=== PATIENT | male | born 1945 | race Caucasian/White ===

== ENCOUNTER 2020-12-15 16:29 | Inpatient (IN) | payer OTHER, MEDICARE, SELFPAY ==
[2020-12-15] VITALS (31 sets, daily range): BP systolic 84–168; BP diastolic 57–97; PULSE 65–138; RESP 19–26; TEMP 36.7–36.9; O2SAT 81–100; BMI 36.1
--- NOTE | 2020-12-15 17:25 | ECG_ITS ---
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 Measurements Intervals [place] Rate: 129 P: 29 DE: 96 QRS: 62 QRSD: 86 T: 155 QT: 289 QTc: 424 Interpretive Statements SINUS TACHYCARDIA WITH SHORT DE INTERVAL NONSPECIFIC ST & T-WAVE ABNORMALITY Compared to ECG 07/08/2017 00:50:49 T-wave abnormality now present Electronically Signed On 12-16-2020 17:43:21 CDT by Brendan Drake M.D. [email or web address]
--- NOTE | 2020-12-15 17:25 | XRR_ITS ---
PROCEDURE INFORMATION: Exam: XR Chest Exam date and time: 12/15/2020 5:25 PM Age: 75 years old Clinical indication: Cough and shortness of breath; Patient HX: N/v, SOB, cough, loss of appetite x 9days; Additional info: Hypoxia TECHNIQUE: Imaging protocol: XR of the chest. Views: 1 view. COMPARISON: CR Chest 1 [place] [id number] 07/07/2017 5:22 PM FINDINGS: Lungs: Unremarkable. No consolidation. Pleural spaces: Unremarkable. No pleural effusion. No pneumothorax. Heart/Mediastinum: Unremarkable. No cardiomegaly. Bones/joints: Unremarkable. XR/XR chest 1V portable [id number] IMPRESSION: No acute findings.
--- NOTE | 2020-12-15 17:34 | W.ED.GENADLT ---
Documented by User: Benjamin Hernandez DO 12/17/20 07:05 HPI - General Adult General: Chief complaint: General Medical Stated complaint: N/V, loss of appetite. Time Seen by Provider: 12/15/20 17:24 History of Present Illness: HPI narrative: 75-year-old male presents emergency room with complaints of shortness of breath nausea and vomiting and diarrhea. The onset of all this was about 10 to 12 days ago he had severe diarrhea that was persistent to the point where he felt like there really was nothing left to evacuate from his bowels now he began to have increasing weakness and shortness of breath. He has not previously been known to have Covid nor is he had any vaccination he is a regular smoker he has history of hypertension but does not have any history of heart disease.Patient presents severely hypoxic with respiratory rate of 24 O2 sat of 81% on room air. On 4 L/min he improved significantly up in the upper 90s. Onset (ago): day(s) (04-13) Severity: severe Relieving factors: rest Exacerbating factors: eating and movement Associated symptoms: Reports cough, diaphoresis, decreased appetite, dyspnea, fevers/chills, malaise, nausea, palpitations, short of breath and weakness; Deny chest pain, confusion, headache(s), rash, seizures, syncope or vomiting Treatments prior to arrival: none Review of Systems Const: Reports: malaise and diaphoresis ENMT: Denies: throat pain, ear or mastoid pain, nasal discharge or nasal congestion Card: Reports: palpitations; Denies: chest pain or syncope Resp: Reports: dyspnea GI: Reports: nausea; Denies: vomiting : Denies: flank pain, dysuria, urinary frequency or urinary urgency Skin/Breast: Denies: rash Neuro: Denies: headache(s) or confusion PFSH ED PFSH: Medical History (Updated 12/16/20 @ 03:18 by Abraham Mckeon MD) Chronic steroid use COPD (chronic obstructive pulmonary disease) DVT (deep venous thrombosis) Hyperlipidemia Hypertension Rheumatoid aortitis Tobacco abuse Surgical History (Updated 12/16/20 @ 03:18 by Abraham Mckeon MD) No pertinent past surgical history Social History (Updated 12/16/20 @ 03:19 by Abraham Mckeon MD) Smoking and tobacco status: current every day smoker Alcohol intake: never Substance/Drug Use: never Physical Exam Const: COMMON NORMALS: no acute distress GENERAL APPEARANCE: cooperative and comfortable ORIENTATION/CONSCIOUSNESS: Yes awake, Yes oriented to person, Yes oriented to place and Yes oriented to time HENMT: COMMON NORMALS: normocephalic, atraumatic, hearing grossly normal bilaterally and external ears normal HEAD & SCALP: normocephalic and atraumatic EXTERNAL EAR: Yes external ears normal Neck/C-Spine: COMMON NORMALS: no JVD Resp: AUSCULTATION: crackles, wheezes and diminished lung sounds Cardio: COMMON NORMALS: no JVD, regular rate, regular rhythm and No murmurs present (Cardio) RATE: regular rate RHYTHM: regular rhythm GI: COMMON NORMALS: Soft to palpation and No hepatosplenomegaly present AUSCULTATION: Yes normoactive bowel sounds PALPATION: Yes Soft to palpation, No Tenderness to palpation present (GI), No Guarding due to palpation present (GI) and Yes No hepatosplenomegaly present Extremity: COMMON NORMALS: normal to inspection, capillary refill normal, no clubbing, cyanosis or edema, no calf tenderness and no pedal edema Neuro: SENSORIUM/ORIENTATION: Yes oriented to person, Yes oriented to place and Yes oriented to time Skin: COMMON NORMALS: no rashes or lesions noted GENERAL SKIN EXAM: no rashes or lesions noted Course Vital Signs: Vital signs: Vital Signs Temperature 97.8 F 12/17/20 00:00 Pulse Rate 89 12/17/20 06:00 Respiratory Rate 20 H 12/17/20 02:30 Blood Pressure 119/58 12/17/20 04:00 Pulse Oximetry 93 12/17/20 04:00 MDM - General Adult MDM Narrative: Medical decision making narrative: Care initiated by myself none turned over to Dr. Schaefer at change of shift see his notes for final diagnosis and disposition Lab Data: Labs: Lab Results 12/15/20 12/15/20 12/15/20 Range/Units 17:56 18:04 18:04 WBC 10.7 H (4.0-10.0) 10^3/ uL RBC 5.10 (4.1-5.3) 10^6/u L Hgb 14.8 (11.7-16.6) g/dL Hct 46.5 (42.0-52.0) % MCV 91.2 (80-94) fL MCH 29.0 (28.0-34.0) pg MCHC 31.8 (30.0-36.0) g/dL RDW 15.2 H (12.1-15.1) % Plt Count 233 (130-400) 10^3/c mm MPV 9.7 (7.4-10.4) fL Neut % (Auto) 78.1 % Lymph % (Auto) 4.8 % [place] % (Auto) 11.9 % Eos % (Auto) 1.8 % Baso % (Auto) 0.8 % Neut # (Auto) 8.37 H (1.8-7.7) 10^3/u L Lymph # (Auto) 0.5 L (0.8-4.8) 10^3/u L [place] # (Auto) 1.3 H (0.2-0.9) 10^3/u L Eos # (Auto) 0.2 (0.0-0.8) 10^3/u L Baso # (Auto) 0.1 (0.0-0.1) 10^3/u L Nucleated RBC % (a uto) 0 % Nucleated RBCs # 0.0 /100WBC D-Dimer (0-0.59) ug/mIFE U Specimen Type Arterial Sample Site Brachial, right ABG pH 7.29 L (7.35-7.45) ABG pCO2 22.4 L (35-45) mmHg ABG pO2 153.0 H (80.0-100.0) mmH g ABG HCO3 10.8 L (22-26) mmol/L ABG O2 Saturation 99.2 ABG Base Excess -13.6 L (-2.0-2.0) mmol/ L Mendez Test N/a A-a O2 Gradient 16.7 H (5-10) mmHg Hematocrit 44.7 (42-52) % Hgb O2 Saturation 98.0 (95-100) % Carboxyhemoglobin 0.6 (0.4-20.1) %THgb Methemoglobin 0.6 (0.4-1.5) % Total Hemoglobin 14.6 (14-18) g/dL Sodium 128.0 L 128 L (131-143) mmol/L Potassium 4.1 4.3 (3.5-5.0) mmol/L Glucose 290.0 H 276 H (70-115) mg/dL Ionized Calcium 1.2 (1.1-1.4) mmol/L O2 Delivery Device Nc O2 Liters/Min 6.0 % FiO2 44.0 % Production Control Analyst ID Ed Chloride 93 L (98-107) mmol/L Carbon Dioxide 11 L (22-29) mmol/L Anion Gap 28.3 H (5-19) BUN 18 (8-23) mg/dL Creatinine 1.7 H (0.7-1.2) mg/dL GFR Calculation Not Reportable Calculated Osmolal ity 278 L (285-295) mOsm/k g Lactic Acid (0.5-2.2) mmol/L Calcium 8.9 (8.5-10.5) mg/dL Total Bilirubin 0.5 (0.15-1.2) mg/dL AST 26 (0-40) U/L ALT 19 (0-41) U/L Alkaline Phosphata se 70 (40-130) IU/L Troponin T Baselin e (0-15) ng/L NT-Pro-B Natriuret Pep 597 H (0-125) pg/mL Total Protein 6.1 L (6.6-8.7) g/dL Albumin 2.7 L (3.5-5.2) g/dL Globulin 3.4 (1.3-4.6) g/dL Lipase 11 L (13-60) U/L SARS-CoV-2 Ag (Rap id) (Negative) 12/15/20 12/15/20 12/15/20 Range/Units 18:04 18:04 18:07 WBC (4.0-10.0) 10^3/ uL RBC (4.1-5.3) 10^6/u L Hgb (11.7-16.6) g/dL Hct (42.0-52.0) % MCV (80-94) fL MCH (28.0-34.0) pg MCHC (30.0-36.0) g/dL RDW (12.1-15.1) % Plt Count (130-400) 10^3/c mm MPV (7.4-10.4) fL Neut % (Auto) % Lymph % (Auto) % [place] % (Auto) % Eos % (Auto) % Baso % (Auto) % Neut # (Auto) (1.8-7.7) 10^3/u L Lymph # (Auto) (0.8-4.8) 10^3/u L [place] # (Auto) (0.2-0.9) 10^3/u L Eos # (Auto) (0.0-0.8) 10^3/u L Baso # (Auto) (0.0-0.1) 10^3/u L Nucleated RBC % (a uto) % Nucleated RBCs # /100WBC D-Dimer 19.46 H (0-0.59) ug/mIFE U Specimen Type Sample Site ABG pH (7.35-7.45) ABG pCO2 (35-45) mmHg ABG pO2 (80.0-100.0) mmH g ABG HCO3 (22-26) mmol/L ABG O2 Saturation ABG Base Excess (-2.0-2.0) mmol/ L Mendez Test A-a O2 Gradient (5-10) mmHg Hematocrit (42-52) % Hgb O2 Saturation (95-100) % Carboxyhemoglobin (0.4-20.1) %THgb Methemoglobin (0.4-1.5) % Total Hemoglobin (14-18) g/dL Sodium (131-143) mmol/L Potassium (3.5-5.0) mmol/L Glucose (70-115) mg/dL Ionized Calcium (1.1-1.4) mmol/L O2 Delivery Device O2 Liters/Min % FiO2 % Production Control Analyst ID Chloride (98-107) mmol/L Carbon Dioxide (22-29) mmol/L Anion Gap (5-19) BUN (8-23) mg/dL Creatinine (0.7-1.2) mg/dL GFR Calculation Calculated Osmolal ity (285-295) mOsm/k g Lactic Acid 2.7 H (0.5-2.2) mmol/L Calcium (8.5-10.5) mg/dL Total Bilirubin (0.15-1.2) mg/dL AST (0-40) U/L ALT (0-41) U/L Alkaline Phosphata se (40-130) IU/L Troponin T Baselin e 61 H (0-15) ng/L NT-Pro-B Natriuret Pep (0-125) pg/mL Total Protein (6.6-8.7) g/dL Albumin (3.5-5.2) g/dL Globulin (1.3-4.6) g/dL Lipase (13-60) U/L SARS-CoV-2 Ag (Rap id) (Negative) 12/15/20 Range/Units 18:15 WBC (4.0-10.0) 10^3/ uL RBC (4.1-5.3) 10^6/u L Hgb (11.7-16.6) g/dL Hct (42.0-52.0) % MCV (80-94) fL MCH (28.0-34.0) pg MCHC (30.0-36.0) g/dL RDW (12.1-15.1) % Plt Count (130-400) 10^3/c mm MPV (7.4-10.4) fL Neut % (Auto) % Lymph % (Auto) % [place] % (Auto) % Eos % (Auto) % Baso % (Auto) % Neut # (Auto) (1.8-7.7) 10^3/u L Lymph # (Auto) (0.8-4.8) 10^3/u L [place] # (Auto) (0.2-0.9) 10^3/u L Eos # (Auto) (0.0-0.8) 10^3/u L Baso # (Auto) (0.0-0.1) 10^3/u L Nucleated RBC % (a uto) % Nucleated RBCs # /100WBC D-Dimer (0-0.59) ug/mIFE U Specimen Type Sample Site ABG pH (7.35-7.45) ABG pCO2 (35-45) mmHg ABG pO2 (80.0-100.0) mmH g ABG HCO3 (22-26) mmol/L ABG O2 Saturation ABG Base Excess (-2.0-2.0) mmol/ L Mendez Test A-a O2 Gradient (5-10) mmHg Hematocrit (42-52) % Hgb O2 Saturation (95-100) % Carboxyhemoglobin (0.4-20.1) %THgb Methemoglobin (0.4-1.5) % Total Hemoglobin (14-18) g/dL Sodium (131-143) mmol/L Potassium (3.5-5.0) mmol/L Glucose (70-115) mg/dL Ionized Calcium (1.1-1.4) mmol/L O2 Delivery Device O2 Liters/Min % FiO2 % Production Control Analyst ID Chloride (98-107) mmol/L Carbon Dioxide (22-29) mmol/L Anion Gap (5-19) BUN (8-23) mg/dL Creatinine (0.7-1.2) mg/dL GFR Calculation Calculated Osmolal ity (285-295) mOsm/k g Lactic Acid (0.5-2.2) mmol/L Calcium (8.5-10.5) mg/dL Total Bilirubin (0.15-1.2) mg/dL AST (0-40) U/L ALT (0-41) U/L Alkaline Phosphata se (40-130) IU/L Troponin T Baselin e (0-15) ng/L NT-Pro-B Natriuret Pep (0-125) pg/mL Total Protein (6.6-8.7) g/dL Albumin (3.5-5.2) g/dL Globulin (1.3-4.6) g/dL Lipase (13-60) U/L SARS-CoV-2 Ag (Rap id) Positive H (Negative) EKG Data^: EKG 1: Computer generated interpretation: Chest X-Ray 12/15/20 17:25 IMPRESSION: No acute findings. Knee X-Ray 12/15/20 22:38 IMPRESSION: 1. No acute fracture or joint effusion. Abdomen/Pelvis CT 12/16/20 00:07 IMPRESSION: 1. No acute pathology in the abdomen or pelvis. 2. Bilateral renal masses. Further evaluation with contrast enhanced abdomen MRI in a non emergent basis is recommended. COMMENTS: Consistent with the [employer]'s Incidental Findings Committee white paper (J Am Lisa Radiol 2018): Any incidental renal lesion less than 1 cm or classified as too small to characterize, or any incidental cystic renal lesion characterized as simple-appearing, is likely benign. No follow-up imaging is recommended for these lesions per consensus recommendations based on imaging criteria. Radiation Dose CTDIVOL = (mGy): DLP = 1676.5 (mGy-cm) Renal Ultrasound 12/16/20 22:46 IMPRESSION: 1. No hydronephrosis in either kidney. 2. Simple right renal cyst measuring 2.4 x 2.2 x 2.6 CM. 3. Normal bladder. EKG 2: Computer generated interpretation: Chest X-Ray 12/15/20 17:25 IMPRESSION: No acute findings. Knee X-Ray 12/15/20 22:38 IMPRESSION: 1. No acute fracture or joint effusion. Abdomen/Pelvis CT 12/16/20 00:07 IMPRESSION: 1. No acute pathology in the abdomen or pelvis. 2. Bilateral renal masses. Further evaluation with contrast enhanced abdomen MRI in a non emergent basis is recommended. COMMENTS: Consistent with the [employer]'s Incidental Findings Committee white paper (J Am Lisa Radiol 2018): Any incidental renal lesion less than 1 cm or classified as too small to characterize, or any incidental cystic renal lesion characterized as simple-appearing, is likely benign. No follow-up imaging is recommended for these lesions per consensus recommendations based on imaging criteria. Radiation Dose CTDIVOL = (mGy): DLP = 1676.5 (mGy-cm) Renal Ultrasound 12/16/20 22:46 IMPRESSION: 1. No hydronephrosis in either kidney. 2. Simple right renal cyst measuring 2.4 x 2.2 x 2.6 CM. 3. Normal bladder. ABG Data^: ABG Interpretation 1: ABG results: 12/15/20 17:56 ABG pH 7.29 L ABG pCO2 22.4 L ABG pO2 153.0 H ABG HCO3 10.8 L ABG O2 Saturation 99.2 ABG Base Excess -13.6 L Discharge Plan Discharge Patient Disposition: Admitted As Inpatient Admit Provider: Abraham Mckeon Clinical Impression: COVID-19, Nausea vomiting and diarrhea, Acute dyspnea, Elevated lactic acid level Condition: Stable Coding Level of Care Code ED Inbound Customer Service Agent for Chg Fwd Exam Comprehensive Documented by User: Abe Schaefer MD 12/15/20 19:49 HPI - General Adult General: Chief complaint: General Medical Stated complaint: N/V, loss of appetite. Time Seen by Provider: 12/15/20 17:24 [facility] PFSH: Medical History (Updated 12/16/20 @ 03:18 by Abraham Mckeon MD) Chronic steroid use COPD (chronic obstructive pulmonary disease) DVT (deep venous thrombosis) Hyperlipidemia Hypertension Rheumatoid aortitis Tobacco abuse Surgical History (Updated 12/16/20 @ 03:18 by Abraham Mckeon MD) No pertinent past surgical history Social History (Updated 12/16/20 @ 03:19 by Abraham Mckeon MD) Smoking and tobacco status: current every day smoker Alcohol intake: never Substance/Drug Use: never Course Reevaluation(s): Reevaluation #1: Patient's pulse ox 98% patient still some tachycardia given IV fluids. I did discuss at length with the patient about concerns of coronavirus and positive Covid test. Patient states he has had symptoms for 12 days including shortness of breath nausea vomiting diarrhea. Patient be getting Vanco and Flagyl. Patient is allergic to penicillins. Patient also received 10 mg of Decadron. Patient is agreeable for admission to the hospital Time: 19:48 Consultations: Consultation #1: I did discuss at length with hospitalist Dr. Mckeon. He will see patient around additional orders. Patient will be admitted to the ICU. Vital Signs: Vital signs: Vital Signs Temperature 97.8 F 12/17/20 00:00 Pulse Rate 89 12/17/20 06:00 Respiratory Rate 20 H 12/17/20 02:30 Blood Pressure 119/58 12/17/20 04:00 Pulse Oximetry 93 12/17/20 04:00 MDM - General Adult MDM Narrative: Medical decision making narrative: HPI narrative: 75-year-old male presents emergency room with complaints of shortness of breath nausea and vomiting and diarrhea. The onset of all this was about 10 to 12 days ago he had severe diarrhea that was persistent to the point where he felt like there really was nothing left to evacuate from his bowels now he began to have increasing weakness and shortness of breath. He has not previously been known to have Covid nor is he had any vaccination he is a regular smoker he has history of hypertension but does not have any history of heart disease.Patient presents severely hypoxic with respiratory rate of 24 O2 sat of 81% on room air. On 4 L/min he improved significantly up in the upper 90s. Patient's pulse ox 98% patient still some tachycardia given IV fluids. I did discuss at length with the patient about concerns of coronavirus and positive Covid test. Patient states he has had symptoms for 12 days including shortness of breath nausea vomiting diarrhea. Patient be getting Vanco and Flagyl. Patient is allergic to penicillins. Patient also received 10 mg of Decadron. Patient is agreeable for admission to the hospital I did discuss at length with hospitalist Dr. Mckeon. He will see patient around additional orders. Patient will be admitted to the ICU. Lab Data: Labs: Lab Results 12/15/20 12/15/20 12/15/20 Range/Units 17:56 18:04 18:04 WBC 10.7 H (4.0-10.0) 10^3/ uL RBC 5.10 (4.1-5.3) 10^6/u L Hgb 14.8 (11.7-16.6) g/dL Hct 46.5 (42.0-52.0) % MCV 91.2 (80-94) fL MCH 29.0 (28.0-34.0) pg MCHC 31.8 (30.0-36.0) g/dL RDW 15.2 H (12.1-15.1) % Plt Count 233 (130-400) 10^3/c mm MPV 9.7 (7.4-10.4) fL Neut % (Auto) 78.1 % Lymph % (Auto) 4.8 % [place] % (Auto) 11.9 % Eos % (Auto) 1.8 % Baso % (Auto) 0.8 % Neut # (Auto) 8.37 H (1.8-7.7) 10^3/u L Lymph # (Auto) 0.5 L (0.8-4.8) 10^3/u L [place] # (Auto) 1.3 H (0.2-0.9) 10^3/u L Eos # (Auto) 0.2 (0.0-0.8) 10^3/u L Baso # (Auto) 0.1 (0.0-0.1) 10^3/u L Nucleated RBC % (a uto) 0 % Nucleated RBCs # 0.0 /100WBC D-Dimer (0-0.59) ug/mIFE U Specimen Type Arterial Sample Site Brachial, right ABG pH 7.29 L (7.35-7.45) ABG pCO2 22.4 L (35-45) mmHg ABG pO2 153.0 H (80.0-100.0) mmH g ABG HCO3 10.8 L (22-26) mmol/L ABG O2 Saturation 99.2 ABG Base Excess -13.6 L (-2.0-2.0) mmol/ L Mendez Test N/a A-a O2 Gradient 16.7 H (5-10) mmHg Hematocrit 44.7 (42-52) % Hgb O2 Saturation 98.0 (95-100) % Carboxyhemoglobin 0.6 (0.4-20.1) %THgb Methemoglobin 0.6 (0.4-1.5) % Total Hemoglobin 14.6 (14-18) g/dL Sodium 128.0 L 128 L (131-143) mmol/L Potassium 4.1 4.3 (3.5-5.0) mmol/L Glucose 290.0 H 276 H (70-115) mg/dL Ionized Calcium 1.2 (1.1-1.4) mmol/L O2 Delivery Device Nc O2 Liters/Min 6.0 % FiO2 44.0 % Production Control Analyst ID Ed Chloride 93 L (98-107) mmol/L Carbon Dioxide 11 L (22-29) mmol/L Anion Gap 28.3 H (5-19) BUN 18 (8-23) mg/dL Creatinine 1.7 H (0.7-1.2) mg/dL GFR Calculation Not Reportable Calculated Osmolal ity 278 L (285-295) mOsm/k g Lactic Acid (0.5-2.2) mmol/L Calcium 8.9 (8.5-10.5) mg/dL Total Bilirubin 0.5 (0.15-1.2) mg/dL AST 26 (0-40) U/L ALT 19 (0-41) U/L Alkaline Phosphata se 70 (40-130) IU/L Troponin T Baselin e (0-15) ng/L NT-Pro-B Natriuret Pep 597 H (0-125) pg/mL Total Protein 6.1 L (6.6-8.7) g/dL Albumin 2.7 L (3.5-5.2) g/dL Globulin 3.4 (1.3-4.6) g/dL Lipase 11 L (13-60) U/L SARS-CoV-2 Ag (Rap id) (Negative) 12/15/20 12/15/20 12/15/20 Range/Units 18:04 18:04 18:07 WBC (4.0-10.0) 10^3/ uL RBC (4.1-5.3) 10^6/u L Hgb (11.7-16.6) g/dL Hct (42.0-52.0) % MCV (80-94) fL MCH (28.0-34.0) pg MCHC (30.0-36.0) g/dL RDW (12.1-15.1) % Plt Count (130-400) 10^3/c mm MPV (7.4-10.4) fL Neut % (Auto) % Lymph % (Auto) % [place] % (Auto) % Eos % (Auto) % Baso % (Auto) % Neut # (Auto) (1.8-7.7) 10^3/u L Lymph # (Auto) (0.8-4.8) 10^3/u L [place] # (Auto) (0.2-0.9) 10^3/u L Eos # (Auto) (0.0-0.8) 10^3/u L Baso # (Auto) (0.0-0.1) 10^3/u L Nucleated RBC % (a uto) % Nucleated RBCs # /100WBC D-Dimer 19.46 H (0-0.59) ug/mIFE U Specimen Type Sample Site ABG pH (7.35-7.45) ABG pCO2 (35-45) mmHg ABG pO2 (80.0-100.0) mmH g ABG HCO3 (22-26) mmol/L ABG O2 Saturation ABG Base Excess (-2.0-2.0) mmol/ L Mendez Test A-a O2 Gradient (5-10) mmHg Hematocrit (42-52) % Hgb O2 Saturation (95-100) % Carboxyhemoglobin (0.4-20.1) %THgb Methemoglobin (0.4-1.5) % Total Hemoglobin (14-18) g/dL Sodium (131-143) mmol/L Potassium (3.5-5.0) mmol/L Glucose (70-115) mg/dL Ionized Calcium (1.1-1.4) mmol/L O2 Delivery Device O2 Liters/Min % FiO2 % Production Control Analyst ID Chloride (98-107) mmol/L Carbon Dioxide (22-29) mmol/L Anion Gap (5-19) BUN (8-23) mg/dL Creatinine (0.7-1.2) mg/dL GFR Calculation Calculated Osmolal ity (285-295) mOsm/k g Lactic Acid 2.7 H (0.5-2.2) mmol/L Calcium (8.5-10.5) mg/dL Total Bilirubin (0.15-1.2) mg/dL AST (0-40) U/L ALT (0-41) U/L Alkaline Phosphata se (40-130) IU/L Troponin T Baselin e 61 H (0-15) ng/L NT-Pro-B Natriuret Pep (0-125) pg/mL Total Protein (6.6-8.7) g/dL Albumin (3.5-5.2) g/dL Globulin (1.3-4.6) g/dL Lipase (13-60) U/L SARS-CoV-2 Ag (Rap id) (Negative) 12/15/20 Range/Units 18:15 WBC (4.0-10.0) 10^3/ uL RBC (4.1-5.3) 10^6/u L Hgb (11.7-16.6) g/dL Hct (42.0-52.0) % MCV (80-94) fL MCH (28.0-34.0) pg MCHC (30.0-36.0) g/dL RDW (12.1-15.1) % Plt Count (130-400) 10^3/c mm MPV (7.4-10.4) fL Neut % (Auto) % Lymph % (Auto) % [place] % (Auto) % Eos % (Auto) % Baso % (Auto) % Neut # (Auto) (1.8-7.7) 10^3/u L Lymph # (Auto) (0.8-4.8) 10^3/u L [place] # (Auto) (0.2-0.9) 10^3/u L Eos # (Auto) (0.0-0.8) 10^3/u L Baso # (Auto) (0.0-0.1) 10^3/u L Nucleated RBC % (a uto) % Nucleated RBCs # /100WBC D-Dimer (0-0.59) ug/mIFE U Specimen Type Sample Site ABG pH (7.35-7.45) ABG pCO2 (35-45) mmHg ABG pO2 (80.0-100.0) mmH g ABG HCO3 (22-26) mmol/L ABG O2 Saturation ABG Base Excess (-2.0-2.0) mmol/ L Mendez Test A-a O2 Gradient (5-10) mmHg Hematocrit (42-52) % Hgb O2 Saturation (95-100) % Carboxyhemoglobin (0.4-20.1) %THgb Methemoglobin (0.4-1.5) % Total Hemoglobin (14-18) g/dL Sodium (131-143) mmol/L Potassium (3.5-5.0) mmol/L Glucose (70-115) mg/dL Ionized Calcium (1.1-1.4) mmol/L O2 Delivery Device O2 Liters/Min % FiO2 % Production Control Analyst ID Chloride (98-107) mmol/L Carbon Dioxide (22-29) mmol/L Anion Gap (5-19) BUN (8-23) mg/dL Creatinine (0.7-1.2) mg/dL GFR Calculation Calculated Osmolal ity (285-295) mOsm/k g Lactic Acid (0.5-2.2) mmol/L Calcium (8.5-10.5) mg/dL Total Bilirubin (0.15-1.2) mg/dL AST (0-40) U/L ALT (0-41) U/L Alkaline Phosphata se (40-130) IU/L Troponin T Baselin e (0-15) ng/L NT-Pro-B Natriuret Pep (0-125) pg/mL Total Protein (6.6-8.7) g/dL Albumin (3.5-5.2) g/dL Globulin (1.3-4.6) g/dL Lipase (13-60) U/L SARS-CoV-2 Ag (Rap id) Positive H (Negative) Imaging Data^: CXR: Attestation: I personally reviewed and interpreted this imaging study as follows: Radiologist's impression: IMPRESSION: No acute findings. EKG Data^: EKG 1: Attestation: I personally reviewed and interpreted this EKG as follows: EKG interpretation date: 12/15/20 EKG interpretation time: 17:29 Prior EKG tracings: not available for review Interpretation: Sinus tachycardia with a short GA interval nonspecific ST changes heart rate 29 Computer generated interpretation: Chest X-Ray 12/15/20 17:25 IMPRESSION: No acute findings. Knee X-Ray 12/15/20 22:38 IMPRESSION: 1. No acute fracture or joint effusion. Abdomen/Pelvis CT 12/16/20 00:07 IMPRESSION: 1. No acute pathology in the abdomen or pelvis. 2. Bilateral renal masses. Further evaluation with contrast enhanced abdomen MRI in a non emergent basis is recommended. COMMENTS: Consistent with the [employer]'s Incidental Findings Committee white paper (J Am Lisa Radiol 2018): Any incidental renal lesion less than 1 cm or classified as too small to characterize, or any incidental cystic renal lesion characterized as simple-appearing, is likely benign. No follow-up imaging is recommended for these lesions per consensus recommendations based on imaging criteria. Radiation Dose CTDIVOL = (mGy): DLP = 1676.5 (mGy-cm) Renal Ultrasound 12/16/20 22:46 IMPRESSION: 1. No hydronephrosis in either kidney. 2. Simple right renal cyst measuring 2.4 x 2.2 x 2.6 CM. 3. Normal bladder. EKG 2: Attestation: I personally reviewed and interpreted this EKG as follows: EKG interpretation date: 12/15/20 EKG interpretation time: 19:14 Prior EKG tracings: available for review Computer generated interpretation: Chest X-Ray 12/15/20 17:25 IMPRESSION: No acute findings. Knee X-Ray 12/15/20 22:38 IMPRESSION: 1. No acute fracture or joint effusion. Abdomen/Pelvis CT 12/16/20 00:07 IMPRESSION: 1. No acute pathology in the abdomen or pelvis. 2. Bilateral renal masses. Further evaluation with contrast enhanced abdomen MRI in a non emergent basis is recommended. COMMENTS: Consistent with the [employer]'s Incidental Findings Committee white paper (J Am Lisa Radiol 2018): Any incidental renal lesion less than 1 cm or classified as too small to characterize, or any incidental cystic renal lesion characterized as simple-appearing, is likely benign. No follow-up imaging is recommended for these lesions per consensus recommendations based on imaging criteria. Radiation Dose CTDIVOL = (mGy): DLP = 1676.5 (mGy-cm) Renal Ultrasound 12/16/20 22:46 IMPRESSION: 1. No hydronephrosis in either kidney. 2. Simple right renal cyst measuring 2.4 x 2.2 x 2.6 CM. 3. Normal bladder. Sinus tachycardia with occasional is PVC. Heart rate [address] changes. ABG Data^: ABG Interpretation 1: ABG results: 12/15/20 17:56 ABG pH 7.29 L ABG pCO2 22.4 L ABG pO2 153.0 H ABG HCO3 10.8 L ABG O2 Saturation 99.2 ABG Base Excess -13.6 L pH 7.29 PCO2 22.4 PO2 153 Attestation: I personally reviewed and interpreted this ABG as follows: Critical Care Time Critical Care Time: Critical Care Time: Yes Total Critical Care Time: 120 Attestation: Critical care ED Discharge Plan Discharge Patient Disposition: Admitted As Inpatient Admit Provider: Abraham Mckeon Clinical Impression: COVID-19, Nausea vomiting and diarrhea, Acute dyspnea, Elevated lactic acid level Condition: Stable Coding Level of Care Code ED Inbound Customer Service Agent for Chg Fwd Exam Comprehensive
[2020-12-15 18:05] LABS: ABG PCO2 22.4 mmHg (35-45); ABG PH Result 7.29 (7.35-7.45); Arterial Blood Gas Hematocrit 44.7 % (42-52); Base Excess ABG -13.6 mmol/L (-2.0-2.0); Blood Gas Sample Type Arterial; Carboxyhemoglobin 0.6 %THgb (0.4-20.1); HCO3 ABG 10.8 mmol/L (22-26); Ionized Calcium Level - ABG 1.2 mmol/L (1.1-1.4); Methemoglobin 0.6 % (0.4-1.5); Oxygen Saturation ABG 99.2; Potassium Level - ABG 4.1 mmol/L (3.5-5.0); Total Hemoglobin 14.6 g/dL (14-18)
[2020-12-15 18:06] LABS: Alveolar-Arterial Oxygen Gradi 16.7 mmHg (5-10); Blood Gas Operator Identificat ED; Blood Gas Sample Site Brachial, right; Oxygen Device NC
[2020-12-15 18:26] LABS: Basophils # 0.1 10^3/uL (0.0-0.1); Basophils % 0.8 %; Eosinophils # 0.2 10^3/uL (0.0-0.8); Eosinophils % 1.8 %; Hematocrit 46.5 % (42.0-52.0); Hemoglobin 14.8 g/dL (11.7-16.6); Lymphocytes # 0.5 10^3/uL (0.8-4.8); Lymphocytes % 4.8 %; Mean Corpuscular HGB Conc 31.8 g/dL (30.0-36.0); Mean Corpuscular Volume 91.2 fL (80-94); Mean Platelet Volume 9.7 fL (7.4-10.4); Monocytes # 1.3 10^3/uL (0.2-0.9); Monocytes % 11.9 %; Neutrophils # 8.37 10^3/uL (1.8-7.7); Neutrophils % 78.1 %; Nucleated Red Blood Cells % 0 %; Platelet Count 233 10^3/cmm (130-400); Red Cell Distribution Width 15.2 % (12.1-15.1); White Blood Count 10.7 10^3/uL (4.0-10.0)
[2020-12-15 18:58] LABS: Lactic Sepsis W/Reflex 2.7 mmol/L (0.5-2.2)
[2020-12-15 19:01] LABS: Troponin(5th) Baseline 61 ng/L (0-15)
[2020-12-15] MEDS: sodium chloride 0.9% 1,000 ML 999 ML IV (19:02)
[2020-12-15 19:10] LABS: Alanine Aminotransferase 19 U/L (0-41); Albumin Level 2.7 g/dL (3.5-5.2); Alkaline Phosphatase 70 IU/L (40-130); Anion Gap 28.3 (5-19); Aspartate Amino Transferase 26 U/L (0-40); Blood Urea Nitrogen 18 mg/dL (8-23); Calcium 8.9 mg/dL (8.5-10.5); Carbon Dioxide 11 mmol/L (22-29); Chloride 93 mmol/L (98-107); Globulin 3.4 g/dL (1.3-4.6); Glucose 276 mg/dL (65-115); Lipase 11 U/L (13-60); NT Pro B Type Natriuretic Pept 597 pg/mL (0-125); Osmolality Calculated 278 mOsm/kg (285-295); Potassium 4.3 mmol/L (3.5-5.1); Sodium 128 mmol/L (136-145); Total Bilirubin 0.5 mg/dL (0.15-1.2); Total Protein 6.1 g/dL (6.6-8.7)
[2020-12-15 19:20] LABS: SARS Covid-2 Antigen Positive (Negative)
--- NOTE | 2020-12-15 19:25 | ECG_ITS ---
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 Measurements Intervals Golden Rate: 132 P: 69 NC: 137 QRS: 50 QRSD: 82 T: 156 QT: 271 QTc: 402 Interpretive Statements SINUS TACHYCARDIA WITH OCCASIONAL SUPRAVENTRICULAR PREMATURE COMPLEXES ST DEVIATION AND MODERATE T-WAVE ABNORMALITY, CONSIDER LATERAL ISCHEMIA [-0.1+ mV T WAVE IN I/aVL/V5/V6] Compared to ECG 12/15/2020 17:29:55 Possible ischemia now present Short NC interval no longer present T-wave abnormality still present Electronically Signed On 12-16-2020 17:48:13 CDT by Brendan Drake M.D. [id number]
[2020-12-15 19:36] LABS: D Dimer 19.46 ug/mIFEU (0-0.59)
[2020-12-15] MEDS: dexamethasone 10 mg/mL INJ IVP (19:50)
[2020-12-15] MEDS: metroNIDAZOLE IV 500 MG/100 ML PREMIX 100 MG IV (19:53)
[2020-12-15 20:09] LABS: Reflex Lactate Order REFLEX LACTIC ORDERD
[2020-12-15 20:36] LABS: Troponin 5 2HR 55.39 ng/L (0-15)
[2020-12-15 20:37] LABS: Troponin 5 2HR Delta -5.61 ABS# (0-10)
[2020-12-15] MEDS: vancomycin 1,000 MG in sodium chloride 0.9% 250 ML 250 MG IV (20:57)
[2020-12-15] MEDS: sodium chloride 0.9% 500 ML IV (21:39)
--- NOTE | 2020-12-15 22:21 | P.HP_ITS ---
Providers/Chief Complaint Admitting Physician: Abraham Mckeon Primary Care Provider: Marshal Downs Chief Complaint: N/V, loss of appetite. History of Present Illness 75-year-old male with a past medical history significant for rheumatoid arthritis on chronic steroids, diabetes mellitus, hypertension, hyperlipidemia, DVT on Pradaxa, tobacco abuse, and chronic obstructive pulmonary disease who presented to hospital with difficulty breathing in addition to multiple complaints. He has also been complaining of abdominal pain, nausea, vomiting x 1 earlier today and persistent non-bloody diarrhea. Noted poor appetite or ability to tolerate any oral intake other than clear liquids. Has not been able to take any of his medications for > 9 days. Patient was noted to have a diffuse rash which he states has been going on for a over a year. Has never been biopsied, non-pruritic, states it improves when he takes a shower. Shortly after arrival he has also started to complain of joint pain particularly in right knee. No fever or chills. Denied pleuritic chest pain. Upon arrival to ER he was also noted to be hypoxic with oxygen saturation in low 80s. He was placed on 4L of o2 via NC. Laboratory workup on arrival showed a WBC of 10.7, hemoglobin of 14.8, hematocrit of 46.5 and platelet count of 233. Sodium 128, potassium 4.3, chloride 93, bicarb 11, BUN 18 over creatinine of 1.7. Prior creatinine of 0.9 in 2018. AST of 26, ALT of 19, ALP of 70. Lactic acid of 4.0 with a repeat of 2.7. Delta troponin T - neg 5.61, ProBNP of 597, lipase of 17. COVID-19 ag positive. ABG showed a PH of 7.29, pCO2 fo 22.4, p02 of 153.0 and HCO3 of 10.8. INR of 1.16. Pro-calcitonin of 0.30. UA ordered however pending. Imaging studies did not show any evidence of acute cardiopulmonary abnormality. In ER patient was given vancomycin 1g IV x 1, Flagyl 500 mg IV x 1, 1.5l bolus of NS and Decadron 10 mg IV x 1. Review of Systems General: Reports: 10 or more systems reviewed and unremarkable except in HPI and below Medications/Allergies Home Medications Medication Instructions Recorded Confirmed Last Taken Type alendronate 35 mg PO Q7D 12/15/20 12/15/20 Unknown History ascorbic acid (vitamin C) 250 mg PO DAILY 12/15/20 12/15/20 Unknown History atenolol 100 mg PO DAILY 12/15/20 12/15/20 Unknown History calcium carbonate [Calcium 500] 500 mg PO BID 12/15/20 12/15/20 Unknown History cholecalciferol (vitamin D3) 50 mcg PO DAILY 12/15/20 12/15/20 Unknown History cyanocobalamin (vitamin B-12) 1,000 mcg PO DAILY 12/15/20 12/15/20 Unknown History dabigatran etexilate 150 mg PO BID 12/15/20 12/15/20 Unknown History fluticasone propionate 1 spray INTRANASAL DAILY 12/15/20 12/15/20 Unknown History folic acid 2 mg PO DAILY 12/15/20 12/15/20 Unknown History insulin glargine 80 unit SUBCUT DAILY 12/15/20 12/15/20 Unknown History lisinopril-hydrochlorothiazide 1 tab PO DAILY 12/15/20 12/15/20 Unknown History pravastatin 40 mg PO DAILY 12/15/20 12/15/20 Unknown History prednisone 5 mg PO BID 12/15/20 12/15/20 Unknown History terbinafine HCl 1 applic TOPICAL BID 12/15/20 12/15/20 Unknown History Allergies Allergy/AdvReac Type Severity Reaction Status Date / Time codeine Allergy ALGY-Anaphy Verified 12/15/20 17:09 laxis Penicillins Allergy ALGY-Anaphy Verified 12/15/20 17:09 laxis PFSH Acute PFSH: Medical History (Updated 12/16/20 @ 03:18 by Abraham Mckeon MD) Chronic steroid use COPD (chronic obstructive pulmonary disease) DVT (deep venous thrombosis) Hyperlipidemia Hypertension Rheumatoid aortitis Tobacco abuse Surgical History (Updated 12/16/20 @ 03:18 by Abraham Mckeon MD) No pertinent past surgical history Social History (Updated 12/16/20 @ 03:19 by Abraham Mckeon MD) Smoking and tobacco status: current every day smoker Alcohol intake: never Substance/Drug Use: never Vitals/I&O/Wt Last Vital Signs Temp 98.6 F 12/16/20 00:15 Pulse 118 H 12/16/20 01:19 Resp 24 H 12/15/20 20:55 BP 160/89 12/16/20 00:25 Pulse Ox 95 12/16/20 01:21 12/15/20 12/15/20 12/16/20 14:59 22:59 06:59 Intake Total 350 / 350 Balance 350 / 350 Weight last 48 hrs Weight 83.915 kg Physical Exam Narrative: EXAM NARRATIVE: General : Alert - awake - oriented, Mild distress due to knee pain HEENT; Grossly unremarkable CVS: Tachycardia Chest CTABL ABD; Diffuse tenderness to palpation Ext : Edema Skin: diffuse non-specific rash Data : 12/15/20 18:04 12/15/20 18:04 Micro: Microbiology 12/15/20 18:50 Blood Culture - Preliminary Blood SPECIMEN COLLECTED 12/15/20 18:07 Blood Culture - Preliminary Blood SPECIMEN COLLECTED A&P Assessment and plan (1) Nausea vomiting and diarrhea: Status: Acute (2) Acute dyspnea: Status: Acute (3) Elevated lactic acid level: Status: Acute (4) COVID-19: Status: Acute Acute respiratory failure with hypoxia / COPD Exacerbation / possible PE Oxygen saturation 81 % on arrival Stated on Supplemental oxygen - on 2L via NC ABG after o2 stated - Ph of 7.29 Pco2 of 22.4, Po2 of 153, HCo3 of 10.8 D-dimer 19.46 Chest x-ray - No acute cardiopulmonary abnormality Unable to perform CTA due to renal failure Duoneb q6hr scheduled Solu-medrol 40 mg iV q8hr Abdominal pain, Nausea, Vomiting Possible viral gastroenteritis given COVID-[address] abd/pelvis w/o contrast ordered - pending If diarrhea recurs - consider stool studies NS at 75 cc/hr Zofran PRN for nauea Pro-mani -negative Acute Renal Failure / Anion Gap Metabolic Acidosis / Hyponatremia Possibly on chronic - no recent labs Normal Cr in 2018 Increased to 1.7 , NA 128 , CK 53 Dickerson insertion Hold home ian-inhibitor Urine NA/Cr/Cl/Uria/Osm Repeat BMP in am, monitor Consider nephrology consult Hx of DVT / Elevated D-dimer / Possible Pulmonary embolism Has not had Pradaxa for > 9 days - Held due to renal failure Started on Heparin gtt per weight based protocol Monitor PT/PTT Negative orly sign Consider transition to Eliquis at discharge Once renal fuction improves obtain CTA Chest PE protocol vs VQ scan Lactic Acidosis 4.0 -> 2.7 Repeat in AM On IVF COVID-19 Infection Chest x-ray - no acute abnormality Ferritin 322, CRP 224.1 S/p Decadron in ER Respiratory symptoms less likely due to COVID-19 On Solu-medrol No indication for Remdesivir Droplet precautions. Troponin Elevation Likely due to ADELAIDA No chest pain Delta T neg 5.61 Pro-BNP 597 Will obtain ECHO Rheumatoid Arthritis Flare / Rt. Knee pain Likely due to being off prednisone Started on Solu-medrol 40 mg IV q8hr Will likely need to transition to prednisone On 10 mg PO BID at home Obtain Rt. Knee x-ray PT/OT consult Non-specific diffuse non-pleuritic rash Etiology unclear Noted this to be chronic Monitor for allergic reaction May need Biopsy Hypertension Atenolol 100 mg PO daily Holding Ian-Inhibitor / HCTZ Diabetes Mellitus Sliding scale insulin QACHS checks A1c in AM Diabetic Diet Hyperlipidemia Pravastatin 40 mg Po daily GI ppx Protonix 40 mg PO daily DVT ppx SCD Heparin gtt Attestations Medical Necessity Statement*: Will require > 2 midnight stay in the hospital for management of multiple medical problems. Time Spent in Patient Care: Greater than 35 minutes (>than 50% of time spent in counselling and/or direct pt care on unit) . 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
--- NOTE | 2020-12-15 22:38 | XR_ITS ---
WS: [id number] Exam: XR knee RT 3V* [id number] Date/Time of Exam: 12/15/2020 10:43 PM Reason For Exam: knee pain No acute fracture or dislocation. The joint compartments are well maintained. No joint effusion. Ther e is widening of the intercondylar notch of the femur. Etiology is unclear. Vascular calcifications i n the adjacent soft tissues. XR/XR knee RT 3V* [id number] IMPRESSION: 1. No acute fracture or joint effusion.
[2020-12-15 23:15] LABS: INR 1.16 (0.8-1.2)
[2020-12-15] MEDS: sodium chloride 0.9% 1,000 ML 75 ML IV (23:19)
[2020-12-15] MEDS: cyclobenzaprine 10 mg Tablet PO (23:19)
[2020-12-15] MEDS: acetaminophen 325 mg Tablet 650 MG PO (23:19)
[2020-12-15 23:59] LABS: Glucose Point of Care 284 mg/dL (70-110)
[2020-12-16] VITALS (75 sets, daily range): BP systolic 81–174; BP diastolic 53–116; PULSE 72–128; RESP 20; TEMP 36.6–37; O2SAT 91–100
[2020-12-16 00:02] LABS: C Reactive Protein 224.1 mg/L (0.0-4.9); Creatine Phosphokinase 53 U/L (39-308)
--- NOTE | 2020-12-16 00:07 | CTR_ITS ---
PROCEDURE INFORMATION: Exam: CT Abdomen And Pelvis Without Contrast Exam date and time: 12/16/2020 12:07 AM Age: 75 years old Clinical indication: Other: Full body rash; Prior surgery; Surgery type: Hip; Patient HX: Rash all over body. History of ra. ; Additional info: New fouind rash TECHNIQUE: Imaging protocol: Computed tomography of the abdomen and pelvis without contrast. Radiation optimization: All CT scans at this facility use at least one of these dose optimization techniques: automated exposure control; mA and/or kV adjustment per patient size (includes targeted exams where dose is matched to clinical indication); or iterative reconstruction. COMPARISON: No relevant prior studies available. RADIATION DOSE METRICS: Total DLP (mGy-cm): 1676.5 FINDINGS: Heart: Normal heart size. Coronary atherosclerotic calcifications seen. No pericardial effusion. Liver: The liver is diffusely decreased in density, compatible with hepatic steatosis. No discrete mass lesion seen. Gallbladder and bile ducts: The gallbladder has been surgically removed. No intra or extrahepatic biliary ductal dilatation seen. Pancreas: Normal. No ductal dilation. Spleen: Normal. No splenomegaly. Adrenal glands: Normal. No mass. Kidneys and ureters: The right kidney demonstrates area of cortical thinning, which may represent chronic scarring or postsurgical changes. There is a 2.5 cm mass in the right lower kidney. There is a 2.0 cm mass in the posterior left lower kidney. Small bilateral renal cysts noted. No hydronephrosis or nephrolithiasis. Stomach and bowel: Unremarkable. No obstruction. No mucosal thickening. Appendix: No evidence of appendicitis. Intraperitoneal space: Unremarkable. No free air. No significant fluid collection. Vasculature: Mild diffuse atherosclerotic disease is present. Lymph nodes: Unremarkable. No enlarged lymph nodes. Urinary bladder: The urinary bladder is distended. Reproductive: Unremarkable as visualized. Bones/joints: Right hip ORIF hardware noted. Degenerative changes of the spine with grade 1 anterolisthesis of L4 noted. Soft tissues: Unremarkable. CT/CT abdomen pelvis wo con [id number] IMPRESSION: 1. No acute pathology in the abdomen or pelvis. 2. Bilateral renal masses. Further evaluation with contrast enhanced abdomen MRI in a non emergent basis is recommended. COMMENTS: Consistent with the [place] [employer]'s Incidental Findings Committee white paper (J Am Lisa Radiol 2018): Any incidental renal lesion less than 1 cm or classified as too small to characterize, or any incidental cystic renal lesion characterized as simple-appearing, is likely benign. No follow-up imaging is recommended for these lesions per consensus recommendations based on imaging criteria. Radiation Dose CTDIVOL = (mGy): DLP = 1676.5 (mGy-cm)
[2020-12-16 00:08] LABS: Ferritin 332 ng/mL (30-400)
[2020-12-16] MEDS: heparin 5,000 unit/mL INJ 1 mL IV ×2 (02:11→23:07)
[2020-12-16] MEDS: heparin drip 25,000 UNIT/500 ML PREMIX 23.5 UNIT IV (02:12)
--- NOTE | 2020-12-16 03:19 | USCV_ITS ---
Mendez Voss Age: 75 Gender: M : 1945 Exam Date: 12/16/2020 06:48 Ordering Phys: Abraham Mckeon MD Technologist: Exam Location: [facility] – [place], [place] Indication: ELEVATED TROP BP: 134 / 73 HR: 118 Rhythm: Sinus Technical Quality: Technically difficult study MEASUREMENTS (Male / Female) Normal Values 2D ECHO LV Diastolic Diameter PLAX 5.0 cm 4.2 - 5.9 / 3.9 - 5.3 cm LV Systolic Diameter PLAX 3.0 cm IVS Diastolic Thickness 1.3 cm 0.6 - 1.0 / 0.6 - 0.9 cm IVS Systolic Thickness 1.2 cm LVPW Diastolic Thickness 1.3 cm 0.6 - 1.0 / 0.6 - 0.9 cm LVPW Systolic Thickness 1.5 cm LVOT Diameter 2.1 cm LV Ejection Fraction 2D Teich 68.9 % LV Ejection Fraction MOD 2C 43.1 % LV Ejection Fraction 2C AL 42.8 % LA Diameter 3.6 cm LA Width 4.5 cm LA Height 5.5 cm RA Width 3.7 cm RA Height 5.0 cm DOPPLER AV Peak Velocity 113.7 cm/s LVOT Peak Velocity 77.0 cm/s AV Area Cont Eq vti 2.1 cm squared AV Area Cont Eq pk 2.3 cm squared MV Area PHT 5.0 cm squared Mitral E to A Ratio 2.1 MV E' Velocity 56.0 cm/s Mitral E to MV E' Ratio 15.6 Mitral E to LV E' Lateral Ratio 24.5 Mitral E to LV E' Septal Ratio 11.6 TR Peak Velocity 125.3 cm/s TR Peak Gradient 6.3 mmHg TV Peak E Velocity 119.0 cm/s Right Atrial Pressure 3.0 mmHg Pulmonary Artery Systolic Pressu 9.3 mmHg FINDINGS Left Ventricle Very limited quality echocardiogram because of poor ultrasonic windows. Can not assess LV systolic function Right Ventricle RV is normal in size and function Right Atrium Not well visualized Left Atrium Not well visualized Mitral Valve Not well visualized Aortic Valve Not well visualized Tricuspid Valve Not well visualized Pulmonic Valve Not well visualized Pericardium Not well visualized Aorta Not well visualized CONCLUSIONS Technically very limited quality echocardiogram LV systolic function can not be assessed because of poor ultrasonic windows RV is normal in size and function For assessment of LV function, please order echo with contrast Jason Vela MD (Electronically Signed) Final Date: 16 December 2020 21:51 S
[2020-12-16 05:02] LABS: Add Urine Culture? Yes; Add Urine Microscopic? YES; Amorphous Sediment Urine 2+ /hpf; Bacteria Urine 2+ /hpf; Bilirubin Urine 1+ (Negative); Blood Urine Neg (Negative); Glucose Urine UA 4+ (Normal); Ketones Urine 3+ (Negative); Leukocyte Esterase Urine 2+ (Negative); Nitrate Urine Negative (Negative); Protein Urine 1+ (Negative); RBC Urine 0-4 /hpf (0-2); Specific Gravity, Urine 1.015 (1.005-1.030); Squamous Epithelial Cell Urine 0-4 /hpf (0-5); Urine Appearance Cloudy (CLEAR); Urine Color Yellow (Yellow); Urobilinogen Urine 1 mg/dL (Negative); WBC Urine >100 /hpf (0-5); pH Urine 5 (5-7)
[2020-12-16 05:08] LABS: Urine Creatinine 86 mg/dL (39-259); Urine Random Chloride 37 mmol/L; Urine Random Sodium 70 mmol/L
[2020-12-16 05:39] LABS: Basophils % 0.3 %; Hematocrit 41.8 % (42.0-52.0); Hemoglobin 13.5 g/dL (11.7-16.6); Lymphocytes # 0.2 10^3/uL (0.8-4.8); Lymphocytes % 1.7 %; Mean Corpuscular HGB Conc 32.3 g/dL (30.0-36.0); Mean Corpuscular Hemoglobin 29.2 pg (28.0-34.0); Mean Corpuscular Volume 90.3 fL (80-94); Mean Platelet Volume 9.4 fL (7.4-10.4); Monocytes # 0.4 10^3/uL (0.2-0.9); Monocytes % 4.2 %; Neutrophils # 9.08 10^3/uL (1.8-7.7); Neutrophils % 92.2 %; Nucleated Red Blood Cells % 0 %; Platelet Count 211 10^3/cmm (130-400); Red Blood Count 4.63 10^6/uL (4.1-5.3); Red Cell Distribution Width 15.4 % (12.1-15.1); White Blood Count 9.9 10^3/uL (4.0-10.0)
[2020-12-16 05:50] LABS: Lactic Sepsis W/Reflex 1.1 mmol/L (0.5-2.2)
[2020-12-16 05:51] LABS: Alanine Aminotransferase 18 U/L (0-41); Albumin Level 2.4 g/dL (3.5-5.2); Alkaline Phosphatase 63 IU/L (40-130); Anion Gap 23.9 (5-19); Aspartate Amino Transferase 20 U/L (0-40); Blood Urea Nitrogen 17 mg/dL (8-23); Calcium 7.9 mg/dL (8.5-10.5); Carbon Dioxide 11 mmol/L (22-29); Chloride 99 mmol/L (98-107); Globulin 2.9 g/dL (1.3-4.6); Glucose 377 mg/dL (65-115); Osmolality Calculated 285 mOsm/kg (285-295); Potassium 4.9 mmol/L (3.5-5.1); Sodium 129 mmol/L (136-145); Total Bilirubin 0.3 mg/dL (0.15-1.2); Total Protein 5.3 g/dL (6.6-8.7)
[2020-12-16 05:57] LABS: Procalcitonin 0.33 ng/mL (0-0.5)
[2020-12-16 06:09] LABS: Urea Nitrogen,Urine Random 276 mg/dL
--- NOTE | 2020-12-16 07:29 | PC.NURSE ---
ICU Arrival; Patient arrived to ICU via gurney from ED accompanied by nursing staff X1. Patient transferred to ICU bed with assistance of SUPERCHARGER MECHANICworkforce staffing advisor x3. On 2L NC with Spo2 @94% on arrival and portable O2 tank. Patient now on RM air and sating 97%. Kelley placed. Instant relief reported by patient after kelley placed. Urine changed from clear dark moni to milky white/louise with sediment on immediate return of patient u/o. Right knee pain is reportedly to be new in findings. MD education adviser overnight ordered a x-ray of the right knee. No report has been received on findings. Patient transported down to CT for imaging of abdomen and pelvis. No reportable events to note during transfer. Heparin gtt initated per MD orders. Report given to oncoming dayshift RN. No needs at this time.
[2020-12-16] MEDS: folic acid 1 mg Tablet 2 MG PO (08:20)
[2020-12-16] MEDS: atenolol 50 mg Tablet 100 MG PO (08:20)
[2020-12-16] MEDS: pantoprazole DR 40 mg Tablet PO (08:21)
[2020-12-16] MEDS: atorvastatin 40 mg Tablet 20 MG PO (08:21)
[2020-12-16 08:47] LABS: Partial Thromboplastin Time 82.7 SECONDS (23.9-36.7)
--- NOTE | 2020-12-16 10:07 | PC.CHAP ---
Pastoral Care Encounter/Spiritual Assessment Type of Contact [] Declined mine analyst visit [] Patient/Family/Request visit [] Outpatient visit [] Follow-up visit [] Physician referral [] Code/Alert [x] Routine visit [] Staff referral [] Actively dying [x] Patient sleeping [] Family support [] [] Out of room [] Palliative care [] [] Receiving care in room [] Pre-surgical visit [] Trauma [] Long length of stay [x] ICU visit [] Other: Relational/Emotional Strength [] Patient feels connected with others/family/visitors/staff [] Distress [] Loneliness/isolation [] Abandonment Spirituality of Patient [] Person of Katlyn [] Attends Synagogue of their Katlyn [] Believes in Prayer [] Reads Bible or Islam materials [] There are Spiritual issues to be addressed Biodiesel Processing Technician Interventions [x] Prayer [] Active listening [] Non-anxious presence [] Spiritual/emotional support [] Crisis/trauma care [] Spiritual counseling [] Bereavement support [] Provided bereavement packet [] Provided Bible/devotional materials [] Provided toy/stuffed animal, coloring book to patient or family member [] Provided Communion [] Anointing/[place] [] Salvation [x] Completed spiritual assessment [] Other: Impact on Illness or Injury [] Angry [] Fearful [] Anxious [] Often cries [] Exhaustion [] Unable to work [] Unable to attend anabaptism [] Unable to walk/stand [] Unable to read [] Unable to drive [] Unable to eat/drink [] Unable to sleep [] Unable to be with family [] Patient intubated [] Other: Summary Time spent with patient
[2020-12-16] MEDS: sodium chloride 0.9% 1,000 ML 75 ML IV (11:08)
[2020-12-16 11:56] LABS: Glucose Point of Care 343 mg/dL (70-110)
--- NOTE | 2020-12-16 13:47 | PC.NURSE ---
Pt lying in bed resting and talking to staff. PT A&Ox4 Pt resp even and non-labored no distress noted. Pt sats 96% on RA. Pt had no c/o pain or discomfort at the present time. Call light in reach. Will cont to monitor.
[2020-12-16 14:47] LABS: Partial Thromboplastin Time 108.6 SECONDS (23.9-36.7)
[2020-12-16] MEDS: remdesivir 200 MG in sodium chloride 0.9% (100 ml) 100 ML 100 MG IV (15:41)
[2020-12-16 16:53] LABS: Glucose Point of Care 332 mg/dL (70-110)
--- NOTE | 2020-12-16 17:46 | P.PN_ITS ---
Subjective Subjective: Interval history: Patient is difficult to understand and slow to respond. He states the diarrhea resolved prior to admission he says he does not know if his nausea is better but I noted that he ate probably three quarters of his lunch. Vitals/I&O/Wt Last Vital Signs Temp 97.9 F 12/16/20 04:05 Pulse 94 12/16/20 16:00 Resp 20 H 12/16/20 14:51 BP 133/72 12/16/20 16:00 Pulse Ox 94 12/16/20 16:00 12/16/20 12/16/20 12/16/20 06:59 14:59 22:59 Intake Total 1000 / 1350 1051.925 / 1051.925 141.75 / 1193.675 Output Total 450 / 450 Balance 550 / 900 1051.925 / 1051.925 141.75 / 1193.675 Weight last 48 hrs Weight 83.915 kg Physical Exam Narrative: EXAM NARRATIVE: General: Patient appears his stated age of 75. He has abdominal obesity. He is soft-spoken and difficult to understand. Heart regular rate and rhythm normal S1-S2 without murmurs clicks gallops or rubs Lungs: Clear to auscultation no wheezes rales or rhonchi somewhat diminished throughout. Abdomen obese questionable distention. Unable to palpate liver and spleen. Normal active bowel sounds nontender. Extremities no clubbing cyanosis or edema Urinary Catheter Management^: Dickerson: Cath Placed During This Visit: yes Reason for Continuing Indwelling Catheter: Accurate Measurement of Urinary Output in Critically Ill Patients Urinary Catheter Date of Insertion: 12/16/20 Urinary Catheter Time of Insertion: 04:43 Data : 12/16/20 05:21 12/16/20 05:21 Micro: Microbiology 12/15/20 18:50 Blood Culture - Preliminary Blood SPECIMEN COLLECTED 12/15/20 18:07 Blood Culture - Preliminary Blood SPECIMEN COLLECTED A&P Assessment and plan (1) COVID-19: Patient is started on remdesivir and Decadron for COVID-19. Status: Acute (2) Nausea vomiting and diarrhea: This is resolved but as needed medications available. Status: Acute (3) Acute dyspnea: She denies any shortness of breath at this time. chest x-ray is clear. Status: Acute (4) Elevated lactic acid level: Improving. Status: Acute Attestations Medical Necessity Statement*: Patient with acute COVID-19 infection. Being medication treatment protocol. Anticipate another midnight or 2. 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
[2020-12-16] MEDS: dexamethasone 4 mg/mL INJ 6 MG IVP (18:37)
[2020-12-16 20:41] LABS: Glucose Point of Care 418 mg/dL (70-110)
[2020-12-16] MEDS: acetaminophen 325 mg Tablet 650 MG PO (20:44)
[2020-12-16 22:36] LABS: Partial Thromboplastin Time 47.1 SECONDS (23.9-36.7)
--- NOTE | 2020-12-16 22:46 | US_ITS ---
WS: [id number] ULTRASOUND RENAL TECHNIQUE: Ultrasound examination of both kidneys. CLINICAL INFORMATION: baltazar COMPARISON: CT December 16, 2020 FINDINGS: RIGHT:Simple right renal cyst measuring 2.4 x 2.2 x 2.6 CM. Right renal cortical atrophy. Echogenicity: Normal. Hydronephrosis: None. Perinephric fluid: None. Right kidney measures: 10.6,10.0 cm x 5.2 cm x 5.1 cm. LEFT: Small lesion lesions seen on CT not well visualized on today's ultrasound. Left kidney is normal in size and appearance. Echogenicity: Normal. Cortical thickness: 2.1 cm; Normal. Hydronephrosis: None. Perinephric fluid: None. Left kidney measures: 12.6 cm x 6.6 cm x 6.6 cm. Normal visualized aorta. US/US renal BI* [id number] IMPRESSION: 1. No hydronephrosis in either kidney. 2. Simple right renal cyst measuring 2.4 x 2.2 x 2.6 CM. 3. Normal bladder.
[2020-12-17] VITALS (25 sets, daily range): BP systolic 104–168; BP diastolic 50–114; PULSE 75–96; RESP 17–26; TEMP 36.1–36.6; O2SAT 84–97
[2020-12-17] MEDS: sodium chloride 0.9% 1,000 ML 75 ML IV ×2 (01:32→15:52)
[2020-12-17] MEDS: heparin drip 25,000 UNIT/500 ML PREMIX 18 UNIT IV (03:12)
[2020-12-17 05:20] LABS: Platelet Count 256 10^3/cmm (130-400)
[2020-12-17 05:34] LABS: Partial Thromboplastin Time 57.7 SECONDS (23.9-36.7)
--- NOTE | 2020-12-17 07:35 | PC.NURSE ---
Pt out of bed by himself hanging onto bed rails to chair at bedside.
--- NOTE | 2020-12-17 08:38 | PC.CHAP ---
Pastoral Care Encounter/Spiritual Assessment Type of Contact [] Declined syrup mixer helper visit [] Patient/Family/Request visit [] Outpatient visit [] Follow-up visit [] Physician referral [] Code/Alert [x] Routine visit [] Staff referral [] Actively dying [] Patient sleeping [] Family support [] [] Out of room [] Palliative care [] [x] Receiving care in room [] Pre-surgical visit [] Trauma [] Long length of stay [x] ICU visit [x] Other: quarantined Relational/Emotional Strength [] Patient feels connected with others/family/visitors/staff [] Distress [] Loneliness/isolation [] Abandonment Spirituality of Patient [] Person of Katlyn [] Attends Religion of their Katlyn [] Believes in Prayer [] Reads Bible or Muslim materials [] There are Spiritual issues to be addressed Business Technology Architect Interventions [x] Prayer [] Active listening [] Non-anxious presence [] Spiritual/emotional support [] Crisis/trauma care [] Spiritual counseling [] Bereavement support [] Provided bereavement packet [] Provided Bible/devotional materials [] Provided toy/stuffed animal, coloring book to patient or family member [] Provided Communion [] Anointing/Moody [] Salvation [x] Completed spiritual assessment [] Other: Impact on Illness or Injury [] Angry [] Fearful [] Anxious [] Often cries [] Exhaustion [] Unable to work [] Unable to attend sabianist [] Unable to walk/stand [] Unable to read [] Unable to drive [] Unable to eat/drink [] Unable to sleep [] Unable to be with family [] Patient intubated [] Other: Summary Time spent with patient
[2020-12-17] MEDS: atorvastatin 40 mg Tablet 20 MG PO (08:58)
[2020-12-17] MEDS: folic acid 1 mg Tablet 2 MG PO (08:58)
[2020-12-17] MEDS: atenolol 50 mg Tablet 100 MG PO (08:58)
[2020-12-17] MEDS: pantoprazole DR 40 mg Tablet PO (08:58)
--- NOTE | 2020-12-17 09:15 | PC.NURSE ---
Pt assisted to rest room. Pt unsteady, he tries to hang onto wall as well as the nurse assisting him. He nearly stubbles. Medium Bm noted. Pt assisted back to bed. Pt instructed to use call light if he wants out of bed, discussed his unsteady gait and risk for falling. Pt verbalized understanding. Walker brought into room for pt's use.
[2020-12-17 09:45] LABS: Glucose Point of Care 464 mg/dL (70-110)
[2020-12-17 09:45] LABS: Glucose Point of Care 391 mg/dL (70-110)
[2020-12-17] MEDS: acetaminophen 325 mg Tablet 650 MG PO (09:59)
[2020-12-17 11:34] LABS: Partial Thromboplastin Time 35.7 SECONDS (23.9-36.7)
[2020-12-17 12:09] LABS: Glucose Point of Care 436 mg/dL (70-110)
[2020-12-17] MEDS: heparin 5,000 unit/mL INJ 1 mL IV (12:19)
--- NOTE | 2020-12-17 13:15 | PC.NURSE ---
Pt seen putting himself back to bed from chair. He was gripping bed rails entire time. This nurse entered room and assisted him with the monitoring cords and IV lines. Pt encouraged to use call light for assistance again.
[2020-12-17 16:23] LABS: Osmolality Urine 422 mOsm/kg (50-1200)
--- NOTE | 2020-12-17 16:55 | P.PN_ITS ---
Subjective Subjective: Interval history: Patient seen today through clear door due to COVID-19 status and preservation of PPE and limiting spread. Vitals/I&O/Wt Last Vital Signs Temp 97.8 F 12/17/20 13:00 Pulse 91 12/17/20 14:28 Resp 20 H 12/17/20 14:20 BP 164/114 12/17/20 14:00 Pulse Ox 96 12/17/20 14:20 12/17/20 12/17/20 12/17/20 06:59 14:59 22:59 Intake Total 1437.333 / 3031.008 1664.1 / 1664.1 Output Total 950 / 1950 Balance 487.333 / 6695.340 5734.1 / 1664.1 Weight last 48 hrs Weight 83.915 kg Physical Exam Narrative: EXAM NARRATIVE: General: Patient appears similar to yesterday. No distress noted. RN report is that patient can ambulate to bedside commode. He is not having any diarrhea. He is eating well. But sugars are noted to be 300s and 400s. Urinary Catheter Management^: Dickerson: Cath Placed During This Visit: yes Reason for Continuing Indwelling Catheter: Accurate Measurement of Urinary Output in Critically Ill Patients Urinary Catheter Date of Insertion: 12/16/20 Urinary Catheter Time of Insertion: 04:43 Data : 12/17/20 04:50 12/16/20 05:21 Micro: Microbiology 12/16/20 04:25 Urine Culture - Preliminary Urine,Clean Catch 12/15/20 18:50 Blood Culture - Preliminary Blood NEGATIVE TO DATE 12/15/20 18:07 Blood Culture - Preliminary Blood NEGATIVE TO DATE A&P Assessment and plan (1) COVID-19: Patient is on second day of remdesivir and Decadron. He has hx of COPD and not requiring oxygen. His lungs are clear and so is CXR. His symptoms appear to have been more GI. Pt is stable to move to floor. Transfer orders written. Discussion with RN and CM about family/caregiver. At this time the numbers we have are not working. I do not feel pt can care for himself at this point. would like cognitive eval and assistance from CM to find caregiver given COVID 19 Status: Acute (2) Nausea vomiting and diarrhea: Resolved. Status: Acute (3) Acute dyspnea: Resolved. Status: Acute (4) Elevated lactic acid level: Improved. Status: Acute (5) Diabetes mellitus: He was not placed on his usual home dose of lantus 80mg. I started 40 units bid today and increased SSI to high dose. Status: Acute Attestations Medical Necessity Statement*: Pt home situation is not know and cognitive status questionable. Requires treatment for COVID 19. Requires more than 2 MN stay Coding Level of Care Code Acute Care Team Coordinator Scheduler for [facility] Diagnoses COVID-19 U07.1 Nausea vomiting and diarrhea R11.2; R19.7 Acute dyspnea R06.00 Elevated lactic acid level R79.89 Diabetes mellitus E11.9
--- NOTE | 2020-12-17 17:20 | PC.NURSE ---
Report faxed to [facility].
[2020-12-17 17:24] LABS: Glucose Point of Care 424 mg/dL (70-110)
[2020-12-17] MEDS: insulin glargine 100 units/1 mL 40 UNIT SUBCUT (18:04)
[2020-12-17] MEDS: dexamethasone 4 mg/mL INJ 6 MG IVP (18:04)
[2020-12-17] MEDS: remdesivir 100 MG in sodium chloride 0.9% (100 ml) 100 ML IV (18:04)
--- NOTE | 2020-12-17 18:15 | PC.NURSE ---
Report given to ALBA Grove, [facility].
--- NOTE | 2020-12-17 19:15 | PC.NURSE ---
Pt transferred to [facility] via W/C. Personal belongings with pt.
--- NOTE | 2020-12-17 19:20 | PC.NURSE ---
Shift summary: Pt is a pleasant man who likes to reminisce. Pt has been on room air throughout the day, O2 sats have been greater than 92%. Pt has been out of bed to chair for each meal. He does put himself back to bed. He has been slightly unsteady on his feet, it improved with use of walker. Pt has ate most of his meals. His blood sugars have been greater than 332mg/dl this hospitalization. Sliding scale increased to aggressive and Lantus started today. He was on a heparin gtt , whcih was stopped an hour after Pradaxa was administered. He shaved today. He has had adequate urine output this shift: 750ml. He has been to the bathroom twice for BMs, both small. He had IV fluids and Remdesivir infusing at his transfer to [facility]. This nurse was unable to reach his brother via telephone today. It went to a voice mail for a completely different person. Pt gave correct number, admissions called to update chart.
[2020-12-17 20:59] LABS: Glucose Point of Care 496 mg/dL (70-110)
[2020-12-18] VITALS (13 sets, daily range): BP systolic 119–167; BP diastolic 64–87; PULSE 66–97; RESP 15–19; TEMP 36.3–36.9; O2SAT 94–97
--- NOTE | 2020-12-18 05:48 | P.PN_ITS ---
Subjective Subjective: Interval history: 75-year-old male with a past medical history significant for rheumatoid arthritis on chronic steroids, diabetes mellitus, hypertension, hyperlipidemia, DVT on Pradaxa, tobacco abuse, and chronic obstructive pulmonary disease who presented to hospital with difficulty breathing in addition to multiple complaints. He has also been complaining of abdominal pain, nausea, vomiting x 1 earlier today and persistent non-bloody diarrhea. Noted poor appetite or ability to tolerate any oral intake other than clear liquids. Has not been able to take any of his medications for > 9 days. Patient was noted to have a diffuse rash which he states has been going on for a over a year. Has never been biopsied, non-pruritic, states it improves when he takes a shower. Shortly after arrival he has also started to complain of joint pain particularly in right knee. No fever or chills. Denied pleuritic chest pain. Upon arrival to ER he was also noted to be hypoxic with oxygen saturation in low 80s. He was placed on 4L of o2 via NC. Laboratory workup on arrival showed a WBC of 10.7, hemoglobin of 14.8, hematocrit of 46.5 and platelet count of 233. Sodium 128, potassium 4.3, chloride 93, bicarb 11, BUN 18 over creatinine of 1.7. Prior creatinine of 0.9 in 2018. AST of 26, ALT of 19, ALP of 70. Lactic acid of 4.0 with a repeat of 2.7. Delta troponin T - neg 5.61, ProBNP of 597, lipase of 17. COVID-19 ag positive. ABG showed a PH of 7.29, pCO2 fo 22.4, p02 of 153.0 and HCO3 of 10.8. INR of 1.16. Pro-calcitonin of 0.30. UA ordered however pending. Imaging studies did not show any evidence of acute cardiopulmonary abnormality. In ER patient was given vancomycin 1g IV x 1, Flagyl 500 mg IV x 1, 1.5l bolus of NS and Decadron 10 mg IV x 1. 12/18 No new clinical events overnight Medications: Reviewed: Yes Vitals/I&O/Wt Last Vital Signs Temp 97.7 F 12/18/20 03:55 Pulse 81 12/18/20 03:55 Resp 19 H 12/18/20 03:55 BP 150/75 12/18/20 03:55 Pulse Ox 97 12/18/20 03:55 12/17/20 12/17/20 12/18/20 14:59 22:59 06:59 Intake Total 1664.1 / 1664.1 629.85 / 2293.95 Output Total 750 / 750 1000 / 1750 Balance 1664.1 / 1664.1 -120.15 / 1543.95 -1000 / 543.95 Physical Exam Narrative: EXAM NARRATIVE: General :Awake, alert and oriented x3 HEENT: Grossly unremarkable CVS: RRR Chest: CTABL Abd: Soft, NT, ND Ext : No edema , FROM x 4. Urinary Catheter Management^: Dickerson: Cath Placed During This Visit: yes Reason for Continuing Indwelling Catheter: Accurate Measurement of Urinary Output in Critically Ill Patients Urinary Catheter Date of Insertion: 12/16/20 Urinary Catheter Time of Insertion: 04:43 Data : 12/18/20 05:55 12/18/20 05:55 Micro: Microbiology 12/16/20 04:25 Urine Culture - Preliminary Urine,Clean Catch A&P Assessment and plan (1) COVID-19: Status: Acute (2) Diabetes mellitus: Status: Acute (3) Hypertension: Status: Acute (4) COPD (chronic obstructive pulmonary disease): Status: Acute (5) Chronic steroid use: Status: Acute (6) DVT (deep venous thrombosis): Status: Acute (7) Nausea vomiting and diarrhea: Status: Acute (8) Acute dyspnea: Status: Acute (9) Elevated lactic acid level: Status: Acute Acute respiratory failure with hypoxia / COPD Exacerbation / possible PE Oxygen saturation 81 % on arrival Stated on Supplemental oxygen - on 2L via NC ABG after o2 stated - Ph of 7.29 Pco2 of 22.4, Po2 of 153, HCo3 of 10. Chest x-ray - No acute cardiopulmonary abnormality Duoneb q6hr scheduled Solu-medrol 40 mg iV q8hr - changed to Decadron 6 mg IV daily Abdominal pain, Nausea, Vomiting Possible viral gastroenteritis given COVID-[address] abd/pelvis w/o contrast - no acute abnormality Zofran PRN for nauea Pro-mani -negative Acute Renal Failure on suspected CKD / Hyponatremia Possibly on chronic - no recent labs Normal Cr in 2018 Increased to 1.7-> 1.5, NA 128->129 , CK 53 Hold home ian-inhibitor Urine NA 70, Osm 422, urea 276, cr 86 Repeat BMP in am, monitor Renal US - No hydro, 2.4x2.2x2.6 right renal cyst Consider nephrology consult Repeat BMP today Urinary tract infection ruled out UA >100 wbc, 2+ leuk, 2+ lavell Culture prelim -negative Monitor off abx Hx of DVT / Elevated D-dimer / Possible Pulmonary embolism Has not had Pradaxa for > 9 days -Change to Eliquis 5 mg PO BID ( due to renal failure ) Monitor PT/PTT Once renal function improves obtain CTA Chest PE protocol vs VQ scan Lactic Acidosis Resolved. D/C IVF COVID-19 Infection Chest x-ray - no acute abnormality Ferritin 322, CRP 224.1 S/p Decadron in ER - continued on admission Respiratory symptoms less likely due to COVID-19 Remdesivir was started - End date 12/20 Droplet precautions. Troponin Elevation Likely due to ADELAIDA No chest pain Delta T neg 5.61 Pro-BNP 597 ECHO obtained - Poor study, unable to determine wall motion abnormality Stress test outpatient Rheumatoid Arthritis Flare / Rt. Knee pain Likely due to being off prednisone Currently on decadron 6 mg IV daily Will likely need to transition to prednisone On 10 mg PO BID at home Rt. Knee x-ray - no fx PT/OT consult Non-specific diffuse non-pleuritic rash Etiology unclear Noted this to be chronic Monitor for allergic reaction May need Biopsy Hypertension Atenolol 100 mg PO daily Holding Ian-Inhibitor / HCTZ Diabetes Mellitus Sliding scale insulin QACHS checks A1c in AM Diabetic Diet Lantus 40 units SQ BID Continue to adjust for goal BS< 200 Hyperlipidemia Pravastatin 40 mg Po daily GI ppx Protonix 40 mg PO daily DVT ppx SCD Eliquis 5 mg PO BID Attestations Medical Necessity Statement*: Require further hospitalization for management of respiratory failure, COVID-19, acute renal failure and possible placement Coding Level of Care Code 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
[2020-12-18] MEDS: pantoprazole DR 40 mg Tablet PO (05:56)
[2020-12-18 06:13] LABS: Basophils # 0.1 10^3/uL (0.0-0.1); Basophils % 0.4 %; Hematocrit 40.4 % (42.0-52.0); Hemoglobin 13.2 g/dL (11.7-16.6); Lymphocytes # 0.4 10^3/uL (0.8-4.8); Mean Corpuscular HGB Conc 32.7 g/dL (30.0-36.0); Mean Corpuscular Hemoglobin 29.5 pg (28.0-34.0); Mean Corpuscular Volume 90.4 fL (80-94); Monocytes # 1.3 10^3/uL (0.2-0.9); Neutrophils # 12.66 10^3/uL (1.8-7.7); Nucleated Red Blood Cells % 0.1 %; Platelet Count 303 10^3/cmm (130-400); Red Blood Count 4.47 10^6/uL (4.1-5.3); Red Cell Distribution Width 16.7 % (12.1-15.1); White Blood Count 14.7 10^3/uL (4.0-10.0)
[2020-12-18 06:33] LABS: Blood Urea Nitrogen 26 mg/dL (8-23); Calcium 8.2 mg/dL (8.5-10.5); Carbon Dioxide 16 mmol/L (22-29); Chloride 108 mmol/L (98-107); Glucose 456 mg/dL (65-115); Osmolality Calculated 303 mOsm/kg (285-295); Sodium 134 mmol/L (136-145)
[2020-12-18 06:35] LABS: Anion Gap 14.3 (5-19); Potassium 4.3 mmol/L (3.5-5.1)
[2020-12-18 07:03] LABS: Glucose Point of Care 439 mg/dL (70-110)
[2020-12-18] MEDS: folic acid 1 mg Tablet 2 MG PO (08:06)
[2020-12-18] MEDS: atorvastatin 40 mg Tablet 20 MG PO (08:06)
[2020-12-18] MEDS: atenolol 50 mg Tablet 100 MG PO (08:07)
[2020-12-18] MEDS: apixaban 5 mg Tablet PO ×2 (08:07→21:49)
--- NOTE | 2020-12-18 09:05 | PC.SOCIAL ---
*IMM UPDATE* Gave patient IMM update. Provided him copy of page 2. Verbalized understanding. Initialed, dated, timed and placed in chart.
[2020-12-18] MEDS: insulin glargine 100 units/1 mL 40 UNIT SUBCUT ×2 (09:18→17:16)
[2020-12-18 11:06] LABS: Glucose Point of Care 412 mg/dL (70-110)
--- NOTE | 2020-12-18 11:35 | PC.NURSE ---
Patient's brother Ankit brought patient's dentures to him at time.
[2020-12-18 16:32] LABS: Glucose Point of Care 232 mg/dL (70-110)
[2020-12-18] MEDS: remdesivir 100 MG in sodium chloride 0.9% (100 ml) 100 ML IV (17:16)
[2020-12-18] MEDS: dexamethasone 4 mg/mL INJ 6 MG IVP (17:17)
--- NOTE | 2020-12-18 20:25 | PC.RESP ---
Smoking Cessation and Pulmonary Rehab information sent to patient.
[2020-12-18 20:47] LABS: Glucose Point of Care 323 mg/dL (70-110)
[2020-12-19] VITALS (11 sets, daily range): BP systolic 102–156; BP diastolic 54–80; PULSE 64–75; RESP 16–18; TEMP 36.4–36.9; O2SAT 95–97; BMI 36.1
[2020-12-19] MEDS: pantoprazole DR 40 mg Tablet PO (06:13)
[2020-12-19 06:27] LABS: Glucose Point of Care 215 mg/dL (70-110)
[2020-12-19] MEDS: insulin glargine 100 units/1 mL 40 UNIT SUBCUT ×2 (09:04→17:11)
[2020-12-19] MEDS: atorvastatin 40 mg Tablet 20 MG PO (09:05)
[2020-12-19] MEDS: apixaban 5 mg Tablet PO ×2 (09:05→20:15)
[2020-12-19] MEDS: folic acid 1 mg Tablet 2 MG PO (09:05)
[2020-12-19] MEDS: atenolol 50 mg Tablet 100 MG PO (09:05)
[2020-12-19 11:02] LABS: Glucose Point of Care 304 mg/dL (70-110)
--- NOTE | 2020-12-19 16:10 | PM.PN ---
Subjective Subjective: Interval history: 75-year-old male with a past medical history significant for rheumatoid arthritis on chronic steroids, diabetes mellitus, hypertension, hyperlipidemia, DVT on Pradaxa, tobacco abuse, and chronic obstructive pulmonary disease who presented to hospital with difficulty breathing in addition to multiple complaints. He has also been complaining of abdominal pain, nausea, vomiting x 1 earlier today and persistent non-bloody diarrhea. Noted poor appetite or ability to tolerate any oral intake other than clear liquids. Has not been able to take any of his medications for > 9 days. Patient was noted to have a diffuse rash which he states has been going on for a over a year. Has never been biopsied, non-pruritic, states it improves when he takes a shower. Shortly after arrival he has also started to complain of joint pain particularly in right knee. No fever or chills. Denied pleuritic chest pain. Upon arrival to ER he was also noted to be hypoxic with oxygen saturation in low 80s. He was placed on 4L of o2 via NC. Laboratory workup on arrival showed a WBC of 10.7, hemoglobin of 14.8, hematocrit of 46.5 and platelet count of 233. Sodium 128, potassium 4.3, chloride 93, bicarb 11, BUN 18 over creatinine of 1.7. Prior creatinine of 0.9 in 2018. AST of 26, ALT of 19, ALP of 70. Lactic acid of 4.0 with a repeat of 2.7. Delta troponin T - neg 5.61, ProBNP of 597, lipase of 17. COVID-19 ag positive. ABG showed a PH of 7.29, pCO2 fo 22.4, p02 of 153.0 and HCO3 of 10.8. INR of 1.16. Pro-calcitonin of 0.30. UA ordered however pending. Imaging studies did not show any evidence of acute cardiopulmonary abnormality. In ER patient was given vancomycin 1g IV x 1, Flagyl 500 mg IV x 1, 1.5l bolus of NS and Decadron 10 mg IV x 1. 12/18 No new clinical events overnight 12/19 No new clinical event. Medications: Reviewed: Yes Vitals/I&O/Wt Last Vital Signs Temp 97.5 F L 12/19/20 20:00 Pulse 68 12/19/20 20:00 Resp 18 12/19/20 20:00 BP 122/75 12/19/20 20:00 Pulse Ox 97 12/19/20 20:00 12/19/20 12/19/20 12/20/20 14:59 22:59 06:59 Intake Total 720 / 720 580 / 1300 Output Total 0 / 0 Balance 720 / 720 580 / 1300 Weight last 48 hrs Weight 83.915 kg Physical Exam Narrative: EXAM NARRATIVE: General :Awake, alert and oriented x3 HEENT: Grossly unremarkable CVS: RRR Chest: CTABL Abd: Soft, NT, ND Ext : No edema , FROM x 4. Urinary Catheter Management^: Dickerson: Cath Placed During This Visit: yes, but has since been removed by the nurse Reason for Continuing Indwelling Catheter: Decision to DC Catheter Urinary Catheter Date of Insertion: 12/16/20 Urinary Catheter Time of Insertion: 04:43 Date Urinary Catheter Removed: 12/18/20 Time Urinary Catheter Discontinued: 10:30 Data : 12/18/20 05:55 12/18/20 05:55 Micro: Microbiology 12/16/20 04:25 Urine Culture - Preliminary Urine,Clean Catch Strep species, alpha hemolytic A&P Assessment and plan (1) COVID-19: Status: Acute (2) Diabetes mellitus: Status: Acute (3) Hypertension: Status: Acute (4) COPD (chronic obstructive pulmonary disease): Status: Acute (5) Chronic steroid use: Status: Acute (6) DVT (deep venous thrombosis): Status: Acute (7) Nausea vomiting and diarrhea: Status: Acute (8) Acute dyspnea: Status: Acute (9) Elevated lactic acid level: Status: Acute Acute respiratory failure with hypoxia / COPD Exacerbation / possible PE Oxygen saturation 81 % on arrival Stated on Supplemental oxygen - on 2L via NC ABG after o2 stated - Ph of 7.29 Pco2 of 22.4, Po2 of 153, HCo3 of 10. Chest x-ray - No acute cardiopulmonary abnormality Duoneb q6hr scheduled Solu-medrol 40 mg iV q8hr - changed to Decadron 6 mg IV daily Abdominal pain, Nausea, Vomiting Possible viral gastroenteritis given COVID-[address] abd/pelvis w/o contrast - no acute abnormality Zofran PRN for nauea Pro-mani -negative Acute Renal Failure on suspected CKD / Hyponatremia Possibly on chronic - no recent labs Normal Cr in 2018 Increased to 1.7-> 1.5, NA 128->129 , CK 53 Hold home ian-inhibitor Urine NA 70, Osm 422, urea 276, cr 86 Repeat BMP in am, monitor Renal US - No hydro, 2.4x2.2x2.6 right renal cyst Consider nephrology consult Repeat BMP today Urinary tract infection ruled out UA >100 wbc, 2+ leuk, 2+ lavell Culture prelim -negative Monitor off abx Hx of DVT / Elevated D-dimer / Possible Pulmonary embolism Has not had Pradaxa for > 9 days -Change to Eliquis 5 mg PO BID ( due to renal failure ) Monitor PT/PTT Once renal function improves obtain CTA Chest PE protocol vs VQ scan continue eliquis for now Lactic Acidosis Resolved. D/C IVF COVID-19 Infection Chest x-ray - no acute abnormality Ferritin 322, CRP 224.1 S/p Decadron in ER - continued on admission Respiratory symptoms less likely due to COVID-19 Remdesivir was started - End date 12/20 Droplet precautions. Troponin Elevation Likely due to ADELAIDA No chest pain Delta T neg 5.61 Pro-BNP 597 ECHO obtained - Poor study, unable to determine wall motion abnormality Stress test outpatient Rheumatoid Arthritis Flare / Rt. Knee pain Likely due to being off prednisone Currently on decadron 6 mg IV daily Will likely need to transition to prednisone On 10 mg PO BID at home Rt. Knee x-ray - no fx PT/OT consult Non-specific diffuse non-pleuritic rash Etiology unclear Noted this to be chronic Monitor for allergic reaction May need Biopsy Hypertension Atenolol 100 mg PO daily Holding Ian-Inhibitor / HCTZ Diabetes Mellitus Sliding scale insulin QACHS checks A1c in AM Diabetic Diet Lantus 40 units SQ BID Continue to adjust for goal BS< 200 Hyperlipidemia Pravastatin 40 mg Po daily GI ppx Protonix 40 mg PO daily DVT ppx SCD Eliquis 5 mg PO BID Attestations Medical Necessity Statement*: continue hospitalization for completion of remdesivir Time Spent in Patient Care: Greater than 35 minutes (>than 50% of time spent in counselling and/or direct pt care on unit). 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
[2020-12-19 16:56] LABS: Glucose Point of Care 341 mg/dL (70-110)
[2020-12-19] MEDS: dexamethasone 4 mg/mL INJ 6 MG IVP (17:11)
[2020-12-19] MEDS: remdesivir 100 MG in sodium chloride 0.9% (100 ml) 100 ML IV (17:11)
[2020-12-19 20:58] LABS: Glucose Point of Care 285 mg/dL (70-110)
[2020-12-20] VITALS (11 sets, daily range): BP systolic 117–136; BP diastolic 62–72; PULSE 63–74; RESP 16–18; TEMP 36.3–36.7; O2SAT 95–98
[2020-12-20] MEDS: pantoprazole DR 40 mg Tablet PO (05:09)
[2020-12-20 09:33] LABS: Glucose Point of Care 274 mg/dL (70-110)
[2020-12-20] MEDS: atenolol 50 mg Tablet 100 MG PO (10:06)
[2020-12-20] MEDS: insulin glargine 100 units/1 mL 40 UNIT SUBCUT ×2 (10:06→17:51)
[2020-12-20] MEDS: atorvastatin 40 mg Tablet 20 MG PO (10:07)
[2020-12-20] MEDS: apixaban 5 mg Tablet PO ×2 (10:07→21:02)
[2020-12-20] MEDS: folic acid 1 mg Tablet 2 MG PO (10:07)
[2020-12-20 11:31] LABS: Glucose Point of Care 291 mg/dL (70-110)
--- NOTE | 2020-12-20 13:23 | PC.SOCIAL ---
*IMM UPDATE* Gave patient verbal IMM update. He verbalized understanding. 12/20/20 @1054 Initialed, dated, timed and placed in chart.
--- NOTE | 2020-12-20 16:53 | PM.PN ---
Subjective Subjective: Interval history: 75-year-old male with a past medical history significant for rheumatoid arthritis on chronic steroids, diabetes mellitus, hypertension, hyperlipidemia, DVT on Pradaxa, tobacco abuse, and chronic obstructive pulmonary disease who presented to hospital with difficulty breathing in addition to multiple complaints. He has also been complaining of abdominal pain, nausea, vomiting x 1 earlier today and persistent non-bloody diarrhea. Noted poor appetite or ability to tolerate any oral intake other than clear liquids. Has not been able to take any of his medications for > 9 days. Patient was noted to have a diffuse rash which he states has been going on for a over a year. Has never been biopsied, non-pruritic, states it improves when he takes a shower. Shortly after arrival he has also started to complain of joint pain particularly in right knee. No fever or chills. Denied pleuritic chest pain. Upon arrival to ER he was also noted to be hypoxic with oxygen saturation in low 80s. He was placed on 4L of o2 via NC. Laboratory workup on arrival showed a WBC of 10.7, hemoglobin of 14.8, hematocrit of 46.5 and platelet count of 233. Sodium 128, potassium 4.3, chloride 93, bicarb 11, BUN 18 over creatinine of 1.7. Prior creatinine of 0.9 in 2018. AST of 26, ALT of 19, ALP of 70. Lactic acid of 4.0 with a repeat of 2.7. Delta troponin T - neg 5.61, ProBNP of 597, lipase of 17. COVID-19 ag positive. ABG showed a PH of 7.29, pCO2 fo 22.4, p02 of 153.0 and HCO3 of 10.8. INR of 1.16. Pro-calcitonin of 0.30. UA ordered however pending. Imaging studies did not show any evidence of acute cardiopulmonary abnormality. In ER patient was given vancomycin 1g IV x 1, Flagyl 500 mg IV x 1, 1.5l bolus of NS and Decadron 10 mg IV x 1. 12/18 No new clinical events overnight 12/19 No new clinical event. 12/20 No new clinical events overnight Completing last dose of remdesivir today Medications: Reviewed: Yes Vitals/I&O/Wt Last Vital Signs Temp 97.4 F L 12/20/20 15:49 Pulse 67 12/20/20 15:49 Resp 16 12/20/20 15:49 BP 124/68 12/20/20 15:49 Pulse Ox 95 12/20/20 15:49 12/20/20 12/20/20 12/20/20 06:59 14:59 22:59 Intake Total 240 / 240 Balance 240 / 240 Weight last 48 hrs Weight 83.915 kg Physical Exam Narrative: EXAM NARRATIVE: General :Awake, alert and oriented x3 HEENT: Grossly unremarkable CVS: RRR Chest: CTABL Abd: Soft, NT, ND Ext : No edema , FROM x 4. Urinary Catheter Management^: Dickerson: Cath Placed During This Visit: yes, but has since been removed by the nurse Reason for Continuing Indwelling Catheter: Decision to DC Catheter Urinary Catheter Date of Insertion: 12/16/20 Urinary Catheter Time of Insertion: 04:43 Date Urinary Catheter Removed: 12/18/20 Time Urinary Catheter Discontinued: 10:30 Data : 12/18/20 05:55 12/18/20 05:55 Micro: Microbiology 12/16/20 04:25 Urine Culture - Final Urine,Clean Catch Streptococcus viridans A&P Assessment and plan (1) COVID-19: Status: Acute (2) Diabetes mellitus: Status: Acute (3) Hypertension: Status: Acute (4) COPD (chronic obstructive pulmonary disease): Status: Acute (5) Chronic steroid use: Status: Acute (6) DVT (deep venous thrombosis): Status: Acute (7) Nausea vomiting and diarrhea: Status: Acute (8) Acute dyspnea: Status: Acute (9) Elevated lactic acid level: Status: Acute Acute respiratory failure with hypoxia / COPD Exacerbation / possible PE Oxygen saturation 81 % on arrival Currently on RA Duoneb inh prn Home o2 eval prior to discharge. Abdominal pain, Nausea, Vomiting - Resolved Possible viral gastroenteritis given COVID-[address] abd/pelvis w/o contrast - no acute abnormality Zofran PRN for nauea Pro-mani -negative Acute Renal Failure on suspected CKD / Hyponatremia - Resolved Possibly on chronic - no recent labs Normal Cr in 2018 Increased to 1.7-> 1.5 ->1.0 NA 128->129 - 134 , CK 53 Hold home ian-inhibitor Urine NA 70, Osm 422, urea 276, cr 86 Repeat BMP in am, monitor Renal US - No hydro, 2.4x2.2x2.6 right renal cyst Repeat BMP in AM Urinary tract infection ruled out UA >100 wbc, 2+ leuk, 2+ lavell Culture prelim -negative Monitor off abx Hx of DVT / Elevated D-dimer / Possible Pulmonary embolism Has not had Pradaxa for > 9 days -Change to Eliquis 5 mg PO BID ( due to renal failure ) Monitor PT/PTT Continue eliquis for now Lactic Acidosis Resolved. D/C IVF COVID-19 Infection Chest x-ray - no acute abnormality Ferritin 322, CRP 224.1 S/p Decadron in ER - D/c decadron due to hyperglycemia Respiratory symptoms less likely due to COVID-19 Remdesivir was started - End date 12/20 at 7pm Droplet precautions. Troponin Elevation Likely due to ADELAIDA No chest pain Delta T neg 5.61 Pro-BNP 597 ECHO obtained - Poor study, unable to determine wall motion abnormality Stress test outpatient Rheumatoid Arthritis Flare / Rt. Knee pain Likely due to being off prednisone Currently on decadron 6 mg IV daily Will likely need to transition to prednisone On 10 mg PO BID at home Rt. Knee x-ray - no fx PT/OT consult Non-specific diffuse non-pleuritic rash Etiology unclear Noted this to be chronic Monitor for allergic reaction May need Biopsy Hypertension Atenolol 100 mg PO daily Holding Ian-Inhibitor / HCTZ Diabetes Mellitus Sliding scale insulin QACHS checks A1c in AM Diabetic Diet Lantus 40 units SQ BID Continue to adjust for goal BS< 200 Hyperlipidemia Pravastatin 40 mg Po daily GI ppx Protonix 40 mg PO daily DVT ppx SCD Eliquis 5 mg PO BID Attestations Medical Necessity Statement*: Will require further hospitalization for remdesivir and disharge planning. 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
[2020-12-20 17:20] LABS: Glucose Point of Care 300 mg/dL (70-110)
[2020-12-20] MEDS: remdesivir 100 MG in sodium chloride 0.9% (100 ml) 100 ML IV (17:50)
[2020-12-20 20:58] LABS: Glucose Point of Care 233 mg/dL (70-110)
[2020-12-21] VITALS (10 sets, daily range): BP systolic 101–144; BP diastolic 64–80; PULSE 65–85; RESP 16–18; TEMP 36.4–36.6; O2SAT 94–97
[2020-12-21] MEDS: pantoprazole DR 40 mg Tablet PO (05:07)
[2020-12-21 06:12] LABS: Basophils % 0.2 %; Eosinophils # 0.2 10^3/uL (0.0-0.8); Eosinophils % 2.1 %; Hematocrit 41.9 % (42.0-52.0); Hemoglobin 13.8 g/dL (11.7-16.6); Lymphocytes # 1.4 10^3/uL (0.8-4.8); Mean Corpuscular HGB Conc 32.9 g/dL (30.0-36.0); Mean Corpuscular Hemoglobin 29.1 pg (28.0-34.0); Mean Corpuscular Volume 88.2 fL (80-94); Mean Platelet Volume 10.4 fL (7.4-10.4); Monocytes # 0.9 10^3/uL (0.2-0.9); Monocytes % 8.8 %; Neutrophils # 6.98 10^3/uL (1.8-7.7); Neutrophils % 66.9 %; Nucleated Red Blood Cells # 0.3 /100WBC; Nucleated Red Blood Cells % 2.7 %; Platelet Count 385 10^3/cmm (130-400); Red Blood Count 4.75 10^6/uL (4.1-5.3); Red Cell Distribution Width 17.5 % (12.1-15.1); White Blood Count 10.4 10^3/uL (4.0-10.0)
[2020-12-21 06:39] LABS: Alanine Aminotransferase 17 U/L (0-41); Albumin Level 2.3 g/dL (3.5-5.2); Alkaline Phosphatase 66 IU/L (40-130); Anion Gap 11.9 (5-19); Aspartate Amino Transferase 17 U/L (0-40); Blood Urea Nitrogen 25 mg/dL (8-23); Calcium 8.1 mg/dL (8.5-10.5); Carbon Dioxide 25 mmol/L (22-29); Chloride 108 mmol/L (98-107); Globulin 2.5 g/dL (1.3-4.6); Glucose 147 mg/dL (65-115); Osmolality Calculated 299 mOsm/kg (285-295); Potassium 3.9 mmol/L (3.5-5.1); Sodium 141 mmol/L (136-145); Total Bilirubin 0.2 mg/dL (0.15-1.2); Total Protein 4.8 g/dL (6.6-8.7)
[2020-12-21 06:41] LABS: Slide Review Slide Review Perform
[2020-12-21 06:45] LABS: Glucose Point of Care 122 mg/dL (70-110)
[2020-12-21] MEDS: atorvastatin 40 mg Tablet 20 MG PO (10:34)
[2020-12-21] MEDS: insulin glargine 100 units/1 mL 40 UNIT SUBCUT (10:34)
[2020-12-21] MEDS: atenolol 50 mg Tablet 100 MG PO (10:35)
[2020-12-21] MEDS: folic acid 1 mg Tablet 2 MG PO (10:36)
[2020-12-21] MEDS: apixaban 5 mg Tablet PO (10:36)
[2020-12-21 10:42] LABS: Glucose Point of Care 170 mg/dL (70-110)
--- NOTE | 2020-12-21 12:47 | P.DS_ITS ---
Discharge Providers Date of Admission: 12/15/20 19:49 Date of Discharge: December 21, 2020 Attending Provider at Admission: Abraham Mckeon Attending Provider at Discharge: Abraham Mckeon Primary Care Provider: Marshal Downs Diagnoses at Discharge Discharge Diagnosis (1) COVID-19: Status: Acute (2) Diabetes mellitus: Status: Acute (3) Hypertension: Status: Acute (4) COPD (chronic obstructive pulmonary disease): Status: Acute (5) Chronic steroid use: Status: Acute (6) DVT (deep venous thrombosis): Status: Acute (7) Nausea vomiting and diarrhea: Status: Acute (8) Acute dyspnea: Status: Acute (9) Elevated lactic acid level: Status: Acute Reason for Visit Reason for Visit: N/V, loss of appetite. Hospital Course Hospital Course 75-year-old male with a past medical history significant for rheumatoid arthritis on chronic steroids, diabetes mellitus, hypertension, hyperlipidemia, DVT on Pradaxa, tobacco abuse, and chronic obstructive pulmonary disease who presented to hospital with difficulty breathing in addition to multiple complaints. He has also been complaining of abdominal pain, nausea, vomiting x 1 earlier today and persistent non-bloody diarrhea. Noted poor appetite or ability to tolerate any oral intake other than clear liquids. Has not been able to take any of his medications for > 9 days. Patient was noted to have a diffuse rash which he states has been going on for a over a year. Has never been biopsied, non-pruritic, states it improves when he takes a shower. Shortly after arrival he has also started to complain of joint pain particularly in right knee. No fever or chills. Denied pleuritic chest pain. Upon arrival to ER he was also noted to be hypoxic with oxygen saturation in low 80s. He was placed on 4L of o2 via NC. Laboratory workup on arrival showed a WBC of 10.7, hemoglobin of 14.8, hematocrit of 46.5 and platelet count of 233. Sodium 128, potassium 4.3, chloride 93, bicarb 11, BUN 18 over creatinine of 1.7. Prior creatinine of 0.9 in 2018. AST of 26, ALT of 19, ALP of 70. Lactic acid of 4.0 with a repeat of 2.7. Delta troponin T - neg 5.61, ProBNP of 597, lipase of 17. COVID-19 ag positive. ABG showed a PH of 7.29, pCO2 fo 22.4, p02 of 153.0 and HCO3 of 10.8. INR of 1.16. Pro-calcitonin of 0.30. Imaging studies did not show any evidence of acute cardiopulmonary abnormality. In ER patient was given vancomycin 1g IV x 1, Flagyl 500 mg IV x 1, 1.5l bolus of NS and Decadron 10 mg IV x 1.Upon admission to the hospital patient was started decadron 6 mg daily which was transitioned to home prednisone 5 mg PO daily at the time of discharge. In addition he was treated with a 5 day course of Remdesivir. Home o2 eval was obtained prior to discharge. Leukocytosis had significantly improved. Blood culture did not show any growth. Ucx showed streptococcus veridans however patient denied dyuria, frequency or urgency. No further abx were prescribed at discharge. Renal function had returned to normal. Renal US was obtained which did not show any evidence of hydronephrosis. Imaging studies included a CT abdomen pelvis which showed no acute pathology however was noted to have bilateral renal masses. For this patient was advised to follow-up with Urology on outpatient basis. Physical Exam Narrative: EXAM NARRATIVE: General :Awake, alert and oriented x3 HEENT: Grossly unremarkable CVS: RRR Chest: CTABL Abd: Soft, NT, ND Ext : No edema , FROM x 4. Urinary Catheter Management^: Dick[place]: Cath Placed During This Visit: yes, but has since been removed by the nurse Reason for Continuing Indwelling Catheter: Decision to DC Catheter Urinary Catheter Date of Insertion: 12/16/20 Urinary Catheter Time of Insertion: 04:43 Date Urinary Catheter Removed: 12/18/20 Time Urinary Catheter Discontinued: 10:30 Discharge Data Data Completed and Pending: Completed Studies During Hospitalization Category Date Time Status CT abdomen pelvis wo con [id number] Rout ine Cat Scan 12/16/20 00:07 Completed XR chest 1V layla ble [id number] Stat Exams 12/15/20 17:25 Completed XR knee RT 3V* [id number] Stat Exams 12/15/20 22:38 Completed CV echo complete* [id number] Routine Ultrasound 12/16/20 03:19 Completed US renal BI* [id number] Routine Ultrasound 12/16/20 22:46 Completed Labs from last 24 hours 12/21/20 12/21/20 12/21/20 10:38 06:30 05:24 WBC RBC Hgb Hct MCV MCH MCHC RDW Plt Count MPV Neut % (Auto) Lymph % (Auto) [place] % (Auto) Eos % (Auto) Baso % (Auto) Neut # (Auto) Lymph # (Auto) [place] # (Auto) Eos # (Auto) Baso # (Auto) Nucleated RBC % (a uto) Nucleated RBCs # Sodium 141 Potassium 3.9 Chloride 108 H Carbon Dioxide 25 Anion Gap 11.9 BUN 25 H Creatinine 0.9 GFR Calculation Not Reportable Glucose 147 H POC Glucose 170 H 122 H Calculated Osmolal ity 299 H Calcium 8.1 L Total Bilirubin 0.2 AST 17 ALT 17 Alkaline Phosphata se 66 Total Protein 4.8 L Albumin 2.3 L Globulin 2.5 12/21/20 12/20/20 12/20/20 05:24 20:16 17:15 WBC 10.4 H RBC 4.75 Hgb 13.8 Hct 41.9 L MCV 88.2 MCH 29.1 MCHC 32.9 RDW 17.5 H Plt Count 385 MPV 10.4 Neut % (Auto) 66.9 Lymph % (Auto) 13.0 [place] % (Auto) 8.8 Eos % (Auto) 2.1 Baso % (Auto) 0.2 Neut # (Auto) 6.98 Lymph # (Auto) 1.4 [place] # (Auto) 0.9 Eos # (Auto) 0.2 Baso # (Auto) 0.0 Nucleated RBC % (a uto) 2.7 Nucleated RBCs # 0.3 Sodium Potassium Chloride Carbon Dioxide Anion Gap BUN Creatinine GFR Calculation Glucose POC Glucose 233 H 300 H Calculated Osmolal ity Calcium Total Bilirubin AST ALT Alkaline Phosphata se Total Protein Albumin Globulin Vitals: Last Vital Signs Temp 97.6 F 12/21/20 11:30 Pulse 80 12/21/20 11:30 Resp 17 12/21/20 11:30 BP 117/80 12/21/20 11:30 Pulse Ox 96 12/21/20 11:30 Discharge Plan Discharge Patient Disposition: Home Condition: Stable Prescriptions: Continued terbinafine HCl 1 % Cream 1 applic TOPICAL BID RF: 0 pravastatin 40 mg Tablet 40 mg PO DAILY RF: 0 atenolol 100 mg Tablet 100 mg PO DAILY RF: 0 prednisone 5 mg Tablet 5 mg PO BID RF: 0 cyanocobalamin (vitamin B-12) 1,000 mcg Tablet 1,000 mcg PO DAILY RF: 0 alendronate 35 mg Tablet 35 mg PO Q7D RF: 0 Calcium 500 500 mg calcium (1,250 mg) Tablet 500 mg PO BID RF: 0 ascorbic acid (vitamin C) 250 mg Tablet 250 mg PO DAILY RF: 0 folic acid 1 mg Tablet 2 mg PO DAILY RF: 0 cholecalciferol (vitamin D3) 50 mcg (2,000 unit) Tablet 50 mcg PO DAILY RF: 0 dabigatran etexilate 150 mg Capsule 150 mg PO BID RF: 0 fluticasone propionate 50 mcg/actuation [place],Suspension 1 spray INTRANASAL DAILY RF: 0 Changed insulin glargine 100 unit/mL Solution 40 unit SUBCUT DAILY Qty: 0 RF: 0 Discontinued lisinopril-hydrochlorothiazide 1 tab PO DAILY RF: 0 Discharge Orders: Discharge Order (Routine); Ordered 12/21/20 Ordered By: Abraham Mckeon Referrals: Marshal Downs [Primary Care Provider] - 01/05/21 1:00 pm Aj Salazar MD [Physician] - (eval of bilateral renal mass DR SALAZAR OFFICE [facility] CALL [facility] THEN WILL CALL WITH [facility]POINT[facility]) Discharge Diet: Cardiac and Diabetic Discharge Activity: Increase activity as tolerated Patient Instructions: COPD, COPD Stoplight, Opioid Safety, Pneumonia Stoplight, Pneumonia - Viral Discharge Attestations Time Spent in Discharge Care*: greater than 30 min Specific Discharge Activities: educating patient, educating and/or supporting family/caregiver, discussing with pcp/other providers, discussing with showcase trimmer/social workers/dc planners, documenting/other paperwork and evaluating patient/reviewing data Status at Discharge: Cognitive status at discharge: cognitively intact , Behavioral status at discharge: cooperative , Functional status at discharge: other assisted ambulation Overall status at discharge: patient is back to baseline Quality Metrics Clinical Quality Measures During this hospital stay, did patient experience: None Coding Level of Care Code Acute g FW DC note Diagnoses COVID-19 U07.1 Diabetes mellitus E11.9 Hypertension I10 COPD (chronic obstructive pulmonary disease) J44.9 Chronic steroid use DVT (deep venous thrombosis) I82.409 Nausea vomiting and diarrhea R11.2; R19.7 Acute dyspnea R06.00 Elevated lactic acid level R79.89
== END 2020-12-21 12:50 | disposition home or self-care (01) | DRG 177 ==
LOC: ER 20:15 → ICU 20:21 → MEDSURG 12-17 18:54
PROVIDERS: Family Medicine; Internal Medicine; Physician Assistant; Admitting Provider Hospitalist; Emergency Provider Emergency Medicine; PCP Internal Medicine; Visit Provider Hospitalist
DX: U07.1 COVID-19 (principal); J96.01 Acute respiratory failure with hypoxia; I26.99 Other pulmonary embolism without acute cor pulmonale; J44.1 Chronic obstructive pulmonary disease with (acute) exacerbation; N17.9 Acute kidney failure, unspecified; E87.2 Acidosis; E87.1 Hypo-osmolality and hyponatremia; M06.9 Rheumatoid arthritis, unspecified; Z79.52 Long term (current) use of systemic steroids; E11.22 Type 2 diabetes mellitus with diabetic chronic kidney disease; I12.9 Hypertensive chronic kidney disease with stage 1 through stage 4 chronic kidney disease, or unspecified chronic kidney disease; N18.9 Chronic kidney disease, unspecified; E78.5 Hyperlipidemia, unspecified; Z86.718 Personal history of other venous thrombosis and embolism; Z79.01 Long term (current) use of anticoagulants; F17.210 Nicotine dependence, cigarettes, uncomplicated; R21 Rash and other nonspecific skin eruption; A08.4 Viral intestinal infection, unspecified; N28.89 Other specified disorders of kidney and ureter
CPT/HCPCS: 36415; 36416; 36600; 51702; 71045; 73562; 74176; 76770; 80048; 80051; 80053; 81001; 82330; 82436; 82550; 82570; 82728; 82805; 82962; 83605; 83690; 83880; 83935; 84145; 84300; 84484; 84540; 85025; 85049; 85378; 85610; 85730; 86140; 87040; 87077; 87086; 87186; 87426; 92523; 93005; 93306; 94640; 94664; 94760; 96365; 96367; 96372; 96375; 97110; 97116; 97161; 97530; 99291; J1100; J1644; J1815 ×2; J2920; J3370; J3535; J7030; J7040; J7050; S0030

== ENCOUNTER 2020-12-31 11:14 | Inpatient (IN) | payer OTHER, MEDICARE, SELFPAY ==
[2020-12-31] VITALS (19 sets, daily range): BP systolic 76–153; BP diastolic 41–81; PULSE 97–126; RESP 13–26; TEMP 36.4; O2SAT 95–98; BMI 36.1; BMI 34.1
--- NOTE | 2020-12-31 13:01 | ECG_ITS ---
[facility] Test Date: 2020-12-31 Pat Name: Mendez Voss Department: Room: Gender: Male Agency Development Manager: : 1945 Requested By: Kevin Rutherford Order Number: [id number] Mulugeta MD: Jason Vela M.D. Measurements Intervals [place] Rate: 117 P: 58 TN: 139 QRS: 36 QRSD: 93 T: 155 QT: 308 QTc: 431 Interpretive Statements SINUS TACHYCARDIA ST DEVIATION AND MODERATE T-WAVE ABNORMALITY, CONSIDER LATERAL ISCHEMIA [-0.1+ mV T WAVE IN I/aVL/V5/V6] Compared to ECG 12/15/2020 19:14:12 No significant changes Electronically Signed On 12-31-2020 20:28:55 CDT by Jason Vela M.D. [id number]
--- NOTE | 2020-12-31 13:02 | XR_ITS ---
WS: [id number] Portable AP semiupright chest, 12/31/2020 Clinical Data: fatigue Comparison: Chest, 12/15/2020. Findings: No nodules, masses or effusions are seen. The heart is normal. The pulmonary vascularity is not increased. No pneumonia or pneumothorax is seen. The diaphragms are flattened. Monitor leads are on the chest wall. XR/XR chest 1V portable [id number] Impression: Hyperinflation.
--- NOTE | 2020-12-31 13:05 | ED_ITS ---
HPI - Nausea/Vomiting/Diarrhea General: Chief complaint: Nausea/Vomiting/Diarrhea Stated complaint: n/d weakness Time Seen by Provider: 12/31/20 11:33 Source: patient Mode of arrival: other (see nursing assessment.) Limitations: no limitations History of Present Illness: HPI Narrative: Patient with nausea vomiting diarrhea over the past week. Patient states he was just released from the hospital last week after being admitted for Covid for approximately for 5 days. He was first diagnosed with Covid 12 days ago. Denies any fever. He states he has had poor appetite and poor fluid intake over the past few days. States he is on some been diabetic and has rheumatoid arthritis and hypertension normally. Blood pressure presently is 80/51 with a heart rate of 130. Denies any blood in the stool. MD elicited complaint: nausea, vomiting, diarrhea and abdominal pain Pertinent past history: anorexia Onset (ago): week(s) (1) Description of vomiting: watery Description of diarrhea: watery Associated nausea: Yes Associated abdominal pain: Yes Location of pain: LUQ and LLQ Pain consistency: constant Severity: moderate Quality: sharp Exacerbating factors: none Relieving factors: none Context: other (Recent Covid infection) Associated symtoms: Reports dizziness, fatigue, malaise and nausea; Denies anxiety, change in vision, chest pain, headache(s) or palpitations Review of Systems Const: Reports: fatigue and malaise Eyes: Denies: change in vision ENMT: Denies: throat pain Card: Denies: chest pain or palpitations Resp: Denies: dyspnea or wheezing GI: Reports: nausea, vomiting and diarrhea; Denies: constipation : Denies: flank pain Musc: Denies: neck pain or back pain Skin/Breast: Denies: rash or pruritus Neuro: Reports: dizziness; Denies: headache(s) Psych: Denies: anxiety Endo: Reports: polydipsia Peter/Lymph: Denies: enlarged lymph nodes PFSH ED PFSH: Medical History Chronic steroid use COPD (chronic obstructive pulmonary disease) DVT (deep venous thrombosis) Hyperlipidemia Hypertension Rheumatoid aortitis Tobacco abuse Surgical History No pertinent past surgical history Social History Smoking and tobacco status: current every day smoker Alcohol intake: never Physical Exam Const: COMMON NORMALS: no acute distress, patient oriented x3, no limitations, alert (Acetone on his breath.) and well nourished GENERAL APPEARANCE: cooperative HENMT: COMMON NORMALS: normocephalic and atraumatic HEAD & SCALP: normocephalic and atraumatic FACE & SINUS: normal facial exam Eye: COMMON NORMALS: EOMs intact bilaterally Neck/C-Spine: COMMON NORMALS: full ROM, no lymphadenopathy, supple and no meningeal signs GENERAL: Yes normal visual inspection Lymph: LYMPHATIC: no lymphadenopathy noted Chest: COMMONS NORMALS: normal inspection of the chest and normal palpation of entire chest wall CHEST: No Ecchymosis present and No rash Resp: COMMON NORMALS: normal respiratory effort, No retractions and clear to auscultation bilaterally EFFORT & INSPECTION: No respiratory distress AUSCULTATION: clear to auscultation bilaterally Cardio: COMMON NORMALS: regular rate, regular rhythm and Peripheral pulses 2+ throughout JUGULAR VENOUS DISTENTION: no JVD RATE: regular rate RHYTHM: regular rhythm PERIPHERAL PULSES: Peripheral pulses 2+ throughout GI: COMMON NORMALS: Normal to inspection, nondistended, normoactive bowel sounds present and No hepatosplenomegaly present PALPATION: Yes Tenderness to palpation present (GI) (Moderate discomfort) Details: LLQ and LUQ and Yes No hepatosplenomegaly present PERCUSSION: normal to percussion : COMMON NORMALS: Yes no CVA tenderness BLADDER/KIDNEY EXAM: Yes no CVA tenderness Back/Pelvis: COMMON NORMALS: no CVA tenderness Extremity: COMMON NORMALS: normal to inspection, full ROM and capillary refill normal Neuro: COMMON NORMALS: patient oriented x3, CN's II-XII intact bilaterally, no focal motor deficits and no sensory deficits noted SENSORIUM/ORIENTATION: Yes alert (Acetone on his breath.) MENINGEAL SIGNS: Yes no meningeal signs Psych: COMMON NORMALS: mental status grossly normal and Normal thought process present THOUGHT PROCESS: Normal thought process present Skin: COMMON NORMALS: no rashes or lesions noted and no wounds GENERAL SKIN EXAM: no rashes or lesions noted Course Vital Signs: Vital signs: Vital Signs Temperature 97.5 F L 12/31/20 11:23 Pulse Rate 121 H 12/31/20 14:00 Respiratory Rate 22 H 12/31/20 14:00 Blood Pressure 93/66 12/31/20 14:00 Pulse Oximetry 98 12/31/20 14:00 MDM - Nausea/Vomiting/Diarrhea 2 MDM Narrative: Medical decision making narrative: Patient appears to have moderate dehydration. His symptoms may be due to his Covid infection recently 1430: bp 83/60; hr 126. o2 sat 97% room air 1552: Heart rate has improved to the sinus tachycardia of 110. Blood pressure has improved to 86/67. Patient states he feels better. 1559: d/w dr. nettles. will admit to icu Lab Data: Attestation: I reviewed the patient's lab results. Labs: Lab Results 12/31/20 12/31/20 12/31/20 Range/Units 12:35 12:35 13:12 WBC 10.1 H (4.0-10.0) 10^3/ uL RBC 4.76 (4.1-5.3) 10^6/u L Hgb 13.8 (11.7-16.6) g/dL Hct 42.7 (42.0-52.0) % MCV 89.7 (80-94) fL MCH 29.0 (28.0-34.0) pg MCHC 32.3 (30.0-36.0) g/dL RDW 17.0 H (12.1-15.1) % Plt Count 295 (130-400) 10^3/c mm MPV 9.8 (7.4-10.4) fL Neut % (Auto) 63.9 % Lymph % (Auto) 12.7 % [place] % (Auto) 15.2 % Eos % (Auto) 4.8 % Baso % (Auto) 1.4 % Neut # (Auto) 6.44 (1.8-7.7) 10^3/u L Lymph # (Auto) 1.3 (0.8-4.8) 10^3/u L [place] # (Auto) 1.5 H (0.2-0.9) 10^3/u L Eos # (Auto) 0.5 (0.0-0.8) 10^3/u L Baso # (Auto) 0.1 (0.0-0.1) 10^3/u L Nucleated RBC % (a uto) 0 % Nucleated RBCs # 0.0 /100WBC APTT (23.9-36.7) SECO NDS Specimen Type Arterial Sample Site Radial, right ABG pH 7.31 L (7.35-7.45) ABG pCO2 26.6 L (35-45) mmHg ABG pO2 72.4 L (80.0-100.0) mmH g ABG HCO3 13.3 L (22-26) mmol/L ABG O2 Saturation 94.2 ABG Base Excess -11.3 L (-2.0-2.0) mmol/ L Mendez Test Pos A-a O2 Gradient 5.6 (5-10) mmHg Hematocrit 42.1 (42-52) % Hgb O2 Saturation 92.6 L (95-100) % Carboxyhemoglobin 0.7 (0.4-20.1) %THgb Methemoglobin 1.0 (0.4-1.5) % Total Hemoglobin 13.7 L (14-18) g/dL Ionized Calcium 1.2 (1.1-1.4) mmol/L O2 Delivery Device Room air FiO2 21.0 % Senior It Business Analyst ID Amh Sodium 134 L 132.0 (136-145) mmol/L Potassium 3.4 L 3.1 L (3.5-5.1) mmol/L Chloride 98 (98-107) mmol/L Carbon Dioxide 15 L (22-29) mmol/L Anion Gap 24.4 H (5-19) BUN 3 L (8-23) mg/dL Creatinine 1.2 (0.7-1.2) mg/dL GFR Calculation Not Reportable Glucose 128 H 117.0 H (65-115) mg/dL Calculated Osmolal ity 276 L (285-295) mOsm/k g Calcium 8.2 L (8.5-10.5) mg/dL Total Bilirubin 0.8 (0.15-1.2) mg/dL AST 20 (0-40) U/L ALT 10 (0-41) U/L Alkaline Phosphata se 78 (40-130) IU/L Total Protein 5.3 L (6.6-8.7) g/dL Albumin 2.1 L (3.5-5.2) g/dL Globulin 3.2 (1.3-4.6) g/dL Lipase 12 L (13-60) U/L 12/31/20 Range/Units 13:28 WBC (4.0-10.0) 10^3/ uL RBC (4.1-5.3) 10^6/u L Hgb (11.7-16.6) g/dL Hct (42.0-52.0) % MCV (80-94) fL MCH (28.0-34.0) pg MCHC (30.0-36.0) g/dL RDW (12.1-15.1) % Plt Count (130-400) 10^3/c mm MPV (7.4-10.4) fL Neut % (Auto) % Lymph % (Auto) % [place] % (Auto) % Eos % (Auto) % Baso % (Auto) % Neut # (Auto) (1.8-7.7) 10^3/u L Lymph # (Auto) (0.8-4.8) 10^3/u L [place] # (Auto) (0.2-0.9) 10^3/u L Eos # (Auto) (0.0-0.8) 10^3/u L Baso # (Auto) (0.0-0.1) 10^3/u L Nucleated RBC % (a uto) % Nucleated RBCs # /100WBC APTT 37.4 H (23.9-36.7) SECO NDS Specimen Type Sample Site ABG pH (7.35-7.45) ABG pCO2 (35-45) mmHg ABG pO2 (80.0-100.0) mmH g ABG HCO3 (22-26) mmol/L ABG O2 Saturation ABG Base Excess (-2.0-2.0) mmol/ L Mendez Test A-a O2 Gradient (5-10) mmHg Hematocrit (42-52) % Hgb O2 Saturation (95-100) % Carboxyhemoglobin (0.4-20.1) %THgb Methemoglobin (0.4-1.5) % Total Hemoglobin (14-18) g/dL Ionized Calcium (1.1-1.4) mmol/L O2 Delivery Device FiO2 % Senior It Business Analyst ID Sodium (136-145) mmol/L Potassium (3.5-5.1) mmol/L Chloride (98-107) mmol/L Carbon Dioxide (22-29) mmol/L Anion Gap (5-19) BUN (8-23) mg/dL Creatinine (0.7-1.2) mg/dL GFR Calculation Glucose (65-115) mg/dL Calculated Osmolal ity (285-295) mOsm/k g Calcium (8.5-10.5) mg/dL Total Bilirubin (0.15-1.2) mg/dL AST (0-40) U/L ALT (0-41) U/L Alkaline Phosphata se (40-130) IU/L Total Protein (6.6-8.7) g/dL Albumin (3.5-5.2) g/dL Globulin (1.3-4.6) g/dL Lipase (13-60) U/L Imaging Data^: CXR: Radiologist's impression: [address] [id number] ReportSigned Patient: BipinMendez Cassandra #: [id number]: 1945cct#:[id number]/Sex: 75 / MADM Date: 12/31/20Loc: ERRoom/Bed:Attending Dr: Ordering Provider/Ordering MD: Kevin Almaraz MD Date of Service: 12/31/20 Procedure(s): XR chest 1V portable [id number] Accession Number(s): [id number] Report Number: [id number] WS: [id number] Portable AP semiupright chest, 12/31/2020 Clinical Data: fatigue Comparison: Chest, 12/15/2020. Findings: No nodules, masses or effusions are seen. The heart is normal. The pulmonary vascularity is not increased. No pneumonia or pneumothorax is seen. The diaphragms are flattened. Monitor leads are on the chest wall. XR/XR chest 1V portable [id number] Impression: Hyperinflation. Dictated By:Tarah Lewis MDSigned By:Tarah Lewis MDSigned Date/Time:12/31/[address] Abd/Pel: Radiologist's impression: Mendez Voss 75 M [address], [place] [address]AX Scan ReportSigned Patient: Mendez Voss #: [id number]: 1945cct#:[id number]/Sex: 75 / MADM Date: 12/31/20Loc: ERRoom/Bed:Attending Dr: Ordering Provider/Ordering MD: Kevin Almaraz MD Date of Service: 12/31/20 Procedure(s): CT abdomen pelvis w con* [id number] Accession Number(s): [id number] Report Number: [id number] PROCEDURE INFORMATION: Exam: CT Abdomen And Pelvis With Contrast Exam date and time: 12/31/2020 2:33 PM Age: 75 years old Clinical indication: Abdominal pain; Localized; Left; Patient HX: C/O L sided abd pain w n/v/d x 1 week; Additional info: Pain luq and llq TECHNIQUE: Imaging protocol: Computed tomography of the abdomen and pelvis with contrast. Radiation optimization: All CT scans at this facility use at least one of these dose optimization techniques: automated exposure control; mA and/or kV adjustment per patient size (includes targeted exams where dose is matched to clinical indication); or iterative reconstruction. Contrast material: VINCE 320; Contrast volume: 95 ml; Contrast route: INTRAVENOUS (IV); COMPARISON: CT abdomen pelvis wo con [id number] 12/16/2020 3:09 AM RADIATION DOSE METRICS: Total DLP (mGy-cm): 1646.93 FINDINGS: Liver: Moderate diffuse hypoattenuation of the liver is present consistent with hepatic steatosis. No mass. Gallbladder and bile ducts: The gallbladder is surgically absent, with metallic clips in the gallbladder fossa. Pancreas: Normal. No ductal dilation. Spleen: Multifocal splenic recent infarctions redemonstrated, similar size/morphology. Adrenal glands: Normal. No mass. Kidneys and ureters: Anterior right mid renal lesion measuring 2.7 cm (52 Hounsfield units). This was previously 46 Hounsfield units and comparable size, likely representing a stable hemorrhagic cyst (Bosniak 2). Less than 7 mm anterior left renal lower pole probable additional hemorrhagic cyst is relatively inconspicuous on this examination due to use of Yoselin noted contrast. Bilateral renal probable benign cysts, largest on the left measuring 1.9 cm. Stomach and bowel: Unremarkable. No obstruction. No mucosal thickening. Appendix: The vermiform appendix is not identified on this examination. There is, however, no pericecal abnormality to suggest appendicitis. Intraperitoneal space: Unremarkable. No free air. No significant fluid collection. Vasculature: Marked aortic atherosclerotic calcification without aneurysm. The iliac arteries show marked bilateral atherosclerotic calcifications without evidence of aneurysm. Lymph nodes: No enlarged lymph nodes. Urinary bladder: Unremarkable as visualized. Reproductive: The prostate gland demonstrates nonspecific parenchymal calcifications. Bones/joints: Grade 1 L4-5 degenerative type anterolisthesis. Right sliding screw hip prosthesis with partially imaged interlocking intramedullary asa. Diffuse osteopenia. Bilateral mild lower lumbar facet primary osteoarthritis. Soft tissues: Unremarkable. CT/CT abdomen pelvis w con* [id number] IMPRESSION: 1. Multifocal splenic recent infarctions. 2. Right renal stable probable benign hemorrhagic cyst (Bosniak 2). 3. Bilateral renal probable benign cysts. No follow-up imaging is recommended. 4. Fatty infiltration of the liver. 5. Prior cholecystectomy. 6. Chronic calcific prostatitis. COMMENTS: Consistent with the [employer]'s Incidental Findings Committee white paper (J Am Lisa Radiol 2018): Any incidental renal lesion less than 1 cm or classified as too small to characterize, or any incidental cystic renal lesion characterized as simple-appearing, is likely benign. No follow-up imaging is recommended for these lesions per consensus recommendations based on imaging criteria. Radiation Dose CTDIVOL = (mGy): DLP = 1646.93 (mGy-cm) Dictated By:Jono Auguste MDSigned By:Jono Auguste MDSigned Date/Time:12/31/20 1542 EKG Data^: EKG 1: Attestation: I personally reviewed and interpreted this EKG as follows: EKG interpretation date: 12/31/20 EKG interpretation time: 13:55 Prior EKG tracings: not available for review Interpretation: EKG shows sinus tachycardia with a heart rate of 117. Nonspecific ST-T changes. Normal P waves, normal T waves. Normal AL interval. Normal QT interval. Normal QRS. Impression sinus tachycardia with nonspecific ST-T changes. Critical Care Time Critical Care Time: Critical Care Time: Yes Total Critical Care Time: 85 Attestation: see orders. IV fluids, moderate dehydration, mild DKA, nausea vomiting diarrhea due to COVID-19 Discharge Plan Discharge Patient Disposition: Admitted As Inpatient Clinical Impression: Dehydration, moderate, Gastroenteritis, Diarrhea due to COVID-19, Hypotension due to hypovolemia, Splenic infarction Diabetic ketoacidosis Qualifiers: Diabetes mellitus type: type 1 Diabetes mellitus complication detail: without coma Qualified Code(s): E10.10 - Type 1 diabetes mellitus with ketoacidosis without coma Vomiting Qualifiers: Vomiting type: unspecified Vomiting Intractability: non-intractable Nausea presence: with nausea Qualified Code(s): R11.2 - Nausea with vomiting, unspecified Condition: Stable Coding Level of Care Code ED Trim Crew Supervisor for Chg Fwd Exam Comprehensive
[2020-12-31] MEDS: ondansetron 2 mg/ML SDV 2 mL 4 MG IVP (13:11)
[2020-12-31] MEDS: sodium chloride 0.9% 1,000 ML 999 ML IV ×3 (13:11→14:52)
[2020-12-31 13:21] LABS: Basophils # 0.1 10^3/uL (0.0-0.1); Basophils % 1.4 %; Eosinophils # 0.5 10^3/uL (0.0-0.8); Eosinophils % 4.8 %; Hematocrit 42.7 % (42.0-52.0); Hemoglobin 13.8 g/dL (11.7-16.6); Lymphocytes # 1.3 10^3/uL (0.8-4.8); Lymphocytes % 12.7 %; Mean Corpuscular HGB Conc 32.3 g/dL (30.0-36.0); Mean Corpuscular Volume 89.7 fL (80-94); Mean Platelet Volume 9.8 fL (7.4-10.4); Monocytes # 1.5 10^3/uL (0.2-0.9); Monocytes % 15.2 %; Neutrophils # 6.44 10^3/uL (1.8-7.7); Neutrophils % 63.9 %; Nucleated Red Blood Cells % 0 %; Platelet Count 295 10^3/cmm (130-400); Red Blood Count 4.76 10^6/uL (4.1-5.3); White Blood Count 10.1 10^3/uL (4.0-10.0)
[2020-12-31 13:23] LABS: ABG PCO2 26.6 mmHg (35-45); ABG PH Result 7.31 (7.35-7.45); Alveolar-Arterial Oxygen Gradi 5.6 mmHg (5-10); Arterial Blood Gas Hematocrit 42.1 % (42-52); Base Excess ABG -11.3 mmol/L (-2.0-2.0); Blood Gas Allen Test Pos; Blood Gas Operator Identificat AMH; Blood Gas Sample Site Radial, right; Blood Gas Sample Type Arterial; Carboxyhemoglobin 0.7 %THgb (0.4-20.1); HCO3 ABG 13.3 mmol/L (22-26); HGB O2 Sat 92.6 % (95-100); Ionized Calcium Level - ABG 1.2 mmol/L (1.1-1.4); Oxygen Saturation ABG 94.2; PO2 ABG 72.4 mmHg (80.0-100.0); Potassium Level - ABG 3.1 mmol/L (3.5-5.0); Total Hemoglobin 13.7 g/dL (14-18)
[2020-12-31 13:24] LABS: Oxygen Device ROOM AIR
[2020-12-31 13:32] LABS: Alanine Aminotransferase 10 U/L (0-41); Albumin Level 2.1 g/dL (3.5-5.2); Alkaline Phosphatase 78 IU/L (40-130); Anion Gap 24.4 (5-19); Aspartate Amino Transferase 20 U/L (0-40); Blood Urea Nitrogen 3 mg/dL (8-23); Calcium 8.2 mg/dL (8.5-10.5); Carbon Dioxide 15 mmol/L (22-29); Chloride 98 mmol/L (98-107); Globulin 3.2 g/dL (1.3-4.6); Glucose 128 mg/dL (65-115); Lipase 12 U/L (13-60); Osmolality Calculated 276 mOsm/kg (285-295); Potassium 3.4 mmol/L (3.5-5.1); Sodium 134 mmol/L (136-145); Total Bilirubin 0.8 mg/dL (0.15-1.2); Total Protein 5.3 g/dL (6.6-8.7)
[2020-12-31 14:23] LABS: Partial Thromboplastin Time 37.4 SECONDS (23.9-36.7)
--- NOTE | 2020-12-31 14:33 | CTR_ITS ---
PROCEDURE INFORMATION: Exam: CT Abdomen And Pelvis With Contrast Exam date and time: 12/31/2020 2:33 PM Age: 75 years old Clinical indication: Abdominal pain; Localized; Left; Patient HX: C/O L sided abd pain w n/v/d x 1 week; Additional info: Pain luq and llq TECHNIQUE: Imaging protocol: Computed tomography of the abdomen and pelvis with contrast. Radiation optimization: All CT scans at this facility use at least one of these dose optimization techniques: automated exposure control; mA and/or kV adjustment per patient size (includes targeted exams where dose is matched to clinical indication); or iterative reconstruction. Contrast material: VINCE 320; Contrast volume: 95 ml; Contrast route: INTRAVENOUS (IV); COMPARISON: CT abdomen pelvis wo con [id number] 12/16/2020 3:09 AM RADIATION DOSE METRICS: Total DLP (mGy-cm): 1646.93 FINDINGS: Liver: Moderate diffuse hypoattenuation of the liver is present consistent with hepatic steatosis. No mass. Gallbladder and bile ducts: The gallbladder is surgically absent, with metallic clips in the gallbladder fossa. Pancreas: Normal. No ductal dilation. Spleen: Multifocal splenic recent infarctions redemonstrated, similar size/morphology. Adrenal glands: Normal. No mass. Kidneys and ureters: Anterior right mid renal lesion measuring 2.7 cm (52 Hounsfield units). This was previously 46 Hounsfield units and comparable size, likely representing a stable hemorrhagic cyst (Bosniak 2). Less than 7 mm anterior left renal lower pole probable additional hemorrhagic cyst is relatively inconspicuous on this examination due to use of Yoselin noted contrast. Bilateral renal probable benign cysts, largest on the left measuring 1.9 cm. Stomach and bowel: Unremarkable. No obstruction. No mucosal thickening. Appendix: The vermiform appendix is not identified on this examination. There is, however, no pericecal abnormality to suggest appendicitis. Intraperitoneal space: Unremarkable. No free air. No significant fluid collection. Vasculature: Marked aortic atherosclerotic calcification without aneurysm. The iliac arteries show marked bilateral atherosclerotic calcifications without evidence of aneurysm. Lymph nodes: No enlarged lymph nodes. Urinary bladder: Unremarkable as visualized. Reproductive: The prostate gland demonstrates nonspecific parenchymal calcifications. Bones/joints: Grade 1 L4-5 degenerative type anterolisthesis. Right sliding screw hip prosthesis with partially imaged interlocking intramedullary asa. Diffuse osteopenia. Bilateral mild lower lumbar facet primary osteoarthritis. Soft tissues: Unremarkable. CT/CT abdomen pelvis w con* [id number] IMPRESSION: 1. Multifocal splenic recent infarctions. 2. Right renal stable probable benign hemorrhagic cyst (Bosniak 2). 3. Bilateral renal probable benign cysts. No follow-up imaging is recommended. 4. Fatty infiltration of the liver. 5. Prior cholecystectomy. 6. Chronic calcific prostatitis. COMMENTS: Consistent with the [employer]'s Incidental Findings Committee white paper (J Am Lisa Radiol 2018): Any incidental renal lesion less than 1 cm or classified as too small to characterize, or any incidental cystic renal lesion characterized as simple-appearing, is likely benign. No follow-up imaging is recommended for these lesions per consensus recommendations based on imaging criteria. Radiation Dose CTDIVOL = (mGy): DLP = 1646.93 (mGy-cm)
[2020-12-31] MEDS: iodixanol 320 mg/mL 100mL Btl IV (15:03)
--- NOTE | 2020-12-31 16:23 | ECG_ITS ---
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 Measurements Intervals [place] Rate: 110 P: 44 MS: 112 QRS: 48 QRSD: 92 T: 146 QT: 338 QTc: 458 Interpretive Statements SINUS TACHYCARDIA WITH SHORT MS INTERVAL NONSPECIFIC ST & T-WAVE ABNORMALITY Compared to ECG 12/31/2020 13:50:47 Short MS interval now present Possible ischemia no longer present T-wave abnormality still present Electronically Signed On 12-31-2020 20:27:27 CDT by Jason Vela M.D. [id number]
[2020-12-31] MEDS: cefTRIAXone 2,000 MG in sodium chloride 0.9% (plus) 50 ML 100 MG IV (16:57)
--- NOTE | 2020-12-31 17:21 | PM.HP ---
Providers/Chief Complaint Primary Care Provider: Marshal Downs Chief Complaint: n/d weakness History of Present Illness Mendez Voss is a 75 year old male with a past medical history rheumatoid arthritis on chronic steroids, insulin-dependent type 2 diabetes mellitus, hypertension, hyperlipidemia, DVT on Pradaxa, tobacco abuse, COPD, tested positive for Covid on 12/15/2020, recent hospitalization for diarrhea/ADELAIDA/acute respiratory failure secondary to COVID-19 infection, who presents to [facility] due to recurrent diarrhea, fatigue, malaise. 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 He answers most questions appropriate, but does become confused. He tells me that he is here in the hospital because he has been having diarrhea since he got to the hospital, he tells me that when he was in the hospital they thought that his diarrhea was secondary to COVID-19, but as soon as he left the hospital he continued to have diarrhea, multiple bowel movements a day, denies any bloody or black stools, no fevers, no chills, no chest pain, no shortness of breath. He does complain of a diffuse rash, on his face, on his eyes, on his lower extremities, on his abdomen, he tells me that he has had this for some time but it has worsened. Denies any headache, no blurry vision, no nausea, no vomiting. No new exposure to COVID-19, he has not received vaccinations. vitals in the emergency room, blood pressure 98/54, pulse 122, respiratory 26, saturating 97.5 on room air, white blood cell count 10.1 pH 7.31, bicarb 13.3, potassium 3.4, creatinine 1.2, anion gap 24.4, blood sugar 128, lipase 12, EKG shows sinus tachycardia with T wave inversions in the lateral leads, CT scan of the abdomen pelvis shows multifocal splenic infarcts redemonstrated, similar size morphology, patient has received Rocephin, fluid bolus, hospitalist team was called for admission for diabetic ketoacidosis. On presentation patient appears septic, will obtain serum ketones, lactic acid, troponin, BNP, DIC panel, CT of the head given acute encephalopathy, CT of the facial bones preseptal cellulitis, Review of Systems Const: Reports: body aches, fatigue and malaise; Denies: fever(s) or chills Card: Denies: chest pain or palpitations Resp: Denies: dyspnea GI: Reports: abdominal pain, nausea, vomiting and diarrhea; Denies: constipation Medications/Allergies Home Medications Medication Instructions Recorded Confirmed Last Taken Type alendronate 35 mg PO Q7D 12/15/20 12/31/20 12/27/20 History ascorbic acid (vitamin C) 250 mg PO DAILY 12/15/20 12/31/20 Unknown History atenolol 100 mg PO DAILY 12/15/20 12/31/20 Unknown History calcium carbonate [Calcium 500] 500 mg PO BID 12/15/20 12/31/20 Unknown History cholecalciferol (vitamin D3) 50 mcg PO DAILY 12/15/20 12/31/20 Unknown History cyanocobalamin (vitamin B-12) 1,000 mcg PO DAILY 12/15/20 12/31/20 Unknown History dabigatran etexilate 150 mg PO BID 12/15/20 12/31/20 Unknown History fluticasone propionate 1 spray INTRANASAL DAILY 12/15/20 12/31/20 Unknown History folic acid 2 mg PO DAILY 12/15/20 12/31/20 Unknown History pravastatin 40 mg PO DAILY 12/15/20 12/31/20 Unknown History prednisone 5 mg PO BID 12/15/20 12/31/20 Unknown History terbinafine HCl 1 applic TOPICAL BID 12/15/20 12/31/20 Unknown History insulin glargine 40 unit SUBCUT DAILY #0 ml 12/21/20 12/31/20 Unknown Rx Allergies Allergy/AdvReac Type Severity Reaction Status Date / Time codeine Allergy ALGY-Anaphy Verified 12/31/20 11:31 laxis Penicillins Allergy ALGY-Anaphy Verified 12/31/20 11:31 laxis PFSH Acute PFSH: Medical History Chronic steroid use COPD (chronic obstructive pulmonary disease) DVT (deep venous thrombosis) Hyperlipidemia Hypertension Rheumatoid aortitis Tobacco abuse Surgical History No pertinent past surgical history Social History Smoking and tobacco status: current every day smoker Alcohol intake: never Vitals/I&O/Wt Last Vital Signs Temp 97.5 F L 12/31/20 11:23 Pulse 122 H 12/31/20 17:00 Resp 26 H 12/31/20 17:00 BP 98/54 12/31/20 17:00 Pulse Ox 96 12/31/20 17:00 12/31/20 12/31/20 12/31/20 06:59 14:59 22:59 Intake Total 1999 Balance 1999 Weight last 48 hrs Weight 83.915 kg Physical Exam Const: COMMON NORMALS: no acute distress and patient oriented x3 HENMT: COMMON NORMALS: normocephalic HEAD & SCALP: normocephalic Eye: COMMON NORMALS: Equal, round and reactive pupils present and EOMs intact bilaterally GENERAL EYE: appearance normal, both eyes and all related structures PUPIL: Yes Equal, round and reactive pupils present OTHER: macular/red/desquamating rash around bilateral eyes, cheeks, bilaterallu macular/red rash on bilateral shins macular/red rash on left groin Neck/C-Spine: COMMON NORMALS: full ROM and no lymphadenopathy Lymph: LYMPHATIC: no lymphadenopathy noted Resp: COMMON NORMALS: normal respiratory effort, No retractions, No use of accessory muscles and clear to auscultation bilaterally AUSCULTATION: clear to auscultation bilaterally Cardio: COMMON NORMALS: regular rhythm, S1 normal heart sound present and S2 normal heart sound present RATE: regular rate and tachycardic RHYTHM: regular rhythm HEART SOUNDS: S1 normal heart sound present and S2 normal heart sound present GI: COMMON NORMALS: Normal to inspection, nondistended, normoactive bowel sounds present, Soft to palpation and No hepatosplenomegaly present INSPECTION: Yes abdominal distension PALPATION: Yes Soft to palpation and Yes Tenderness to palpation present (GI) (Generalized tenderness) Neuro: COMMON NORMALS: patient oriented x3 and CN's II-XII intact bilaterally Sepsis: Is patient septic: Yes Focused sepsis exam performed: Yes Date exam was performed: 12/31/20 Time exam was performed: 17:00 Data : 12/31/20 12:35 12/31/20 12:35 Micro: Microbiology 12/31/20 13:24 Blood Culture - Preliminary Blood SPECIMEN COLLECTED 12/31/20 13:28 Blood Culture - Preliminary Blood SPECIMEN COLLECTED A&P Assessment and plan (1) Sepsis: -Sepsis criteria met blood pressure 98/54, pulse 122, respiratory rate 26, temperature 97.5, white blood cell count 10.1, bicarb 13.3 -UA pending -Chest x-ray no focal pneumonia -CT scan of the abdomen pelvis no intra-abdominal source, but does have splenic infarcts, will do ultrasound of the abdomen to evaluate for possible splenic abscess -Has a diffuse macular erythematous, desquamating rash, possible cellulitis -Has a history of MRSA skin infection in the past -Around orbit, concerning for possible preseptal cellulitis -With acute encephalopathy, multifactorial related to dehydration, sepsis -There was concerns for DKA in the emergency room, blood sugar 128, anion gap 24.4, potassium 3.4, sodium 134, chloride 98, pH 7.31, ketones pending -Immunocompromised with rheumatoid arthritis, on chronic steroids Plan: -Admit to ICU -Given history of COVID-19 infection, continue COVID-19 isolation -Hold off on insulin drip until serum ketones are obtained, if positive will start DKA protocol. If not start insulin sliding scale keep patient n.p.o. due to encephalopathy -For acute encephalopathy, seizure precautions, neurochecks, aspiration precautions, CT of the head -CRP, CMP, D-dimer, DIC, EBV, ESR, ferritin, fibrinogen, A1c, BMP pending -For evidence of sepsis, lactic acid has been ordered, has received fluid bolus -Metabolic acidosis, diabetic versus sepsis, lactic acid, ketones pending, fluid boluses as needed, Levophed, recheck labs in 9 PM -Fluid bolus 500 cc for MAP less than 65, Levophed to maintain MAP greater than 65 -CT scan of facial bones for to eval for preseptal cellulitis -Wound cultures, MRSA nares, blood cultures, urine cultures, sputum cultures -Broad-spectrum antibiotic therapy vancomycin, Primaxin -For diarrhea, stool studie -Monitor cognition, monitor vitals -Given splenic infarcts, etiology unclear, possibly related to COVID-19 or sepsis, continue heparin drip -History of DVT, 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, hold dabigatran, switch to heparin drip -Check A1c, insulin drip versus sliding scale as above, -Protonix for GI prophylaxis -Lovenox for DVT prophylaxis -Full code Status: Acute (2) Dehydration, moderate: Status: Acute (3) Gastroenteritis: Status: Acute (4) COVID-19: Status: Acute (5) Splenic infarction: Status: Acute (6) Diabetes mellitus: Status: Acute (7) Hypertension: Status: Acute (8) Chronic steroid use: Status: Acute (9) DVT (deep venous thrombosis): Status: Acute (10) Acute encephalopathy: Status: Acute (11) Metabolic acidosis: Status: Acute Additional A&P Information skin rash inguinal folds: nystatin Diffuse skin rash, around orbits, face, chest, evaluate for staphylococcal scalded skin syndrome versus MRSA skin infection versus preseptal cellulitis Attestations Medical Necessity Statement*: Patient requires hospitalization, ICU, for sepsis, cellulitis, possible preseptal cellulitis, acute encephalopathy, possible DKA, dehydration, diarrhea Coding Level of Care Code Acute Dynamics Ax Technical Architect for g Fwd Diagnoses Sepsis A41.9 Dehydration, moderate E86.0 Gastroenteritis K52.9 COVID-19 U07.1 Splenic infarction D73.5 Diabetes mellitus E11.9 Hypertension I10 Chronic steroid use DVT (deep venous thrombosis) I82.409 Acute encephalopathy G93.40 Metabolic acidosis E87.2 Sepsis Event Note Evaluation Current stage of sepsis: sepsis Initial hypotension due to sepsis/infection: MAP < 65 mmHg Possible source: genitourinary and skin/soft tissue Focused Exam Vital Signs Temp Pulse Pulse Resp BP BP Pulse Ox 12/31/20 17:00 122 H 26 H 98/54 96 12/31/20 14:00 121 H 22 H 93/66 98 12/31/20 12:45 121 H 23 H 80/51 96 12/31/20 11:23 97.5 F L 126 H 20 H 93/56 95 Cardiovascular exam: Present tachycardia Capillary refill: < 3 Seconds Peripheral pulse strength: 2+ Slightly Diminished Peripheral pulse location: Pedal Skin exam: flushed Date exam was performed: 12/31/20 Time exam was performed: 17:50 Problem List (1) Sepsis: Status: Acute (2) Dehydration, moderate: Status: Acute (3) Gastroenteritis: Status: Acute (4) COVID-19: Status: Acute (5) Splenic infarction: Status: Acute (6) Diabetes mellitus: Status: Acute (7) Hypertension: Status: Acute (8) Chronic steroid use: Status: Acute (9) DVT (deep venous thrombosis): Status: Acute (10) Acute encephalopathy: Status: Acute (11) Metabolic acidosis: Status: Acute
--- NOTE | 2020-12-31 18:24 | CTR_ITS ---
PROCEDURE INFORMATION: Exam: CT Maxillofacial Without Contrast Exam date and time: 12/31/2020 6:24 PM Age: 75 years old Clinical indication: Mass, lump, or swelling; Location not specified; Additional info: Evaluate for preseptal cellultis TECHNIQUE: Imaging protocol: Computed tomography images of the face without contrast. Radiation optimization: All CT scans at this facility use at least one of these dose optimization techniques: automated exposure control; mA and/or kV adjustment per patient size (includes targeted exams where dose is matched to clinical indication); or iterative reconstruction. COMPARISON: CT head wo con* [id number] 12/31/2020 6:38 PM RADIATION DOSE METRICS: Total DLP (mGy-cm): 896 FINDINGS: Orbital cavity: Orbits are normal. Globes are unremarkable. Bones/joints: No acute fracture. Paranasal sinuses: Normal. No air-fluid levels. Soft tissues: Right periorbital subcutaneous edema and minimal nonlocalized fluid largely along the lateral aspect of the orbit without intraorbital extension, likely reflecting a cellulitis. Minimal left periorbital subcutaneous edema largely along the lateral aspect of the orbit without intraorbital extension may also reflect a cellulitis. CT/CT facial bones wo con* [id number] IMPRESSION: 1. Right periorbital subcutaneous edema and minimal nonlocalized fluid largely along the lateral aspect of the orbit without intraorbital extension, likely reflecting a cellulitis. 2. Minimal left periorbital subcutaneous edema largely along the lateral aspect of the orbit without intraorbital extension may also reflect a cellulitis. Radiation Dose CTDIVOL = (mGy): DLP = 896 (mGy-cm)
--- NOTE | 2020-12-31 18:24 | CTR_ITS ---
PROCEDURE INFORMATION: Exam: CT Head Without Contrast Exam date and time: 12/31/2020 6:24 PM Age: 75 years old Clinical indication: Altered mental status/memory loss; Additional info: AMS TECHNIQUE: Imaging protocol: Computed tomography of the head without contrast. Radiation optimization: All CT scans at this facility use at least one of these dose optimization techniques: automated exposure control; mA and/or kV adjustment per patient size (includes targeted exams where dose is matched to clinical indication); or iterative reconstruction. COMPARISON: No relevant prior studies available. RADIATION DOSE METRICS: Total DLP (mGy-cm): 1601.11 FINDINGS: Brain: Normal. No hemorrhage. Unremarkable white matter. No mass effect. Cerebral ventricles: No ventriculomegaly. Paranasal sinuses: Paranasal sinus opacifications. Mastoid air cells: Visualized mastoid air cells are well aerated. Bones/joints: Unremarkable. No acute fracture. Soft tissues: Unremarkable. CT/CT head wo con* [id number] IMPRESSION: Negative for intracranial hemorrhage or mass effect Radiation Dose CTDIVOL = (mGy): DLP = 1601.11 (mGy-cm)
--- NOTE | 2020-12-31 19:01 | PC.NURSE ---
Report from ALBA Stark
[2020-12-31 19:02] LABS: Ketone (Acetest) Serum Negative (Negative)
[2020-12-31 19:16] LABS: Lactate (Lactic Acid level) 1.2 mmol/L (0.5-2.2)
[2020-12-31 19:18] LABS: Troponin(5th) Baseline 49 ng/L (0-15)
[2020-12-31 19:27] LABS: NT Pro B Type Natriuretic Pept 623 pg/mL (0-125); Procalcitonin 0.13 ng/mL (0-0.5)
[2020-12-31 19:28] LABS: Anion Gap 19.8 (5-19); Blood Urea Nitrogen 3 mg/dL (8-23); Calcium 7.4 mg/dL (8.5-10.5); Carbon Dioxide 16 mmol/L (22-29); Chloride 104 mmol/L (98-107); Glucose 66 mg/dL (65-115); Magnesium 1.1 mg/dL (1.7-2.3); Osmolality Calculated 277 mOsm/kg (285-295); Potassium 3.8 mmol/L (3.5-5.1); Sodium 136 mmol/L (136-145)
[2020-12-31 19:39] LABS: C Reactive Protein 121.6 mg/L (0.0-4.9); Ferritin 265 ng/mL (30-400); Lactate Dehydrogenase 216 U/L (135-225); Magnesium 1.2 mg/dL (1.7-2.3); Triglycerides 154 mg/dL (0-150)
[2020-12-31 19:47] LABS: Erythrocyte Sedimentation Rate 54 mm/hr (0-10)
[2020-12-31] MEDS: erythromycin Op Oint 1 gm 1 APPLIC EYE-BOTH (20:03)
[2020-12-31 20:05] LABS: INR 1.23 (0.8-1.2); Partial Thromboplastin Time 34.6 SECONDS (23.9-36.7)
[2020-12-31 20:06] LABS: Fibrinogen 483 mg/dL (174-498)
[2020-12-31] MEDS: sodium chlor 0.9% + KCl 20 mEq 20 MEQ/1,000 ML BAG 100 MEQ IV (20:21)
[2020-12-31 20:22] LABS: Estmated Average Glucose 226; Hemoglobin A1C 9.5 % (4.0-6.0)
[2020-12-31 20:34] LABS: D Dimer > 20.00 ug/mIFEU (0-0.59)
[2020-12-31 20:37] LABS: HIV 1 & 2 Antibody Non-Reactive (Non-Reactiv); HIV 1 & 2 Antigen Non-Reactive (Non-Reactiv)
[2020-12-31 20:41] LABS: Hepatitis A Antibody IgM Non-Reactive (Nonreactive); Hepatitis B Core IgM Reactive (Nonreactive); Hepatitis B Surface Antigen Non-Reactive (Nonreactive); Hepatitis C Virus Antibody Non-Reactive (Nonreactive)
--- NOTE | 2020-12-31 22:23 | ECG_ITS ---
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 Measurements Intervals [place] Rate: 107 P: 64 [place]: 137 QRS: 36 QRSD: 90 T: 124 QT: 327 QTc: 436 Interpretive Statements SINUS TACHYCARDIA WITH OCCASIONAL VENTRICULAR PREMATURE COMPLEXES NONSPECIFIC ST & T-WAVE ABNORMALITY Compared to ECG 12/31/2020 17:57:12 Ventricular premature complex(es) now present Short [place] interval no longer present T-wave abnormality still present Electronically Signed On 01-01-2021 21:39:14 CDT by Jason Vela M.D. [id number]
[2020-12-31] MEDS: nystatin powder 15 gm Btl 1 APPLIC TOPICAL (23:00)
[2020-12-31] MEDS: pantoprazole 40 mg SDV IVP (23:07)
[2020-12-31] MEDS: vancomycin 1,000 MG in sodium chloride 0.9% 250 ML 250 MG IV (23:08)
[2021-01-01] VITALS (97 sets, daily range): BP systolic 69–202; BP diastolic 39–148; PULSE 97–143; RESP 18–41; TEMP 36.7–37.2; O2SAT 77–99
[2021-01-01 00:07] LABS: Bacteria Urine 1+ /hpf; Bilirubin Urine 1+ (Negative); Blood Urine Neg (Negative); Glucose Urine UA Norm (Normal); Ketones Urine 3+ (Negative); Leukocyte Esterase Urine Negative (Negative); Mucus Urine 2+ /hpf; Nitrate Urine Negative (Negative); Protein Urine 1+ (Negative); RBC Urine 0-4 /hpf (0-2); Specific Gravity, Urine 1.015 (1.005-1.030); Squamous Epithelial Cell Urine 0-4 /hpf (0-5); Urine Appearance Clear (CLEAR); Urine Color Yellow (Yellow); Urobilinogen Urine 1 mg/dL (Negative); pH Urine 5 (5-7)
[2021-01-01] MEDS: heparin drip 25,000 UNIT/500 ML PREMIX 26.04 UNIT IV (00:22)
[2021-01-01] MEDS: heparin 5,000 unit/mL INJ 1 mL IV (00:22)
[2021-01-01 01:24] LABS: Troponin 5 6HR 39.08 ng/L (0-15)
[2021-01-01] MEDS: sodium chlor 0.9% + KCl 20 mEq 20 MEQ/1,000 ML BAG 100 MEQ IV (03:43)
[2021-01-01] MEDS: ondansetron 2 mg/ML SDV 2 mL 4 MG IVP ×2 (03:53→21:30)
--- NOTE | 2021-01-01 05:00 | USCV_ITS ---
Mendez Voss Age: 75 Gender: M : 1945 Exam Date: 01/01/2021 06:20 Ordering Phys: Adam Perez MD Technologist: Pernell Lazaro [place] [facility] [place]: [place]B BP: 129 / 75 HR: 103 Rhythm: Sinus Technical Quality: Technically difficult study MEASUREMENTS (Male / Female) Normal Values 2D ECHO LV Diastolic Diameter PLAX 3.8 cm 4.2 - 5.9 / 3.9 - 5.3 cm LV Systolic Diameter PLAX 2.3 cm IVS Diastolic Thickness 1.1 cm 0.6 - 1.0 / 0.6 - 0.9 cm IVS Systolic Thickness 1.2 cm LVPW Diastolic Thickness 1.1 cm 0.6 - 1.0 / 0.6 - 0.9 cm LVPW Systolic Thickness 0.9 cm LVOT Diameter 2.0 cm LV Ejection Fraction 2D Teich 69.5 % LV Ejection Fraction MOD 2C 49.8 % LV Ejection Fraction 2C AL 50.2 % LA Diameter 3.7 cm LA Width 4.1 cm LA Height 5.2 cm RA Width 3.8 cm RA Height 5.1 cm DOPPLER AV Peak Velocity 141.0 cm/s LVOT Peak Velocity 89.0 cm/s AV Area Cont Eq vti 2.0 cm squared AV Area Cont Eq pk 2.0 cm squared MV Area PHT 3.6 cm squared Mitral E to A Ratio 0.8 MV E' Velocity 36.0 cm/s Mitral E to MV E' Ratio 7.3 Mitral E to LV E' Lateral Ratio 8.9 Mitral E to LV E' Septal Ratio 6.1 TR Peak Velocity 152.5 cm/s TR Peak Gradient 9.3 mmHg TV Peak E Velocity 98.0 cm/s Right Atrial Pressure 3.0 mmHg Pulmonary Artery Systolic Pressu 12.3 mmHg FINDINGS Left Ventricle Normal left ventricular cavity size. Normal left ventricular systolic function. No regional wall motion abnormalities. Left ventricular ejection fraction is estimated at 60 %. Grade I/IV diastolic dysfunction (abnormal relaxation filling pattern), normal to mildly elevated filling pressures. Right Ventricle The right ventricle is normal in size and function. Right Atrium The right atrium is normal in size. Left Atrium The left atrium is normal in size. Mitral Valve Severely thickened mitral valve. Severe mitral annular calcification. No mitral valve stenosis. Trace mitral valve regurgitation. Aortic Valve Moderate aortic valve calcification. No aortic valve stenosis. No aortic valve regurgitation. Tricuspid Valve Structurally normal tricuspid valve without significant stenosis or regurgitation. Pulmonary artery systolic pressure is normal. Pulmonic Valve Structurally normal pulmonic valve without significant stenosis. There is no pulmonic regurgitation. Pericardium Normal pericardium without effusion. Aorta Normal ascending aorta dimension. CONCLUSIONS 1-Normal left ventricular cavity size. Normal left ventricular systolic function. No regional wall motion abnormalities. Left ventricular ejection fraction is estimated at 60 %. Grade I/IV diastolic dysfunction (abnormal relaxation filling pattern), normal to mildly elevated filling pressures. 2-Severely thickened mitral valve. Severe mitral annular calcification. No mitral valve stenosis. Trace mitral valve regurgitation. 3-Moderate aortic valve calcification. No aortic valve stenosis. No aortic valve regurgitation. 4-There is no pericardial effusion. 5-Pulmonary artery systolic pressure is within normal limits. 6-Right atrial pressure is around 5 mm of mercury. 7-Due to suboptimal images in the prior exam dated December 16, 2020 the study cannot be compared Aurelio Branch MD (Electronically Signed) Final Date: 01 January 2021 15:10 S
--- NOTE | 2021-01-01 05:00 | US_ITS ---
WS: [id number] Limited abdomen ultrasound, evaluate spleen. HISTORY: Evaluate spleen for possible infarct or abscess. COMPARISON: CT 12/31/2020. Spleen is normal length at 10 cm. Normal appearance of the spleen. Abnormality seen on the prior rece nt CT is not evident by ultrasound. Limited evaluation of the LEFT kidney. Kidney measures 12.6 cm in length. No hydronephrosis. No cystic or solid mass is identified by ultrasound. US/US abdomen limited [id number] IMPRESSION: Normal size spleen. The abnormality seen on recent CT are not identified by ult rasound.
--- NOTE | 2021-01-01 05:00 | USCV_ITS ---
Mendez Voss Age: 75 Gender: M : 1945 Exam Date: 01/01/2021 06:41 Ordering Phys: Adam Perez MD Technologist: Pernell Lazaro Exam Location: [facility] – [place] Indication: SOB DVT HISTORY: Lower extremity pain. PROCEDURES: The venous duplex Doppler examination of both lower extremities was performed in the standard fashion. The following venous structures were evaluated: common femoral vein, profunda vein, proximal portion of the greater saphenous vein, superficial femoral vein, and the popliteal vein. Bilaterally, the common femoral, superficial femoral, profunda femoral, popliteal, posterior tibial, greater saphenous veins, and the peroneal trunk were identified and interrogated in the standard fashion. These veins were found to be easily compressible with spontaneous blood flow. No evidence of insufficiency or thrombus noted. FINDINGS: Evidence of acute occlusive deep vein thrombosis in the left common and superficial femoral veins with abnormal flow dynamics. Evidence of acute partial deep vein thrombosis in the left popliteal and peroneal vein with abnormal flow dynamics. The veins of the right lower extremity are readily compressible with normal venous flow dynamics including spontaneous flow, respiratory phasic variation and augmentation. CONCLUSIONS There is evidence of acute left lower extremity deep venous thrombosis, cfv through peroneal trunk. No DVT right lower extremity. Dr. Bonnie Jarquin DO (Electronically Signed) Final Date: 01 January 2021 09:13 S
[2021-01-01] MEDS: magnesium sulfate premix 2 GM/50 ML PIGGYBACK IV (05:09)
[2021-01-01 06:35] LABS: Basophils # 0.1 10^3/uL (0.0-0.1); Basophils % 1.3 %; Eosinophils # 0.9 10^3/uL (0.0-0.8); Eosinophils % 9.5 %; Hematocrit 37.8 % (42.0-52.0); Hemoglobin 12.1 g/dL (11.7-16.6); Lymphocytes # 1.5 10^3/uL (0.8-4.8); Lymphocytes % 15.8 %; Mean Corpuscular Hemoglobin 28.9 pg (28.0-34.0); Mean Corpuscular Volume 90.4 fL (80-94); Mean Platelet Volume 9.2 fL (7.4-10.4); Monocytes # 1.6 10^3/uL (0.2-0.9); Monocytes % 17.1 %; Neutrophils # 5.19 10^3/uL (1.8-7.7); Neutrophils % 54.9 %; Nucleated Red Blood Cells % 0 %; Platelet Count 279 10^3/cmm (130-400); Red Blood Count 4.18 10^6/uL (4.1-5.3); Red Cell Distribution Width 17.3 % (12.1-15.1); White Blood Count 9.5 10^3/uL (4.0-10.0)
[2021-01-01 06:46] LABS: Alanine Aminotransferase 10 U/L (0-41); Alkaline Phosphatase 68 IU/L (40-130); Anion Gap 21.2 (5-19); Aspartate Amino Transferase 17 U/L (0-40); Blood Urea Nitrogen 2 mg/dL (8-23); C Reactive Protein 135.6 mg/L (0.0-4.9); Calcium 7.7 mg/dL (8.5-10.5); Carbon Dioxide 10 mmol/L (22-29); Chloride 104 mmol/L (98-107); Globulin 2.6 g/dL (1.3-4.6); Glucose 120 mg/dL (65-115); INR 1.29 (0.8-1.2); Magnesium 1.6 mg/dL (1.7-2.3); Osmolality Calculated 271 mOsm/kg (285-295); Potassium 3.2 mmol/L (3.5-5.1); Sodium 132 mmol/L (136-145); Total Bilirubin 0.5 mg/dL (0.15-1.2); Total Protein 4.6 g/dL (6.6-8.7)
[2021-01-01 06:56] LABS: NT Pro B Type Natriuretic Pept 1421 pg/mL (0-125); Procalcitonin 0.15 ng/mL (0-0.5)
[2021-01-01 07:04] LABS: Partial Thromboplastin Time 197.2 SECONDS (23.9-36.7)
[2021-01-01 07:07] LABS: Creatine Phosphokinase 32 U/L (39-308)
--- NOTE | 2021-01-01 08:09 | US_ITS ---
WS: [id number] RENAL ULTRASOUND HISTORY: possible pyelonephritis COMPARISON: 12/16/2020 TECHNIQUE: 2-D and color Doppler imaging of the kidney submitted. Right kidney: 10.9 cm x 5.0 cm x 5.3 cm. Normal echogenicity with no hydronephrosis or mass. Left kidney: 13.3 cm x 7.1 cm x 6.7 cm. Normal echogenicity with no hydronephrosis or mass. Aorta: Normal. Urinary Bladder: Normal distention. US/US renal BI* [id number] IMPRESSION: 1. Technically limited evaluation of the kidneys due to body habitus. 2. No hydronephrosis or abscess identified.
[2021-01-01] MEDS: sodium bicarbonate 8.4% 1 mEq/mL 50mL Syr 50 MEQ IVP ×2 (08:58→18:26)
[2021-01-01] MEDS: fluticasone nasal spray 16gm Btl 1 SPRAY INTRANASAL (08:58)
[2021-01-01] MEDS: erythromycin Op Oint 3.5 gm Tube 1 APPLIC EYE-BOTH ×4 (08:58→21:11)
[2021-01-01] MEDS: nystatin powder 15 gm Btl 1 APPLIC TOPICAL ×2 (08:58→18:30)
[2021-01-01] MEDS: lidocaine 1% 5 ML in potassium chloride premix 100 ML 50 ML IV (09:06)
[2021-01-01] MEDS: lidocaine 1% 5 ML in potassium chloride premix 100 ML 25 ML IV ×2 (09:06→18:26)
[2021-01-01] MEDS: acyclovir 800 MG in sodium chloride 0.9% (100 ml) 100 ML 116 MG IV (09:41)
--- NOTE | 2021-01-01 10:11 | XR_ITS ---
WS: [id number] Portable AP semiupright chest, 01/01/2021 Clinical Data: picc Comparison: Portable chest, 12/31/2020 Findings: A right PICC line has been inserted and it ends in the superior vena cava. No nodules, mass es or effusions are seen. The heart is normal. The pulmonary vascularity is not increased. No pneumon ia or pneumothorax is seen. There are monitor leads on the chest wall. XR/XR chest 1V portable [id number] Impression: Insertion of right PICC line.
--- NOTE | 2021-01-01 10:55 | PC.NURSE ---
PICC RIGHT arm ready for use. Primary nurse notified.
[2021-01-01 11:44] LABS: SARS Covid-2 Antigen Positive (Negative)
[2021-01-01 11:54] LABS: Partial Thromboplastin Time 40.8 SECONDS (23.9-36.7)
[2021-01-01 12:02] LABS: Anion Gap 21.6 (5-19); Blood Urea Nitrogen 2 mg/dL (8-23); Calcium 7.4 mg/dL (8.5-10.5); Carbon Dioxide 14 mmol/L (22-29); Chloride 105 mmol/L (98-107); Glucose 100 mg/dL (65-115); Osmolality Calculated 280 mOsm/kg (285-295); Potassium 3.6 mmol/L (3.5-5.1); Sodium 137 mmol/L (136-145)
--- NOTE | 2021-01-01 16:42 | P.PN_ITS ---
Subjective Subjective: Interval history: Patient was seen this morning, he is alert to person, to place, not to time, but drowsy, does follow commands, but does have episodes of confusion, denies any shortness of breath, no chest pain, he tells me that he has a diffuse rash, but it particularly bothers him on his chest and his arms, he has had this rash for some time, no complaints of dysuria, no back pain, no flank pain, denies a history of shingles, Vitals/I&O/Wt Last Vital Signs Temp 98.1 F 01/01/21 16:00 Pulse 110 H 01/01/21 16:00 Resp 28 H 01/01/21 16:00 BP 94/72 01/01/21 16:00 Pulse Ox 96 01/01/21 16:00 01/01/21 01/01/21 01/01/21 06:59 14:59 22:59 Intake Total 2324.030 / 4490.667 1705.249 / 1705.249 Output Total 300 / 300 600 / 600 Balance 2024.030 / 4190.667 1105.249 / 1105.249 Weight last 48 hrs Weight 92.986 kg Weight 83.915 kg Physical Exam Const: COMMON NORMALS: no acute distress and patient oriented x3 GENERAL APPEARANCE: cooperative ORIENTATION/CONSCIOUSNESS: Yes awake, Yes oriented to person, Yes oriented to place and Yes confused; not oriented to time HENMT: COMMON NORMALS: normocephalic HEAD & SCALP: normocephalic Eye: COMMON NORMALS: Equal, round and reactive pupils present PUPIL: Yes Equal, round and reactive pupils present OTHER: macular/red/desquamating rash around bilateral eyes, cheeks, bilaterally Bilaterally macular/red rash on bilateral shins Macular rash on bilateral arms Mid chest, sternal location, near left breast, papular rash macular/red rash on left groin bilateral conjunctivital injection, no scleral abnormality Lymph: LYMPHATIC: no lymphadenopathy noted Resp: COMMON NORMALS: normal respiratory effort, No retractions, No use of accessory muscles and clear to auscultation bilaterally AUSCULTATION: clear to auscultation bilaterally Cardio: COMMON NORMALS: regular rhythm, S1 normal heart sound present and S2 normal heart sound present RATE: tachycardic RHYTHM: regular rhythm HEART SOUNDS: S1 normal heart sound present and S2 normal heart sound present GI: COMMON NORMALS: Normal to inspection, nondistended, normoactive bowel sounds present, Soft to palpation and No hepatosplenomegaly present INSPECTION: Yes abdominal distension PALPATION: Yes Soft to palpation and Yes No hepatosplenomegaly present Neuro: COMMON NORMALS: patient oriented x3 SENSORIUM/ORIENTATION: Yes oriented to person, Yes oriented to place and No oriented to time Data : 01/01/21 06:15 01/01/21 11:34 Micro: Microbiology 12/31/20 13:24 Blood Culture - Preliminary Blood NEGATIVE TO DATE 12/31/20 13:28 Blood Culture - Preliminary Blood NEGATIVE TO DATE 12/31/20 23:40 MRSA Culture - Final Nose A&P Assessment and plan (1) Sepsis: -Sepsis criteria met blood pressure 98/54, pulse 122, respiratory rate 26, temperature 97.5, white blood cell count 10.1, bicarb 13.3 -UA negative for nitrites, negative for leukocyte esterase, 5-10 WBCs, -Chest x-ray no focal pneumonia -CT scan of the abdomen pelvis no intra-abdominal source, but does have splenic infarcts, will do ultrasound of the abdomen to evaluate for possible splenic abscess -Has a diffuse macular erythematous, desquamating rash, likely cellulitis, concern for MRSA skin infection -Has a history of MRSA skin infection in the past -Around orbit, concerning for cellulitis, no significant orbital cellulitis seen on CT -CT of the head no acute findings -With acute encephalopathy, multifactorial related to dehydration, sepsis -Other possibilities include Morales-Quang syndrome, staphylococcal scalded skin syndrome -Does have a rash on the chest that pustular, possible herpes zoster, and given rash around the eyes could be herpes zoster ophthalmicus -Possible rash associated which COVID-19 -Immunocompromised with rheumatoid arthritis, on chronic steroids NSTEMI, likely's -NSTEMI, 6-hour troponin 39, unremarkable delta, -CRP 135, ESR 55, pro-Anders 0.15 -TSH within normal limits -Lactic acid 1 -Left DVT positive, D-dimer positive, INR 1.29 -Anion gap metabolic acidosis multifactorial sepsis, dehydration -A1c 9.5 Plan: -Admit to ICU -Given history of COVID-19 infection, rapid Covid negative, continue COVID-19 isolation, hold off on Decadron given sepsis, hold off on remdesivir as no respiratory complaints -For acute encephalopathy, seizure precautions, neurochecks, aspiration precautions -For evidence of sepsis, currently on Levophed drip, PICC line in place -Metabolic acidosis, anion gap, will give bicarb, potassium recheck BMP at 9 PM, will decide to start on bicarb drip -Fluid bolus 500 cc for MAP less than 65, Levophed to maintain MAP greater than 65 -Wound cultures, MRSA nares, blood cultures, urine cultures, sputum cultures -Broad-spectrum antibiotic therapy vancomycin, Primaxin -Started on acyclovir for possible herpes zoster ophthalmicus, shingles -Possible [place] spotted fever, start doxycycline -Left lower extremity ultrasound shows acute left lower extremity DVT -Cardiac echo pending -For diarrhea, stool studies -Monitor cognition, monitor vitals -Given splenic infarcts, etiology unclear, possibly related to COVID-19 or sepsis, continue heparin drip -History of DVT, 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, hold dabigatran, switch to heparin drip -Blood sugars reasonable, continue subcu insulin -Protonix for GI prophylaxis -Lovenox for DVT prophylaxis -Full code Status: Acute (2) Dehydration, moderate: Status: Acute (3) Gastroenteritis: Status: Acute (4) COVID-19: Status: Acute (5) Splenic infarction: Status: Acute (6) Diabetes mellitus: Status: Acute (7) Hypertension: Status: Acute (8) Chronic steroid use: Status: Acute (9) DVT (deep venous thrombosis): Status: Acute (10) Acute encephalopathy: Status: Acute (11) Metabolic acidosis: Status: Acute (12) Left leg DVT: Status: Acute Additional A&P Information skin rash inguinal folds: nystatin Diffuse skin rash, around orbits, face, chest, evaluate for staphylococcal scalded skin syndrome versus MRSA skin infection versus preseptal cellulitis Attestations Medical Necessity Statement*: Patient requires hospitalization for sepsis, secondary to IV cellulitis, metabolic acidosis, Coding Level of Care Code Acute 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
--- NOTE | 2021-01-01 17:02 | CTR_ITS ---
PROCEDURE INFORMATION: Exam: CTA Chest With Contrast Exam date and time: 01/01/2021 5:02 PM Age: 75 years old Clinical indication: Shortness of breath; Patient HX: +dvt +covid hypotensive and tachy; Additional info: Lle dvt, covid +ve, hypotensive, evaluate for pe TECHNIQUE: Imaging protocol: Computed tomographic angiography of the chest with contrast. 3D rendering (Not supervised by radiologist): MIP and/or 3D reconstructed images were created by the technologist. Radiation optimization: All CT scans at this facility use at least one of these dose optimization techniques: automated exposure control; mA and/or kV adjustment per patient size (includes targeted exams where dose is matched to clinical indication); or iterative reconstruction. Contrast material: OMNI 350; Contrast volume: 95 ml; Contrast route: INTRAVENOUS (IV); COMPARISON: CR XR chest 1V portable [id number] 01/01/2021 10:22 AM RADIATION DOSE METRICS: Total DLP (mGy-cm): 537.25 FINDINGS: Pulmonary arteries: Right-sided pulmonary embolus extending from the distal portion of the right main pulmonary artery largely in the lower lobe segmental branches, negative for findings of right heart strain. Aorta: Unremarkable. No aortic aneurysm. No aortic dissection. Lungs: Emphysematous changes. Left upper lobe 2.2 cm and left lower lobe superior segment 2 cm pulmonary nodules. Pleural spaces: Small bilateral pleural effusions. Heart: Coronary artery atherosclerotic calcifications. Lymph nodes: Scattered subcentimeter nonspecific mediastinal lymph nodes. Liver: Hepatic steatosis. Gallbladder and bile ducts: Cholecystectomy. Bones/joints: Unremarkable. No acute fracture. Soft tissues: Unremarkable. CT/CT angio chest PE protcl [id number] IMPRESSION: 1. Right-sided pulmonary embolus extending from the distal portion of the right main pulmonary artery largely in the lower lobe segmental branches, negative for findings of right heart strain. 2. Coronary artery atherosclerotic calcifications. 3. Emphysematous changes. 4. Cholecystectomy. 5. Hepatic steatosis. 6. Scattered subcentimeter nonspecific mediastinal lymph nodes. 7. Small bilateral pleural effusions. 8. Left upper lobe 2.2 cm and left lower lobe superior segment 2 cm pulmonary nodules. Highly suspicious nodule(s). Consider non-emergent PET/CT, or tissue sampling.(Reference: Shay) REFERENCES: Shay Khanna et al. Guidelines for Management of Incidental Pulmonary Nodules Detected on CT Images: From the Fleischner Society 2017. Radiology. 2017;284(1):228-243. Radiation Dose CTDIVOL = (mGy): DLP = 537.25 (mGy-cm)
[2021-01-01] MEDS: iohexol 350 mg/mL 100 mL Btl IV (18:02)
[2021-01-01] MEDS: doxycycline 100 MG in sodium chloride 0.9% (plus) 100 ML IV (18:27)
[2021-01-01] MEDS: acyclovir 800 MG in sodium chloride 0.9% (100 ml) 100 ML 100 MG IV (18:29)
[2021-01-01 20:47] LABS: Partial Thromboplastin Time 78.5 SECONDS (23.9-36.7)
[2021-01-01] MEDS: vancomycin 1,000 MG in sodium chloride 0.9% 250 ML 250 MG IV (21:03)
[2021-01-01] MEDS: pantoprazole 40 mg SDV IVP (21:05)
[2021-01-01 23:36] LABS: Glucose Point of Care 118 mg/dL (70-110)
[2021-01-02] VITALS (98 sets, daily range): BP systolic 66–161; BP diastolic 43–94; PULSE 60–147; RESP 14–61; TEMP 36.6–37.2; O2SAT 87–99
[2021-01-02] MEDS: acyclovir 800 MG in sodium chloride 0.9% (100 ml) 100 ML 100 MG IV ×3 (01:17→17:24)
[2021-01-02] MEDS: heparin drip 25,000 UNIT/500 ML PREMIX 18.13 UNIT IV (02:31)
[2021-01-02 04:58] LABS: Basophils # 0.1 10^3/uL (0.0-0.1); Basophils % 1.3 %; Eosinophils # 0.9 10^3/uL (0.0-0.8); Eosinophils % 8.4 %; Hematocrit 38.3 % (42.0-52.0); Hemoglobin 12.3 g/dL (11.7-16.6); Lymphocytes # 1.2 10^3/uL (0.8-4.8); Lymphocytes % 12.3 %; Mean Corpuscular HGB Conc 32.1 g/dL (30.0-36.0); Mean Corpuscular Hemoglobin 29.6 pg (28.0-34.0); Mean Corpuscular Volume 92.1 fL (80-94); Mean Platelet Volume 10.1 fL (7.4-10.4); Monocytes # 1.6 10^3/uL (0.2-0.9); Monocytes % 15.5 %; Neutrophils # 6.21 10^3/uL (1.8-7.7); Neutrophils % 61.7 %; Nucleated Red Blood Cells % 0 %; Platelet Count 276 10^3/cmm (130-400); Red Blood Count 4.16 10^6/uL (4.1-5.3); Red Cell Distribution Width 17.9 % (12.1-15.1); White Blood Count 10.1 10^3/uL (4.0-10.0)
[2021-01-02] MEDS: doxycycline 100 MG in sodium chloride 0.9% (plus) 100 ML IV ×2 (05:19→17:25)
[2021-01-02 05:29] LABS: Lactate (Lactic Acid level) 1.1 mmol/L (0.5-2.2)
[2021-01-02 05:32] LABS: NT Pro B Type Natriuretic Pept 2115 pg/mL (0-125); Procalcitonin 0.17 ng/mL (0-0.5)
[2021-01-02 05:36] LABS: INR 1.33 (0.8-1.2); Partial Thromboplastin Time 38.7 SECONDS (23.9-36.7)
[2021-01-02 05:43] LABS: Alanine Aminotransferase 12 U/L (0-41); Albumin Level 1.9 g/dL (3.5-5.2); Alkaline Phosphatase 77 IU/L (40-130); Aspartate Amino Transferase 24 U/L (0-40); C Reactive Protein 145.2 mg/L (0.0-4.9); Calcium 7.9 mg/dL (8.5-10.5); Carbon Dioxide 10 mmol/L (22-29); Chloride 108 mmol/L (98-107); Creatine Phosphokinase 80 U/L (39-308); Glucose 149 mg/dL (65-115); Magnesium 1.6 mg/dL (1.7-2.3); Phosphorus 1.6 mg/dL (2.5-4.5); Sodium 138 mmol/L (136-145); Total Bilirubin 0.5 mg/dL (0.15-1.2); Total Protein 4.9 g/dL (6.6-8.7)
[2021-01-02 05:45] LABS: Blood Urea Nitrogen 1 mg/dL (8-23); Osmolality Calculated 285 mOsm/kg (285-295)
[2021-01-02 05:46] LABS: Anion Gap 23.9 (5-19); Potassium 3.9 mmol/L (3.5-5.1)
[2021-01-02] MEDS: heparin 5,000 unit/mL INJ 1 mL IV ×2 (05:59→21:03)
[2021-01-02] MEDS: ketorolac 30 mg/mL INJ 15 MG IVP (07:22)
--- NOTE | 2021-01-02 08:40 | PC.NURSE ---
very restless and agitated and pulling off lines ect.. frequently director rehabilitation program light and yelling. frquently scratching and noted red rash benadryl given and ativan
[2021-01-02] MEDS: magnesium sulfate premix 2 GM/50 ML PIGGYBACK IV (08:45)
[2021-01-02] MEDS: pantoprazole 40 mg SDV IVP ×2 (08:45→21:03)
[2021-01-02] MEDS: diphenhydrAMINE 50 mg/mL SDV 1mL 25 MG IVP (08:46)
[2021-01-02] MEDS: folic acid 1 mg Tablet 2 MG PO (08:47)
[2021-01-02] MEDS: fluticasone nasal spray 16gm Btl 1 SPRAY INTRANASAL (08:47)
[2021-01-02] MEDS: atorvastatin 40 mg Tablet 20 MG PO (08:47)
[2021-01-02] MEDS: cyanocobalamin 1,000 mcg Tablet 1000 MCG PO (08:47)
[2021-01-02] MEDS: aspirin 81 mg EC Tablet PO (08:47)
[2021-01-02 08:52] LABS: ABG PH Result 7.28 (7.35-7.45); Arterial Blood Gas Hematocrit 37.6 % (42-52); Base Excess ABG -13.4 mmol/L (-2.0-2.0); Blood Gas Allen Test Pos; Blood Gas Operator Identificat MONRO; Blood Gas Sample Site Radial, right; Blood Gas Sample Type Arterial; HCO3 ABG 11.7 mmol/L (22-26); Oxygen Device ROOM AIR; PO2 ABG 80.5 mmHg (80.0-100.0)
[2021-01-02] MEDS: sodium bicarbonate 50 MEQ in sodium chloride 0.45% 1,000 ML 100 MEQ IV ×2 (08:54→21:52)
[2021-01-02] MEDS: nystatin powder 15 gm Btl 1 APPLIC TOPICAL ×2 (09:29→17:25)
[2021-01-02] MEDS: erythromycin Op Oint 3.5 gm Tube 1 APPLIC EYE-BOTH ×4 (09:29→21:06)
--- NOTE | 2021-01-02 09:30 | PC.NURSE ---
remains restless and agitated continues to pull off monitor leads and and all clothes remains on room air oriented but does not want to be here
[2021-01-02] MEDS: LORazepam 2 mg/mL INJ 1 mL 1 MG IVP (09:51)
[2021-01-02 10:06] LABS: Cortisol Random 8.74 ug/dL (2.47-19.5)
[2021-01-02] MEDS: hydrocortisone 100 mg/2 mL SDV IVP (10:22)
--- NOTE | 2021-01-02 10:41 | ECG_ITS ---
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1945 Requested By: Adam Perez Order Number: [id number] Reading MD: JULIANNE BRAXTON Measurements Intervals [place] Rate: 138 P: [place]: QRS: 39 QRSD: 105 T: 149 QT: 287 QTc: 436 Interpretive Statements ATRIAL FLUTTER/TACHYCARDIA WITH RAPID VENTRICULAR RESPONSE NONSPECIFIC ST & T-WAVE ABNORMALITY Compared to ECG 12/31/2020 23:52:46 Sinus tachycardia no longer present Ventricular premature complex(es) no longer present T-wave abnormality still present Electronically Signed On 01-02-2021 17:04:47 CDT by JULIANNE BRAXTON [id number]
[2021-01-02] MEDS: dexmedetomidine 400 MCG in sodium chloride 0.9% (100 ml) 100 ML IV (10:58)
--- NOTE | 2021-01-02 11:00 | PC.NURSE ---
precedex gtt started for sedation and asist pt to calm down titrating up at this time
--- NOTE | 2021-01-02 11:13 | P.PN_ITS ---
Subjective Subjective: Interval history: This morning patient was examined, he is alert oriented x3, follows all commands, but is fairly restless overnight, he is itching everywhere, he tells me that he has chronic pruritus, typically not bilateral shins, he tells me that taking cold showers typically helps, he tells me he is always been like this, denies any tick bites, does have an allergy to penicillins, he has remained hypotensive overnight, requiring Levophed, blood pressures have been erratic, denies any history of adrenal insufficiency, but is on chronic steroids for rheumatoid arthritis, Vitals/I&O/Wt Last Vital Signs Temp 99.0 F 01/02/21 04:00 Pulse 147 H 01/02/21 10:45 Resp 61 H 01/02/21 10:45 BP 92/62 01/02/21 10:45 Pulse Ox 97 01/02/21 10:45 01/01/21 01/02/21 01/02/21 22:59 06:59 14:59 Intake Total 907.960 / 2613.209 978.874 / 3592.083 522.68 / 522.68 Output Total 625 / 1225 275 / 1500 Balance 282.960 / 1388.209 703.874 / 2092.083 522.68 / 522.68 Weight last 48 hrs Weight 93.758 kg Weight 92.986 kg Weight 83.915 kg Physical Exam Const: COMMON NORMALS: no acute distress and patient oriented x3 Eye: OTHER: macular/red/desquamating rash around bilateral eyes, cheeks, bilaterally Bilaterally macular/red rash on bilateral shins Macular rash on bilateral arms Mid chest, sternal location, near left breast, papular rash macular/red rash on left groin bilateral conjunctivital injection, no scleral abnormality Right picc line in place Resp: COMMON NORMALS: normal respiratory effort, No retractions, No use of accessory muscles and clear to auscultation bilaterally AUSCULTATION: clear to auscultation bilaterally Cardio: COMMON NORMALS: regular rate, regular rhythm, S1 normal heart sound present and S2 normal heart sound present RATE: regular rate RHYTHM: regular rhythm HEART SOUNDS: S1 normal heart sound present and S2 normal heart sound present GI: COMMON NORMALS: Normal to inspection, nondistended, normoactive bowel sounds present, Soft to palpation, non-tender, No hepatosplenomegaly present, no masses and no bruits INSPECTION: Yes abdominal distension PALPATION: Yes Soft to palpation and Yes No hepatosplenomegaly present Extremity: COMMON NORMALS: no pedal edema Neuro: COMMON NORMALS: patient oriented x3 Psych: COMMON NORMALS: mental status grossly normal Data : 01/02/21 04:01 01/02/21 04:01 Micro: Microbiology 01/01/21 13:25 Gram Stain - Final Groin Wound Culture - Preliminary Gram Negative Rods 12/31/20 23:40 Urine Culture - Preliminary Urine,Voided 12/31/20 13:24 Blood Culture - Preliminary Blood NEGATIVE TO DATE 12/31/20 13:28 Blood Culture - Preliminary Blood NEGATIVE TO DATE 12/31/20 23:40 MRSA Culture - Final Nose A&P Assessment and plan (1) Sepsis: -Sepsis criteria met blood pressure 98/54, pulse 122, respiratory rate 26, temperature 97.5, white blood cell count 10.1, bicarb 13.3 on admission -UA negative for nitrites, negative for leukocyte esterase, 5-10 WBCs, -Chest x-ray no focal pneumonia -CT scan of the abdomen pelvis no intra-abdominal source, but does have splenic infarcts, will do ultrasound of the abdomen to evaluate for possible splenic abscess -Has a diffuse macular erythematous, desquamating rash, likely cellulitis, concern for MRSA skin infection -Has a history of MRSA skin infection in the past -Around orbit, concerning for cellulitis, no significant orbital cellulitis seen on CT -CT of the head no acute findings -With acute encephalopathy, multifactorial related to dehydration, sepsis, resolved -Other possibilities include Morales-Quang syndrome, staphylococcal scalded skin syndrome -Does have a rash on the chest that pustular, possible herpes zoster, and given rash around the eyes could be herpes zoster ophthalmicus -Possible rash associated which COVID-19 -Immunocompromised with rheumatoid arthritis, on chronic steroids NSTEMI, likely's -NSTEMI, 6-hour troponin 39, unremarkable delta -CRP 145, ESR 55, pro-Anders 0.17 -TSH within normal limits -Lactic acid 1.1 -Left DVT positive, D-dimer positive -Right-sided pulmonary embolus extending from the distal portion of the right main pulmonary artery largely in the lower lobe segmental branches, negative for findings of right heart strain. -Anion gap metabolic acidosis -A1c 9.5 Plan: -Admit to ICU -Given history of COVID-19 infection, rapid Covid negative, continue COVID-19 isolation, hold off on Decadron given sepsis, hold off on remdesivir as no respiratory complaints -For acute encephalopathy resolved, seizure precautions, neurochecks, aspiration precautions -For evidence of sepsis, currently on Levophed drip, PICC line in place -Given history of chronic steroid use, and erratic blood pressure during his hospitalization, will start on stress dose steroids hydrocortisone, for possible adrenal crisis -Metabolic acidosis, anion gap, lactic acid 1.1, repeat ketones, obtain salicylates, acetaminophen level, ethylene, methanol level, I suspect that is likely related to sepsis, will start on a bicarb drip we keep BMP every 4 hours -Fluid bolus 500 cc for MAP less than 65, Levophed to maintain MAP greater than 65 -Wound cultures, MRSA nares, blood cultures, urine cultures, sputum cultures -Broad-spectrum antibiotic therapy vancomycin, Primaxin -Started on acyclovir for possible herpes zoster ophthalmicus, shingles -Possible [place] spotted fever, start doxycycline -Left lower extremity ultrasound shows acute left lower extremity DVT, right sided pulmonary emboli, on heparin drip -Cardiac echo shows an EF of 60%, grade 1 out of 4 diastolic dysfunction, -For diarrhea, stool studies -Monitor cognition, monitor vitals -Given splenic infarcts, etiology unclear, possibly related to COVID-19 or sepsis, continue heparin drip -History of DVT, 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, hold dabigatran, s witch to heparin drip -Blood sugars reasonable, continue subcu insulin -Protonix for GI prophylaxis -Lovenox for DVT prophylaxis -Full code Status: Acute (2) Dehydration, moderate: Status: Acute (3) Gastroenteritis: Status: Acute (4) COVID-19: Status: Acute (5) Splenic infarction: Status: Acute (6) Diabetes mellitus: Status: Acute (7) Hypertension: Status: Acute (8) Chronic steroid use: Status: Acute (9) DVT (deep venous thrombosis): Status: Acute (10) Acute encephalopathy: Status: Acute (11) Metabolic acidosis: Status: Acute (12) Left leg DVT: Status: Acute (13) Pulmonary embolism: Status: Acute Additional A&P Information skin rash inguinal folds: nystatin Diffuse skin rash, around orbits, face, chest, evaluate for staphylococcal scalded skin syndrome versus MRSA skin infection versus preseptal cellulitis Attestations Medical Necessity Statement*: Patient requires hospitalization, inpatient, greater than 2 midnights, for sepsis, secondary cellulitis, increased anion gap metabolic acidosis, hypotension, adrenal crisis, Covid positive, critical care time spent over 55 minutes Coding Level of Care Code Acute 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
--- NOTE | 2021-01-02 11:30 | PC.NURSE ---
pt confused and restless up in room pulled clothes off and pulled all iv and picc line out .Dr called with haldol given im
[2021-01-02] MEDS: lactated ringers 500 ML 999 ML IV (11:31)
[2021-01-02 11:42] LABS: Anion Gap 18.4 (5-19); Calcium 7.3 mg/dL (8.5-10.5); Carbon Dioxide 13 mmol/L (22-29); Chloride 104 mmol/L (98-107); Glucose 136 mg/dL (65-115); Potassium 3.4 mmol/L (3.5-5.1); Sodium 132 mmol/L (136-145)
[2021-01-02 11:43] LABS: Troponin(5th) Baseline 40 ng/L (0-15)
[2021-01-02 11:47] LABS: Blood Urea Nitrogen 1 mg/dL (8-23); Osmolality Calculated 272 mOsm/kg (285-295)
[2021-01-02 12:06] LABS: Acetaminophen < 5.0 ug/mL (10-30); Alcohol Level < 10 mg/dL (0-10); Salicylate < 0.3 mg/dL (3-10)
[2021-01-02 12:15] LABS: Partial Thromboplastin Time 174.7 SECONDS (23.9-36.7)
[2021-01-02] MEDS: haloperidol inj 5 mg/mL INJ 1 mL 2 MG IM (12:28)
--- NOTE | 2021-01-02 12:36 | PC.NURSE ---
Patient pulled out all IV lines and PICC line. Nurse started 20g IV to the left forearm via ultrasound. Levophed restarted. Physician alerted and we are now waiting on a central line placement.
--- NOTE | 2021-01-02 12:41 | ECG_ITS ---
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
--- NOTE | 2021-01-02 13:24 | ANES.PROC ---
Anesthesia Procedures Procedure/Date: 01/02/21 Central Venous Insert: Central Venous Line: 7fr. 3-lumen CVL RIJ Time Out Performed: Yes Consent: requested by attending/covering physician and other (medical necessity) Central Line: New Anesthesia monitors: pulse oximetry, EKG, BP cuff and oxygen (RA) Vein cannulated: right internal jugular Post procedure: Obtain Chest X-Ray Additional Comments: Seldinger technique with seeker needle, sterile prep/drape/gown/glove, sutured in place. CXR pending.
--- NOTE | 2021-01-02 13:26 | XRR_ITS ---
PROCEDURE INFORMATION: Exam: XR Chest Exam date and time: 01/02/2021 1:26 PM Age: 75 years old Clinical indication: Central line placement TECHNIQUE: Imaging protocol: XR of the chest. Views: 1 view. COMPARISON: CR XR chest 1V portable [id number] 01/01/2021 10:22 AM FINDINGS: Tubes, catheters and devices: Right internal jugular central venous access device with tip in the SVC. Lungs: No pulmonary consolidation. Masses in the left chest identified on CT are not well visualized by plain radiograph. Pleural spaces: No pleural effusion.; No pneumothorax. Heart/Mediastinum: No gross evidence of pneumomediastinum. Bones/joints: No gross fracture. XR/XR chest 1V portable [id number] IMPRESSION: 1. Right internal jugular central venous access device with tip in the SVC. 2. Masses in the left chest identified on CT are not well visualized by plain radiograph.
--- NOTE | 2021-01-02 13:30 | PC.NURSE ---
Dr downing here and central live started as emergency basis in right neck area to restart levophed on emergent basis ...
[2021-01-02 13:53] LABS: Ketone (Acetest) Serum Negative (Negative)
[2021-01-02 13:59] LABS: Troponin 5 2HR 35.11 ng/L (0-15)
--- NOTE | 2021-01-02 14:00 | PC.NURSE ---
weaning levophed gtt slowly at this time remains sedated on precedex
[2021-01-02] MEDS: hydrocortisone 100 mg/2 mL SDV 50 MG IVP ×2 (15:11→19:22)
[2021-01-02 15:13] LABS: Amphetamines Screen Urine Negative (Negative); Barbiturates Screen Urine Negative (Negative); Benzodiazepines Screen Urine Negative (Negative); Cocaine Screen Urine Negative (Negative); Opiate Screen Urine Negative (Negative); PCP Screen Urine Negative (Negative); THC Screen Urine Negative (Negative)
[2021-01-02 15:38] LABS: Ethanol Urine < 10 mg/dL (0-10)
--- NOTE | 2021-01-02 16:41 | ECG_ITS ---
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
[2021-01-02] MEDS: eucerin cream 113 gm Jar 1 APPLIC TOPICAL (17:25)
[2021-01-02 17:40] LABS: Glucose Point of Care 172 mg/dL (70-110)
[2021-01-02 17:41] LABS: Glucose Point of Care 138 mg/dL (70-110)
[2021-01-02 17:41] LABS: Glucose Point of Care 162 mg/dL (70-110)
[2021-01-02 20:19] LABS: Blood Urea Nitrogen 2 mg/dL (8-23); Carbon Dioxide 13 mmol/L (22-29); Chloride 106 mmol/L (98-107); Glucose 174 mg/dL (65-115); Osmolality Calculated 278 mOsm/kg (285-295); Sodium 134 mmol/L (136-145); Vancomycin Trough 7.3 ug/mL (10-15)
[2021-01-02 20:20] LABS: Anion Gap 19.5 (5-19); Potassium 4.5 mmol/L (3.5-5.1)
[2021-01-02 20:38] LABS: Troponin 5 6HR 20.43 ng/L (0-15)
[2021-01-02] MEDS: vancomycin 1,250 MG/250 ML PIGGYBACK 250 MG IV (21:03)
[2021-01-02] MEDS: dexmedetomidine 400 MCG in sodium chloride 0.9% (100 ml) 100 ML 9.75 MCG IV (21:52)
[2021-01-03] VITALS (59 sets, daily range): BP systolic 89–155; BP diastolic 41–88; PULSE 59–132; RESP 13–51; TEMP 35.4–37; O2SAT 91–99
[2021-01-03] MEDS: hydrocortisone 100 mg/2 mL SDV 50 MG IVP ×2 (01:45→08:14)
[2021-01-03] MEDS: acyclovir 800 MG in sodium chloride 0.9% (100 ml) 100 ML 116 MG IV ×3 (01:45→17:26)
[2021-01-03 03:35] LABS: Basophils % 0.3 %; Eosinophils % 0.1 %; Hematocrit 35.1 % (42.0-52.0); Hemoglobin 11.3 g/dL (11.7-16.6); Lymphocytes # 0.5 10^3/uL (0.8-4.8); Lymphocytes % 7.7 %; Mean Corpuscular HGB Conc 32.2 g/dL (30.0-36.0); Mean Corpuscular Hemoglobin 29.3 pg (28.0-34.0); Mean Corpuscular Volume 90.9 fL (80-94); Mean Platelet Volume 9.5 fL (7.4-10.4); Monocytes # 0.5 10^3/uL (0.2-0.9); Monocytes % 6.5 %; Neutrophils # 5.85 10^3/uL (1.8-7.7); Neutrophils % 84.5 %; Nucleated Red Blood Cells % 0 %; Platelet Count 233 10^3/cmm (130-400); Red Blood Count 3.86 10^6/uL (4.1-5.3); Red Cell Distribution Width 18.4 % (12.1-15.1); White Blood Count 6.9 10^3/uL (4.0-10.0)
[2021-01-03 03:48] LABS: INR 1.47 (0.8-1.2)
[2021-01-03 03:54] LABS: Lactate (Lactic Acid level) 0.8 mmol/L (0.5-2.2)
[2021-01-03 04:04] LABS: NT Pro B Type Natriuretic Pept 1838 pg/mL (0-125); Procalcitonin 0.12 ng/mL (0-0.5)
[2021-01-03 04:15] LABS: Alanine Aminotransferase 12 U/L (0-41); Albumin Level 1.8 g/dL (3.5-5.2); Alkaline Phosphatase 64 IU/L (40-130); Blood Urea Nitrogen 3 mg/dL (8-23); C Reactive Protein 138.5 mg/L (0.0-4.9); Calcium 7.3 mg/dL (8.5-10.5); Carbon Dioxide 11 mmol/L (22-29); Chloride 109 mmol/L (98-107); Creatine Phosphokinase 40 U/L (39-308); Globulin 2.5 g/dL (1.3-4.6); Glucose 233 mg/dL (65-115); Magnesium 1.7 mg/dL (1.7-2.3); Osmolality Calculated 286 mOsm/kg (285-295); Phosphorus 2.6 mg/dL (2.5-4.5); Sodium 136 mmol/L (136-145); Total Bilirubin 0.4 mg/dL (0.15-1.2); Total Protein 4.3 g/dL (6.6-8.7)
[2021-01-03 04:18] LABS: Anion Gap 19.9 (5-19); Aspartate Amino Transferase 25 U/L (0-40); Potassium 3.9 mmol/L (3.5-5.1)
[2021-01-03] MEDS: heparin drip 25,000 UNIT/500 ML PREMIX 20 UNIT IV (05:27)
[2021-01-03] MEDS: doxycycline 100 MG in sodium chloride 0.9% (plus) 100 ML IV ×2 (05:28→17:26)
[2021-01-03 07:55] LABS: Glucose Point of Care 230 mg/dL (70-110)
[2021-01-03] MEDS: folic acid 1 mg Tablet 2 MG PO (08:13)
[2021-01-03] MEDS: aspirin 81 mg EC Tablet PO (08:14)
[2021-01-03] MEDS: cyanocobalamin 1,000 mcg Tablet 1000 MCG PO (08:14)
[2021-01-03] MEDS: atorvastatin 40 mg Tablet 20 MG PO (08:14)
[2021-01-03] MEDS: fluticasone nasal spray 16gm Btl 1 SPRAY INTRANASAL (08:19)
[2021-01-03] MEDS: nystatin powder 15 gm Btl 1 APPLIC TOPICAL ×2 (08:19→17:55)
[2021-01-03] MEDS: erythromycin Op Oint 3.5 gm Tube 1 APPLIC EYE-BOTH ×4 (08:19→20:23)
[2021-01-03] MEDS: sodium bicarbonate 8.4% 1 mEq/mL 50mL Syr 100 MEQ IVP (09:42)
[2021-01-03] MEDS: lidocaine 1% 5 ML in potassium chloride premix 100 ML 25 ML IV (09:42)
[2021-01-03] MEDS: enoxaparin 100 mg/mL Syringe SUBCUT ×2 (09:43→20:22)
[2021-01-03] MEDS: FUROsemide 10 mg/mL SDV 4mL 40 MG IVP ×2 (09:44→20:22)
[2021-01-03] MEDS: pantoprazole 40 mg SDV IVP ×2 (09:45→20:22)
[2021-01-03 11:09] LABS: Anion Gap 22.4 (5-19); Blood Urea Nitrogen 4 mg/dL (8-23); Calcium 6.8 mg/dL (8.5-10.5); Carbon Dioxide 11 mmol/L (22-29); Chloride 110 mmol/L (98-107); Glucose 260 mg/dL (65-115); Osmolality Calculated 296 mOsm/kg (285-295); Potassium 3.4 mmol/L (3.5-5.1); Sodium 140 mmol/L (136-145)
--- NOTE | 2021-01-03 11:18 | P.PN_ITS ---
Subjective Subjective: Interval history: This morning patient was examined, he is a bit drowsy, he is on Precedex, but does follow commands, tells me that he had a difficult night, denies any shortness of breath, his itching is improving, his rash is improving Vitals/I&O/Wt Last Vital Signs Temp 95.8 F L 01/03/21 07:30 Pulse 67 01/03/21 10:30 Resp 23 H 01/03/21 10:30 BP 106/65 01/03/21 10:30 Pulse Ox 96 01/03/21 10:30 01/02/21 01/03/21 01/03/21 22:59 06:59 14:59 Intake Total 1727.465 / 3334.0269 627.934 / 3961.9609 1510 / 1510 Output Total 1475 / 1475 375 / 1850 Balance 252.465 / 1859.0269 252.934 / 2111.9609 1510 / 1510 Weight last 48 hrs Weight 95.481 kg Weight 93.758 kg Physical Exam Const: COMMON NORMALS: no acute distress GENERAL APPEARANCE: cooperative ORIENTATION/CONSCIOUSNESS: Yes awake and Yes oriented to person OTHER: A bit drowsy this morning, on Precedex Eye: COMMON NORMALS: Equal, round and reactive pupils present GENERAL EYE: appearance normal, both eyes and all related structures PUPIL: Yes Equal, round and reactive pupils present OTHER: macular/red/desquamating rash around bilateral eyes, cheeks, bilaterally improving Bilaterally macular/red rash on bilateral shins improving Macular rash on bilateral arms improving Mid chest, sternal location, near left breast, papular rash improving macular/red rash on left groin improving bilateral conjunctivital injection, no scleral abnormality Right IJ in place Lymph: LYMPHATIC: no lymphadenopathy noted Resp: COMMON NORMALS: normal respiratory effort, No retractions, No use of accessory muscles and clear to auscultation bilaterally AUSCULTATION: clear to auscultation bilaterally Cardio: COMMON NORMALS: regular rate, regular rhythm, S1 normal heart sound present and S2 normal heart sound present RATE: regular rate RHYTHM: regular rhythm HEART SOUNDS: S1 normal heart sound present and S2 normal heart sound present GI: COMMON NORMALS: Normal to inspection, nondistended, normoactive bowel s ounds present, Soft to palpation and non-tender INSPECTION: Yes abdominal distension PALPATION: Yes Soft to palpation Extremity: COMMON NORMALS: no pedal edema Neuro: SENSORIUM/ORIENTATION: Yes oriented to person Urinary Catheter Management^: Dickerson: Cath Placed During This Visit: yes Reason for Continuing Indwelling Catheter: Accurate Measurement of Urinary Output in Critically Ill Patients Urinary Catheter Date of Insertion: 01/02/21 Urinary Catheter Time of Insertion: 15:00 Data : 01/03/21 03:15 01/03/21 10:12 Micro: Microbiology 01/01/21 13:25 Gram Stain - Final Groin Wound Culture - Preliminary Proteus mirabilis esbl 12/31/20 23:40 Urine Culture - Final Urine,Voided A&P Assessment and plan (1) Sepsis: -Sepsis criteria met on admission blood pressure 98/54, pulse 122, respiratory rate 26, temperature 97.5, white blood cell count 10.1, bicarb 13.3 on admission -UA negative for nitrites, negative for leukocyte esterase, 5-10 WBCs, -Chest x-ray no focal pneumonia -CT scan of the abdomen pelvis no intra-abdominal source, but does have splenic infarcts, will do ultrasound of the abdomen to evaluate for possible splenic abscess -Has a diffuse macular erythematous, desquamating rash, likely cellulitis, concern for MRSA skin infection -Has a history of MRSA skin infection in the past -Around orbit, concerning for cellulitis, no significant orbital cellulitis seen on CT -CT of the head no acute findings -With acute encephalopathy, multifactorial related to dehydration, sepsis, resolved -Other possibilities include Morales-Quang syndrome, staphylococcal scalded skin syndrome -Does have a rash on the chest that pustular, possible herpes zoster, and given rash around the eyes could be herpes zoster ophthalmicus -Possible rash associated which COVID-19 -Immunocompromised with rheumatoid arthritis, on chronic steroids NSTEMI, likely's -NSTEMI, 6-hour troponin 39, unremarkable delta -CRP 145, ESR 55, pro-Anders 0.17 -TSH within normal limits -Lactic acid 1.1 -Left DVT positive, D-dimer positive -Right-sided pulmonary embolus extending from the distal portion of the right main pulmonary artery largely in the lower lobe segmental branches, negative for findings of right heart strain. -Anion gap metabolic acidosis -A1c 9.5 Plan: -Admit to ICU -Given history of COVID-19 infection, status post treatment including remdesivir, rapid Covid positive, could be continued shedding of the virus versus new variant, continue COVID-19 isolation, hold off on Decadron , hold off on remdesivir as no respiratory complaints -+9 L, will diurese with Lasix -For acute encephalopathy resolved, seizure precautions, neurochecks, aspiration precautions -For evidence of sepsis, currently off Levophed drip, right IJ in place -Possible adrenal crisis, given history of chronic steroid use, and erratic blood pressure during his hospitalization, has received stress dose steroids with hydrocortisone, continue hydrocortisone 50 mg every 24 hours -Metabolic acidosis, anion gap, lactic acid 1.1, repeat ketone negative , obtain salicylates negative, acetaminophen level negative I suspect that is likely related to sepsis, was on a bicarb drip for 24 hours, developing fluid overload which has been stopped, bicarb pushes as needed -Fluid bolus 500 cc for MAP less than 65, Levophed to maintain MAP greater than 65 -Wound cultures, MRSA nares, blood cultures, urine cultures, sputum cultures, wound culture Gram negative rods -Broad-spectrum antibiotic therapy vancomycin, Primaxin -Started on acyclovir for possible herpes zoster ophthalmicus, shingles -Possible [place] spotted fever, start doxycycline -Left lower extremity ultrasound shows acute left lower extremity DVT, right sided pulmonary emboli, on heparin drip -Cardiac echo shows an EF of 60%, grade 1 out of 4 diastolic dysfunction, -For diarrhea, stool studies -Monitor cognition, monitor vitals -Given splenic infarcts, etiology unclear, possibly related to COVID-19 or sepsis, therapeutic Lovenox -History of DVT, 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, hold dabigatran, Lovenox -Blood sugars reasonable, continue subcu insulin, Levemir -Protonix for GI prophylaxis -Lovenox for DVT prophylaxis -Full code Plan today switch to therapeutic Lovenox, bicarb push, stop heparin drip, stop bicarb drip, Levophed weaned off, PT OT, continue antibiotics Status: Acute (2) Dehydration, moderate: Status: Acute (3) Gastroenteritis: Status: Acute (4) COVID-19: Status: Acute (5) Splenic infarction: Status: Acute (6) Diabetes mellitus: Status: Acute (7) Hypertension: Status: Acute (8) Chronic steroid use: Status: Acute (9) DVT (deep venous thrombosis): Status: Acute (10) Acute encephalopathy: Status: Acute (11) Metabolic acidosis: Status: Acute (12) Left leg DVT: Status: Acute (13) Pulmonary embolism: Status: Acute Additional A&P Information skin rash inguinal folds: nystatin Conjunctivitis, erythromycin Diffuse skin rash, around orbits, face, chest, evaluate for staphylococcal scalded skin syndrome versus MRSA skin infection versus preseptal cellulitis Attestations Medical Necessity Statement*: Patient requires hospitalization for sepsis, cellulitis, DVT, pulmonary emboli, Now with fluid overload Coding Level of Care Code Acute [employer] for [facility] Fwd Diagnoses Sepsis A41.9 Dehydration, moderate E86.0 Gastroenteritis K52.9 COVID-19 U07.1 Splenic infarction D73.5 Diabetes mellitus E11.9 Hypertension I10 Chronic steroid use DVT (deep venous thrombosis) I82.409 Acute encephalopathy G93.40 Metabolic acidosis E87.2 Left leg DVT I82.402 Pulmonary embolism I26.99
--- NOTE | 2021-01-03 12:43 | PC.SOCIAL ---
Pg 2 IMM Pt is on Isolation for Covid. Provided IMM to pt care nurse, Meghan to give to pt. She said she will explain IMM to pt. Unable to get ahold of pt or family via phone. Did leave a message on family's voicemail to return SS call if they have any questions. Signed, dated, & timed a copy & placed in chart.
[2021-01-03 12:52] LABS: Glucose Point of Care 225 mg/dL (70-110)
[2021-01-03] MEDS: sodium bicarbonate 50 MEQ in sodium chloride 0.45% 1,000 ML IV (12:58)
[2021-01-03] MEDS: dexmedetomidine 400 MCG in sodium chloride 0.9% (100 ml) 100 ML IV (13:42)
--- NOTE | 2021-01-03 15:00 | PC.NURSE ---
Patient was sedated this am and precedex was turned down to 0.2. Axillary temp was 95.8. Dr. Perez was aware and janneth hugger was applied. Later in shift patient was alert and oriented to self and place. Patient was seen waving arms and calling for nurse. Call light in reach.
[2021-01-03] MEDS: vancomycin 1,250 MG/250 ML PIGGYBACK 250 MG IV (15:45)
[2021-01-03 17:45] LABS: Glucose Point of Care 177 mg/dL (70-110)
--- NOTE | 2021-01-03 18:20 | ECG_ITS ---
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
--- NOTE | 2021-01-03 19:04 | PC.NURSE ---
Heart rate became elevated in 120's. Dr. nettles aware and gave order to do EKG. Sinus tachycardia was noted.
--- NOTE | 2021-01-03 19:31 | PC.NURSE ---
Report received. Assessment completed. Pt AAOx2, disoriented to place and situation, reoriented PRN. Assisted pt with movement in bed. VSS. On RA. Reminded to leave tele leads on. Dickerson cath draining clear moni urine to BSD. Denies any pain or SOB. Lung sounds CTA. Will monitor.
[2021-01-03 20:39] LABS: Glucose Point of Care 236 mg/dL (70-110)
[2021-01-03] MEDS: acetaminophen 325 mg Tablet 650 MG PO (21:27)
[2021-01-03] MEDS: LORazepam 2 mg/mL INJ 1 mL 1 MG IVP (21:27)
--- NOTE | 2021-01-03 21:40 | PC.NURSE ---
Pt using profanity towards staff and removing monitoring leads. Pulling at IV's. Ativan 1mg given d/t increased s/s of agitation and anxiety. Will monitor.
[2021-01-04] VITALS (30 sets, daily range): BP systolic 110–151; BP diastolic 57–108; PULSE 90–135; RESP 11–27; TEMP 36.4–36.8; O2SAT 88–100
--- NOTE | 2021-01-04 00:55 | PC.NURSE ---
Pt pulled central line dressing off. Line secure. Dressing changed using sterile technique. Repositioned. Will monitor.
[2021-01-04] MEDS: acyclovir 800 MG in sodium chloride 0.9% (100 ml) 100 ML 116 MG IV (01:28)
[2021-01-04 05:22] LABS: Basophils % 0.3 %; Eosinophils % 0.3 %; Hematocrit 31.7 % (42.0-52.0); Hemoglobin 10.8 g/dL (11.7-16.6); Lymphocytes # 0.9 10^3/uL (0.8-4.8); Lymphocytes % 9.3 %; Mean Corpuscular HGB Conc 34.1 g/dL (30.0-36.0); Mean Corpuscular Hemoglobin 29.1 pg (28.0-34.0); Mean Corpuscular Volume 85.4 fL (80-94); Mean Platelet Volume 9.3 fL (7.4-10.4); Monocytes % 10.3 %; Neutrophils # 7.28 10^3/uL (1.8-7.7); Neutrophils % 79.4 %; Nucleated Red Blood Cells % 0 %; Platelet Count 262 10^3/cmm (130-400); Red Blood Count 3.71 10^6/uL (4.1-5.3); Red Cell Distribution Width 17.9 % (12.1-15.1); White Blood Count 9.2 10^3/uL (4.0-10.0)
[2021-01-04] MEDS: doxycycline 100 MG in sodium chloride 0.9% (plus) 100 ML IV (05:26)
[2021-01-04] MEDS: lidocaine 2% viscous 15 ML, aluminum-mag hydrox-simethicon 30 ML, sucralfate oral liq 1 GM PO (05:28)
[2021-01-04 05:34] LABS: INR 1.36 (0.8-1.2)
[2021-01-04 05:35] LABS: Partial Thromboplastin Time 44.4 SECONDS (23.9-36.7)
[2021-01-04 05:39] LABS: Ammonia 14 umol/L (16-60)
[2021-01-04 05:41] LABS: Fibrinogen 384 mg/dL (174-498)
[2021-01-04 05:52] LABS: NT Pro B Type Natriuretic Pept 2138 pg/mL (0-125); Procalcitonin 0.09 ng/mL (0-0.5)
[2021-01-04 05:53] LABS: D Dimer >= 20.00 ug/mIFEU (0-0.59)
[2021-01-04 06:07] LABS: Alanine Aminotransferase 8 U/L (0-41); Albumin Level 1.8 g/dL (3.5-5.2); Alkaline Phosphatase 62 IU/L (40-130); Anion Gap 15.4 (5-19); Aspartate Amino Transferase 17 U/L (0-40); Blood Urea Nitrogen 6 mg/dL (8-23); Calcium 6.5 mg/dL (8.5-10.5); Carbon Dioxide 21 mmol/L (22-29); Chloride 103 mmol/L (98-107); Creatine Phosphokinase 23 U/L (39-308); Globulin 2.3 g/dL (1.3-4.6); Glucose 190 mg/dL (65-115); Magnesium 1.3 mg/dL (1.7-2.3); Osmolality Calculated 287 mOsm/kg (285-295); Sodium 137 mmol/L (136-145); Total Bilirubin 0.4 mg/dL (0.15-1.2); Total Protein 4.1 g/dL (6.6-8.7)
[2021-01-04 06:12] LABS: Potassium 2.4 mmol/L (3.5-5.1)
--- NOTE | 2021-01-04 06:34 | PC.NURSE ---
notified of potassium 2.4 at 0614. No new orders at this time. PT repositioned. Confused at times but able to follow all commands and give appropriate answers. Dickerson cath draining freely.
[2021-01-04] MEDS: hydrocortisone 100 mg/2 mL SDV 50 MG IVP (07:37)
[2021-01-04] MEDS: dexmedetomidine 400 MCG in sodium chloride 0.9% (100 ml) 100 ML IV (07:38)
[2021-01-04 08:05] LABS: Glucose Point of Care 194 mg/dL (70-110)
[2021-01-04 09:17] LABS: Vancomycin Trough 16.6 ug/mL (10-15)
[2021-01-04] MEDS: pantoprazole 40 mg SDV IVP ×2 (10:02→20:04)
[2021-01-04] MEDS: vancomycin 1,250 MG/250 ML PIGGYBACK 250 MG IV (10:06)
[2021-01-04] MEDS: magnesium sulfate premix 4 GM/100 ML PREMIX IV (10:07)
[2021-01-04] MEDS: cyanocobalamin 1,000 mcg Tablet 1000 MCG PO (10:08)
[2021-01-04] MEDS: apixaban 5 mg Tablet 10 MG PO ×2 (10:08→20:04)
[2021-01-04] MEDS: folic acid 1 mg Tablet 2 MG PO (10:08)
[2021-01-04] MEDS: aspirin 81 mg EC Tablet PO (10:08)
[2021-01-04] MEDS: acyclovir 800 mg Tablet PO ×3 (10:09→20:04)
[2021-01-04] MEDS: phosphorus 250 mg Tablet PO ×2 (10:09→17:28)
[2021-01-04] MEDS: atorvastatin 40 mg Tablet 20 MG PO (10:09)
[2021-01-04] MEDS: nystatin powder 15 gm Btl 1 APPLIC TOPICAL ×2 (10:10→18:17)
[2021-01-04] MEDS: fluticasone nasal spray 16gm Btl 1 SPRAY INTRANASAL (10:13)
[2021-01-04] MEDS: erythromycin Op Oint 3.5 gm Tube 1 APPLIC EYE-BOTH ×4 (10:16→20:35)
--- NOTE | 2021-01-04 12:43 | P.PN_ITS ---
Subjective Subjective: Interval history: This morning patient was examined, he is sitting up in bed, normotensive, off pressors, saturating in the high 90s on room air, no episodes of atrial fibrillation overnight, he is alert oriented to person, to place, to the year, to the president, he follows commands, his only complaint is slight abdominal pain, no nausea, no vomiting, no fevers, has not had a bowel movement Vitals/I&O/Wt Last Vital Signs Temp 97.5 F L 01/04/21 04:00 Pulse 96 01/04/21 06:00 Resp 19 H 01/04/21 04:00 BP 133/75 01/04/21 04:00 Pulse Ox 98 01/04/21 04:00 01/03/21 01/04/21 01/04/21 22:59 06:59 14:59 Intake Total 1611 / 3121 1276 / 4397 1099.532 / 1099.532 Output Total 1750 / 3350 Balance 1611 / 1521 -474 / 1047 1099.532 / 1099.532 Weight last 48 hrs Weight 94.376 kg Weight 95.481 kg Physical Exam Const: COMMON NORMALS: no acute distress and patient oriented x3 GENERAL APPEARANCE: cooperative ORIENTATION/CONSCIOUSNESS: Yes awake and Yes oriented to person HENMT: COMMON NORMALS: normocephalic HEAD & SCALP: normocephalic Eye: COMMON NORMALS: Equal, round and reactive pupils present and EOMs intact bilaterally GENERAL EYE: appearance normal, both eyes and all related structures PUPIL: Yes Equal, round and reactive pupils present OTHER: macular/red/desquamating rash around bilateral eyes, cheeks, bilaterally improving Bilaterally macular/red rash on bilateral shins improving Macular rash on bilateral arms improving Mid chest, sternal location, near left breast, papular rash improving macular/red rash on left groin improving bilateral conjunctivital injection, no scleral abnormality Right IJ in place Neck/C-Spine: COMMON NORMALS: full ROM and no lymphadenopathy Lymph: LYMPHATIC: no lymphadenopathy noted Resp: COMMON NORMALS: normal respiratory effort, No retractions, No use of accessory muscles and clear to auscultation bilaterally AUSCULTATION: clear to auscultation bilaterally Cardio: COMMON NORMALS: regular rate, regular rhythm, S1 normal heart sound present and S2 normal heart sound present RATE: regular rate RHYTHM: regular rhythm HEART SOUNDS: S1 normal heart sound present and S2 normal heart sound present GI: COMMON NORMALS: Normal to inspection, nondistended, normoactive bowel sounds present, Soft to palpation and non-tender INSPECTION: Yes abdominal distension PALPATION: Yes Soft to palpation Extremity: COMMON NORMALS: no pedal edema NARRATIVE EXTREMITY EXAM: Minimal bilateral hand edema, some abdominal edema, no pitting edema bilateral lower extremities Neuro: COMMON NORMALS: patient oriented x3 SENSORIUM/ORIENTATION: Yes oriented to person Psych: COMMON NORMALS: mental status grossly normal Urinary Catheter Management^: Dickerson: Cath Placed During This Visit: yes Reason for Continuing Indwelling Catheter: Accurate Measurement of Urinary Output in Critically Ill Patients Urinary Catheter Date of Insertion: 01/02/21 Urinary Catheter Time of Insertion: 15:00 Data : 01/04/21 04:55 01/04/21 04:55 Micro: Microbiology 01/01/21 13:25 Gram Stain - Final Groin Wound Culture - Preliminary Proteus mirabilis esbl Enterococcus species 12/31/20 23:40 Urine Culture - Final Urine,Voided A&P Assessment and plan (1) Sepsis: -Sepsis criteria met on admission blood pressure 98/54, pulse 122, respiratory rate 26, temperature 97.5, white blood cell count 10.1, bicarb 13.3 on admission -UA negative for nitrites, negative for leukocyte esterase, 5-10 WBCs, -Chest x-ray no focal pneumonia -CT scan of the abdomen pelvis no intra-abdominal source, but does have splenic infarcts, will do ultrasound of the abdomen to evaluate for possible splenic abscess -Has a diffuse macular erythematous, desquamating rash, likely cellulitis, concern for MRSA skin infection -Has a history of MRSA skin infection in the past -Around orbit, concerning for cellulitis, no significant orbital cellulitis seen on CT -CT of the head no acute findings -With acute encephalopathy, multifactorial related to dehydration, sepsis, resolved -Other possibilities include Morales-Quang syndrome, staphylococcal scalded skin syndrome -Does have a rash on the chest that pustular, possible herpes zoster, and given rash around the eyes could be herpes zoster ophthalmicus -Possible rash associated which COVID-19 -Immunocompromised with rheumatoid arthritis, on chronic steroids NSTEMI, likely's -NSTEMI, 6-hour troponin 39, unremarkable delta -CRP 145, ESR 55, pro-Anders 0.17 -TSH within normal limits -Lactic acid within normal limits -Left DVT positive, D-dimer positive -Right-sided pulmonary embolus extending from the distal portion of the right main pulmonary artery largely in the lower lobe segmental branches, negative for findings of right heart strain. -Anion gap metabolic acidosis, resolved -A1c 9.5 Plan: -We will de-escalate out of ICU this afternoon -Replace electrolytes potassium, magnesium, phosphorus, stop bicarb drip -Given history of COVID-19 infection, status post treatment including remdesivir, rapid Covid positive, could be continued shedding of the virus versus new variant, continue COVID-19 isolation, hold off on Decadron , hold off on remdesivir as no respiratory complaints -+10 L, but does not look fluid overloaded, is not requiring oxygen -For acute encephalopathy resolved, seizure precautions, neurochecks, aspiration precautions -For evidence of sepsis, resolved, currently off Levophed drip, right IJ in place -Possible adrenal crisis, given history of chronic steroid use, and erratic blood pressure during his hospitalization, has received stress dose steroids with hydrocortisone, blood pressure significantly improved, no erratic blood pressures, transition to prednisone 20 twice daily -Metabolic acidosis, anion gap resolved, stop bicarb drip, lactic acid 1.1, repeat ketone negative , obtain salicylates negative, acetaminophen level negative I suspect that is likely related to sepsis -Off Levophed -Wound cultures, MRSA nares, blood cultures, urine cultures, sputum cultures, wound culture Proteus ESBL species, Enterococcus -Broad-spectrum antibiotic therapy vancomycin, Primaxin -Switch to p.o. acyclovir for possible herpes zoster ophthalmicus, shingles -Possible [place] spotted fever, switch to p.o. doxycycline -Left lower extremity ultrasound shows acute left lower extremity DVT, right sided pulmonary emboli, switch to Eliquis -Cardiac echo shows an EF of 60%, grade 1 out of 4 diastolic dysfunction, -For diarrhea, stool studies -Monitor cognition, monitor vitals -Given splenic infarcts, etiology unclear, possibly related to COVID-19 or sepsis, switch to Eliquis -History of DVT, 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, hold dabigatran, switch to Eliquis -Blood sugars reasonable, continue subcu insulin, Levemir -Protonix for GI prophylaxis -Lovenox for DVT prophylaxis -Full code Plan today switch to Eliquis, stop Precedex, stop bicarb, PT OT, speech therapy eval, continue neurochecks, transition to the general medical floors, replace electrolytes Status: Acute (2) Dehydration, moderate: Status: Acute (3) Gastroenteritis: Status: Acute (4) COVID-19: Status: Acute (5) Splenic infarction: Status: Acute (6) Diabetes mellitus: Status: Acute (7) Hypertension: Status: Acute (8) Chronic steroid use: Status: Acute (9) DVT (deep venous thrombosis): Status: Acute (10) Acute encephalopathy: Status: Acute (11) Metabolic acidosis: Status: Acute (12) Left leg DVT: Status: Acute (13) Pulmonary embolism: Status: Acute Additional A&P Information skin rash inguinal folds: nystatin Conjunctivitis, erythromycin Diffuse skin rash, around orbits, face, chest, evaluate for staphylococcal scalded skin syndrome versus MRSA skin infection versus preseptal cellulitis Attestations Medical Necessity Statement*: Patient requires hospitalization for sepsis secondary to cellulitis, with shingles, with acidosis, Coding Level of Care Code Acute Sharepoint Analyst for [facility] Fwd Diagnoses Sepsis A41.9 Dehydration, moderate E86.0 Gastroenteritis K52.9 COVID-19 U07.1 Splenic infarction D73.5 Diabetes mellitus E11.9 Hypertension I10 Chronic steroid use DVT (deep venous thrombosis) I82.409 Acute encephalopathy G93.40 Metabolic acidosis E87.2 Left leg DVT I82.402 Pulmonary embolism I26.99
[2021-01-04 12:53] LABS: Glucose Point of Care 258 mg/dL (70-110)
[2021-01-04 14:00] LABS: Anion Gap 14.7 (5-19); Blood Urea Nitrogen 6 mg/dL (8-23); Calcium 6.6 mg/dL (8.5-10.5); Carbon Dioxide 20 mmol/L (22-29); Chloride 101 mmol/L (98-107); Glucose 244 mg/dL (65-115); Magnesium 2.4 mg/dL (1.7-2.3); Osmolality Calculated 282 mOsm/kg (285-295); Sodium 133 mmol/L (136-145)
[2021-01-04 14:10] LABS: Phosphorus 0.9 mg/dL (2.5-4.5); Potassium 2.7 mmol/L (3.5-5.1)
[2021-01-04] MEDS: docusate sodium 100 mg Capsule PO ×2 (15:16→17:28)
[2021-01-04] MEDS: polyethylene glycol 3350 Pkt 17 gm PO ×2 (15:17→17:30)
--- NOTE | 2021-01-04 16:13 | PC.NUTR ---
Nutrition reassessment: Noted pt has consumed only 1 meal X 4 days (50% of a clear liquid tray) per chart review, indicating very little kcal intake X 4 days. Has improved today per nurse, as she states he consumed a portion of breakfast and lunch which has not been added to EMR yet. Recommend Glucerna with meals to provide additional kcal/protein intake given pt with little to no nutritional intake since admission per chart. See RD assessments for further details.
[2021-01-04] MEDS: metoprolol tartrate 25 mg Tablet PO (17:28)
[2021-01-04] MEDS: acetaminophen 325 mg Tablet 650 MG PO (17:28)
[2021-01-04 18:07] LABS: Glucose Point of Care 273 mg/dL (70-110)
[2021-01-04 19:31] LABS: Blood Urea Nitrogen 6 mg/dL (8-23); Calcium 6.2 mg/dL (8.5-10.5); Carbon Dioxide 23 mmol/L (22-29); Chloride 101 mmol/L (98-107); Glucose 266 mg/dL (65-115); Osmolality Calculated 285 mOsm/kg (285-295); Phosphorus 1.7 mg/dL (2.5-4.5); Sodium 134 mmol/L (136-145)
[2021-01-04] MEDS: LORazepam 2 mg/mL INJ 1 mL 1 MG IVP (20:04)
[2021-01-04 20:43] LABS: Glucose Point of Care 258 mg/dL (70-110)
--- NOTE | 2021-01-04 21:39 | PC.NURSE ---
Patient alert and oriented, complaining of some pain in his left lower quad abdomen, gave Tylenol, didn't seem to help to much gave him some ativan to make him more comfortable and that helped, patient has good bowel sounds in all 4 quadrants and belly is round but not distended. Patient is appropriate and cooperative, transferred to [facility] at 2100
[2021-01-05] VITALS (12 sets, daily range): BP systolic 98–136; BP diastolic 64–79; PULSE 101–111; RESP 16–24; TEMP 36.6–37.2; O2SAT 90–95
[2021-01-05] MEDS: vancomycin 1,250 MG/250 ML PIGGYBACK 250 MG IV ×2 (03:49→21:04)
--- NOTE | 2021-01-05 04:12 | PC.NURSE ---
When entering the room patient was sitting in the floor. There was bowel in the floor and smeared down the side of the bed and bed rail. When asked the patient what happened he stated his knee buckled and he fell on his bottom. He denied hitting his head or any pain. When asked again if he fell hard or slid down the bed he stated he slid down the bed and did not land hard. He stated he was not hurt just needed to use the bathroom. Patients vitals were within normal range and there was no indication of injury to the patient.
[2021-01-05] MEDS: metoprolol tartrate 25 mg Tablet PO ×2 (05:36→18:22)
[2021-01-05 06:30] LABS: Basophils # 0.1 10^3/uL (0.0-0.1); Basophils % 0.5 %; Eosinophils # 0.4 10^3/uL (0.0-0.8); Eosinophils % 3.5 %; Hematocrit 32.9 % (42.0-52.0); Hemoglobin 11.4 g/dL (11.7-16.6); Lymphocytes # 0.9 10^3/uL (0.8-4.8); Lymphocytes % 7.5 %; Mean Corpuscular HGB Conc 34.7 g/dL (30.0-36.0); Mean Corpuscular Hemoglobin 29.3 pg (28.0-34.0); Mean Corpuscular Volume 84.6 fL (80-94); Mean Platelet Volume 9.5 fL (7.4-10.4); Neutrophils # 9.01 10^3/uL (1.8-7.7); Neutrophils % 78.8 %; Nucleated Red Blood Cells % 0 %; Platelet Count 280 10^3/cmm (130-400); Red Blood Count 3.89 10^6/uL (4.1-5.3); Red Cell Distribution Width 17.8 % (12.1-15.1); White Blood Count 11.4 10^3/uL (4.0-10.0)
[2021-01-05 06:44] LABS: INR 1.85 (0.8-1.2)
[2021-01-05 06:46] LABS: Partial Thromboplastin Time 37.9 SECONDS (23.9-36.7)
[2021-01-05 06:50] LABS: Ammonia 19 umol/L (16-60); Lactate (Lactic Acid level) 1.3 mmol/L (0.5-2.2)
[2021-01-05 06:52] LABS: Alanine Aminotransferase 8 U/L (0-41); Albumin Level 1.9 g/dL (3.5-5.2); Alkaline Phosphatase 66 IU/L (40-130); Anion Gap 10.6 (5-19); Aspartate Amino Transferase 16 U/L (0-40); Blood Urea Nitrogen 6 mg/dL (8-23); C Reactive Protein 61.8 mg/L (0.0-4.9); Calcium 6.2 mg/dL (8.5-10.5); Carbon Dioxide 26 mmol/L (22-29); Chloride 105 mmol/L (98-107); Globulin 2.3 g/dL (1.3-4.6); Glucose 134 mg/dL (65-115); Magnesium 1.8 mg/dL (1.7-2.3); Osmolality Calculated 288 mOsm/kg (285-295); Sodium 139 mmol/L (136-145); Total Bilirubin 0.4 mg/dL (0.15-1.2); Total Protein 4.2 g/dL (6.6-8.7)
[2021-01-05 07:02] LABS: D Dimer >= 20.00 ug/mIFEU (0-0.59)
[2021-01-05 07:32] LABS: NT Pro B Type Natriuretic Pept 3545 pg/mL (0-125); Procalcitonin 0.11 ng/mL (0-0.5)
[2021-01-05 07:35] LABS: Potassium 2.6 mmol/L (3.5-5.1)
[2021-01-05 07:42] LABS: Fibrinogen 423 mg/dL (174-498)
[2021-01-05 07:43] LABS: Creatine Phosphokinase 30 U/L (39-308)
[2021-01-05 09:13] LABS: Glucose Point of Care 154 mg/dL (70-110)
[2021-01-05] MEDS: aspirin 81 mg EC Tablet PO (11:07)
[2021-01-05] MEDS: atorvastatin 40 mg Tablet 20 MG PO (11:07)
[2021-01-05] MEDS: docusate sodium 100 mg Capsule PO (11:07)
[2021-01-05] MEDS: apixaban 5 mg Tablet 10 MG PO ×2 (11:07→21:04)
[2021-01-05] MEDS: cyanocobalamin 1,000 mcg Tablet 1000 MCG PO (11:07)
[2021-01-05] MEDS: folic acid 1 mg Tablet 2 MG PO (11:07)
[2021-01-05] MEDS: acyclovir 800 mg Tablet PO ×4 (11:08→21:04)
[2021-01-05] MEDS: predniSONE 20 mg Tablet PO ×2 (11:08→18:22)
[2021-01-05] MEDS: polyethylene glycol 3350 Pkt 17 gm PO (11:08)
[2021-01-05] MEDS: phosphorus 250 mg Tablet PO ×2 (11:08→18:22)
[2021-01-05] MEDS: pantoprazole 40 mg SDV IVP ×2 (11:08→22:45)
[2021-01-05] MEDS: fluticasone nasal spray 16gm Btl 1 SPRAY INTRANASAL (11:25)
[2021-01-05] MEDS: erythromycin Op Oint 3.5 gm Tube 1 APPLIC EYE-BOTH ×4 (11:25→21:05)
[2021-01-05] MEDS: nystatin powder 15 gm Btl 1 APPLIC TOPICAL ×2 (11:25→18:23)
[2021-01-05 12:23] LABS: Glucose Point of Care 186 mg/dL (70-110)
--- NOTE | 2021-01-05 14:27 | PM.PN ---
Subjective Subjective: Interval history: This morning patient was examined, he continues to be profoundly weak, he is alert and oriented x4, follows all commands, I discussed with him his profound weakness, he tells me that he lives by himself, he does have a brother close by, he will speak to his brother, but I feel that he does not have enough help at home, he now has a pulmonary emboli, left lower extremity DVT, and has diffuse cellulitis and sepsis which he is improving from, but he does require extensive physical therapy, he voices understanding, tells me that his no talk to his brother, overall he tells me he is feeling better, but he has not had a bowel movement in some time Vitals/I&O/Wt Last Vital Signs Temp 97.9 F 01/05/21 11:52 Pulse 101 H 01/05/21 11:52 Resp 16 01/05/21 11:52 BP 117/67 01/05/21 11:52 Pulse Ox 93 01/05/21 11:39 01/04/21 01/05/21 01/05/21 22:59 06:59 14:59 Intake Total 540 / 2469.682 239.3529 / 679.0909 Output Total 650 / 650 300 / 950 Balance -110 / 1819.532 -300 / 1519.444 074.4128 / 679.0909 Weight last 48 hrs Weight 97.159 kg Weight 94.376 kg Physical Exam Const: COMMON NORMALS: no acute distress, patient oriented x3 and alert ORIENTATION/CONSCIOUSNESS: Yes oriented to person, Yes oriented to place and Yes oriented to time Eye: OTHER: macular/red/desquamating rash around bilateral eyes, cheeks, bilaterally improving Bilaterally macular/red rash on bilateral shins improving Macular rash on bilateral arms improving Mid chest, sternal location, near left breast, papular rash improving macular/red rash on left groin improving bilateral conjunctivital injection, no scleral abnormality Right IJ in place Resp: COMMON NORMALS: normal respiratory effort, No retractions, No use of accessory muscles and clear to auscultation bilaterally AUSCULTATION: clear to auscultation bilaterally Cardio: COMMON NORMALS: regular rate, regular rhythm, S1 normal heart sound present and S2 normal heart sound present RATE: regular rate RHYTHM: regular rhythm HEART SOUNDS: S1 normal heart sound present and S2 normal heart sound present GI: COMMON NORMALS: Normal to inspection, nondistended, normoactive bowel sounds present, Soft to palpation, non-tender and No hepatosplenomegaly present PALPATION: Yes Soft to palpation and Yes No hepatosplenomegaly present Extremity: COMMON NORMALS: no pedal edema NARRATIVE EXTREMITY EXAM: Minimal bilateral hand edema, some abdominal edema, no pitting edema bilateral lower extremities Neuro: COMMON NORMALS: patient oriented x3, CN's II-XII intact bilaterally, moves all extremities and no focal motor deficits SENSORIUM/ORIENTATION: Yes alert, Yes oriented to person, Yes oriented to place and Yes oriented to time Psych: COMMON NORMALS: mental status grossly normal Urinary Catheter Management^: Dickerson: Cath Placed During This Visit: yes Reason for Continuing Indwelling Catheter: Accurate Measurement of Urinary Output in Critically Ill Patients Urinary Catheter Date of Insertion: 01/02/21 Urinary Catheter Time of Insertion: 15:00 Data : 01/05/21 06:19 01/05/21 06:19 Micro: Microbiology 12/31/20 13:24 Blood Culture - Final Blood NO GROWTH AFTER 5 DAYS 12/31/20 13:28 Blood Culture - Final Blood NO GROWTH AFTER 5 DAYS 01/01/21 13:25 Gram Stain - Final Groin Wound Culture - Final Proteus mirabilis esbl Enterococcus faecalis A&P Assessment and plan (1) Sepsis: -Secondary to diffuse cellulitis, immunocompromise state, treated for possible shingles, possible Parshall spotted fever in addition -Sepsis criteria met on admission blood pressure 98/54, pulse 122, respiratory rate 26, temperature 97.5, white blood cell count 10.1, bicarb 13.3 on admission -Sepsis now has resolved -UA negative for nitrites, negative for leukocyte esterase, 5-10 WBCs, cultures remain unremarkable -Chest x-ray no focal pneumonia -CT scan of the abdomen pelvis no intra-abdominal source, but does have splenic infarcts, splenic ultrasound negative for underlying abscess -Had a diffuse macular erythematous, desquamating rash, likely cellulitis, concern for MRSA skin infection -Has a history of MRSA skin infection in the past -Around orbit, concerning for cellulitis, no significant orbital cellulitis seen on CT -Rash has significantly improved, nearly resolved -CT of the head no acute findings -With acute encephalopathy, multifactorial related to dehydration, sepsis, resolved -Other possibilities include Morales-Quang syndrome, staphylococcal scalded skin syndrome -Did have a rash on the chest that pustular, possible herpes zoster, and given rash around the eyes could be herpes zoster ophthalmicus, managed with acyclovir, clinically improved, now minimal -Possible rash associated which COVID-19 -Immunocompromised with rheumatoid arthritis, on chronic steroids NSTEMI, likely's -NSTEMI, 6-hour troponin 39, unremarkable delta -CRP 145, ESR 55, pro-Anders 0.17 -TSH within normal limits -Lactic acid within normal limits -Left DVT positive, D-dimer positive -Right-sided pulmonary embolus extending from the distal portion of the right main pulmonary artery largely in the lower lobe segmental branches, negative for findings of right heart strain. -Anion gap metabolic acidosis, resolved -A1c 9.5 Plan: -Doing well on current medical floors -Afebrile overnight, alert oriented x4 -Does have generalized deconditioning, weakness, recommend snf placement -Replace electrolytes potassium, magnesium, phosphorus -Acidosis, has resolved -Given history of COVID-19 infection, status post treatment including remdesivir, rapid Covid positive, could be continued shedding of the virus versus new variant, continue COVID-19 isolation, hold off on Decadron , hold off on remdesivir as no respiratory complaints -+10 L, but does not look fluid overloaded, is not requiring oxygen, hold off on further diuresis -For acute encephalopathy, resolved, seizure precautions, neurochecks, aspiration precautions -For evidence of sepsis, resolved, currently off Levophed drip, right IJ in place - adrenal crisis, given history of chronic steroid use, and erratic blood pressure during his hospitalization, has received stress dose steroids with hydrocortisone, blood pressure significantly improved, no erratic blood pressures, transition to prednisone 20 twice daily, slowly taper steroids -Metabolic acidosis, anion gap resolved, off bicarb drip, lactic acid 1.1, repeat ketone negative, salicylates negative, acetaminophen level negative I suspect that is likely related to sepsis which has resolved -Off Levophed -Wound cultures, MRSA nares, blood cultures, urine cultures, sputum cultures, wound culture Proteus ESBL species, Enterococcus -Broad-spectrum antibiotic therapy vancomycin, Primaxin continue for now de-escalate in the next 24 hours -Switch to p.o. acyclovir for possible herpes zoster ophthalmicus, shingles -Possible Parshall spotted fever, switch to p.o. doxycycline -Left lower extremity ultrasound shows acute left lower extremity DVT, right sided pulmonary emboli, switch to Eliquis -Cardiac echo shows an EF of 60%, grade 1 out of 4 diastolic dysfunction, -For diarrhea, stool studies pending -Monitor cognition, monitor vitals -Given splenic infarcts, etiology unclear, possibly related to COVID-19 or sepsis, switch to Eliquis -History of DVT, 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, hold dabigatran, switch to Eliquis -Right-sided pulmonary emboli, developed on dabigatran, failed anticoagulation, switch to Eliquis. I do not feel the patient would be a good candidate for Coumadin, as he is noncompliant -Atrial flutter, currently sinus tachycardia, continue metoprolol, Eliquis -Blood sugars reasonable, continue subcu insulin, Levemir -Protonix for GI prophylaxis -Lovenox for DVT prophylaxis -Full code Plan today PT OT, monitor mentation, speech therapy eval, continue broad-spectrum antibiotic therapy, work on placement to SNF Status: Acute (2) Dehydration, moderate: Status: Acute (3) Gastroenteritis: Status: Acute (4) COVID-19: Status: Acute (5) Splenic infarction: Status: Acute (6) Diabetes mellitus: Status: Acute (7) Hypertension: Status: Acute (8) Chronic steroid use: Status: Acute (9) DVT (deep venous thrombosis): Status: Acute (10) Acute encephalopathy: Status: Acute (11) Metabolic acidosis: Status: Acute (12) Left leg DVT: Status: Acute (13) Pulmonary embolism: Status: Acute (14) Adrenal crisis: Status: Acute (15) Atrial flutter: Status: Acute (16) Cellulitis: Status: Acute (17) Physical deconditioning: Status: Acute (18) Shingles: Status: Acute Additional A&P Information skin rash inguinal folds: nystatin Conjunctivitis, erythromycin Diffuse skin rash, around orbits, face, chest, evaluate for staphylococcal scalded skin syndrome versus MRSA skin infection versus preseptal cellulitis, resolving Attestations Medical Necessity Statement*: Patient requires hospitalization for sepsis secondary to diffuse cellulitis, immunocompromise state, shingles, adrenal crisis, atrial flutter, Coding Level of Care 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
--- NOTE | 2021-01-05 15:30 | PC.SOCIAL ---
IMM IMM updated via telephone with patient. Verbalized understanding. Initialled, dated, timed and placed in chart.
[2021-01-05 17:00] LABS: Glucose Point of Care 284 mg/dL (70-110)
[2021-01-05 17:30] LABS: Blood Urea Nitrogen 6 mg/dL (8-23); Calcium 6.3 mg/dL (8.5-10.5); Carbon Dioxide 22 mmol/L (22-29); Chloride 101 mmol/L (98-107); Glucose 262 mg/dL (65-115); Osmolality Calculated 285 mOsm/kg (285-295); Sodium 134 mmol/L (136-145)
[2021-01-05 17:34] LABS: Anion Gap 14.2 (5-19); Potassium 3.2 mmol/L (3.5-5.1)
[2021-01-05 21:34] LABS: Glucose Point of Care 261 mg/dL (70-110)
[2021-01-06] VITALS (12 sets, daily range): BP systolic 98–144; BP diastolic 55–81; PULSE 85–110; RESP 18–23; TEMP 36.4–37.2; O2SAT 94–97; BMI 35.6
[2021-01-06] MEDS: acyclovir 800 mg Tablet PO ×5 (05:24→21:27)
[2021-01-06] MEDS: metoprolol tartrate 25 mg Tablet PO ×2 (05:24→17:30)
[2021-01-06 06:41] LABS: Basophils % 0.2 %; Hematocrit 31.7 % (42.0-52.0); Hemoglobin 10.9 g/dL (11.7-16.6); Lymphocytes # 0.5 10^3/uL (0.8-4.8); Lymphocytes % 4.2 %; Mean Corpuscular HGB Conc 34.4 g/dL (30.0-36.0); Mean Corpuscular Hemoglobin 29.5 pg (28.0-34.0); Mean Corpuscular Volume 85.7 fL (80-94); Mean Platelet Volume 9.7 fL (7.4-10.4); Monocytes # 1.2 10^3/uL (0.2-0.9); Monocytes % 9.1 %; Neutrophils # 10.88 10^3/uL (1.8-7.7); Neutrophils % 85.3 %; Nucleated Red Blood Cells # 0.1 /100WBC; Nucleated Red Blood Cells % 0.5 %; Platelet Count 292 10^3/cmm (130-400); Red Cell Distribution Width 17.8 % (12.1-15.1); White Blood Count 12.8 10^3/uL (4.0-10.0)
[2021-01-06 06:48] LABS: Glucose Point of Care 241 mg/dL (70-110)
[2021-01-06 07:15] LABS: Ammonia 17 umol/L (16-60); Lactate (Lactic Acid level) 1.5 mmol/L (0.5-2.2)
[2021-01-06 07:25] LABS: Procalcitonin 0.19 ng/mL (0-0.5)
[2021-01-06 07:36] LABS: Alanine Aminotransferase 6 U/L (0-41); Albumin Level 1.8 g/dL (3.5-5.2); Alkaline Phosphatase 62 IU/L (40-130); Anion Gap 12.2 (5-19); Aspartate Amino Transferase 11 U/L (0-40); Blood Urea Nitrogen 6 mg/dL (8-23); Calcium 6.6 mg/dL (8.5-10.5); Carbon Dioxide 25 mmol/L (22-29); Chloride 102 mmol/L (98-107); Creatine Phosphokinase 17 U/L (39-308); Globulin 2.4 g/dL (1.3-4.6); Glucose 263 mg/dL (65-115); Magnesium 1.6 mg/dL (1.7-2.3); Osmolality Calculated 289 mOsm/kg (285-295); Phosphorus 1.8 mg/dL (2.5-4.5); Potassium 3.2 mmol/L (3.5-5.1); Sodium 136 mmol/L (136-145); Total Bilirubin 0.4 mg/dL (0.15-1.2); Total Protein 4.2 g/dL (6.6-8.7)
[2021-01-06 07:38] LABS: INR 1.78 (0.8-1.2)
[2021-01-06 07:39] LABS: Fibrinogen 452 mg/dL (174-498); Partial Thromboplastin Time 38.7 SECONDS (23.9-36.7)
[2021-01-06 07:55] LABS: D Dimer >= 20.00 ug/mIFEU (0-0.59)
[2021-01-06 08:12] LABS: NT Pro B Type Natriuretic Pept 4228 pg/mL (0-125)
[2021-01-06] MEDS: folic acid 1 mg Tablet 2 MG PO (10:04)
[2021-01-06] MEDS: aspirin 81 mg EC Tablet PO (10:04)
[2021-01-06] MEDS: cyanocobalamin 1,000 mcg Tablet 1000 MCG PO (10:04)
[2021-01-06] MEDS: predniSONE 20 mg Tablet PO ×2 (10:04→17:30)
[2021-01-06] MEDS: phosphorus 250 mg Tablet PO ×2 (10:04→17:31)
[2021-01-06] MEDS: apixaban 5 mg Tablet 10 MG PO ×2 (10:04→21:27)
[2021-01-06] MEDS: atorvastatin 40 mg Tablet 20 MG PO (10:05)
[2021-01-06] MEDS: fluticasone nasal spray 16gm Btl 1 SPRAY INTRANASAL (10:06)
[2021-01-06] MEDS: nystatin powder 15 gm Btl 1 APPLIC TOPICAL ×2 (10:07→17:31)
[2021-01-06] MEDS: erythromycin Op Oint 3.5 gm Tube 1 APPLIC EYE-BOTH ×4 (10:07→21:44)
[2021-01-06] MEDS: acetaminophen 325 mg Tablet 650 MG PO (10:09)
[2021-01-06 11:02] LABS: Glucose Point of Care 262 mg/dL (70-110)
[2021-01-06] MEDS: pantoprazole DR 40 mg Tablet PO ×2 (12:54→21:27)
--- NOTE | 2021-01-06 13:22 | PM.PN ---
Subjective Subjective: Interval history: Patient continues to feel weak and short of breath. No fever, chills, nausea or vomiting. Medications: Reviewed: Yes Vitals/I&O/Wt Last Vital Signs Temp 98.8 F 01/06/21 18:00 Pulse 105 H 01/06/21 18:00 Resp 18 01/06/21 18:00 BP 129/78 01/06/21 18:00 Pulse Ox 97 01/06/21 16:00 01/06/21 01/06/21 01/06/21 06:59 14:59 22:59 Intake Total 400 / 2007.2727 580 / 580 590 / 1170 Output Total 825 / 2100 Balance -425 / -92.7273 580 / 580 590 / 1170 Weight last 48 hrs Weight 97.159 kg Weight 97.159 kg Physical Exam Const: COMMON NORMALS: no acute distress, patient oriented x3 and alert GENERAL APPEARANCE: cooperative ORIENTATION/CONSCIOUSNESS: Yes awake, Yes oriented to person, Yes oriented to place, Yes oriented to time and Yes confused OTHER: A bit drowsy this morning, on Precedex HENMT: COMMON NORMALS: normocephalic HEAD & SCALP: normocephalic Eye: COMMON NORMALS: Equal, round and reactive pupils present and EOMs intact bilaterally GENERAL EYE: appearance normal, both eyes and all related structures PUPIL: Yes Equal, round and reactive pupils present OTHER: macular/red/desquamating rash around bilateral eyes, cheeks, bilaterally improving Bilaterally macular/red rash on bilateral shins improving Macular rash on bilateral arms improving Mid chest, sternal location, near left breast, papular rash improving macular/red rash on left groin improving bilateral conjunctivital injection, no scleral abnormality Right IJ in place Neck/C-Spine: COMMON NORMALS: full ROM and no lymphadenopathy Lymph: LYMPHATIC: no lymphadenopathy noted Resp: COMMON NORMALS: normal respiratory effort, No retractions, No use of accessory muscles and clear to auscultation bilaterally AUSCULTATION: clear to auscultation bilaterally Cardio: COMMON NORMALS: regular rate, regular rhythm, S1 normal heart sound present and S2 normal heart sound present RATE: regular rate and tachycardic RHYTHM: regular rhythm HEART SOUNDS: S1 normal heart sound present and S2 normal heart sound present GI: COMMON NORMALS: Normal to inspection, nondistended, normoactive bowel sounds present, Soft to palpation, non-tender, No hepatosplenomegaly present, no masses and no bruits INSPECTION: Yes abdominal distension PALPATION: Yes Soft to palpation, Yes Tenderness to palpation present (GI) (Generalized tenderness) and Yes No hepatosplenomegaly present Extremity: COMMON NORMALS: no pedal edema NARRATIVE EXTREMITY EXAM: Minimal bilateral hand edema, some abdominal edema, no pitting edema bilateral lower extremities Neuro: COMMON NORMALS: patient oriented x3, CN's II-XII intact bilaterally, moves all extremities and no focal motor deficits SENSORIUM/ORIENTATION: Yes alert, Yes oriented to person, Yes oriented to place and Yes oriented to time Psych: COMMON NORMALS: mental status grossly normal Urinary Catheter Management^: Dickerson: Cath Placed During This Visit: yes Reason for Continuing Indwelling Catheter: Other Urinary Catheter Date of Insertion: 01/02/21 Urinary Catheter Time of Insertion: 15:00 Data : 01/06/21 06:29 01/06/21 06:29 A&P Assessment and plan (1) Sepsis: -Sepsis criteria met on admission blood pressure 98/54, pulse 122, respiratory rate 26, temperature 97.5, white blood cell count 10.1, bicarb 13.3 on admission -Sepsis now has resolved -UA negative for nitrites, negative for leukocyte esterase, 5-10 WBCs, cultures remain unremarkable -Chest x-ray no focal pneumonia -CT scan of the abdomen pelvis no intra-abdominal source, but does have splenic infarcts, splenic ultrasound negative for underlying abscess -CT of the head no acute findings -Possible herpes zoster ophthalmicus, managed with acyclovir, clinically improved, now minimal -Possible rash associated which COVID-19 -Immunocompromised with rheumatoid arthritis, on chronic steroids NSTEMI, likely's -NSTEMI, 6-hour troponin 39, unremarkable delta -CRP 145, ESR 55, pro-Anders 0.17 -TSH within normal limits -Lactic acid within normal limits -Left DVT positive, D-dimer positive -Right-sided pulmonary embolus extending from the distal portion of the right main pulmonary artery largely in the lower lobe segmental branches, negative for findings of right heart strain. -Anion gap metabolic acidosis, resolved -A1c 9.5 Plan: - De-escalate abx - Culture negative - Lab in am - MRSA culture ordered - PRimixin / vancomycin - Anticoagulation. -Protonix for GI prophylaxis -Lovenox for DVT prophylaxis -Full code Disposition: Agreeable to HHC Refusing SNF Will d/w family Status: Acute (2) Dehydration, moderate: Status: Acute (3) Gastroenteritis: Status: Acute (4) COVID-19: Status: Acute (5) Splenic infarction: Status: Acute (6) Diabetes mellitus: Status: Acute (7) Hypertension: Status: Acute (8) Chronic steroid use: Status: Acute (9) DVT (deep venous thrombosis): Status: Acute (10) Acute encephalopathy: Status: Acute (11) Metabolic acidosis: Status: Acute (12) Left leg DVT: Status: Acute (13) Pulmonary embolism: Status: Acute (14) Adrenal crisis: Status: Acute (15) Atrial flutter: Status: Acute (16) Cellulitis: Status: Acute (17) Physical deconditioning: Status: Acute (18) Shingles: Status: Acute Additional A&P Information skin rash inguinal folds: nystatin Conjunctivitis, erythromycin Diffuse skin rash, around orbits, face, chest, evaluate for staphylococcal scalded skin syndrome versus MRSA skin infection versus preseptal cellulitis, resolving Attestations Medical Necessity Statement*: Will continue hospitalization for management of PE, infectious process. Time Spent in Patient Care: Greater than 35 minutes (>than 50% of time spent in counselling and/or direct pt care on unit). 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
[2021-01-06 14:57] LABS: Vancomycin Trough 16.5 ug/mL (10-15)
[2021-01-06] MEDS: vancomycin 1,250 MG/250 ML PIGGYBACK 250 MG IV (16:16)
[2021-01-06 17:18] LABS: Glucose Point of Care 206 mg/dL (70-110)
[2021-01-06 21:45] LABS: Glucose Point of Care 240 mg/dL (70-110)
[2021-01-07] VITALS (8 sets, daily range): BP systolic 124–174; BP diastolic 80–96; PULSE 84–110; RESP 17–18; TEMP 36.7–37.1; O2SAT 94–97
[2021-01-07 06:39] LABS: Glucose Point of Care 242 mg/dL (70-110)
[2021-01-07] MEDS: acyclovir 800 mg Tablet PO ×5 (06:50→23:16)
[2021-01-07] MEDS: metoprolol tartrate 25 mg Tablet PO ×2 (06:50→17:26)
[2021-01-07 06:56] LABS: Basophils % 0.2 %; Eosinophils % 0.1 %; Hematocrit 34.6 % (42.0-52.0); Hemoglobin 11.4 g/dL (11.7-16.6); Lymphocytes % 7.7 %; Mean Corpuscular HGB Conc 32.9 g/dL (30.0-36.0); Mean Corpuscular Hemoglobin 28.9 pg (28.0-34.0); Mean Corpuscular Volume 87.6 fL (80-94); Monocytes # 1.3 10^3/uL (0.2-0.9); Monocytes % 9.8 %; Neutrophils # 10.77 10^3/uL (1.8-7.7); Neutrophils % 81.1 %; Nucleated Red Blood Cells # 0.2 /100WBC; Nucleated Red Blood Cells % 1.3 %; Platelet Count 382 10^3/cmm (130-400); Red Blood Count 3.95 10^6/uL (4.1-5.3); Red Cell Distribution Width 18.6 % (12.1-15.1); White Blood Count 13.3 10^3/uL (4.0-10.0)
[2021-01-07 07:15] LABS: Alanine Aminotransferase < 5 U/L (0-41); Albumin Level 1.9 g/dL (3.5-5.2); Alkaline Phosphatase 78 IU/L (40-130); Anion Gap 10.8 (5-19); Aspartate Amino Transferase 15 U/L (0-40); Blood Urea Nitrogen 9 mg/dL (8-23); Calcium 7.9 mg/dL (8.5-10.5); Carbon Dioxide 27 mmol/L (22-29); Chloride 103 mmol/L (98-107); Globulin 2.8 g/dL (1.3-4.6); Glucose 255 mg/dL (65-115); Magnesium 1.7 mg/dL (1.7-2.3); Osmolality Calculated 291 mOsm/kg (285-295); Potassium 3.8 mmol/L (3.5-5.1); Sodium 137 mmol/L (136-145); Total Bilirubin 0.4 mg/dL (0.15-1.2); Total Protein 4.7 g/dL (6.6-8.7)
[2021-01-07 07:17] LABS: Lactate (Lactic Acid level) 1.4 mmol/L (0.5-2.2)
[2021-01-07 07:24] LABS: Procalcitonin 11.14 ng/mL (0-0.5)
[2021-01-07 09:21] LABS: Cytomegalovirus Antibody (IGG) <0.60 U/mL; Cytomegalovirus Antibody (IGM) <30.00 AU/mL; EBV IGG TEST >750.00 U/mL; EBV IGM TEST <36.00 U/mL; EBV Nuclear AG <18.00 U/mL; EBV Viral Capsid AB IGM <36.00 U/mL
[2021-01-07 09:21] LABS: Lyme AB Screen <0.90 index
[2021-01-07 09:22] LABS: E. Chaffeensis AB IGG <1:64; E. Chaffeensis AB IGM <1:20; RMSF IGG NOT DETECTED; RMSF IGM NOT DETECTED
[2021-01-07 09:22] LABS: Alcohol, Methyl None Detected; Rocky Mountain IgG NOT DETECTED; Rocky Mountain IgM NOT DETECTED; Volatile Analysis Performed On Whole Blood
[2021-01-07] MEDS: apixaban 5 mg Tablet 10 MG PO ×2 (09:50→23:16)
[2021-01-07] MEDS: aspirin 81 mg EC Tablet PO (09:51)
[2021-01-07] MEDS: atorvastatin 40 mg Tablet 20 MG PO (09:51)
[2021-01-07] MEDS: erythromycin Op Oint 3.5 gm Tube 1 APPLIC EYE-BOTH ×4 (09:51→23:17)
[2021-01-07] MEDS: docusate sodium 100 mg Capsule PO ×2 (09:51→17:26)
[2021-01-07] MEDS: folic acid 1 mg Tablet 2 MG PO (09:51)
[2021-01-07] MEDS: cyanocobalamin 1,000 mcg Tablet 1000 MCG PO (09:51)
[2021-01-07] MEDS: predniSONE 20 mg Tablet PO ×2 (09:52→17:26)
[2021-01-07] MEDS: nystatin powder 15 gm Btl 1 APPLIC TOPICAL ×2 (09:52→17:27)
[2021-01-07] MEDS: phosphorus 250 mg Tablet PO ×2 (09:52→17:26)
[2021-01-07] MEDS: polyethylene glycol 3350 Pkt 17 gm PO ×2 (09:52→17:26)
[2021-01-07] MEDS: pantoprazole DR 40 mg Tablet PO ×2 (09:52→23:16)
[2021-01-07] MEDS: vancomycin 1,250 MG/250 ML PIGGYBACK 250 MG IV (09:52)
[2021-01-07 11:18] LABS: Glucose Point of Care 256 mg/dL (70-110)
--- NOTE | 2021-01-07 12:15 | PM.PN ---
Subjective Subjective: Interval history: 75-year-old male with a past medical history significant for rheumatoid arthritis on chronic steroids, diabetes mellitus, hypertension, hyperlipidemia, DVT on Pradaxa, tobacco abuse, and chronic obstructive pulmonary disease, recent hospitalization COVID-19 pneumonia from 12/15 to 12/21 tx with remdesivir and steroids who presented to hospital with generalized weakness. This was associated with recurrent non-bloody diarrhea. At admission he had also noted a facial rash. Laboratory workup on arrival is shown a WBC of 10.1, hemoglobin of 13.8, hematocrit of 42.7 and a platelet count 295. ESR 54. INR 1.23. D-dimer was over 20. Arterial blood gases showed a pH of 7.31, pCO2 26.6, PO2 of 72.4 and a bicarb of 13.3. Sodium 136, potassium 3.8, chloride 104, bicarb 16, BUN 3 and creatinine of 1. Anion gap of 19.8. Magnesium of 1.1 CRP of 121.6, prbnp of 623 and a procalcitonin of 0.13. LFT WNL. Hepatitis B core IgM was reactice, negative. COVID-19 ag positive, vZV IgG/IGM abs positive.Rickettsia negative. Multiple imaging studies were performed including chest x-ray which did not show any evidence of acute process.CT abdomen pelvis was performed which showed multifocal splenic infarctions, right renal stable probable benign hemorrhagic cyst, bilateral renal probable benign cyst, fatty infiltration of the liver. Facial CT showed right periorbital subcutaneous edema and minimal non localized fluid largely along the lateral aspect of the orbit without intraorbital extension suspicious for cellulitis. Similar findings were noted around left.Head CT did not show any evidence of acute intracranial abnormality. Abdominal ultrasound showed normal appearance of spleen in contrast to CT abdomen pelvis which showed possible splenic infarcts. Lower extremity venous Doppler showed evidence of acute left lower extremity DVT.Renal ultrasound showed no obvious hydronephrosis or abscess.CTA chest PE protocol showed right-sided pulmonary embolism extending from the distal portion of the right main pulmonary artery largely in the lower lobe segmental branches and large upper lobe 2.2 cm plus left lower lobe superior segment 2 cm pulmonary nodule. In ER patient was given ceftriaxone 2g IV x 1. Upon admission patient was started on Primaxin 500 mg IV q6hr, vancomycin 1g IV q24hr. Also started on heparin drip. On 01/01 he was suspected to have herpes zoster Ophthalmicus and started on acyclovir and prednisone 20 mg Po BID however not noted to have actually any ocular involvement. He was noted to be hypotensive briefly requiring IV vasopressors. Blood pressure improved and this was stopped. At the time I assumed care of patient he appeared to be at baseline. Thought out hospitalization no documented fevers. 12/31 blood and urine cultures were negative. Urine culture negative, MRSA culture screen negative. Culture of LE wound from 01/01/21 showed growth of proteus Mirabilis and Enteroccucus faecalis. 01/07 No new clinical event, patient was weak however able to ambulate with a walker. Has been afebrile, no nausea, vomiting, diarrhea. Denied chest pain. No facial erythema or evidence of shingles. Medications: Reviewed: Yes Vitals/I&O/Wt Last Vital Signs Temp 98.0 F 01/08/21 09:59 Pulse 93 01/08/21 09:59 Resp 16 01/08/21 09:59 BP 131/79 01/08/21 09:59 Pulse Ox 95 01/08/21 08:00 01/07/21 01/08/21 01/08/21 22:59 06:59 14:59 Intake Total 320 / 1145 450 / 1595 700 / 700 Output Total 1200 / 1200 750 / 1950 Balance -880 / -55 -300 / -355 700 / 700 Weight last 48 hrs Weight 95.51 kg Weight 98.515 kg Physical Exam Const: COMMON NORMALS: no acute distress, patient oriented x3 and alert GENERAL APPEARANCE: cooperative ORIENTATION/CONSCIOUSNESS: Yes awake, Yes oriented to person, Yes oriented to place, Yes oriented to time and Yes confused HENMT: COMMON NORMALS: normocephalic HEAD & SCALP: normocephalic Eye: COMMON NORMALS: Equal, round and reactive pupils present and EOMs intact bilaterally GENERAL EYE: appearance normal, both eyes and all related structures PUPIL: Yes Equal, round and reactive pupils present OTHER: No obvious facial rash EOMI, , no scleral abnormality Right IJ in place Neck/C-Spine: COMMON NORMALS: full ROM and no lymphadenopathy Lymph: LYMPHATIC: no lymphadenopathy noted Resp: COMMON NORMALS: normal respiratory effort, No retractions, No use of accessory muscles and clear to auscultation bilaterally AUSCULTATION: clear to auscultation bilaterally Cardio: COMMON NORMALS: regular rate, regular rhythm, S1 normal heart sound present and S2 normal heart sound present RATE: regular rate and tachycardic RHYTHM: regular rhythm HEART SOUNDS: S1 normal heart sound present and S2 normal heart sound present GI: COMMON NORMALS: Normal to inspection, nondistended, normoactive bowel sounds present, Soft to palpation, non-tender, no masses and no bruits INSPECTION: Yes abdominal distension PALPATION: Yes Soft to palpation and Yes Tenderness to palpation present (GI) (Generalized tenderness) Extremity: COMMON NORMALS: no pedal edema NARRATIVE EXTREMITY EXAM: Min anasarca Neuro: COMMON NORMALS: patient oriented x3, CN's II-XII intact bilaterally, moves all extremities and no focal motor deficits SENSORIUM/ORIENTATION: Yes alert, Yes oriented to person, Yes oriented to place and Yes oriented to time Psych: COMMON NORMALS: mental status grossly normal Urinary Catheter Management^: Dickerson: Cath Placed During This Visit: yes, but has since been removed by the nurse Reason for Continuing Indwelling Catheter: Other Urinary Catheter Date of Insertion: 01/02/21 Urinary Catheter Time of Insertion: 15:00 Date Urinary Catheter Removed: 01/08/21 Time Urinary Catheter Discontinued: 05:29 Data : 01/07/21 06:40 01/07/21 06:40 A&P Assessment and plan (1) Sepsis: Resolved Increase in pro-mani however Afebrile Increasing WBC count however this could be related to steroids Currenlty on [facility] pharmacy to dose Imipenum 500 mg IV q6hr Blood culture x2 negative Urine culture neg Wound culture proteus / enterococcus No evidence of facial cellulitis Status: Acute (2) Gastroenteritis: Resolved Diarrhea improved. Status: Acute (3) Splenic infarction: This was noted on CT abdomen pelvis however not evident on abdominal ultrasound. Will further discuss with Radiology. Status: Acute (4) Pulmonary embolism: Eliquis 10 mg p.o. b.i.d. x7 days then decrease to 5 mg oral b.i.d. Status: Acute (5) DVT (deep venous thrombosis): management as noted above Status: Acute (6) COVID-19: Recently treated Status: Acute (7) Diabetes mellitus: Sliding scale insulin Lantus as ordered Continue to titrate Status: Acute (8) Hypertension: Status: Acute (9) Chronic steroid use: Status: Acute (10) Acute encephalopathy: Status: Acute (11) Metabolic acidosis: Status: Acute (12) Atrial flutter: Status: Acute (13) Shingles: Suspected however no obvious ocular involvement CT head also negative. Status: Acute (14) Physical deconditioning: PT/OT on board Status: Acute (15) Hepatitis B core antibody positive: Repeat comprehensive panel LFTs of unstable Status: Acute Additional A&P Information due to increasing procalcitonin will monitor for additional 1 to 2 days. If he remains afebrile Attestations Medical Necessity Statement*: Continue hospitalization for management ofIncreasing WBC, procalcitonin on IV antibiotics and antiviral Time Spent in Patient Care: Greater than 35 minutes (>than 50% of time spent in counselling and/or direct pt care on unit). 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
--- NOTE | 2021-01-07 13:44 | PC.SOCIAL ---
IMM UPDATE Gave patient's brother and sister in law verbal IMM update. 01/07/21 @ 0936 Initialed, dated, timed and placed in chart.
--- NOTE | 2021-01-07 15:21 | PC.NUTR ---
Nutrition follow up: PO intakes have improved since last review, averaging 47% of recent meals. Recommend clarify current weight to confirm 12 lb weight gain indicated in chart (32 lb gain if including admission wt, however it appears to be in error). Recommend continue to encourage po intakes of meals/fluids at this time and provide preferences as appropriate within confines of diet order. See RD assessments for further details.
[2021-01-07 16:46] LABS: Glucose Point of Care 263 mg/dL (70-110)
[2021-01-07 21:03] LABS: Glucose Point of Care 282 mg/dL (70-110)
[2021-01-08] VITALS (13 sets, daily range): BP systolic 130–177; BP diastolic 70–84; PULSE 85–110; RESP 16–18; TEMP 36.5–37.1; O2SAT 93–96
[2021-01-08] MEDS: vancomycin 1,250 MG/250 ML PIGGYBACK 250 MG IV ×2 (04:55→21:01)
[2021-01-08] MEDS: metoprolol tartrate 25 mg Tablet PO ×2 (06:58→17:44)
[2021-01-08] MEDS: acyclovir 800 mg Tablet PO ×3 (06:58→12:45)
[2021-01-08 07:02] LABS: Glucose Point of Care 298 mg/dL (70-110)
[2021-01-08] MEDS: aspirin 81 mg EC Tablet PO (09:40)
[2021-01-08] MEDS: cyanocobalamin 1,000 mcg Tablet 1000 MCG PO (09:40)
[2021-01-08] MEDS: apixaban 5 mg Tablet 10 MG PO ×2 (09:40→21:00)
[2021-01-08] MEDS: atorvastatin 40 mg Tablet 20 MG PO (09:40)
[2021-01-08] MEDS: pantoprazole DR 40 mg Tablet PO ×2 (09:41→21:00)
[2021-01-08] MEDS: predniSONE 20 mg Tablet PO (09:41)
[2021-01-08] MEDS: folic acid 1 mg Tablet 2 MG PO (09:41)
[2021-01-08] MEDS: phosphorus 250 mg Tablet PO (09:41)
[2021-01-08] MEDS: eucerin cream 113 gm Jar 1 APPLIC TOPICAL (09:42)
[2021-01-08 10:44] LABS: Glucose Point of Care 244 mg/dL (70-110)
[2021-01-08 13:23] LABS: Basophils # 0.1 10^3/uL (0.0-0.1); Basophils % 0.4 %; Eosinophils # 0.1 10^3/uL (0.0-0.8); Eosinophils % 0.6 %; Hematocrit 36.5 % (42.0-52.0); Hemoglobin 11.9 g/dL (11.7-16.6); Lymphocytes # 0.7 10^3/uL (0.8-4.8); Lymphocytes % 5.2 %; Mean Corpuscular HGB Conc 32.6 g/dL (30.0-36.0); Mean Corpuscular Volume 88.8 fL (80-94); Mean Platelet Volume 9.9 fL (7.4-10.4); Monocytes # 1.7 10^3/uL (0.2-0.9); Monocytes % 12.4 %; Neutrophils # 10.76 10^3/uL (1.8-7.7); Neutrophils % 78.1 %; Nucleated Red Blood Cells # 0.1 /100WBC; Nucleated Red Blood Cells % 0.7 %; Platelet Count 451 10^3/cmm (130-400); Red Blood Count 4.11 10^6/uL (4.1-5.3); Red Cell Distribution Width 18.5 % (12.1-15.1); White Blood Count 13.8 10^3/uL (4.0-10.0)
[2021-01-08 13:54] LABS: Alanine Aminotransferase 8 U/L (0-41); Albumin Level 2.1 g/dL (3.5-5.2); Alkaline Phosphatase 98 IU/L (40-130); Aspartate Amino Transferase 20 U/L (0-40); Blood Urea Nitrogen 11 mg/dL (8-23); Calcium 8.4 mg/dL (8.5-10.5); Carbon Dioxide 26 mmol/L (22-29); Chloride 100 mmol/L (98-107); Globulin 2.7 g/dL (1.3-4.6); Glucose 206 mg/dL (65-115); Osmolality Calculated 285 mOsm/kg (285-295); Sodium 135 mmol/L (136-145); Total Bilirubin 0.3 mg/dL (0.15-1.2); Total Protein 4.8 g/dL (6.6-8.7)
[2021-01-08 14:01] LABS: Procalcitonin 5.92 ng/mL (0-0.5)
[2021-01-08 14:03] LABS: Anion Gap 12.3 (5-19); Potassium 3.3 mmol/L (3.5-5.1)
[2021-01-08 14:14] LABS: Hepatitis A Antibody IgM Non-Reactive (Nonreactive); Hepatitis B Core AB, Total Non-Reactive (Nonreactive); Hepatitis B Surface AB 3.5 (11.5-1000); Hepatitis B Surface Antigen Non-Reactive (Nonreactive); Hepatitis C Virus Antibody Non-Reactive (Nonreactive)
--- NOTE | 2021-01-08 15:05 | P.PN_ITS ---
Subjective Subjective: Interval history: 75-year-old male with a past medical history significant for rheumatoid arthritis on chronic steroids, diabetes mellitus, hypertension, hyperlipidemia, DVT on Pradaxa, tobacco abuse, and chronic obstructive pulmonary disease, recent hospitalization COVID-19 pneumonia from 12/15 to 12/21 tx with remdesivir and steroids who presented to hospital with generalized weakness. This was associated with recurrent non-bloody diarrhea. At admission he had also noted a facial rash. Laboratory workup on arrival is shown a WBC of 10.1, hemoglobin of 13.8, hematoc rit of 42.7 and a platelet count 295. ESR 54. INR 1.23. D-dimer was over 20. Arterial blood gases showed a pH of 7.31, pCO2 26.6, PO2 of 72.4 and a bicarb of 13.3. Sodium 136, potassium 3.8, chloride 104, bicarb 16, BUN 3 and creatinine of 1. Anion gap of 19.8. Magnesium of 1.1 CRP of 121.6, prbnp of 623 and a procalcitonin of 0.13. LFT WNL. Hepatitis B core IgM was reactice, negative. COVID-19 ag positive, vZV IgG/IGM abs positive.Rickettsia negative. Multiple imaging studies were performed including chest x-ray which did not show any evidence of acute process.CT abdomen pelvis was performed which showed multifocal splenic infarctions, right renal stable probable benign hemorrhagic cyst, bilateral renal probable benign cyst, fatty infiltration of the liver. Facial CT showed right periorbital subcutaneous edema and minimal non localized fluid largely along the lateral aspect of the orbit without intraorbital extension suspicious for cellulitis. Similar findings were noted around left.Head CT did not show any evidence of acute intracranial abnormality. Abdominal ultrasound showed normal appearance of spleen in contrast to CT abdomen pelvis which showed possible splenic infarcts. Lower extremity venous Doppler showed evidence of acute left lower extremity DVT.Renal ultrasound showed no obvious hydronephrosis or abscess.CTA chest PE protocol showed right- sided pulmonary embolism extending from the distal portion of the right main pulmonary artery largely in the lower lobe segmental branches and large upper lobe 2.2 cm plus left lower lobe superior segment 2 cm pulmonary nodule. In ER patient was given ceftriaxone 2g IV x 1. Upon admission patient was started on Primaxin 500 mg IV q6hr, vancomycin 1g IV q24hr. Also started on heparin drip. On 01/01 he was suspected to have herpes zoster Ophthalmicus and started on acyclovir and prednisone 20 mg Po BID however not noted to have actually any ocular involvement. He was noted to be hypotensive briefly requiring IV vasopressors. Blood pressure improved and this was stopped. At the time I assumed care of patient he appeared to be at baseline. Thought out hospitalization no documented fevers. 12/31 blood and urine cultures were negative. Urine culture negative, MRSA culture screen negative. Culture of LE wo und from 01/01/21 showed growth of proteus Mirabilis and Enteroccucus faecalis. 01/07 No new clinical event, patient was weak however able to ambulate with a walker. Has been afebrile, no nausea, vomiting, diarrhea. Denied chest pain. No facial erythema or evidence of shingles. 01/08 Patient was ambulating around the room at the time of my evaluation. Was not in any respiratory distress. No fevers overnight. No nausea vomiting. Stools were more formed. Medications: Reviewed: Yes Vitals/I&O/Wt Last Vital Signs Temp 98.0 F 01/08/21 13:04 Pulse 93 01/08/21 13:04 Resp 16 01/08/21 13:04 BP 130/80 01/08/21 13:04 Pulse Ox 95 01/08/21 12:00 01/08/21 01/08/21 01/08/21 06:59 14:59 22:59 Intake Total 450 / 1595 1060 / 1060 Output Total 750 / 1950 Balance -300 / -355 1060 / 1060 Weight last 48 hrs Weight 95.51 kg Weight 98.515 kg Physical Exam Const: COMMON NORMALS: no acute distress, patient oriented x3 and alert GENERAL APPEARANCE: cooperative ORIENTATION/CONSCIOUSNESS: Yes awake, Yes oriented to person, Yes oriented to place, Yes oriented to time and Yes confused OTHER: A bit drowsy this morning, on Precedex HENMT: COMMON NORMALS: normocephalic HEAD & SCALP: normocephalic Eye: COMMON NORMALS: Equal, round and reactive pupils present and EOMs intact bilaterally GENERAL EYE: appearance normal, both eyes and all related structures PUPIL: Yes Equal, round and reactive pupils present OTHER: No obvious facial rash EOMI, , no scleral abnormality Right IJ in place Neck/C-Spine: COMMON NORMALS: full ROM and no lymphadenopathy Lymph: LYMPHATIC: no lymphadenopathy noted Resp: COMMON NORMALS: normal respiratory effort, No retractions, No use of accessory muscles and clear to auscultation bilaterally AUSCULTATION: clear to auscultation bilaterally Cardio: COMMON NORMALS: regular rate, regular rhythm, S1 normal heart sound present and S2 normal heart sound present RATE: regular rate and tachycardic RHYTHM: regular rhythm HEART SOUNDS: S1 normal heart sound present and S2 normal heart sound present GI: COMMON NORMALS: Normal to inspection, nondistended, normoactive bowel sounds present, Soft to palpation, non-tender, no masses and no bruits INSPECTION: Yes abdominal distension PALPATION: Yes Soft to palpation and Yes Tenderness to palpation present (GI) (Generalized tenderness) Extremity: COMMON NORMALS: no pedal edema NARRATIVE EXTREMITY EXAM: Min anasarca Neuro: COMMON NORMALS: patient oriented x3, CN's II-XII intact bilaterally, moves all extremities and no focal motor deficits SENSORIUM/ORIENTATION: Yes alert, Yes oriented to person, Yes oriented to place and Yes oriented to time Psych: COMMON NORMALS: mental status grossly normal Skin: NARRATIVE SKIN EXAM: Image of groin area. Urinary Catheter Management^: Dickerson: Cath Placed During This Visit: yes, but has since been removed by the nurse Reason for Continuing Indwelling Catheter: Other Urinary Catheter Date of Insertion: 01/02/21 Urinary Catheter Time of Insertion: 15:00 Date Urinary Catheter Removed: 01/08/21 Time Urinary Catheter Discontinued: 05:29 Data : 01/08/21 13:10 01/08/21 13:10 A&P Assessment and plan (1) Sepsis: Resolved Increase in pro-mani however Afebrile Increasing WBC count however this could be related to steroids Currently on [facility] pharmacy to dose Imipenum 500 mg IV q6hr Blood culture x2 negative Urine culture neg Wound culture proteus / enterococcus -image of wound above No evidence of facial cellulites Will consider deescalating antibiotics Status: Acute (2) Gastroenteritis: Resolved Diarrhea improved. Status: Acute (3) Splenic infarction: This was noted on CT abdomen pelvis however not evident on abdominal ultrasound. Will further discuss with Radiology. Status: Acute (4) Pulmonary embolism: Eliquis 10 mg p.o. b.i.d. x7 days then decrease to 5 mg oral b.i.d. Status: Acute (5) DVT (deep venous thrombosis): management as noted above Status: Acute (6) COVID-19: Recently treated Status: Acute (7) Diabetes mellitus: Sliding scale insulin Lantus as ordered Continue to titrate Status: Acute (8) Hypertension: Status: Acute (9) Chronic steroid use: Resume prednisone at home dose Status: Acute (10) Acute encephalopathy: Status: Acute (11) Metabolic acidosis: Status: Acute (12) Atrial flutter: Status: Acute (13) Shingles: Suspected however no obvious ocular involvement CT head also negative. Status: Acute (14) Physical deconditioning: PT/OT on board Status: Acute (15) Hepatitis B core antibody positive: Repeat comprehensive panel LFTs of unstable Pending Status: Acute Additional A&P Information Due to increasing procalcitonin will monitor for additional 1 to 2 days. If he remains afebrile. Disposition to home with home care at the time of discharge Attestations Medical Necessity Statement*: require further hospitalization for management of infectious process requiring IV antibiotics Time Spent in Patient Care: Greater than 35 minutes (>than 50% of time spent in counselling and/or direct pt care on unit) . Coding Level of Care Code Acute Net Lead Architect for g Fwd Diagnoses Sepsis A41.9 Gastroenteritis K52.9 Splenic infarction D73.5 Pulmonary embolism I26.99 DVT (deep venous thrombosis) I82.409 COVID-19 U07.1 Diabetes mellitus E11.9 Hypertension I10 Chronic steroid use Acute encephalopathy G93.40 Metabolic acidosis E87.2 Atrial flutter I48.92 Shingles B02.9 Physical deconditioning R53.81 Hepatitis B core antibody positive R76.8
[2021-01-08 17:00] LABS: Glucose Point of Care 220 mg/dL (70-110)
[2021-01-08] MEDS: nystatin powder 15 gm Btl 1 APPLIC TOPICAL (17:44)
[2021-01-08] MEDS: erythromycin Op Oint 3.5 gm Tube 1 APPLIC EYE-BOTH (21:02)
[2021-01-08 21:07] LABS: Glucose Point of Care 279 mg/dL (70-110)
[2021-01-09 03:32] VITALS: BP 170/82; PULSE 92; RESP 16; TEMP 37.2; O2SAT 96
[2021-01-09 06:00] VITALS: PULSE 95
[2021-01-09] MEDS: metoprolol tartrate 25 mg Tablet PO (06:05)
[2021-01-09 06:31] LABS: Glucose Point of Care 243 mg/dL (70-110)
[2021-01-09 08:00] VITALS: BP 160/85; PULSE 92; RESP 16; TEMP 37.2; O2SAT 96
[2021-01-09] MEDS: folic acid 1 mg Tablet 2 MG PO (09:56)
[2021-01-09] MEDS: apixaban 5 mg Tablet 10 MG PO (09:56)
[2021-01-09] MEDS: aspirin 81 mg EC Tablet PO (09:56)
[2021-01-09] MEDS: pantoprazole DR 40 mg Tablet PO (09:57)
[2021-01-09] MEDS: cyanocobalamin 1,000 mcg Tablet 1000 MCG PO (09:57)
[2021-01-09] MEDS: atorvastatin 40 mg Tablet 20 MG PO (09:57)
[2021-01-09] MEDS: predniSONE 10 mg Tablet PO (09:57)
[2021-01-09 10:00] VITALS: BP 160/85; PULSE 92; RESP 16; TEMP 37.2
--- NOTE | 2021-01-09 11:17 | PC.SOCIAL ---
IMM Update Attempted to update IMM over the phone with patient, unable to reach. Provided IMM to Lois, patient care nurse who will provide to patient. Provided CM phone number if he has any questions.
--- NOTE | 2021-01-09 11:18 | PC.OT ---
Patient reports they are performing at baseline. Declined participating in occupational therapy today. Agreeable to discharging from occupational therapy.
[2021-01-09 11:53] LABS: Glucose Point of Care 258 mg/dL (70-110)
[2021-01-09 12:00] VITALS: BP 154/83; BP 160/85; PULSE 109; PULSE 92; RESP 16; TEMP 36.6; TEMP 37.2; O2SAT 93
--- NOTE | 2021-01-09 14:38 | P.DS_ITS ---
Discharge Providers Date of Admission: 12/31/20 16:01 Date of Discharge: January 09, 2021 Attending Provider at Admission: Adam Perez MD Attending Provider at Discharge: Abraham Mckeon Primary Care Provider: Marshal Downs Diagnoses at Discharge Discharge Diagnosis (1) Sepsis: Status: Acute (2) Gastroenteritis: Status: Acute (3) Splenic infarction: Status: Acute (4) Pulmonary embolism: Status: Acute (5) DVT (deep venous thrombosis): Status: Acute (6) COVID-19: Status: Acute (7) Diabetes mellitus: Status: Acute (8) Hypertension: Status: Acute (9) Chronic steroid use: Status: Acute (10) Acute encephalopathy: Status: Acute (11) Metabolic acidosis: Status: Acute (12) Atrial flutter: Status: Acute (13) Shingles: Status: Acute (14) Physical deconditioning: Status: Acute (15) Hepatitis B core antibody positive: Status: Acute Reason for Visit Reason for Visit: n/d weakness Hospital Course Hospital Course 75-year-old male with a past medical history significant for rheumatoid arthritis on chronic steroids, diabetes mellitus, hypertension, hyperlipidemia, DVT on Pradaxa, tobacco abuse, and chronic obstructive pulmonary disease, recent hospitalization COVID-19 pneumonia from 12/15 to 12/21 tx with remdesivir and steroids who presented to hospital with generalized weakness. This was associated with recurrent non-bloody diarrhea. At admission he had also noted a facial rash. Laboratory workup on arrival is shown a WBC of 10.1, hemoglobin of 13.8, hemato crit of 42.7 and a platelet count 295. ESR 54. INR 1.23. D-dimer was over 20. Arterial blood gases showed a pH of 7.31, pCO2 26.6, PO2 of 72.4 and a bicarb of 13.3. Sodium 136, potassium 3.8, chloride 104, bicarb 16, BUN 3 and creatinine of 1. Anion gap of 19.8. Magnesium of 1.1 CRP of 121.6, prbnp of 623 and a procalcitonin of 0.13. LFT WNL. Hepatitis B core IgM was reactive, negative. COVID-19 ag positive, vZV IgG/IGM abs positive. Rickettsia negative. Multiple imaging studies were performed including chest x-ray which did not show any evidence of acute process.CT abdomen pelvis was performed which showed multifocal splenic infarctions, right renal stable probable benign hemorrhagic cyst, bilateral renal probable benign cyst, fatty infiltration of the liver. Facial CT showed right periorbital subcutaneous edema and minimal non localized fluid largely along the lateral aspect of the orbit without intraorbital extension suspicious for cellulitis. Similar findings were noted around left.Head CT did not show any evidence of acute intracranial abnormality. Abdominal ultrasound showed normal appearance of spleen in contrast to CT abdomen pelvis which showed possible splenic infarcts. Lower extremity venous Doppler showed evidence of acute left lower extremity DVT.Renal ultrasound showed no obvious hydronephrosis or abscess. CTA chest PE protocol showed right- sided pulmonary embolism extending from the distal portion of the right main pulmonary artery largely in the lower lobe segmental branches and large upper lobe 2.2 cm plus left lower lobe superior segment 2 cm pulmonary nodule. In ER patient was given ceftriaxone 2g IV x 1. Upon admission patient was started on Primaxin 500 mg IV q6hr, vancomycin 1g IV q24hr. Also started on heparin drip. On 01/01 he was suspected to have herpes zoster Ophthalmicus and started on acyclovir and prednisone 20 mg Po BID however not noted to have actually any ocular involvement. He was noted to be hypotensive briefly requirin g IV vasopressors. Blood pressure improved and this was stopped. He was restarted on metoprolol. Likely to have been hypotensive due to infectious versus secondary to pulmonary embolism. Of note patient stated that he had been noncompliant with this Pradaxa. At the time I assumed care of patient he appeared to be at baseline. Thought out hospitalization no documented fevers. 12/31 blood and urine cultures were negative. Urine culture negative, MRSA culture screen negative. Culture of LE wound from 01/01/21 showed growth of proteus Mirabilis and Enteroccucus faecalis. patient was continued on IV antibiotics including vancomycin and Primaxin. Patient did not have any fever throughout hospitalization. Noted to have mild leukocytosis however this was suspected to be due to prednisone. Did not appear to have any evidence of facial rash. 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 Did not appear to have any rash consistent with shingles. Acyclovir was discontinued. Patient overall clinical status had improved. He was ambulating with a walker. Discussed multiple times that he would benefit from long-term facility however adamantly refused. Home care was also offered however again patient refused. Was discharged with close outpatient follow-up. advised to return to hospital if any evidence of bleeding, increasing abdominal pain, fever or recurrence of diarrheal episodes. Physical Exam Const: COMMON NORMALS: no acute distress, patient oriented x3 and alert GENERAL APPEARANCE: cooperative ORIENTATION/CONSCIOUSNESS: Yes awake, Yes oriented to person, Yes oriented to place, Yes oriented to time and Yes confused HENMT: COMMON NORMALS: normocephalic HEAD & SCALP: normocephalic Eye: COMMON NORMALS: Equal, round and reactive pupils present and EOMs intact bilaterally GENERAL EYE: appearance normal, both eyes and all related structures PUPIL: Yes Equal, round and reactive pupils present OTHER: No obvious facial rash EOMI, , no scleral abnormality Right IJ in place Neck/C-Spine: COMMON NORMALS: full ROM and no lymphadenopathy Lymph: LYMPHATIC: no lymphadenopathy noted Resp: COMMON NORMALS: normal respiratory effort, No retractions, No use of accessory muscles and clear to auscultation bilaterally AUSCULTATION: clear to auscultation bilaterally Cardio: COMMON NORMALS: regular rate, regular rhythm, S1 normal heart sound present and S2 normal heart sound present RATE: regular rate and tachycardic RHYTHM: regular rhythm HEART SOUNDS: S1 normal heart sound present and S2 normal heart sound present GI: COMMON NORMALS: Normal to inspection, nondistended, normoactive bowel bautista nds present, Soft to palpation, non-tender, no masses and no bruits INSPECTION: Yes abdominal distension PALPATION: Yes Soft to palpation and Yes Tenderness to palpation present (GI) (Generalized tenderness) Extremity: COMMON NORMALS: no pedal edema NARRATIVE EXTREMITY EXAM: Min a nasarca Neuro: COMMON NORMALS: patient oriented x3, CN's II-XII intact bilaterally, moves all extremities and no focal motor deficits SENSORIUM/ORIENTATION: Yes alert, Yes oriented to person, Yes oriented to place and Yes oriented to time Psych: COMMON NORMALS: mental status grossly normal Skin: NARRATIVE SKIN EXAM: Image of groin area. Urinary Catheter Management^: Dickerson: Cath Placed During This Visit: yes, but has since been removed by the nurse Reason for Continuing Indwelling Catheter: Other Urinary Catheter Date of Insertion: 01/02/21 Urinary Catheter Time of Insertion: 15:00 Date Urinary Catheter Removed: 01/08/21 Time Urinary Catheter Discontinued: 05:29 Discharge Data Data Completed and Pending: Completed Studies During Hospitalization Category Date Time Status CT abdomen pelvis w con* [id number] Urge nt Cat Scan 12/31/20 14:[address] angio chest PE protcl [id number] Stat Cat Scan 01/01/21 17:[address] facial bones w o con* [id number] Urgen t Cat Scan 12/31/20 18:[address] head wo con* 7 0450 Urgent Cat Scan 12/31/20 18:24 Completed CXRP [XR chest 1V portable [id number]] S tat Exams 01/01/21 10:11 Completed XR chest 1V layla ble [id number] Routine Exams 01/02/21 13:26 Completed XR chest 1V layla ble [id number] Urgent Exams 12/31/20 13:02 [place] [id number] Urgent Ultrasound 01/01/21 05:00 Completed CV. echo complete * [id number] Urgent Ultrasound 01/01/21 05:00 Completed US abdomen limite d 43684 Urgent Ultrasound 01/01/21 05:00 Completed US renal BI* [id number] Routine Ultrasound 01/01/21 08:09 Completed Pending at discharge Category Date Time Status Clostridioides Di fficile PCR Routin e Lab 12/31/20 16:25 Ordered Enteric Bacterial Panel by PCR Rout ine Lab 12/31/20 16:25 Ordered Enteric Parasite Panel by PCR Heleni ne Lab 12/31/20 16:25 Ordered Immunochemical Fe mani OCB Routine Lab 12/31/20 16:25 Ordered Lactoferrin Heleni ne Lab 12/31/20 16:25 Ordered Sputum Culture an d Gram Stain Stat Lab 12/31/20 17:12 Uncollected Labs from last 24 hours 01/09/21 01/09/21 01/08/21 11:39 05:54 20:58 POC Glucose 258 H 243 H 279 H 01/08/21 16:53 POC Glucose 220 H Vitals: Last Vital Signs Temp 97.9 F 01/09/21 12:00 Pulse 109 H 01/09/21 12:00 Resp 16 01/09/21 12:00 BP 154/83 01/09/21 12:00 Pulse Ox 93 01/09/21 12:00 Discharge Plan Discharge Patient Disposition: Home Condition: Stable Prescriptions: New Eliquis 5 mg Tablet 10 mg PO BID@0900,2100 Qty: 60 RF: 0 Lipitor 20 mg tablet 20 mg PO DAILY Qty: 30 RF: 0 Continued terbinafine HCl 1 % Cream 1 applic TOPICAL BID RF: 0 prednisone 5 mg Tablet 5 mg PO BID RF: 0 cyanocobalamin (vitamin B-12) 1,000 mcg Tablet 1,000 mcg PO DAILY RF: 0 alendronate 35 mg Tablet 35 mg PO Q7D RF: 0 calcium carbonate [Calcium 500] 500 mg calcium (1,250 mg) Tablet 500 mg PO BID RF: 0 ascorbic acid (vitamin C) 250 mg Tablet 250 mg PO DAILY RF: 0 folic acid 1 mg Tablet 2 mg PO DAILY RF: 0 cholecalciferol (vitamin D3) 50 mcg (2,000 unit) Tablet 50 mcg PO DAILY RF: 0 fluticasone propionate 50 mcg/actuation [place],Suspension 1 spray INTRANASAL DAILY RF: 0 insulin glargine 100 unit/mL Solution 40 unit SUBCUT DAILY Qty: 0 RF: 0 Discontinued pravastatin 40 mg Tablet 40 mg PO DAILY RF: 0 atenolol 100 mg Tablet 100 mg PO DAILY RF: 0 dabigatran etexilate 150 mg Capsule 150 mg PO BID RF: 0 Discharge Orders: Discharge Order (Routine); Ordered 01/09/21 Ordered By: Abraham Mckeon Other Ambulatory Orders: Basic Metabolic Panel (Routine) Timeframe: 3 Days Facility: [facility] - Location: Lab - Main Lab Ordered By: Abraham Mckeon Referrals: Marshal Downs [Primary Care Provider] - 1-3 days (Please call Monday to schedule a follow up appointment. ) Discharge Diet: Usual diet Discharge Activity: Increase activity as tolerated Patient Instructions: Atorvastatin (By mouth), Apixaban (By mouth), Opioid Safety, Pneumonia Stoplight, Pneumonia - Viral Activity Restrictions/Additional Instructions: Return to hospital if any recurrence of symptoms. Discharge Attestations Time Spent in Discharge Care*: greater than 30 min Specific Discharge Activities: educating patient, educating and/or supporting family/caregiver, discussing with telehealth case manager/social workers/dc planners, documenting/other paperwork and evaluating patient/reviewing data Status at Discharge: Cognitive status at discharge: cognitively intact , Behavioral status at discharge: cooperative , Functional status at discharge: other assisted ambulation ( Uses walker) Overall status at discharge: patient is progressing back to baseline Quality Metrics Clinical Quality Measures During this hospital stay, did patient experience: VTE Contraindication to Overlap Therapy: Overlap treatment not indicated VTE Discharge Education: Education about anticoagulant therapy/Care Notes given Deep Vein Thrombosis/Pulmonary Embolism Present on Admission: Yes Coding Level of Care Code Acute Chg FW DC note Diagnoses Sepsis A41.9 Gastroenteritis K52.9 Splenic infarction D73.5 Pulmonary embolism I26.99 DVT (deep venous thrombosis) I82.409 COVID-19 U07.1 Diabetes mellitus E11.9 Hypertension I10 Chronic steroid use Acute encephalopathy G93.40 Metabolic acidosis E87.2 Atrial flutter I48.92 Shingles B02.9 Physical deconditioning R53.81 Hepatitis B core antibody positive R76.8
[2021-01-09 16:04] VITALS: BP 154/83; PULSE 109; RESP 16; TEMP 36.6; O2SAT 93
== END 2021-01-09 15:30 | disposition home or self-care (01) | DRG 871 ==
LOC: ER 17:58 → ICU 21:18 → MEDSURG 01-04 18:43
PROVIDERS: Internal Medicine; Admitting Provider Family Medicine; Emergency Provider Family Medicine; PCP Internal Medicine; Visit Provider Hospitalist
DX: A41.9 Sepsis, unspecified organism (principal); G93.41 Metabolic encephalopathy; U07.1 COVID-19; I26.99 Other pulmonary embolism without acute cor pulmonale; I21.4 Non-ST elevation (NSTEMI) myocardial infarction; L03.213 Periorbital cellulitis; E87.2 Acidosis; E27.2 Addisonian crisis; I48.92 Unspecified atrial flutter; L51.1 Stevens-Johnson syndrome; I82.412 Acute embolism and thrombosis of left femoral vein; I82.452 Acute embolism and thrombosis of left peroneal vein; M06.9 Rheumatoid arthritis, unspecified; Z79.52 Long term (current) use of systemic steroids; E11.9 Type 2 diabetes mellitus without complications; Z79.4 Long term (current) use of insulin; I10 Essential (primary) hypertension; Z86.718 Personal history of other venous thrombosis and embolism; F17.210 Nicotine dependence, cigarettes, uncomplicated; J44.9 Chronic obstructive pulmonary disease, unspecified; E78.5 Hyperlipidemia, unspecified; Z86.14 Personal history of Methicillin resistant Staphylococcus aureus infection; E86.0 Dehydration; K52.9 Noninfective gastroenteritis and colitis, unspecified; D73.5 Infarction of spleen; I95.9 Hypotension, unspecified; R76.8 Other specified abnormal immunological findings in serum; K76.0 Fatty (change of) liver, not elsewhere classified; N28.1 Cyst of kidney, acquired; H10.9 Unspecified conjunctivitis; B95.2 Enterococcus as the cause of diseases classified elsewhere; B96.4 Proteus (mirabilis) (morganii) as the cause of diseases classified elsewhere; B02.9 Zoster without complications; E87.6 Hypokalemia
CPT/HCPCS: 36415; 36416; 36569; 36592; 36600; 51702; 70450; 70486; 71045; 71275; 74177; 76705; 76770; 80048; 80051; 80053; 80074; 80202; 80306; 80307; 80320; 81001; 82009; 82140; 82330; 82533; 82550; 82728; 82803; 82805; 82962; 83036; 83605; 83615; 83690; 83735; 83880; 84100; 84145; 84443; 84478; 84484; 85025; 85362; 85378; 85384; 85610; 85651; 85730; 86140; 86618; 86664; 86665; 86666; 86705; 86706; 86709; 86757; 86787; 86803; 87040; 87070; 87075; 87077; 87086; 87186; 87205; 87290; 87340; 87426; 87641; 87798; 87806; 92526; 92610; 93005; 93306; 93970; 94664; 96361; 96365; 96372; 96375; 97110; 97161; 97167; 97530; 97535; 99291; 99292; C1751; C9113; J0133; J0696; J0743; J1200; J1630; J1644; J1650; J1720; J1815; J1885; J1940; J2060; J2405; J3370; J3475; J3480; J3490; J7030; J7050; J7512; J8499; Q9967

== ENCOUNTER 2021-03-02 09:13 | Outpatient (CLI) | payer OTHER, MEDICARE, SELFPAY ==
--- NOTE | 2021-03-02 09:30 | XRR_ITS ---
PROCEDURE INFORMATION: Exam: XR Abdomen Exam date and time: 03/01/2021 9:30 AM Age: 75 years old Clinical indication: Disorder of kidney and ureter. Growth bilaterally on multiple organs. TECHNIQUE: Imaging protocol: XR of the abdomen. Views: Frontal supine view of the abdomen. 1 View. COMPARISON: CT abdomen pelvis w con* [id number] 12/31/2020 2:57 PM FINDINGS: There is been prior cholecystectomy. Right hip hardware is incompletely visualized. No free air is seen in the abdomen. Nonobstructive bowel gas pattern. Moderate stool in the colon; query constipation. No gross portal venous gas. There are small radiodensities in the epigastrium that may be within bowel. No renal stone was identified on recent CT. XR/XR KUB [id number] IMPRESSION: Moderate stool in the colon; query constipation.
== END 2021-03-02 09:14 | disposition home or self-care (01) ==
LOC: RAD 09:20
PROVIDERS: PCP Internal Medicine; Visit Provider Urology
DX: N28.9 Disorder of kidney and ureter, unspecified (principal)
CPT/HCPCS: 74018; 81003

== ENCOUNTER → 2021-12-14 14:54 | Outpatient (BNVA) | payer OTHER, MEDICARE, SELFPAY | PROVIDERS: PCP Internal Medicine; Referring Provider Family Medicine; Visit Provider Physician Assistant | DX: M51.36 Other intervertebral disc degeneration, lumbar region (principal); M43.16 Spondylolisthesis, lumbar region; M79.604 Pain in right leg; M79.605 Pain in left leg | CPT/HCPCS: 72110; 99203 ==

== ENCOUNTER → 2022-01-05 08:55 | Outpatient (BNVA) | payer OTHER, SELFPAY | PROVIDERS: PCP Internal Medicine; Referring Provider Family Medicine; Visit Provider Internal Medicine Rheumatology | DX: M06.9 Rheumatoid arthritis, unspecified (principal); Z11.59 Encounter for screening for other viral diseases; Z11.1 Encounter for screening for respiratory tuberculosis; Z79.899 Other long term (current) drug therapy; Z79.52 Long term (current) use of systemic steroids; E11.9 Type 2 diabetes mellitus without complications; Z79.4 Long term (current) use of insulin; Z86.718 Personal history of other venous thrombosis and embolism; Z86.711 Personal history of pulmonary embolism; Z79.01 Long term (current) use of anticoagulants; Z71.85 Encounter for immunization safety counseling | CPT/HCPCS: 36415; 71046; 73130; 86480; 86704; 86803; 87340; 99204 ==

== ENCOUNTER 2022-01-18 10:23 | Outpatient (CLI) | payer OTHER, SELFPAY ==
--- NOTE | 2022-01-18 10:00 | US_ITS ---
WS: [id number] ULTRASOUND RENAL TECHNIQUE: Ultrasound examination of both kidneys. CLINICAL INFORMATION: RENAL CYST COMPARISON: Ultrasound January 01, 2021 FINDINGS: RIGHT: RIGHT lower pole renal cyst measuring 2.3 x 3.2 x 1.9 cm Cortical scarring RIGHT kidney. Echogenicity: Normal. Cortical thickness: 1.4 cm; Normal. Hydronephrosis: None. Perinephric fluid: None. Right kidney measures: 9.6 cm x 4.8 cm x 5.5 cm. LEFT: LEFT lower pole renal cyst measuring 1.9 x 1.9 cm. Left kidney is normal in size and appearance. Echogenicity: Normal. Cortical thickness: 1.7 cm; Normal. Hydronephrosis: None. Perinephric fluid: None. Left kidney measures: 12.8 cm x 4.8 cm x 7.4 cm. Normal visualized aorta. Bladder volume 1014 cc US/US renal BI* [id number] IMPRESSION: 1. No hydronephrosis in either kidney. 2. Simple bilateral renal cysts measuring up to 2 cm.. 3. Distended bladder. Patient could not empty bladder at this time. 4. Bilateral ureteral jets visualized.
== END 2022-01-18 10:24 | disposition home or self-care (01) ==
PROVIDERS: PCP Internal Medicine; Visit Provider Urology
DX: N28.1 Cyst of kidney, acquired (principal); N32.89 Other specified disorders of bladder; R82.81 Pyuria
CPT/HCPCS: 76770; 81003; 87077; 87086; 87186; 99214

== ENCOUNTER 2022-01-25 13:29 | Inpatient (IN) | payer OTHER, MEDICARE, SELFPAY ==
[2022-01-25] VITALS (25 sets, daily range): BP systolic 75–121; BP diastolic 50–90; PULSE 81–115; RESP 14–30; TEMP 36.9–37.2; O2SAT 92–96; BMI 27.9
--- NOTE | 2022-01-25 13:38 | ECG_ITS ---
[facility] Test Date: 2022-01-25 Pat Name: Mendez Voss Department: Room: Gender: Male [employer] Worker: : 1945 Requested By: Benjamin Greenwood Order Number: [id number] Mulugeta MD: Lydia Smith M.D. Measurements Intervals [place] Rate: 120 P: 34 MD: 125 QRS: 29 QRSD: 81 T: 111 QT: 297 QTc: 420 Interpretive Statements SINUS TACH[address] DEVIATION AND MODERATE T-WAVE ABNORMALITY, CONSIDER LATERAL ISCHEMIA [-0.1+ mV T WAVE IN I/aVL/V5/V6] Compared to ECG 01/03/2021 18:23:26 Possible ischemia now present T-wave abnormality still present Electronically Signed On 01-25-2022 21:33:44 CDT by Lydia Smith M.D. [id number]
--- NOTE | 2022-01-25 13:55 | XR_ITS ---
WS: [id number] Exam: XR chest 1V portable [id number] Date/Time of Exam: 01/25/2022 1:56 PM Reason For Exam: dyspnea/cough Comparison 01/05/2022. Findings: The lungs are clear and fully expanded. Costophrenic angles are sharp. No infiltrates. Bronchovascula r relief appears normal. Cardiac silhouette is unremarkable. Bony elements are intact. XR/XR chest 1V portable [id number] IMPRESSION: Unremarkable chest radiograph.
--- NOTE | 2022-01-25 14:04 | ED_ITS ---
HPI - General Adult General: Chief complaint: General Medical Stated complaint: nausea, not eating Time Seen by Provider: 01/25/22 13:37 Source: patient Mode of arrival: ambulatory Limitations: no limitations History of Present Illness: 76 yo male presents to [facility] via [facility] with compalints of weakness and diarrhea, Pt is diabetic reports he has been tkaing his insulin and has noted BS in 300. Reports multiple episodes of diarrhea per hour. No hematochezia melena hematemesis no dysuria urgency or frequency has some generalized cramping. No shortness of breath no chest pain. Did not notice any fever sweats or chills. Onset (ago): minute(s) Severity: mild Pain Consistency: constant Relieving factors: none Exacerbating factors: none Associated symptoms: Reports malaise; Deny chest pain, confusion, cough, diaphoresis, decreased appetite, dyspnea, fevers/chills, headache(s), nausea, rash, palpitations, seizures, short of breath, syncope, vomiting or weakness Treatments prior to arrival: none Review of Systems Const: Reports: fatigue and malaise; Denies: fever(s), chills or diaphoresis ENMT: Denies: throat pain, ear or mastoid pain, nasal discharge or nasal congestion Card: Denies: chest pain, palpitations or syncope Resp: Reports: non-productive cough; Denies: dyspnea, productive cough or wheezing GI: Reports: abdominal pain, diarrhea and bloating; Denies: nausea, vomiting, hematemesis or coffee ground emesis : Denies: flank pain, dysuria, urinary frequency or urinary urgency Skin/Breast: Denies: rash Neuro: Denies: headache(s) or confusion PFSH ED PFSH: Medical History Chronic steroid use COPD (chronic obstructive pulmonary disease) Disorder of kidney and ureter DVT (deep venous thrombosis) High risk medication use Hyperlipidemia Hypertension Immunization counseling Rheumatoid aortitis Rheumatoid arthritis Tobacco abuse Surgical History History of cholecystectomy History of hip surgery History of surgery on arm History of surgical amputation of finger partial No pertinent past surgical history Family History Father , at age 83 Cancer Blood transfusion reaction Hepatitis Mother , at age 55 Cancer Other Lupus Rheumatoid arthritis Denies family history of Diabetes Social History Smoking and tobacco status: current every day smoker Alcohol intake: never Marital status: Current occupational status: retired and disabled History of recent travel: No Physical Exam Const: GENERAL APPEARANCE: cooperative and comfortable ORIENTATION/CONSCIOUSNESS: Yes awake, Yes oriented to person, Yes oriented to place and Yes oriented to time HENMT: COMMON NORMALS: normocephalic, atraumatic and hearing grossly normal bilaterally HEAD & SCALP: normocephalic and atraumatic Neck/C-Spine: COMMON NORMALS: no JVD Resp: COMMON NORMALS: normal respiratory effort, No retractions, No use of accessory muscles and clear to auscultation bilaterally AUSCULTATION: clear to auscultation bilaterally Cardio: COMMON NORMALS: no JVD, regular rate, regular rhythm and No murmurs present (Cardio) RATE: regular rate RHYTHM: regular rhythm GI: COMMON NORMALS: Soft to palpation and No hepatosplenomegaly present AUSCULTATION: Yes normoactive bowel sounds PALPATION: Yes Soft to palpation, No Tenderness to palpation present (GI), No Guarding due to palpation present (GI) and Yes No hepatosplenomegaly present : COMMON NORMALS: Yes no CVA tenderness BLADDER/KIDNEY EXAM: Yes no CVA tenderness Back/Pelvis: COMMON NORMALS: no CVA tenderness Extremity: COMMON NORMALS: capillary refill normal, no clubbing, cyanosis or edema, no calf tenderness and no pedal edema OTHER: Mild redness scattered on anterior tibia does not appear to be acutely infected no signs of abscess. Erythema to this areas are localized. Neuro: SENSORIUM/ORIENTATION: Yes oriented to person, Yes oriented to place and Yes oriented to time Course Vital Signs: Vital signs: Vital Signs Temperature 98.1 F 01/26/22 07:28 Pulse Rate 98 01/26/22 07:28 Respiratory Rate 16 01/26/22 07:28 Blood Pressure 124/71 01/26/22 07:28 Pulse Oximetry 95 01/26/22 07:28 Oxygen Delivery Me thod 01/26/22 07:28 [facility] - General Adult Medical Decision Making Patient presents hypotensive with moderate altered mental status improved after fluid bolus given. Initially given Rocephin Dickerson catheter placed. Patient has improved will admit to ICU discussed with hospitalist orders written. Medical Records I reviewed the patient's medical records. Lab Data I reviewed the patient's lab results. : 01/25/22 14:33 01/25/22 14:33 Radiology Impressions Chest X-Ray 01/25/22 13:55 IMPRESSION: Unremarkable chest radiograph. Abdomen/Pelvis CT 01/25/22 17:01 IMPRESSION: 1. Irregular urinary bladder wall thickening is suspicious for cystitis. Clinical correlation recommended. 2. 3.0 cm indeterminate lobulated lesion in the left kidney, possibly a proteinaceous cyst. Recommend non-emergent MRI without and with contrast or non-emergent CT without and with contrast. MRI is preferred for masses under 1.5 cm. COMMENTS: Consistent with the [employer]'s Incidental Findings Committee white paper (J Am Lisa Radiol 2018): Any incidental renal lesion less than 1 cm or classified as too small to characterize, or any incidental cystic renal lesion characterized as simple-appearing, is likely benign. No follow-up imaging is recommended for these lesions per consensus recommendations based on imaging criteria. Chest CT 01/25/22 17:30 IMPRESSION: 1. Slightly larger 2.7 cm nodule in the anterior left upper lobe. Highly suspicious nodule(s). Consider non-emergent PET/CT, or tissue sampling.(Reference: Shay) 2. Slightly larger peripheral consolidation in the left upper lobe could represent fibrosis, pneumonia, or less likely a neoplastic process. 3. Resolution of the previous left lower lobe nodule. References: Shay Khanna, et al. Guidelines for Management of Incidental Pulmonary Nodules Detected on CT Images: From the Fleischner Society 2017. Radiology. 2017;284(1):228-243. COMMENTS: Consistent with the [place]'s Incidental Findings Committee white paper (J Am Lisa Radiol 2018): Any incidental renal lesion less than 1 cm or classified as too small to characterize, or any incidental cystic renal lesion characterized as simple-appearing, is likely benign. No follow-up imaging is recommended for these lesions per consensus recommendations based on imaging criteria. Laboratory Results WBC 11.0 10^3/uL (4.0-10.0) H 01/25/22 14:33 RBC 4.38 10^6/uL (4.1-5.3) 01/25/22 14:33 Hgb 13.8 g/dL (11.7-16.6) 01/25/22 14:33 Hct 42.0 % (42.0-52.0) 01/25/22 14:33 MCV 95.9 fl (80-94) H 01/25/22 14:33 MCH 31.5 pg (28.0-34.0) 01/25/22 14:33 MCHC 32.9 g/dL (30.0-36.0) 01/25/22 14:33 RDW 15.0 % (12.1-15.1) 01/25/22 14:33 Plt Count 228 10^3/cmm (130-400) 01/25/22 14:33 MPV 10.2 fL (7.4-10.4) 01/25/22 14:33 Neut % (Auto) 75.4 % 01/25/22 14:33 Lymph % (Auto) 6.2 % 01/25/22 14:33 Armstrong % (Auto) 13.3 % 01/25/22 14:33 Eos % (Auto) 1.8 % 01/25/22 14:33 Baso % (Auto) 0.5 % 01/25/22 14:33 Neut # (Auto) 8.32 10^3/uL (1.8-7.7) H 01/25/22 14:33 Lymph # (Auto) 0.7 10^3/uL (0.8-4.8) L 01/25/22 14:33 Armstrong # (Auto) 1.5 10^3/uL (0.2-0.9) H 01/25/22 14:33 Eos # (Auto) 0.2 10^3/uL (0.0-0.8) 01/25/22 14:33 Baso # (Auto) 0.1 10^3/uL (0.0-0.1) 01/25/22 14:33 Nucleated RBC % (auto) 0 % 01/25/22 14:33 Nucleated RBCs # 0.0 /100WBC 01/25/22 14:33 ESR 69 mm/hr (0-10) H 01/25/22 13:33 Specimen Type Arterial 01/25/22 14:00 Sample Site Radial, left 01/25/22 14:00 ABG pH 7.36 (7.35-7.45) 01/25/22 14:00 ABG pCO2 26.6 mmHg (35-45) L 01/25/22 14:00 ABG pO2 78.3 mmHg (80.0-100.0) L 01/25/22 14:00 ABG HCO3 15.2 mmol/L (22-26) L 01/25/22 14:00 ABG O2 Saturation 95.7 01/25/22 14:00 ABG Base Excess -8.5 mmol/L (-2.0-2.0) L 01/25/22 14:00 Mendez Test Pos 01/25/22 14:00 A-a O2 Gradient 4.7 mmHg (5-10) L 01/25/22 14:00 Hematocrit 42.9 % (42-52) 01/25/22 14:00 Hgb O2 Saturation 93.9 % (95-100) L 01/25/22 14:00 Carboxyhemoglobin 1.1 %THgb (0.4-20.1) 01/25/22 14:00 Methemoglobin 0.9 % (0.4-1.5) 01/25/22 14:00 Total Hemoglobin 14.0 g/dL (14-18) 01/25/22 14:00 Sodium 131.0 mmol/L (131-143) 01/25/22 14:00 Potassium 3.6 mmol/L (3.5-5.0) 01/25/22 14:00 Glucose 186.0 mg/dL (70-115) H 01/25/22 14:00 Ionized Calcium 1.2 mmol/L (1.1-1.4) 01/25/22 14:00 O2 Delivery Device Room air 01/25/22 14:00 Dough Maker ID Gd 01/25/22 14:00 Sodium 130 mmol/L (136-145) L 01/25/22 14:33 Potassium 3.6 mmol/L (3.5-5.1) 01/25/22 14:33 Chloride 93 mmol/L (98-107) L 01/25/22 14:33 Carbon Dioxide 16 mmol/L (22-29) L 01/25/22 14:33 Anion Gap 24.6 (5-19) H 01/25/22 14:33 BUN 15 mg/dL (8-23) 01/25/22 14:33 Creatinine 1.2 mg/dL (0.7-1.2) 01/25/22 14:33 GFR Calculation Not Reportable 01/25/22 14:33 Glucose 180 mg/dL (65-115) H 01/25/22 14:33 POC Glucose 187 mg/dL (70-110) H 01/25/22 14:06 Calculated Osmolality 275 mOsm/kg (285-295) L 01/25/22 14:33 Lactic Acid 1.5 mmol/L (0.5-2.2) 01/25/22 14:33 Calcium 8.9 mg/dL (8.5-10.5) 01/25/22 14:33 Total Bilirubin 1.0 mg/dL (0.15-1.2) 01/25/22 14:33 AST 12 U/L (0-40) 01/25/22 14:33 ALT 11 U/L (0-41) 01/25/22 14:33 Alkaline Phosphatase 91 IU/L (40-130) 01/25/22 14:33 Creatine Kinase 20 U/L (39-308) L 01/25/22 14:33 C-Reactive Protein 233.9 mg/L (0.0-4.9) H 01/25/22 14:33 NT-Pro-B Natriuret Pep 692 pg/mL (0-125) H 01/25/22 14:33 Total Protein 5.9 g/dL (6.6-8.7) L 01/25/22 14:33 Albumin 2.4 g/dL (3.5-5.2) L 01/25/22 14:33 Globulin 3.5 g/dL (1.3-4.6) 01/25/22 14:33 Lipase 12 U/L (13-60) L 01/25/22 14:33 Procalcitonin 0.31 ng/mL (0-0.5) 01/25/22 14:33 TSH 1.94 uIU/mL (0.27-4.20) 01/25/22 14:32 Random Cortisol 13.24 ug/dL (2.47-19.5) 01/25/22 14:33 Urine Color Dark yellow (Yellow) 01/25/22 15:49 Urine Appearance Hazy (CLEAR) A 01/25/22 15:49 Urine pH 6 (5-7) 01/25/22 15:49 Ur Specific [place] 1.015 (1.005-1.030) 01/25/22 15:49 Urine Protein 2+ (Negative) H 01/25/22 15:49 Urine Glucose (UA) Trace (Normal) H 01/25/22 15:49 Urine Ketones 1+ (Negative) H 01/25/22 15:49 Urine Blood 2+ (Negative) H 01/25/22 15:49 Urine Nitrate Negative (Negative) 01/25/22 15:49 Urine Bilirubin 1+ (Negative) H 01/25/22 15:49 Urine Urobilinogen 1 mg/dL (Negative) H 01/25/22 15:49 Ur Leukocyte Esterase 2+ (Negative) H 01/25/22 15:49 Urine RBC 0-4 /hpf (0-2) H 01/25/22 15:49 Urine WBC Too numerous to cnt /hpf (0-5) H 01/25/22 15:49 Ur Squamous Epith Cells 0-4 /hpf (0-5) H 01/25/22 15:49 Amorphous Sediment Not Reportable 01/25/22 15:49 Urine Bacteria 2+ /hpf (NONE) H 01/25/22 15:49 Serum Ketones Positive (Negative) H 01/25/22 14:33 Coronavirus 229E (PCR) Not detected (NOT DETECT) 01/25/22 15:20 SARS-CoV-2 (PCR) Not detected (NOT DETECT) 01/25/22 15:20 Discharge Plan Discharge Patient Disposition: Admitted As Inpatient Admit Provider: Adam Perez Clinical Impression: UTI (urinary tract infection), Sepsis, Acute encephalopathy, Acute urinary retention Condition: Stable Coding Level of Care Code ED [employer] Reports Developer for Chg Fwd Exam Comprehensive
[2022-01-25 14:10] LABS: Glucose Point of Care 187 mg/dL (70-110)
--- NOTE | 2022-01-25 14:11 | PC.NURSE ---
Pt states that he has not been able to eat or drink for last week or two, he has runny stools x 3-4 days, he denies any sob or chest pains at this time. He says he just feels weak and cant walk steady
[2022-01-25 14:15] LABS: ABG PCO2 26.6 mmHg (35-45); ABG PH Result 7.36 (7.35-7.45); Alveolar-Arterial Oxygen Gradi 4.7 mmHg (5-10); Arterial Blood Gas Hematocrit 42.9 % (42-52); Base Excess ABG -8.5 mmol/L (-2.0-2.0); Blood Gas Allen Test Pos; Blood Gas Operator Identificat GD; Blood Gas Sample Site Radial, left; Blood Gas Sample Type Arterial; Carboxyhemoglobin 1.1 %THgb (0.4-20.1); HCO3 ABG 15.2 mmol/L (22-26); HGB O2 Sat 93.9 % (95-100); Ionized Calcium Level - ABG 1.2 mmol/L (1.1-1.4); Methemoglobin 0.9 % (0.4-1.5); Oxygen Device ROOM AIR; Oxygen Saturation ABG 95.7; PO2 ABG 78.3 mmHg (80.0-100.0); Potassium Level - ABG 3.6 mmol/L (3.5-5.0)
[2022-01-25 15:01] LABS: Basophils # 0.1 10^3/uL (0.0-0.1); Basophils % 0.5 %; Eosinophils # 0.2 10^3/uL (0.0-0.8); Eosinophils % 1.8 %; Hemoglobin 13.8 g/dL (11.7-16.6); Lymphocytes # 0.7 10^3/uL (0.8-4.8); Lymphocytes % 6.2 %; Mean Corpuscular HGB Conc 32.9 g/dL (30.0-36.0); Mean Corpuscular Hemoglobin 31.5 pg (28.0-34.0); Mean Corpuscular Volume 95.9 fl (80-94); Mean Platelet Volume 10.2 fL (7.4-10.4); Monocytes # 1.5 10^3/uL (0.2-0.9); Monocytes % 13.3 %; Neutrophils # 8.32 10^3/uL (1.8-7.7); Neutrophils % 75.4 %; Nucleated Red Blood Cells % 0 %; Platelet Count 228 10^3/cmm (130-400); Red Blood Count 4.38 10^6/uL (4.1-5.3)
[2022-01-25 15:17] LABS: Lactic Sepsis W/Reflex 1.5 mmol/L (0.5-2.2)
[2022-01-25 15:25] LABS: Alanine Aminotransferase 11 U/L (0-41); Albumin Level 2.4 g/dL (3.5-5.2); Alkaline Phosphatase 91 IU/L (40-130); Anion Gap 24.6 (5-19); Aspartate Amino Transferase 12 U/L (0-40); Blood Urea Nitrogen 15 mg/dL (8-23); Calcium 8.9 mg/dL (8.5-10.5); Carbon Dioxide 16 mmol/L (22-29); Chloride 93 mmol/L (98-107); Creatine Phosphokinase 20 U/L (39-308); Globulin 3.5 g/dL (1.3-4.6); Glucose 180 mg/dL (65-115); Lipase 12 U/L (13-60); Osmolality Calculated 275 mOsm/kg (285-295); Potassium 3.6 mmol/L (3.5-5.1); Sodium 130 mmol/L (136-145); Total Protein 5.9 g/dL (6.6-8.7)
[2022-01-25 15:34] LABS: Ketone (Acetest) Serum Positive (Negative)
[2022-01-25 16:11] LABS: Specific Gravity, Urine 1.015 (1.005-1.030); Urine Appearance Hazy (CLEAR); Urine Color Dark Yellow (Yellow); pH Urine 6 (5-7)
[2022-01-25 16:12] LABS: Add Urine Culture? Yes; Add Urine Microscopic? YES; Bacteria Urine 2+ /hpf; Bilirubin Urine 1+ (Negative); Blood Urine 2+ (Negative); Glucose Urine UA Trace (Normal); Ketones Urine 1+ (Negative); Leukocyte Esterase Urine 2+ (Negative); Nitrate Urine Negative (Negative); Protein Urine 2+ (Negative); RBC Urine 0-4 /hpf (0-2); Squamous Epithelial Cell Urine 0-4 /hpf (0-5); Urobilinogen Urine 1 mg/dL (Negative); WBC Urine TOO NUMEROUS TO CNT /hpf (0-5)
[2022-01-25] MEDS: sodium chloride 0.9% 2,286.12 ML 2286.12 ML IV (16:16)
--- NOTE | 2022-01-25 17:01 | CTR_ITS ---
PROCEDURE INFORMATION: Exam: CT Abdomen And Pelvis Without Contrast Exam date and time: 01/25/2022 5:56 PM Age: 76 years old Clinical indication: Abdominal pain; Tenderness; Other: Centralized; Additional info: Cystitis, abd pain, no intake in one week TECHNIQUE: Imaging protocol: Computed tomography of the abdomen and pelvis without contrast. Radiation optimization: All CT scans at this facility use at least one of these dose optimization techniques: automated exposure control; mA and/or kV adjustment per patient size (includes targeted exams where dose is matched to clinical indication); or iterative reconstruction. COMPARISON: CT abdomen pelvis w con* [id number] 12/31/2020 2:57 PM RADIATION DOSE METRICS: Total DLP (mGy-cm): 1012.6 FINDINGS: Lungs: Emphysema and scarring in the lung bases. Liver: Normal. No mass. Gallbladder and bile ducts: Cholecystectomy. The bile ducts are normal. Pancreas: Normal. No ductal dilation. Spleen: Normal. No splenomegaly. Adrenal glands: Normal. No mass. Kidneys and ureters: Chronic cortical defect in the anterior right kidney. Bilateral renal cysts, Hounsfield units less than 20. Smaller 1.2 cm posterior cortical lesion in the left kidney, Hounsfield units 41. This previously measured less than 20 Hounsfield units and is most likely a benign collapsing proteinaceous cyst. 3.0 cm lobulated lesion in the inferior left kidney, Hounsfield units 52. Chronic perinephric stranding. Stomach and bowel: Unremarkable. No obstruction. No mucosal thickening. Appendix: No evidence of appendicitis. Intraperitoneal space: Unremarkable. No free air. No significant fluid collection. Vasculature: Arterial calcifications. No aneurysm. Lymph nodes: Unremarkable. No enlarged lymph nodes. Urinary bladder: Irregular wall thickening in the urinary bladder with adjacent mild fat stranding. Reproductive: Coarse calcifications in a mildly enlarged prostate. Bones/joints: Intramedullary asa and compression screw in the right femur. Degenerative changes of the spine with anterior subluxation of L4 on L5. No acute fracture. Soft tissues: Unremarkable. CT/CT kidney stone [id number] IMPRESSION: 1. Irregular urinary bladder wall thickening is suspicious for cystitis. Clinical correlation recommended. 2. 3.0 cm indeterminate lobulated lesion in the left kidney, possibly a proteinaceous cyst. Recommend non-emergent MRI without and with contrast or non-emergent CT without and with contrast. MRI is preferred for masses under 1.5 cm. COMMENTS: Consistent with the [employer]'s Incidental Findings Committee white paper (J Am Lisa Radiol 2018): Any incidental renal lesion less than 1 cm or classified as too small to characterize, or any incidental cystic renal lesion characterized as simple-appearing, is likely benign. No follow-up imaging is recommended for these lesions per consensus recommendations based on imaging criteria.
[2022-01-25] MEDS: cefTRIAXone 1,000 MG in sodium chloride 0.9% (plus) 50 ML 100 MG IV (17:25)
[2022-01-25 17:28] LABS: Adenovirus Not Detected (NOT DETECT); Chlamydia Pneumoniae Not Detected (NOT DETECT); Coronavirus 229E,HKU1,NL63,OC4 Not Detected (NOT DETECT); Human Metapneumovirus Not Detected (NOT DETECT); Human Rhinovirus/Enterovirus Not Detected (NOT DETECT); Influenza A Not Detected (NOT DETECT); Influenza A H1 Not Detected (NOT DETECT); Influenza A H1-2009 Not Detected (NOT DETECT); Influenza A H3 Not Detected (NOT DETECT); Influenza B Not Detected (NOT DETECT); Mycoplasma Pneumoniae Not Detected (NOT DETECT); Parainfluenza Virus Type 1 Not Detected (NOT DETECT); Parainfluenza Virus Type 2 Not Detected (NOT DETECT); Parainfluenza Virus Type 3 Not Detected (NOT DETECT); Parainfluenza Virus Type 4 Not Detected (NOT DETECT); Respiratory Syncytial Virus A Not Detected (NOT DETECT); Respiratory Syncytial Virus B Not Detected (NOT DETECT); SARS-COV-2 Not Detected (NOT DETECT)
--- NOTE | 2022-01-25 17:30 | CTR_ITS ---
PROCEDURE INFORMATION: Exam: CT Chest Without Contrast; Diagnostic Exam date and time: 01/25/2022 5:53 PM Age: 76 years old Clinical indication: Wheezing TECHNIQUE: Imaging protocol: Diagnostic computed tomography of the chest without contrast. Radiation optimization: All CT scans at this facility use at least one of these dose optimization techniques: automated exposure control; mA and/or kV adjustment per patient size (includes targeted exams where dose is matched to clinical indication); or iterative reconstruction. COMPARISON: CT angio chest PE protcl [id number] 01/01/2021 5:54 PM RADIATION DOSE METRICS: Total DLP (mGy-cm): 795.95 FINDINGS: Lungs: Emphysema with scattered interstitial scarring in both lungs. Stable 4.5 cm peripheral consolidation in the left upper lobe. Slightly larger 2.7 cm irregular nodule in the anterior left upper lobe. Left upper lobe calcified granuloma. Pleural spaces: Trace bilateral pleural effusions have improved. No pneumothorax. Heart: Unremarkable. No cardiomegaly. No pericardial effusion. Lymph nodes: Prominent mediastinal lymph nodes are most likely reactive. Vasculature: Unremarkable. No aortic aneurysm. Gallbladder and bile ducts: Cholecystectomy. Kidneys and ureters: Chronic perinephric stranding. 1.4 cm cortical lesion in the left kidney, Hounsfield units 20 or less. This is consistent with a cyst. No follow-up imaging recommended. Bones/joints: Mild degenerative changes of the spine. No fracture or destructive lesion. Mildly displaced anterior left 8th, 9th, and 10th rib fractures. Soft tissues: Unremarkable. CT/CT chest wo con [id number] IMPRESSION: 1. Slightly larger 2.7 cm nodule in the anterior left upper lobe. Highly suspicious nodule(s). Consider non-emergent PET/CT, or tissue sampling.(Reference: Shay) 2. Slightly larger peripheral consolidation in the left upper lobe could represent fibrosis, pneumonia, or less likely a neoplastic process. 3. Resolution of the previous left lower lobe nodule. References: Shay Khanna et al. Guidelines for Management of Incidental Pulmonary Nodules Detected on CT Images: From the Fleischner Society 2017. Radiology. 2017;284(1):228-243. COMMENTS: Consistent with the [employer]'s Incidental Findings Committee white paper (J Am Lisa Radiol 2018): Any incidental renal lesion less than 1 cm or classified as too small to characterize, or any incidental cystic renal lesion characterized as simple-appearing, is likely benign. No follow-up imaging is recommended for these lesions per consensus recommendations based on imaging criteria.
--- NOTE | 2022-01-25 17:38 | PM.HP ---
Providers/Chief Complaint Primary Care Provider: Marshal Downs Chief Complaint: nausea, not eating History of Present Illness Mendez Voss is a 76 year old male with a past medical history of arthritis on chronic prednisone, insulin-dependent type 2 diabetes mellitus, hypertension, hyperlipidemia, history of DVT and pulmonary embolism on Eliquis, history of COVID-19, history of COPD, history of chronic bladder outlet obstruction, history of renal cysts, who presents [facility] due to a week history of diarrhea, not feeling well, fatigue, malaise, chills. Currently alert oriented x3, following all commands, his only complaint is diarrhea for a week, in addition, due to nausea, vomiting, decreased intake of liquids, he is also been having a rheumatoid arthritis flare, all his joints hurting, especially the right knee, no sick contacts, no recent travel, no known exposure to COVID-19, no fevers, does not report dysuria, no hematuria, no flank pain, does have low back pain which is chronic, but it has worsened acutely Review of Systems Const: Reports: chills and body aches; Denies: fever(s) ENMT: Reports: dry mouth; Denies: throat pain Card: Reports: lightheadedness and dyspnea on exertion; Denies: chest pain, palpitations or edema Resp: Reports: dyspnea; Denies: non-productive cough GI: Reports: nausea and vomiting : Reports: dysuria; Denies: flank pain Musc: Reports: back pain and joint pain Skin/Breast: Reports: rash Neuro: Denies: headache(s) Medications/Allergies Home Medications Medication Instructions Recorded Confirmed Last Taken Type alendronate 35 mg tablet 35 mg PO Q7D 12/15/20 01/25/22 12/27/20 History ascorbic acid (vitamin C) 250 mg 250 mg PO DAILY 12/15/20 01/25/22 Unknown History tablet cholecalciferol (vitamin D3) 50 50 mcg PO DAILY 12/15/20 01/25/22 Unknown History mcg (2,000 unit) tablet cyanocobalamin (vitamin B-12) 1,000 mcg PO DAILY 12/15/20 01/25/22 Unknown History 1,000 mcg tablet fluticasone propionate 50 1 spray INTRANASAL DAILY PRN 12/15/20 01/25/22 Unknown History mcg/actuation nasal spray,suspension folic acid 1 mg tablet 1 mg PO DAILY 12/15/20 01/25/22 Unknown History prednisone 5 mg tablet 5 mg PO DAILY 12/15/20 01/25/22 Unknown History atorvastatin 20 mg tablet (Lipitor) 20 mg PO DAILY #30 tab 01/09/21 01/25/22 Unknown Rx insulin glargine 100 unit/mL 85 unit SUBCUT DAILY ml 03/02/21 01/25/22 Unknown History subcutaneous solution lisinopril 10 1 tab PO DAILY 12/14/21 01/25/22 Unknown History mg-hydrochlorothiazide 12.5 mg tablet ondansetron HCl 4 mg tablet 4 mg PO Q6H PRN 12/14/21 01/25/22 Unknown History tocilizumab 162 mg/0.9 mL 162 mg (0.9 mL) SUBCUT .every 7 01/05/22 01/25/22 Unknown Rx subcutaneous syringe (Actemra) days #4 ml ipratropium 20 mcg-albuterol 100 1 puff INHALATION Q6H PRN 01/18/22 01/25/22 Unknown History mcg/actuation mist for inhalation multivitamin (One Daily 1 tab PO DAILY 01/18/22 01/25/22 Unknown History Multivitamin) tamsulosin 0.4 mg capsule 0.4 mg PO BID #180 cap 01/18/22 01/25/22 Unknown Rx apixaban 2.5 mg tablet (Eliquis) 2.5 mg PO BID 01/25/22 01/25/22 Unknown History calcium carbonate 500 mg calcium 500 mg PO DAILY 01/25/22 01/25/22 Unknown History (1,250 mg) tablet food supplemt, lactose-reduced 1 ea PO EVERY OTHER DAY 01/25/22 01/25/22 Unknown History (Nutritional Drink) methocarbamol 500 mg tablet 500 mg PO QID PRN 01/25/22 01/25/22 Unknown History omeprazole 20 mg capsule,delayed 20 mg PO BID 01/25/22 01/25/22 Unknown History release Allergies Allergy/AdvReac Type Severity Reaction Status Date / Time codeine Allergy ALGY-Anaphy Verified 01/18/22 12:52 laxis Penicillins Allergy ALGY-Anaphy Verified 01/18/22 12:52 laxis PFSH Acute PFSH: Medical History Chronic steroid use COPD (chronic obstructive pulmonary disease) Disorder of kidney and ureter DVT (deep venous thrombosis) High risk medication use Hyperlipidemia Hypertension Immunization counseling Rheumatoid aortitis Rheumatoid arthritis Tobacco abuse Surgical History History of cholecystectomy History of hip surgery History of surgery on arm History of surgical amputation of finger partial No pertinent past surgical history Family History Father , at age 83 Cancer Blood transfusion reaction Hepatitis Mother , at age 55 Cancer Other Lupus Rheumatoid arthritis Denies family history of Diabetes Social History Smoking and tobacco status: current every day smoker Alcohol intake: never Marital status: Current occupational status: retired and disabled History of recent travel: No Vitals/I&O/Wt Last Vital Signs Temp 98.4 F 01/25/22 13:33 Pulse 113 H 01/25/22 15:45 Resp 30 H 01/25/22 15:45 BP 99/61 01/25/22 15:45 Pulse Ox 94 01/25/22 15:45 Weight last 48 hrs Weight 76.204 kg Physical Exam Const: COMMON NORMALS: no acute distress and patient oriented x3 HENMT: COMMON NORMALS: normocephalic HEAD & SCALP: normocephalic Eye: COMMON NORMALS: Equal, round and reactive pupils present and EOMs intact bilaterally Neck/C-Spine: COMMON NORMALS: no JVD Resp: COMMON NORMALS: normal respiratory effort, No retractions, No use of accessory muscles and clear to auscultation bilaterally AUSCULTATION: wheezes Cardio: COMMON NORMALS: no JVD, regular rate, regular rhythm, S1 normal heart sound present and S2 normal heart sound present RATE: regular rate RHYTHM: regular rhythm HEART SOUNDS: S1 normal heart sound present and S2 normal heart sound present GI: COMMON NORMALS: Normal to inspection, nondistended, normoactive bowel sounds present, Soft to palpation, non-tender, No hepatosplenomegaly present, no masses and no bruits PALPATION: Yes Soft to palpation and Yes No hepatosplenomegaly present Extremity: COMMON NORMALS: capillary refill normal, no clubbing, cyanosis or edema, no calf tenderness and no pedal edema NARRATIVE EXTREMITY EXAM: Bilateral shins, area of patchy erythematous warmth, edema, from mid donis down to ankle Neuro: COMMON NORMALS: patient oriented x3, CN's II-XII intact bilaterally, moves all extremities and no focal motor deficits Psych: COMMON NORMALS: mental status grossly normal Data : 01/25/22 14:33 01/25/22 14:33 Micro: Microbiology 01/25/22 14:44 Blood Culture - Preliminary Blood SPECIMEN COLLECTED 01/25/22 14:33 Blood Culture - Preliminary Blood SPECIMEN COLLECTED A&P Assessment and plan (1) Sepsis: Status: Acute (2) UTI (urinary tract infection): Status: Acute (3) Cellulitis: Status: Acute (4) Left leg DVT: Status: Acute (5) Diabetes mellitus: Status: Acute (6) Hypertension: Status: Acute (7) COPD (chronic obstructive pulmonary disease): Status: Acute (8) Chronic steroid use: Status: Acute (9) DVT (deep venous thrombosis): Status: Acute Plan Sepsis -Secondary to UTI, history of chronic bladder outlet obstruction -Secondary to bilateral lower extremity cellulitis -Has received sepsis bolus, received Rocephin, blood pressure 100/70, alert oriented x3, sinus tachycardia heart rates in the low 100s lactic acid 1.5, pH 7.36, -No significant evidence of DKA, pH 7.36, anion gap 24.6, ketones are positive, blood sugar 187, likely secondary dehydration -Evidence of dehydration, on examination, mucous membranes are dry, tongue is dry, creatinine 1.2, serum sodium 130 Plan -We will obtain CT scan abdomen and pelvis to evaluate for nephrolithiasis -Broaden antibiotic coverage to vancomycin and Zosyn -Follow blood cultures, urine cultures, MRSA PCR -Does have wheezing on exam, DuoNeb's as needed, CT of the chest -Midodrine 10 every 8 hours, stress dose steroids, Solu-Cortef, 50 mg IV push once, given history of chronic steroid use, possibility of adrenal insufficiency -Monitor blood sugar closely, decrease Lantus to 20 units every 24 hours, moderate dose sliding scale -Monitor respiratory status, risk, monitor blood pressure -Eliquis for DVT prophylaxis -Protonix GI prophylaxis -Full code Hypotension, as above Dehydration as above ADELAIDA as above Hyponatremia as above Type 2 diabetes mellitus, as above Diarrhea, stool studies Rheumatoid arthritis, currently in a flare, hold off on further steroids, morphine as needed History of DVT, PE, atrial flutter, continue Eliquis Hypertension hold blood pressure medication Cellulitis bilateral lower extremities, as above Attestations Medical Necessity Statement*: Patient requires positioning for sepsis secondary to UTI, cellulitis, diarrhea, dehydration, inpatient, greater than 2 midnights Coding Level of Care Code Acute Forming Operator for [facility] Diagnoses Sepsis A41.9 UTI (urinary tract infection) N39.0 Cellulitis L03.90 Left leg DVT I82.402 Diabetes mellitus E11.9 Hypertension I10 COPD (chronic obstructive pulmonary disease) J44.9 Chronic steroid use DVT (deep venous thrombosis) I82.409
[2022-01-25 18:10] LABS: NT Pro B Type Natriuretic Pept 692 pg/mL (0-125); Procalcitonin 0.31 ng/mL (0-0.5)
[2022-01-25 18:22] LABS: C Reactive Protein 233.9 mg/L (0.0-4.9)
[2022-01-25 18:52] LABS: Erythrocyte Sedimentation Rate 69 mm/hr (0-10)
[2022-01-25 20:48] LABS: Thyroid Stimulating Hormone 1.94 uIU/mL (0.27-4.20)
[2022-01-25] MEDS: enoxaparin 40 mg/0.4 mL Syringe SUBCUT (20:48)
[2022-01-25] MEDS: pantoprazole 40 mg SDV IVP (20:49)
[2022-01-25] MEDS: hydrocortisone 100 mg/2 mL SDV 50 MG IVP (20:49)
[2022-01-25] MEDS: midodrine 5 mg TABLET 10 MG PO (20:49)
[2022-01-25] MEDS: sodium chloride 0.9% 1,000 ML 125 ML IV (20:50)
[2022-01-25] MEDS: tamsulosin 0.4 mg Capsule PO (20:51)
[2022-01-25] MEDS: insulin lispro 100 unit/1 mL SUBCUT (21:23)
[2022-01-25 21:41] LABS: Cortisol Random 13.24 ug/dL (2.47-19.5)
[2022-01-25 21:42] LABS: Glucose Point of Care 158 mg/dL (70-110)
[2022-01-26] VITALS (9 sets, daily range): BP systolic 101–125; BP diastolic 60–74; PULSE 82–102; RESP 12–18; TEMP 36.4–36.9; O2SAT 93–96
[2022-01-26] MEDS: midodrine 5 mg TABLET 10 MG PO ×3 (02:36→20:09)
[2022-01-26] MEDS: diphenhydrAMINE 12.5 mg/5 mL UDC 10 mL PO (04:10)
[2022-01-26] MEDS: sodium chloride 0.9% 1,000 ML 125 ML IV (05:21)
--- NOTE | 2022-01-26 05:24 | PC.NURSE ---
Patient c/o itching. No hives or rash noted. Dr. Nolan ordered Benadryl x1.
[2022-01-26 07:17] LABS: Glucose Point of Care 309 mg/dL (70-110)
[2022-01-26] MEDS: insulin lispro 100 unit/1 mL SUBCUT ×3 (08:45→17:46)
[2022-01-26] MEDS: predniSONE 5 mg Tablet PO (08:46)
[2022-01-26] MEDS: calcium carbonate 500 mg Chew Tablet PO (08:46)
[2022-01-26] MEDS: cholecalciferol (vitamin D3) 1,000 unit Tablet 2000 UNIT PO (08:46)
[2022-01-26] MEDS: ascorbic acid 500 mg Tablet 250 MG PO (08:46)
[2022-01-26] MEDS: tamsulosin 0.4 mg Capsule PO ×2 (08:46→17:46)
[2022-01-26] MEDS: cyanocobalamin 1,000 mcg Tablet 1000 MCG PO (08:46)
[2022-01-26] MEDS: atorvastatin 40 mg Tablet 20 MG PO (08:46)
[2022-01-26] MEDS: folic acid 1 mg Tablet PO (08:46)
[2022-01-26] MEDS: insulin glargine 100 units/1 mL 20 UNIT SUBCUT (08:50)
[2022-01-26 09:15] LABS: Basophils % 0.3 %; Eosinophils % 0.1 %; Hematocrit 37.1 % (42.0-52.0); Hemoglobin 12.6 g/dL (11.7-16.6); Lymphocytes # 0.4 10^3/uL (0.8-4.8); Lymphocytes % 3.8 %; Mean Corpuscular Hemoglobin 31.1 pg (28.0-34.0); Mean Corpuscular Volume 91.6 fl (80-94); Mean Platelet Volume 10.3 fL (7.4-10.4); Monocytes # 0.8 10^3/uL (0.2-0.9); Monocytes % 7.4 %; Neutrophils # 9.39 10^3/uL (1.8-7.7); Neutrophils % 86.8 %; Nucleated Red Blood Cells % 0 %; Platelet Count 233 10^3/cmm (130-400); Red Blood Count 4.05 10^6/uL (4.1-5.3); Red Cell Distribution Width 14.6 % (12.1-15.1); White Blood Count 10.8 10^3/uL (4.0-10.0)
[2022-01-26 09:35] LABS: Lactic Sepsis W/Reflex 0.9 mmol/L (0.5-2.2)
[2022-01-26 09:36] LABS: Alanine Aminotransferase 9 U/L (0-41); Albumin Level 1.9 g/dL (3.5-5.2); Alkaline Phosphatase 95 IU/L (40-130); Anion Gap 19.1 (5-19); Aspartate Amino Transferase 11 U/L (0-40); Blood Urea Nitrogen 12 mg/dL (8-23); Calcium 8.6 mg/dL (8.5-10.5); Carbon Dioxide 16 mmol/L (22-29); Chloride 103 mmol/L (98-107); Globulin 3.2 g/dL (1.3-4.6); Glucose 350 mg/dL (65-115); Magnesium 1.4 mg/dL (1.7-2.3); NT Pro B Type Natriuretic Pept 1396 pg/mL (0-125); Osmolality Calculated 292 mOsm/kg (285-295); Phosphorus 2.3 mg/dL (2.5-4.5); Potassium 4.1 mmol/L (3.5-5.1); Sodium 134 mmol/L (136-145); Total Bilirubin 0.3 mg/dL (0.15-1.2); Total Protein 5.1 g/dL (6.6-8.7)
[2022-01-26] MEDS: diphenhydrAMINE 25 mg Capsule PO ×4 (10:08→21:47)
[2022-01-26 10:49] LABS: Estmated Average Glucose 258; Hemoglobin A1C 10.6 % (4.0-6.0)
[2022-01-26 11:25] LABS: Glucose Point of Care 280 mg/dL (70-110)
--- NOTE | 2022-01-26 15:12 | P.PN_ITS ---
Subjective Subjective: Patient was seen this morning, he complains of itching on his chest, but has no other complaints, no fevers, no chills Vitals/I&O/Wt Last Vital Signs Temp 98.1 F 01/26/22 11:31 Pulse 82 01/26/22 11:31 Resp 18 01/26/22 11:31 BP 121/72 01/26/22 11:31 Pulse Ox 95 01/26/22 11:31 O2 Del Method 01/26/22 08:36 01/26/22 01/26/22 01/26/22 06:59 14:59 22:59 Intake Total 1400.833 / 1400.833 580 / 580 Output Total 675 / 675 800 / 800 Balance 725.833 / 725.833 -220 / -220 Weight last 48 hrs Weight 76.204 kg Physical Exam Const: COMMON NORMALS: no acute distress and patient oriented x3 Resp: COMMON NORMALS: normal respiratory effort, No retractions, No use of accessory muscles and clear to auscultation bilaterally AUSCULTATION: clear to auscultation bilaterally Cardio: COMMON NORMALS: regular rate, regular rhythm, S1 normal heart sound present and S2 normal heart sound present RATE: regular rate RHYTHM: regular rhythm HEART SOUNDS: S1 normal heart sound present and S2 normal heart sound present GI: COMMON NORMALS: Normal to inspection, nondistended, normoactive bowel sounds present and non-tender Extremity: COMMON NORMALS: no pedal edema Neuro: COMMON NORMALS: patient oriented x3 Psych: COMMON NORMALS: mental status grossly normal Urinary Catheter Management: Dickerson: Cath Placed During This Visit: yes Reason for Continuing Indwelling Catheter: Accurate Measurement of Urinary Output in Critically Ill Patients Urinary Catheter Date of Insertion: 01/25/22 Urinary Catheter Time of Insertion: 21:20 Data : 01/26/22 08:50 01/26/22 08:50 Micro: Microbiology 01/25/22 14:44 Blood Culture - Preliminary Blood NEGATIVE TO DATE 01/25/22 14:33 Blood Culture - Preliminary Blood NEGATIVE TO DATE 01/25/22 15:49 Urine Culture - Preliminary Urine,Clean Catch A&P Assessment and plan (1) Sepsis: Status: Acute (2) UTI (urinary tract infection): Status: Acute (3) Cellulitis: Status: Acute (4) Left leg DVT: Status: Acute (5) Diabetes mellitus: Status: Acute (6) Hypertension: Status: Acute (7) COPD (chronic obstructive pulmonary disease): Status: Acute (8) Chronic steroid use: Status: Acute (9) DVT (deep venous thrombosis): Status: Acute Plan Sepsis -Secondary to UTI, history of chronic bladder outlet obstruction -Secondary to bilateral lower extremity cellulitis -Has received sepsis bolus, received Rocephin, blood pressure 100/70, alert oriented x3, sinus tachycardia heart rates in the low 100s lactic acid 1.5, pH 7.36, -No significant evidence of DKA, 19.1, ketones are positive, blood sugar 187, likely secondary dehydration -Evidence of dehydration, on examination, mucous membranes are dry, tongue is dry, creatinine 1.2, serum sodium 130 Plan -CT abdomen pelvis shows -1. Irregular urinary bladder wall thickening is suspicious for cystitis. Clinical correlation recommended. 2. 3.0 cm indeterminate lobulated lesion in the left kidney, possibly a proteinaceous cyst. Recommend non-emergent MRI without and with contrast or non-emergent CT without and with contrast. MRI is preferred for masses under 1.5 cm.? -Urine cultures in the past that showed placement of both ESBL, chamberlain resistant but sensitive to Bactrim switch to Bactrim -Have shown Enterococcus, continue vancomycin -Follow blood cultures, urine cultures, MRSA PCR -Does have wheezing on exam, DuoNeb's as needed, -Midodrine 10 every 8 hours, stress dose steroids, Solu-Cortef, 50 mg IV push once, given history of chronic steroid use, possibility of adrenal insufficiency -Monitor blood sugar closely, decrease Lantus to 20 units every 24 hours, moderate dose sliding scale -Monitor respiratory status, risk, monitor blood pressure -Eliquis for DVT prophylaxis -Protonix GI prophylaxis -Full code CT of the chest shows pulmonary nodule 1. Slightly larger 2.7 cm nodule in the anterior left upper lobe. Highly suspicious nodule(s). Consider non-emergent PET/CT, or tissue sampling.(Reference: Shay) 2. Slightly larger peripheral consolidation in the left upper lobe could represent fibrosis, pneumonia, or less likely a neoplastic process. -I discussed findings with patient, follow-up with hematology as outpatient Hypotension, as above Dehydration as above ADELAIDA as above Hyponatremia as above Type 2 diabetes mellitus, as above Diarrhea, stool studies Rheumatoid arthritis, currently in a flare, hold off on further steroids, morphine as needed History of DVT, PE, atrial flutter, continue Eliquis Hypertension hold blood pressure medication Cellulitis bilateral lower extremities, as above Complains of pruritus, rash on the chest, possibly related to Primaxin, stop Primaxin, Benadryl, continue to monitor Attestations Medical Necessity Statement*: Patient requires hospitalization for sepsis secondary to UTI, history of Proteus ESBL Coding Level of Care Code Acute Ict Help Desk Officer for [facility] Diagnoses Sepsis A41.9 UTI (urinary tract infection) N39.0 Cellulitis L03.90 Left leg DVT I82.402 Diabetes mellitus E11.9 Hypertension I10 COPD (chronic obstructive pulmonary disease) J44.9 Chronic steroid use DVT (deep venous thrombosis) I82.409
[2022-01-26] MEDS: sodium chloride 0.9% 1,000 ML 50 ML IV (15:52)
[2022-01-26] MEDS: sulfamethoxazole-trimeth DS 160-800 mg Tablet 1 TAB PO (15:52)
[2022-01-26] MEDS: magnesium sulfate premix 4 GM/100 ML PREMIX IV (15:52)
[2022-01-26 17:10] LABS: Glucose Point of Care 240 mg/dL (70-110)
[2022-01-26 20:37] LABS: Glucose Point of Care 288 mg/dL (70-110)
[2022-01-26] MEDS: pantoprazole 40 mg SDV IVP (20:37)
[2022-01-26] MEDS: apixaban 5 mg Tablet 2.5 MG PO (21:38)
[2022-01-27] VITALS (8 sets, daily range): BP systolic 122–131; BP diastolic 60–74; PULSE 77–92; RESP 16–18; TEMP 36.5–36.9; O2SAT 94–96
[2022-01-27] MEDS: midodrine 5 mg TABLET 10 MG PO ×2 (04:05→13:16)
[2022-01-27] MEDS: sulfamethoxazole-trimeth DS 160-800 mg Tablet 1 TAB PO ×2 (04:05→17:14)
[2022-01-27 04:33] LABS: Basophils % 0.4 %; Eosinophils # 0.3 10^3/uL (0.0-0.8); Eosinophils % 3.1 %; Hemoglobin 11.9 g/dL (11.7-16.6); Lymphocytes # 0.7 10^3/uL (0.8-4.8); Lymphocytes % 7.4 %; Mean Corpuscular Hemoglobin 31.6 pg (28.0-34.0); Mean Corpuscular Volume 93.1 fl (80-94); Mean Platelet Volume 10.6 fL (7.4-10.4); Monocytes # 0.9 10^3/uL (0.2-0.9); Monocytes % 9.7 %; Neutrophils # 7.51 10^3/uL (1.8-7.7); Neutrophils % 77.8 %; Nucleated Red Blood Cells % 0 %; Platelet Count 233 10^3/cmm (130-400); Red Blood Count 3.76 10^6/uL (4.1-5.3); White Blood Count 9.7 10^3/uL (4.0-10.0)
[2022-01-27 06:03] LABS: Alanine Aminotransferase 8 U/L (0-41); Albumin Level 1.6 g/dL (3.5-5.2); Alkaline Phosphatase 77 IU/L (40-130); Aspartate Amino Transferase 10 U/L (0-40); Blood Urea Nitrogen 11 mg/dL (8-23); Calcium 8.3 mg/dL (8.5-10.5); Carbon Dioxide 14 mmol/L (22-29); Globulin 3.3 g/dL (1.3-4.6); Glucose 320 mg/dL (65-115); Magnesium 1.9 mg/dL (1.7-2.3); Phosphorus 1.2 mg/dL (2.5-4.5); Total Bilirubin 0.3 mg/dL (0.15-1.2); Total Protein 4.9 g/dL (6.6-8.7)
[2022-01-27 06:26] LABS: Anion Gap 17.8 (5-19); Chloride 107 mmol/L (98-107); Osmolality Calculated 292 mOsm/kg (285-295); Potassium 3.8 mmol/L (3.5-5.1); Sodium 135 mmol/L (136-145)
[2022-01-27 06:37] LABS: Glucose Point of Care 373 mg/dL (70-110)
[2022-01-27] MEDS: cholecalciferol (vitamin D3) 1,000 unit Tablet 2000 UNIT PO (08:19)
[2022-01-27] MEDS: cyanocobalamin 1,000 mcg Tablet 1000 MCG PO (08:20)
[2022-01-27] MEDS: calcium carbonate 500 mg Chew Tablet PO (08:20)
[2022-01-27] MEDS: folic acid 1 mg Tablet PO (08:20)
[2022-01-27] MEDS: predniSONE 5 mg Tablet PO (08:20)
[2022-01-27] MEDS: apixaban 5 mg Tablet 2.5 MG PO ×2 (08:20→20:19)
[2022-01-27] MEDS: atorvastatin 40 mg Tablet 20 MG PO (08:20)
[2022-01-27] MEDS: tamsulosin 0.4 mg Capsule PO ×2 (08:20→17:14)
[2022-01-27] MEDS: ascorbic acid 500 mg Tablet 250 MG PO (08:20)
[2022-01-27] MEDS: insulin lispro 100 unit/1 mL SUBCUT ×3 (08:21→17:14)
[2022-01-27] MEDS: insulin glargine 100 units/1 mL 20 UNIT SUBCUT (10:14)
[2022-01-27] MEDS: phosphorus 250 mg Tablet PO ×2 (10:15→17:14)
[2022-01-27 11:34] LABS: Glucose Point of Care 168 mg/dL (70-110)
--- NOTE | 2022-01-27 12:26 | P.PN_ITS ---
Subjective Subjective: Patient was seen this morning, he sitting up to the side of the bed, he tells me that his itching has significantly improved, no nausea, no vomiting, no chest pain, he tells me that he is worried about his blood sugars, they keep fluctuating Vitals/I&O/Wt Last Vital Signs Temp 98.3 F 01/27/22 11:10 Pulse 83 01/27/22 11:10 Resp 17 01/27/22 11:10 BP 124/66 01/27/22 11:10 Pulse Ox 96 01/27/22 11:10 O2 Del Method 01/27/22 11:10 01/26/22 01/27/22 01/27/22 22:59 06:59 14:59 Intake Total 1340 / 1920 250 / 2170 480 / 480 Output Total 780 / 1580 Balance 1340 / 1120 -530 / 590 480 / 480 Weight last 48 hrs Weight 76.204 kg Physical Exam Const: COMMON NORMALS: no acute distress and patient oriented x3 Resp: COMMON NORMALS: normal respiratory effort, No retractions, No use of accessory muscles and clear to auscultation bilaterally AUSCULTATION: clear to auscultation bilaterally Cardio: COMMON NORMALS: regular rate, regular rhythm, S1 normal heart sound present and S2 normal heart sound present RATE: regular rate RHYTHM: regular rhythm HEART SOUNDS: S1 normal heart sound present and S2 normal heart sound present GI: COMMON NORMALS: Normal to inspection, nondistended, normoactive bowel sounds present, non-tender and no masses Extremity: COMMON NORMALS: no pedal edema Neuro: COMMON NORMALS: patient oriented x3 Psych: COMMON NORMALS: mental status grossly normal Urinary Catheter Management: Dickerson: Cath Placed During This Visit: yes Reason for Continuing Indwelling Catheter: Acute Urinary Retention or Obstruction Urinary Catheter Date of Insertion: 01/25/22 Urinary Catheter Time of Insertion: 21:20 Data : 01/27/22 04:06 01/27/22 04:09 Micro: Microbiology 01/25/22 15:49 Urine Culture - Final Urine,Clean Catch 01/26/22 14:20 Stool Lactoferrin - Final Stool C.difficile Toxin B Gene (PCR) - Final Occult Blood (FIT) - Final 01/25/22 18:36 MRSA Culture - Final Nose 01/25/22 14:44 Blood Culture - Preliminary Blood NEGATIVE TO DATE 01/25/22 14:33 Blood Culture - Preliminary Blood NEGATIVE TO DATE A&P Assessment and plan (1) Sepsis: Status: Acute (2) UTI (urinary tract infection): Status: Acute (3) Cellulitis: Status: Acute (4) Left leg DVT: Status: Acute (5) Diabetes mellitus: Status: Acute (6) Hypertension: Status: Acute (7) COPD (chronic obstructive pulmonary disease): Status: Acute (8) Chronic steroid use: Status: Acute (9) DVT (deep venous thrombosis): Status: Acute Plan Sepsis -Secondary to UTI, history of chronic bladder outlet obstruction -Secondary to bilateral lower extremity cellulitis -Has received sepsis bolus, received Rocephin, blood pressure 100/70, alert oriented x3, sinus tachycardia heart rates in the low 100s lactic acid 1.5, pH 7.36, acute -No significant evidence of DKA, 19.1, ketones are positive, blood sugar 187, likely secondary dehydration -Evidence of dehydration, on examination, mucous membranes are dry, tongue is dry, creatinine 1.2, serum sodium 130 Plan -CT abdomen pelvis shows -1. Irregular urinary bladder wall thickening is suspicious for cystitis. Clinical correlation recommended. 2. 3.0 cm indeterminate lobulated lesion in the left kidney, possibly a proteinaceous cyst. Recommend non-emergent MRI without and with contrast or non-emergent CT without and with contrast. MRI is preferred for masses under 1.5 cm.? -Urine cultures in the past that showed placement of both ESBL, chamberlain resistant but sensitive to Bactrim switch to Bactrim -Have shown Enterococcus, continue vancomycin -Follow blood cultures, urine cultures, MRSA PCR -Does have wheezing on exam, DuoNeb's as needed, -Midodrine 10 every 8 hours, stress dose steroids, Solu-Cortef, 50 mg IV push once, given history of chronic steroid use, possibility of adrenal insufficiency -Monitor blood sugar closely, decrease Lantus to the I will have her see 30 units every 24 hours, high dose sliding scale -Monitor respiratory status, risk, monitor blood pressure -Eliquis for DVT prophylaxis -Protonix GI prophylaxis -Full code CT of the chest shows pulmonary nodule 1. Slightly larger 2.7 cm nodule in the anterior left upper lobe. Highly suspicious nodule(s). Consider non-emergent PET/CT, or tissue sampling.(Reference: Shay) 2. Slightly larger peripheral consolidation in the left upper lobe could represent fibrosis, pneumonia, or less likely a neoplastic process. -I discussed findings with patient, follow-up with hematology as outpatient Hypotension, as above Dehydration as above ADELAIDA as above Hyponatremia as above Type 2 diabetes mellitus, as above Diarrhea, stool studies Rheumatoid arthritis, currently in a flare, hold off on further steroids, morphine as needed History of DVT, PE, atrial flutter, continue Eliquis Hypertension hold blood pressure medication Cellulitis bilateral lower extremities, as above Complains of pruritus, rash on the chest, possibly related to Primaxin, stop Primaxin, Benadryl, continue to monitor Attestations Medical Necessity Statement*: patient requires hospitalization for uti, sepsis, hyperglycemia Coding Level of Care Code Acute Social Work Specialist for [facility] Fwd Diagnoses Sepsis A41.9 UTI (urinary tract infection) N39.0 Cellulitis L03.90 Left leg DVT I82.402 Diabetes mellitus E11.9 Hypertension I10 COPD (chronic obstructive pulmonary disease) J44.9 Chronic steroid use DVT (deep venous thrombosis) I82.409
--- NOTE | 2022-01-27 13:25 | PC.NURSE ---
spoke with provider with concerns of patients blood pressure up and taking midodrine instructions to dc med received
[2022-01-27 16:23] LABS: Glucose Point of Care 244 mg/dL (70-110)
[2022-01-27 20:26] LABS: Glucose Point of Care 227 mg/dL (70-110)
[2022-01-27] MEDS: pantoprazole 40 mg SDV IVP (21:12)
[2022-01-28] VITALS: BP 132/71; PULSE 82; RESP 18; TEMP 36.6; O2SAT 95
[2022-01-28] MEDS: sulfamethoxazole-trimeth DS 160-800 mg Tablet 1 TAB PO (03:50)
[2022-01-28 03:55] LABS: Basophils # 0.1 10^3/uL (0.0-0.1); Basophils % 0.6 %; Eosinophils # 0.4 10^3/uL (0.0-0.8); Eosinophils % 4.4 %; Hematocrit 33.8 % (42.0-52.0); Hemoglobin 11.6 g/dL (11.7-16.6); Lymphocytes # 1.2 10^3/uL (0.8-4.8); Lymphocytes % 13.9 %; Mean Corpuscular HGB Conc 34.3 g/dL (30.0-36.0); Mean Corpuscular Hemoglobin 31.5 pg (28.0-34.0); Mean Corpuscular Volume 91.8 fl (80-94); Mean Platelet Volume 10.3 fL (7.4-10.4); Monocytes # 0.9 10^3/uL (0.2-0.9); Monocytes % 10.3 %; Neutrophils # 5.78 10^3/uL (1.8-7.7); Neutrophils % 69.4 %; Nucleated Red Blood Cells % 0 %; Platelet Count 313 10^3/cmm (130-400); Red Blood Count 3.68 10^6/uL (4.1-5.3); Red Cell Distribution Width 15.3 % (12.1-15.1); White Blood Count 8.3 10^3/uL (4.0-10.0)
[2022-01-28 04:00] VITALS: BP 138/76; PULSE 80; RESP 18; TEMP 36.7; O2SAT 97
[2022-01-28 04:26] LABS: Alanine Aminotransferase 8 U/L (0-41); Alkaline Phosphatase 73 IU/L (40-130); Aspartate Amino Transferase 10 U/L (0-40); Blood Urea Nitrogen 14 mg/dL (8-23); Calcium 8.4 mg/dL (8.5-10.5); Carbon Dioxide 20 mmol/L (22-29); Chloride 110 mmol/L (98-107); Globulin 2.9 g/dL (1.3-4.6); Glucose 248 mg/dL (65-115); Magnesium 1.4 mg/dL (1.7-2.3); Osmolality Calculated 297 mOsm/kg (285-295); Phosphorus 1.4 mg/dL (2.5-4.5); Sodium 139 mmol/L (136-145); Total Bilirubin 0.2 mg/dL (0.15-1.2); Total Protein 4.9 g/dL (6.6-8.7)
[2022-01-28 04:30] LABS: Anion Gap 13.4 (5-19); Potassium 4.4 mmol/L (3.5-5.1)
[2022-01-28 06:18] LABS: Glucose Point of Care 183 mg/dL (70-110)
[2022-01-28 08:00] VITALS: BP 137/66; PULSE 78; PULSE 81; RESP 16; RESP 17; TEMP 36.7; O2SAT 94; O2SAT 97
[2022-01-28] MEDS: folic acid 1 mg Tablet PO (08:08)
[2022-01-28] MEDS: phosphorus 250 mg Tablet PO (08:08)
[2022-01-28] MEDS: atorvastatin 40 mg Tablet 20 MG PO (08:08)
[2022-01-28] MEDS: cholecalciferol (vitamin D3) 1,000 unit Tablet 2000 UNIT PO (08:08)
[2022-01-28] MEDS: ascorbic acid 500 mg Tablet 250 MG PO (08:08)
[2022-01-28] MEDS: calcium carbonate 500 mg Chew Tablet PO (08:08)
[2022-01-28] MEDS: insulin lispro 100 unit/1 mL SUBCUT (08:09)
[2022-01-28] MEDS: predniSONE 5 mg Tablet PO (08:09)
[2022-01-28] MEDS: tamsulosin 0.4 mg Capsule PO (08:09)
[2022-01-28] MEDS: cyanocobalamin 1,000 mcg Tablet 1000 MCG PO (08:09)
[2022-01-28] MEDS: insulin glargine 100 units/1 mL 30 UNIT SUBCUT (08:09)
[2022-01-28] MEDS: magnesium sulfate premix 4 GM/100 ML PREMIX IV (09:25)
[2022-01-28] MEDS: apixaban 5 mg Tablet 2.5 MG PO (10:22)
--- NOTE | 2022-01-28 10:47 | PM.DCS ---
Discharge Providers Date of Admission: 01/25/22 18:00 Date of Discharge: January 28, 2022 Attending Provider at Admission: Adam Perez MD Attending Provider at Discharge: Adam Perez MD Primary Care Provider: Marshal Downs Diagnoses at Discharge Discharge Diagnosis (1) Sepsis: Status: Acute (2) UTI (urinary tract infection): Status: Acute (3) Cellulitis: Status: Acute (4) Left leg DVT: Status: Acute (5) Diabetes mellitus: Status: Acute (6) Hypertension: Status: Acute (7) COPD (chronic obstructive pulmonary disease): Status: Acute (8) Chronic steroid use: Status: Acute (9) DVT (deep venous thrombosis): Status: Acute Reason for Visit Reason for Visit: nausea, not eating Hospital Course Hospital Course Mendez Voss is a 76 year old male with a past medical history of arthritis on chronic prednisone, insulin-dependent type 2 diabetes mellitus, hypertension, hyperlipidemia, 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 Patient was admitted to [facility] for UTI with sepsis, with acute encephalopathy, with cellulitis received broad-spectrum antibiotic therapy. UTI recurrent, likely secondary urinary retention. Patient will be discharged with Bactrim therapy with close follow-up with primary care provider and urology as outpatient For cellulitis, discharged with Bactrim Patient was also found to have a pulmonary nodule, 2.7 cm of the anterior left upper lobe, highly suspicious, follow-up with Dr. Mark as outpatient For type 2 diabetes mellitus, Lantus dose was decreased to 40 units every 24 hours, patient does not take a sliding scale, slowly upward titrate based on blood sugars as outpatient. Can increase by 5 units every 24 hours, if blood sugars are greater than 300 consistently. Physical Exam Const: COMMON NORMALS: no acute distress and patient oriented x3 Resp: COMMON NORMALS: normal respiratory effort, No retractions, No use of accessory muscles and clear to auscultation bilaterally AUSCULTATION: clear to auscultation bilaterally Cardio: COMMON NORMALS: regular rate, regular rhythm, S1 normal heart sound present and S2 normal heart sound present RATE: regular rate RHYTHM: regular rhythm HEART SOUNDS: S1 normal heart sound present and S2 normal heart sound present GI: COMMON NORMALS: Normal to inspection, nondistended, normoactive bowel sounds present, non-tender and no masses Extremity: COMMON NORMALS: no pedal edema Neuro: COMMON NORMALS: patient oriented x3 Psych: COMMON NORMALS: mental status grossly normal Urinary Catheter Management: Dickerson: Cath Placed During This Visit: yes, but has since been removed by the nurse Reason for Continuing Indwelling Catheter: Decision to DC Catheter Urinary Catheter Date of Insertion: 01/25/22 Urinary Catheter Time of Insertion: 21:20 Date Urinary Catheter Removed: 01/28/22 Time Urinary Catheter Discontinued: 09:40 Discharge Data Studies Completed and Pending Completed Studies During Hospitalization Category Date Time Status CT chest wo con [id number] Urgent Cat Scan 01/25/22 17:[address] kidney stone [id number] Stat Cat Scan 01/25/22 17:01 Completed XR chest 1V portable [id number] Stat Exams 01/25/22 13:55 Completed Pending at discharge Category Date Time Status Blood Culture Stat Lab 01/25/22 14:44 Results Vancomycin Trough Timed Lab 01/28/22 22:00 Ordered Radiology Impressions Chest X-Ray 01/25/22 13:55 IMPRESSION: Unremarkable chest radiograph. Abdomen/Pelvis CT 01/25/22 17:01 IMPRESSION: 1. Irregular urinary bladder wall thickening is suspicious for cystitis. Clinical correlation recommended. 2. 3.0 cm indeterminate lobulated lesion in the left kidney, possibly a proteinaceous cyst. Recommend non-emergent MRI without and with contrast or non-emergent CT without and with contrast. MRI is preferred for masses under 1.5 cm. COMMENTS: Consistent with the [employer]'s Incidental Findings Committee white paper (J Am Lisa Radiol 2018): Any incidental renal lesion less than 1 cm or classified as too small to characterize, or any incidental cystic renal lesion characterized as simple-appearing, is likely benign. No follow-up imaging is recommended for these lesions per consensus recommendations based on imaging criteria. Chest CT 01/25/22 17:30 IMPRESSION: 1. Slightly larger 2.7 cm nodule in the anterior left upper lobe. Highly suspicious nodule(s). Consider non-emergent PET/CT, or tissue sampling.(Reference: Shay) 2. Slightly larger peripheral consolidation in the left upper lobe could represent fibrosis, pneumonia, or less likely a neoplastic process. 3. Resolution of the previous left lower lobe nodule. References: Shay Khanna et al. Guidelines for Management of Incidental Pulmonary Nodules Detected on CT Images: From the Fleischner Society 2017. Radiology. 2017;284(1):228-243. COMMENTS: Consistent with the [employer]'s Incidental Findings Committee white paper (J Am Lisa Radiol 2018): Any incidental renal lesion less than 1 cm or classified as too small to characterize, or any incidental cystic renal lesion characterized as simple-appearing, is likely benign. No follow-up imaging is recommended for these lesions per consensus recommendations based on imaging criteria. Laboratory Results WBC 8.3 10^3/uL (4.0-10.0) 01/28/22 03:39 RBC 3.68 10^6/uL (4.1-5.3) L 01/28/22 03:39 Hgb 11.6 g/dL (11.7-16.6) L 01/28/22 03:39 Hct 33.8 % (42.0-52.0) L 01/28/22 03:39 MCV 91.8 fl (80-94) 01/28/22 03:39 MCH 31.5 pg (28.0-34.0) 01/28/22 03:39 MCHC 34.3 g/dL (30.0-36.0) 01/28/22 03:39 RDW 15.3 % (12.1-15.1) H 01/28/22 03:39 Plt Count 313 10^3/cmm (130-400) D 01/28/22 03:39 MPV 10.3 fL (7.4-10.4) 01/28/22 03:39 Neut % (Auto) 69.4 % 01/28/22 03:39 Lymph % (Auto) 13.9 % 01/28/22 03:39 [place] % (Auto) 10.3 % 01/28/22 03:39 Eos % (Auto) 4.4 % 01/28/22 03:39 Baso % (Auto) 0.6 % 01/28/22 03:39 Neut # (Auto) 5.78 10^3/uL (1.8-7.7) 01/28/22 03:39 Lymph # (Auto) 1.2 10^3/uL (0.8-4.8) 01/28/22 03:39 [place] # (Auto) 0.9 10^3/uL (0.2-0.9) 01/28/22 03:39 Eos # (Auto) 0.4 10^3/uL (0.0-0.8) 01/28/22 03:39 Baso # (Auto) 0.1 10^3/uL (0.0-0.1) 01/28/22 03:39 Nucleated RBC % (auto) 0 % 01/28/22 03:39 Nucleated RBCs # 0.0 /100WBC 01/28/22 03:39 ESR 69 mm/hr (0-10) H 01/25/22 13:33 Specimen Type Arterial 01/25/22 14:00 Sample Site Radial, left 01/25/22 14:00 ABG pH 7.36 (7.35-7.45) 01/25/22 14:00 ABG pCO2 26.6 mmHg (35-45) L 01/25/22 14:00 ABG pO2 78.3 mmHg (80.0-100.0) L 01/25/22 14:00 ABG HCO3 15.2 mmol/L (22-26) L 01/25/22 14:00 ABG O2 Saturation 95.7 01/25/22 14:00 ABG Base Excess -8.5 mmol/L (-2.0-2.0) L 01/25/22 14:00 Mendez Test Pos 01/25/22 14:00 A-a O2 Gradient 4.7 mmHg (5-10) L 01/25/22 14:00 Hematocrit 42.9 % (42-52) 01/25/22 14:00 Hgb O2 Saturation 93.9 % (95-100) L 01/25/22 14:00 Carboxyhemoglobin 1.1 %THgb (0.4-20.1) 01/25/22 14:00 Methemoglobin 0.9 % (0.4-1.5) 01/25/22 14:00 Total Hemoglobin 14.0 g/dL (14-18) 01/25/22 14:00 Sodium 131.0 mmol/L (131-143) 01/25/22 14:00 Potassium 3.6 mmol/L (3.5-5.0) 01/25/22 14:00 Glucose 186.0 mg/dL (70-115) H 01/25/22 14:00 Ionized Calcium 1.2 mmol/L (1.1-1.4) 01/25/22 14:00 O2 Delivery Device Room air 01/25/22 14:00 Security Police ID Gd 01/25/22 14:00 Sodium 139 mmol/L (136-145) 01/28/22 03:39 Potassium 4.4 mmol/L (3.5-5.1) 01/28/22 03:39 Chloride 110 mmol/L (98-107) H 01/28/22 03:39 Carbon Dioxide 20 mmol/L (22-29) L 01/28/22 03:39 Anion Gap 13.4 (5-19) 01/28/22 03:39 BUN 14 mg/dL (8-23) 01/28/22 03:39 Creatinine 0.6 mg/dL (0.7-1.2) L 01/28/22 03:39 GFR Calculation Not Reportable 01/28/22 03:39 Glucose 248 mg/dL (65-115) H 01/28/22 03:39 POC Glucose 183 mg/dL (70-110) H 01/28/22 06:03 Estimat Average Glucose 258 01/26/22 08:50 Hemoglobin A1c 10.6 % (4.0-6.0) H 01/26/22 08:50 Calculated Osmolality 297 mOsm/kg (285-295) H 01/28/22 03:39 Lactic Acid 0.9 mmol/L (0.5-2.2) 01/26/22 08:50 Calcium 8.4 mg/dL (8.5-10.5) L 01/28/22 03:39 Phosphorus 1.4 mg/dL (2.5-4.5) L 01/28/22 03:39 Magnesium 1.4 mg/dL (1.7-2.3) L 01/28/22 03:39 Total Bilirubin 0.2 mg/dL (0.15-1.2) 01/28/22 03:39 AST 10 U/L (0-40) 01/28/22 03:39 ALT 8 U/L (0-41) 01/28/22 03:39 Alkaline Phosphatase 73 IU/L (40-130) 01/28/22 03:39 Creatine Kinase 20 U/L (39-308) L 01/25/22 14:33 C-Reactive Protein 233.9 mg/L (0.0-4.9) H 01/25/22 14:33 NT-Pro-B Natriuret Pep 1396 pg/mL (0-125) H 01/26/22 08:50 Total Protein 4.9 g/dL (6.6-8.7) L 01/28/22 03:39 Albumin 2.0 g/dL (3.5-5.2) L 01/28/22 03:39 Globulin 2.9 g/dL (1.3-4.6) 01/28/22 03:39 Lipase 12 U/L (13-60) L 01/25/22 14:33 Procalcitonin 0.31 ng/mL (0-0.5) 01/25/22 14:33 TSH 1.94 uIU/mL (0.27-4.20) 01/25/22 14:32 Random Cortisol 13.24 ug/dL (2.47-19.5) 01/25/22 14:33 Urine Color Dark yellow (Yellow) 01/25/22 15:49 Urine Appearance Hazy (CLEAR) A 01/25/22 15:49 Urine pH 6 (5-7) 01/25/22 15:49 Ur Specific [place] 1.015 (1.005-1.030) 01/25/22 15:49 Urine Protein 2+ (Negative) H 01/25/22 15:49 Urine Glucose (UA) Trace (Normal) H 01/25/22 15:49 Urine Ketones 1+ (Negative) H 01/25/22 15:49 Urine Blood 2+ (Negative) H 01/25/22 15:49 Urine Nitrate Negative (Negative) 01/25/22 15:49 Urine Bilirubin 1+ (Negative) H 01/25/22 15:49 Urine Urobilinogen 1 mg/dL (Negative) H 01/25/22 15:49 Ur Leukocyte Esterase 2+ (Negative) H 01/25/22 15:49 Urine RBC 0-4 /hpf (0-2) H 01/25/22 15:49 Urine WBC Too numerous to cnt /hpf (0-5) H 01/25/22 15:49 Ur Squamous Epith Cells 0-4 /hpf (0-5) H 01/25/22 15:49 Amorphous Sediment Not Reportable 01/25/22 15:49 Urine Bacteria 2+ /hpf (NONE) H 01/25/22 15:49 Serum Ketones Positive (Negative) H 01/25/22 14:33 Coronavirus 229E (PCR) Not detected (NOT DETECT) 01/25/22 15:20 SARS-CoV-2 (PCR) Not detected (NOT DETECT) 01/25/22 15:20 Vitals Last Vital Signs Temp 98.0 F 01/28/22 08:00 Pulse 78 01/28/22 08:00 Resp 16 01/28/22 08:00 BP 137/66 01/28/22 08:00 Pulse Ox 97 01/28/22 08:00 O2 Del Method 01/28/22 08:00 Discharge Plan Discharge Patient Disposition: Home Condition: Stable Prescriptions: New Phospha 250 Neutral 250 mg Tablet 250 mg PO BID 14 Days Qty: 28 0RF magnesium L-lactate [Magtab] 84 mg tablet extended release 84 mg PO DAILY 14 Days Qty: 14 0RF sulfamethoxazole-trimethoprim 800-160 mg Tablet 1 tab PO Q12H 3 Days Qty: 6 0RF Continued ipratropium-albuterol 20-100 mcg/actuation mist 1 puff inhalation Q6H PRN (Reason: Shortness Of Breath) multivitamin [One Daily Multivitamin] Tablet 1 tab PO DAILY tamsulosin 0.4 mg capsule 0.4 mg PO BID Qty: 180 3RF ondansetron HCl 4 mg tablet 4 mg PO Q6H PRN (Reason: Nausea) lisinopril-hydrochlorothiazide 10-12.5 mg tablet 1 tab PO DAILY Actemra 162 mg/0.9 mL syringe 162 mg SUBCUT .every 7 days Qty: 4 3RF prednisone 5 mg Tablet 5 mg PO DAILY cyanocobalamin (vitamin B-12) 1,000 mcg Tablet 1,000 mcg PO DAILY alendronate 35 mg Tablet 35 mg PO Q7D Rx Instructions: TAKE ON MONDAY ascorbic acid (vitamin C) 250 mg Tablet 250 mg PO DAILY folic acid 1 mg Tablet 1 mg PO DAILY cholecalciferol (vitamin D3) 50 mcg (2,000 unit) Tablet 50 mcg PO DAILY fluticasone propionate 50 mcg/actuation [place],Suspension 1 spray INTRANASAL DAILY PRN (Reason: Nasal Congestion) atorvastatin [Lipitor] 20 mg tablet 20 mg PO DAILY Qty: 30 0RF methocarbamol 500 mg Tablet 500 mg PO QID PRN (Reason: Pain) Calcium 500 500 mg calcium (1,250 mg) Tablet 500 mg PO DAILY omeprazole 20 mg Capsule,Delayed Release(Dr/Ec) 20 mg PO BID Nutritional Drink Liquid 1 ea PO EVERY OTHER DAY Eliquis 2.5 mg Tablet 2.5 mg PO BID Changed insulin glargine 100 unit/mL solution 40 unit SUBCUT DAILY Qty: 10 0RF Discharge Orders: Discharge Order (Routine); Ordered 01/28/22 Ordered By: Adam Perez Referrals: Marshal Downs [Primary Care Provider] - Aj Beard MD [Physician] - 1 week Maurice Mark MD [Physician] - 1 week Discharge Diet: Cardiac Discharge Activity: Resume usual activity Patient Instructions: Opioid Safety Activity Restrictions/Additional Instructions: - Please take antibiotics as prescribed for UTI, cellulitis -Please follow-up with Dr. Beard for urinary retention -Please follow up with Dr. Mark for lung nodule -Please take electrolyte replacement as prescribed -Hydrate well -Follow-up with primary care in 1 week Discharge Attestations Time Spent in Discharge Care*: less than 30 min Status at Discharge: Cognitive status at discharge: cognitively intact, Behavioral status at discharge: cooperative, Quality Metrics Clinical Quality Measures [ No reported AMI, CVA or VTE this stay] Coding Level of Care Code Acute [facility] note Diagnoses Sepsis A41.9 UTI (urinary tract infection) N39.0 Cellulitis L03.90 Left leg DVT I82.402 Diabetes mellitus E11.9 Hypertension I10 COPD (chronic obstructive pulmonary disease) J44.9 Chronic steroid use DVT (deep venous thrombosis) I82.409
[2022-01-28 11:52] LABS: Glucose Point of Care 123 mg/dL (70-110)
[2022-01-28 12:00] VITALS: BP 119/67; PULSE 90; RESP 16; TEMP 36.6; O2SAT 93
--- NOTE | 2022-01-28 15:24 | PC.SOCIAL ---
IMM Update pg 2 of IMM updated and reviewed w/ patient. Copy provided and copy placed in chart dated and initialed.
--- NOTE | 2022-01-28 15:40 | PC.NURSE ---
Attempted to call patient's brother under phone number listed in chart several times with no answer. Social work notified.
[2022-01-28 16:00] VITALS: BP 123/72; PULSE 92; RESP 17; TEMP 36.4; O2SAT 96
== END 2022-01-28 16:46 | disposition home or self-care (01) | DRG 872 ==
LOC: ER 20:32 → MEDSURG 20:57
PROVIDERS: Admitting Provider Family Medicine; Emergency Provider Family Medicine; PCP Internal Medicine; Visit Provider Family Medicine
DX: A41.9 Sepsis, unspecified organism (principal); N39.0 Urinary tract infection, site not specified; L03.116 Cellulitis of left lower limb; L03.115 Cellulitis of right lower limb; N17.9 Acute kidney failure, unspecified; M06.9 Rheumatoid arthritis, unspecified; Z79.52 Long term (current) use of systemic steroids; E11.9 Type 2 diabetes mellitus without complications; Z79.4 Long term (current) use of insulin; I10 Essential (primary) hypertension; E78.5 Hyperlipidemia, unspecified; Z86.718 Personal history of other venous thrombosis and embolism; Z86.711 Personal history of pulmonary embolism; Z79.01 Long term (current) use of anticoagulants; Z86.16 Personal history of COVID-19; J44.9 Chronic obstructive pulmonary disease, unspecified; N32.0 Bladder-neck obstruction; G89.29 Other chronic pain; M54.50 Low back pain, unspecified; F17.200 Nicotine dependence, unspecified, uncomplicated; E86.0 Dehydration; I95.9 Hypotension, unspecified; R19.7 Diarrhea, unspecified; R33.9 Retention of urine, unspecified; L27.1 Localized skin eruption due to drugs and medicaments taken internally; T50.995A Adverse effect of other drugs, medicaments and biological substances, initial encounter; R91.8 Other nonspecific abnormal finding of lung field
CPT/HCPCS: 36415; 36416; 36600; 51701; 51702; 71045; 71250; 74176; 80051; 80053; 81001; 82009; 82274; 82330; 82533; 82550; 82805; 82962; 83036; 83605; 83630; 83690; 83735; 83880; 84100; 84145; 84443; 85025; 85651; 86140; 87040; 87086; 87493; 87506; 87635; 87641; 93005; 94760; 96365; 96372; 97161; 97530; 99285; C9113; J0696; J0743; J1650; J1720; J1815; J3370; J3475; J7030; J7050; J7512

== ENCOUNTER 2022-02-02 17:03 | Inpatient (IN) | payer OTHER, MEDICARE, SELFPAY ==
[2022-02-02] VITALS (16 sets, daily range): BP systolic 60–122; BP diastolic 39–86; PULSE 83–118; RESP 18–30; TEMP 36.8–37.7; O2SAT 92–99
[2022-02-02 17:47] LABS: Glucose Point of Care 75 mg/dL (70-110)
--- NOTE | 2022-02-02 17:55 | XRR_ITS ---
PROCEDURE INFORMATION: Exam: XR Chest Exam date and time: 02/02/2022 6:19 PM Age: 76 years old Clinical indication: Cough TECHNIQUE: Imaging protocol: Radiologic exam of the chest. Views: 1 view. COMPARISON: CT chest con [id number] 01/25/2022 5:53 PM FINDINGS: Lungs: Left apical scarring. No consolidation. Pleural spaces: No pleural effusion. No pneumothorax. Heart/Mediastinum: No cardiomegaly. Bones/joints: Visualized osseous structures are intact. XR/XR chest 1V portable [id number] IMPRESSION: No acute findings.
--- NOTE | 2022-02-02 17:58 | CTR_ITS ---
PROCEDURE INFORMATION: Exam: CT Cervical Spine Without Contrast Exam date and time: 02/02/2022 6:20 PM Age: 76 years old Clinical indication: Injury or trauma; Fall; Blunt trauma; Additional info: Fall, AMS TECHNIQUE: Imaging protocol: Computed tomography of the cervical spine without contrast. Radiation optimization: All CT scans at this facility use at least one of these dose optimization techniques: automated exposure control; mA and/or kV adjustment per patient size (includes targeted exams where dose is matched to clinical indication); or iterative reconstruction. COMPARISON: CT head wo con* [id number] 02/02/2022 6:17 PM RADIATION DOSE METRICS: Total DLP (mGy-cm): 227.47 FINDINGS: Bones/joints: There are degenerative changes in the facet joints on the right at C3-C4 and C4-C5. No fracture is identified. Discs/Spinal canal/Neural foramina: There is decreased height of the disc spaces at C4-C5 and C5-C6. Lungs: There is paraseptal emphysema in the apical regions. Soft tissues: Prevertebral soft tissues are unremarkable. CT/CT cervical spin wo con* [id number] IMPRESSION: 1. Degenerative changes. No fracture is identified. 2. No fracture is identified.
--- NOTE | 2022-02-02 17:58 | CTR_ITS ---
PROCEDURE INFORMATION: Exam: CT Head Without Contrast Exam date and time: 02/02/2022 6:17 PM Age: 76 years old Clinical indication: Injury or trauma; Fall; Blunt trauma (contusions or hematomas); Additional info: Fall, AMS TECHNIQUE: Imaging protocol: Computed tomography of the head without contrast. Radiation optimization: All CT scans at this facility use at least one of these dose optimization techniques: automated exposure control; mA and/or kV adjustment per patient size (includes targeted exams where dose is matched to clinical indication); or iterative reconstruction. COMPARISON: CT head wo con* [id number] 12/31/2020 6:38 PM RADIATION DOSE METRICS: Total DLP (mGy-cm): 1128.88 FINDINGS: Brain: Normal. No hemorrhage. Unremarkable white matter. No mass effect. Cerebral ventricles: No ventriculomegaly. Paranasal sinuses: Visualized sinuses are unremarkable. No fluid levels. Mastoid air cells: Visualized mastoid air cells are well aerated. Bones/joints: Unremarkable. No acute fracture. Soft tissues: Unremarkable. CT/CT head wo con* [id number] IMPRESSION: No acute intracranial abnormality.
--- NOTE | 2022-02-02 17:58 | XRR_ITS ---
PROCEDURE INFORMATION: Exam: XR Left Wrist Exam date and time: 02/02/2022 6:27 PM Age: 76 years old Clinical indication: Injury or trauma; Fall; Blunt trauma (contusions or hematomas); Wrist; Left; Additional info: Fall, pain TECHNIQUE: Imaging protocol: Radiologic exam of the Left wrist. Views: 3 or more views. COMPARISON: No relevant prior studies available. FINDINGS: Bones/joints: Osseous structures are intact. Negative for fracture. Moderate DJD at the radiocarpal joint, several carpal joints, and the base of the thumb. Well corticated fragment of the ulnar styloid process likely related to old trauma. Soft tissues: Normal. XR/XR wrist LT min 3V* [id number] IMPRESSION: No acute findings.
[2022-02-02 18:05] LABS: Basophils # 0.1 10^3/uL (0.0-0.1); Basophils % 0.7 %; Eosinophils % 12.1 %; Hematocrit 44.4 % (42.0-52.0); Hemoglobin 14.7 g/dL (11.7-16.6); Lymphocytes # 1.4 10^3/uL (0.8-4.8); Lymphocytes % 16.6 %; Mean Corpuscular HGB Conc 33.1 g/dL (30.0-36.0); Mean Corpuscular Hemoglobin 31.6 pg (28.0-34.0); Mean Corpuscular Volume 95.5 fl (80-94); Mean Platelet Volume 9.3 fL (7.4-10.4); Monocytes # 0.9 10^3/uL (0.2-0.9); Monocytes % 11.5 %; Neutrophils % 54.9 %; Nucleated Red Blood Cells % 0 %; Platelet Count 311 10^3/cmm (130-400); Red Blood Count 4.65 10^6/uL (4.1-5.3); Red Cell Distribution Width 15.2 % (12.1-15.1); White Blood Count 8.2 10^3/uL (4.0-10.0)
[2022-02-02 18:22] LABS: Alanine Aminotransferase 12 U/L (0-41); Albumin Level 2.5 g/dL (3.5-5.2); Alkaline Phosphatase 76 IU/L (40-130); Aspartate Amino Transferase 31 U/L (0-40); Blood Urea Nitrogen 11 mg/dL (8-23); Calcium 9.4 mg/dL (8.5-10.5); Carbon Dioxide 19 mmol/L (22-29); Chloride 91 mmol/L (98-107); Globulin 3.6 g/dL (1.3-4.6); Glucose 74 mg/dL (65-115); Lipase 19 U/L (13-60); Osmolality Calculated 266 mOsm/kg (285-295); Sodium 129 mmol/L (136-145); Total Bilirubin 0.4 mg/dL (0.15-1.2); Total Protein 6.1 g/dL (6.6-8.7)
[2022-02-02 18:27] LABS: Anion Gap 24.1 (5-19); Potassium 5.1 mmol/L (3.5-5.1)
--- NOTE | 2022-02-02 18:32 | W.ED.NAVMDI ---
HPI - Nausea/Vomiting/Diarrhea General: Chief complaint: Nausea/Vomiting/Diarrhea Stated complaint: N/V/D not eating, or taking meds Time Seen by Provider: 02/02/22 17:54 Source: patient and EMS Mode of arrival: EMS Limitations: no limitations History of Present Illness: 76-year-old male states he was admitted here couple weeks ago was diagnosed with UTI. He states that [facility] He states he is also having some nausea and vomiting along with generalized weakness. Patient was hypotensive in triage. He states that he has been having near syncope with any standing. Denies any known fevers. Patient states he did pass out today when he stood and fell hit his head Associated nausea: No Associated symtoms: Reports fatigue; Denies chest pain, dysuria, headache(s) or nausea Review of Systems Const: Reports: fatigue; Denies: fever(s), chills, body aches or change in appetite Eyes: Denies: blurry vision or eye discomfort ENMT: Denies: throat pain or dental pain Card: Denies: chest pain Resp: Denies: dyspnea GI: Denies: abdominal pain, nausea, vomiting or diarrhea : Denies: dysuria Musc: Denies: neck pain or back pain Skin/Breast: Denies: rash Neuro: Denies: headache(s) Psych: Denies: depression Peter/Lymph: Denies: easy bruising All/Imm: Denies: urticaria PFSH ED PFSH: Medical History Chronic steroid use COPD (chronic obstructive pulmonary disease) Disorder of kidney and ureter DVT (deep venous thrombosis) High risk medication use Hyperlipidemia Hypertension Immunization counseling Rheumatoid aortitis Rheumatoid arthritis Tobacco abuse Surgical History History of cholecystectomy History of hip surgery History of surgery on arm History of surgical amputation of finger partial No pertinent past surgical history Family History Father , at age 83 Cancer Blood transfusion reaction Hepatitis Mother , at age 55 Cancer Other Lupus Rheumatoid arthritis Denies family history of Diabetes Social History (Reviewed 01/26/22 @ 08:35 by NAHUN Stanley Smoking and tobacco status: current every day smoker Alcohol intake: never Marital status: Current occupational status: retired and disabled History of recent travel: No Physical Exam Const: COMMON NORMALS: patient oriented x3 GENERAL APPEARANCE: frail appearing HENMT: COMMON NORMALS: normocephalic and atraumatic HEAD & SCALP: normocephalic and atraumatic Eye: COMMON NORMALS: Equal, round and reactive pupils present and EOMs intact bilaterally PUPIL: Yes Equal, round and reactive pupils present Neck/C-Spine: COMMON NORMALS: full ROM and supple Chest: COMMONS NORMALS: normal inspection of the chest and normal palpation of entire chest wall Resp: COMMON NORMALS: normal respiratory effort, No retractions, No use of accessory muscles and clear to auscultation bilaterally AUSCULTATION: clear to auscultation bilaterally Cardio: COMMON NORMALS: regular rate, regular rhythm and No murmurs present (Cardio) RATE: regular rate RHYTHM: regular rhythm GI: COMMON NORMALS: Normal to inspection, nondistended, normoactive bowel sounds present, Soft to palpation, non-tender and no masses PALPATION: Yes Soft to palpation Extremity: COMMON NORMALS: normal to inspection and full ROM Neuro: COMMON NORMALS: patient oriented x3, moves all extremities and no focal motor deficits Psych: COMMON NORMALS: mental status grossly normal, Normal thought process present and cooperative THOUGHT PROCESS: Normal thought process present Skin: COMMON NORMALS: no rashes or lesions noted and no wounds GENERAL SKIN EXAM: no rashes or lesions noted Procedures Central Line Placement Right IJ: Time Out Performed: Yes MD Prep: mask, gown and gloves Central Line Prep: Povidone-Iodine 1% Local Anesthetic: lidocaine 1% Amount of anesthesia used (mL): 5 Ultrasound Used for Placement: Yes Central Line Lumen Inserted: triple Post Procedure: sutured in place, good blood return and all ports aspirated, flushed, capped Post Procedure X-Ray: tip of catheter in good position and no pneumothorax seen Patient Tolerated Procedure: well Complications: none Course Vital Signs: Vital signs: Vital Signs Temperature 98.2 F 02/02/22 17:12 Pulse Rate 97 02/02/22 21:38 Respiratory Rate 23 H 02/02/22 21:28 Blood Pressure 102/64 02/02/22 22:10 Pulse Oximetry 95 02/02/22 21:38 Oxygen Delivery Me thod 02/02/22 18:30 MDM - Nausea/Vomiting/Diarrhea Medical Decision Making Patient presents here with vomiting diarrhea along with syncope and hypotension likely due to dehydration no definite source of infection found we will start Levaquin just in case patient is septic patient is given IV fluids still hypotensive started on Levophed drip and admitted to the ICU. Lab Data : 02/02/22 17:54 02/02/22 17:54 Radiology Impressions Chest X-Ray 02/02/22 17:55 IMPRESSION: No acute findings. Cervical Spine CT 02/02/22 17:58 IMPRESSION: 1. Degenerative changes. No fracture is identified. 2. No fracture is identified. Head CT 02/02/22 17:58 IMPRESSION: No acute intracranial abnormality. Wrist X-Ray 02/02/22 17:58 IMPRESSION: No acute findings. Abdomen/Pelvis CT 02/02/22 19:39 IMPRESSION: 1. Negative for focal acute inflammatory process in the abdomen or pelvis. 2. Small bilateral pleural effusions. 3. Cholecystectomy. 4. Bibasilar atelectasis versus minimal infiltrate. 5. Perinephric edema bilaterally likely reflecting chronic renal insufficiency. 6. Several bilateral renal cysts. 7. Right kidney lower pole 2.6 cm hyperdense appearing exophytic lesion may reflect a hemorrhagic cyst, given stability compared to prior exam. 8. Chronic appearing subtle splenic infarcts. 9. Surgical hardware partially visualized in the right hip and femur. COMMENTS: Consistent with the [employer]'s Incidental Findings Committee white paper (J Am Lisa Radiol 2018): Any incidental renal lesion less than 1 cm or classified as too small to characterize, or any incidental cystic renal lesion characterized as simple-appearing, is likely benign. No follow-up imaging is recommended for these lesions per consensus recommendations based on imaging criteria. Laboratory Results WBC 8.2 10^3/uL (4.0-10.0) 02/02/22 17:54 RBC 4.65 10^6/uL (4.1-5.3) 02/02/22 17:54 Hgb 14.7 g/dL (11.7-16.6) 02/02/22 17:54 Hct 44.4 % (42.0-52.0) 02/02/22 17:54 MCV 95.5 fl (80-94) H 02/02/22 17:54 MCH 31.6 pg (28.0-34.0) 02/02/22 17:54 MCHC 33.1 g/dL (30.0-36.0) 02/02/22 17:54 RDW 15.2 % (12.1-15.1) H 02/02/22 17:54 Plt Count 311 10^3/cmm (130-400) 02/02/22 17:54 MPV 9.3 fL (7.4-10.4) 02/02/22 17:54 Neut % (Auto) 54.9 % 02/02/22 17:54 Lymph % (Auto) 16.6 % 02/02/22 17:54 [place] % (Auto) 11.5 % 02/02/22 17:54 Eos % (Auto) 12.1 % 02/02/22 17:54 Baso % (Auto) 0.7 % 02/02/22 17:54 Neut # (Auto) 4.50 10^3/uL (1.8-7.7) 02/02/22 17:54 Lymph # (Auto) 1.4 10^3/uL (0.8-4.8) 02/02/22 17:54 [place] # (Auto) 0.9 10^3/uL (0.2-0.9) 02/02/22 17:54 Eos # (Auto) 1.0 10^3/uL (0.0-0.8) H 02/02/22 17:54 Baso # (Auto) 0.1 10^3/uL (0.0-0.1) 02/02/22 17:54 Nucleated RBC % (auto) 0 % 02/02/22 17:54 Nucleated RBCs # 0.0 /100WBC 02/02/22 17:54 PT 14.30 SECONDS (12.1-14.9) 02/02/22 17:54 INR 1.08 (0.8-1.2) 02/02/22 17:54 Sodium 129 mmol/L (136-145) L 02/02/22 17:54 Potassium 5.1 mmol/L (3.5-5.1) 02/02/22 17:54 Chloride 91 mmol/L (98-107) L 02/02/22 17:54 Carbon Dioxide 19 mmol/L (22-29) L 02/02/22 17:54 Anion Gap 24.1 (5-19) H 02/02/22 17:54 BUN 11 mg/dL (8-23) 02/02/22 17:54 Creatinine 1.1 mg/dL (0.7-1.2) 02/02/22 17:54 GFR Calculation Not Reportable 02/02/22 17:54 Glucose 74 mg/dL (65-115) 02/02/22 17:54 POC Glucose 75 mg/dL (70-110) 02/02/22 17:17 Calculated Osmolality 266 mOsm/kg (285-295) L 02/02/22 17:54 Lactic Acid 2.2 mmol/L (0.5-2.2) 02/02/22 17:38 Lactic Acid (Sepsis) 1.3 mmol/L (0.5-2.2) 02/02/22 20:12 Calcium 9.4 mg/dL (8.5-10.5) 02/02/22 17:54 Total Bilirubin 0.4 mg/dL (0.15-1.2) 02/02/22 17:54 AST 31 U/L (0-40) 02/02/22 17:54 ALT 12 U/L (0-41) 02/02/22 17:54 Alkaline Phosphatase 76 IU/L (40-130) 02/02/22 17:54 Troponin T Baseline 52 ng/L (0-15) H 02/02/22 17:54 Troponin T 120 Minute 46.28 ng/L (0-15) H 02/02/22 20:12 Delta Troponin T -5.72 ABS# (0-10) L 02/02/22 20:12 Total Protein 6.1 g/dL (6.6-8.7) L 02/02/22 17:54 Albumin 2.5 g/dL (3.5-5.2) L 02/02/22 17:54 Globulin 3.6 g/dL (1.3-4.6) 02/02/22 17:54 Lipase 19 U/L (13-60) 02/02/22 17:54 Urine Color Yellow (Yellow) 02/02/22 20:32 Urine Appearance Clear (CLEAR) 02/02/22 20:32 Urine pH 5 (5-7) 02/02/22 20:32 Ur Specific [place] 1.020 (1.005-1.030) 02/02/22 20:32 Urine Protein Trace (Negative) 02/02/22 20:32 Urine Glucose (UA) Norm (Normal) 02/02/22 20:32 Urine Ketones 1+ (Negative) H 02/02/22 20:32 Urine Blood Neg (Negative) 02/02/22 20:32 Urine Nitrate Negative (Negative) 02/02/22 20:32 Urine Bilirubin Neg (Negative) 02/02/22 20:32 Urine Urobilinogen Norm mg/dL (Negative) 02/02/22 20:32 Ur Leukocyte Esterase Negative (Negative) 02/02/22 20:32 Urine RBC 0-4 /hpf (0-2) H 02/02/22 20:32 Urine WBC 0-4 /hpf (0-5) H 02/02/22 20:32 Ur Squamous Epith Cells 0-4 /hpf (0-5) H 02/02/22 20:32 Amorphous Sediment Not Reportable 02/02/22 20:32 Urine Bacteria Trace /hpf (NONE) 02/02/22 20:32 EKG Data EKG 1: I personally reviewed and interpreted this EKG as follows: EKG interpretation date: 02/02/22 EKG interpretation time: 20:12 Interpretation: sinus tach hr [address] or t wave abnormalities qrs 93 qtc 394 Critical Care Time Critical Care Time: Critical Care Time: Yes Total Critical Care Time: 40 Attestation: The high probability of a clinically significant, sudden or life threatening deterioration of the patient's cv system(s) required my full and direct attention, intervention and personal management. The critical care time is as shown. This time is in addition to time spent performing any reported procedures but includes the following: [x] Data and vital sign review and interpretation [x] Patient assessment, examination and intervention [x] Documentation [x] Medication orders and management Discharge Plan Discharge Patient Disposition: Admitted As Inpatient Clinical Impression: Syncope, Dehydration, Hypotension Condition: Stable Coding Level of Care Code ED Service Delivery Director for Chg Fwd Exam Comprehensive
[2022-02-02 18:52] LABS: Lactic Sepsis W/Reflex 2.2 mmol/L (0.5-2.2)
--- NOTE | 2022-02-02 19:39 | CTR_ITS ---
PROCEDURE INFORMATION: Exam: CT Abdomen And Pelvis Without Contrast Exam date and time: 02/02/2022 7:56 PM Age: 76 years old Clinical indication: Nausea and vomiting; Prior surgery; Surgery type: Gb. RT hip; Patient HX: N/v with loss of appetite. TECHNIQUE: Imaging protocol: Computed tomography of the abdomen and pelvis without contrast. Radiation optimization: All CT scans at this facility use at least one of these dose optimization techniques: automated exposure control; mA and/or kV adjustment per patient size (includes targeted exams where dose is matched to clinical indication); or iterative reconstruction. COMPARISON: CT kidney stone [id number] 01/25/2022 5:56 PM RADIATION DOSE METRICS: Total DLP (mGy-cm): 796.8 FINDINGS: Lungs: Bibasilar atelectasis versus minimal infiltrate. Pleural spaces: Small bilateral pleural effusions. Liver: Normal. No mass. Gallbladder and bile ducts: Cholecystectomy. Pancreas: Normal. No ductal dilation. Spleen: Chronic appearing subtle splenic infarcts. Adrenal glands: Normal. No mass. Kidneys and ureters: Perinephric edema bilaterally likely reflecting chronic renal insufficiency. Several bilateral renal cysts. Right kidney lower pole 2.6 cm hyperdense appearing exophytic lesion may reflect a hemorrhagic cyst, given stability compared to prior exam. Stomach and bowel: Unremarkable. No obstruction. No mucosal thickening. Appendix: No evidence of appendicitis. Intraperitoneal space: Unremarkable. No free air. No significant fluid collection. Vasculature: Unremarkable. No abdominal aortic aneurysm. Lymph nodes: Unremarkable. No enlarged lymph nodes. Urinary bladder: Unremarkable as visualized. Reproductive: Unremarkable as visualized. Bones/joints: Surgical hardware partially visualized in the right hip and femur. Soft tissues: Unremarkable. CT/CT abdomen pelvis wo con [id number] IMPRESSION: 1. Negative for focal acute inflammatory process in the abdomen or pelvis. 2. Small bilateral pleural effusions. 3. Cholecystectomy. 4. Bibasilar atelectasis versus minimal infiltrate. 5. Perinephric edema bilaterally likely reflecting chronic renal insufficiency. 6. Several bilateral renal cysts. 7. Right kidney lower pole 2.6 cm hyperdense appearing exophytic lesion may reflect a hemorrhagic cyst, given stability compared to prior exam. 8. Chronic appearing subtle splenic infarcts. 9. Surgical hardware partially visualized in the right hip and femur. COMMENTS: Consistent with the [place] [employer]'s Incidental Findings Committee white paper (J Am Lisa Radiol 2018): Any incidental renal lesion less than 1 cm or classified as too small to characterize, or any incidental cystic renal lesion characterized as simple-appearing, is likely benign. No follow-up imaging is recommended for these lesions per consensus recommendations based on imaging criteria.
[2022-02-02] MEDS: sodium chloride 0.9% 1,000 ML 999 ML IV (19:54)
[2022-02-02 19:59] LABS: INR 1.08 (0.8-1.2)
[2022-02-02 20:02] LABS: Troponin(5th) Baseline 52 ng/L (0-15)
--- NOTE | 2022-02-02 20:13 | ECG_ITS ---
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 Measurements Intervals [place] Rate: 105 P: 59 SC: 130 QRS: 51 QRSD: 93 T: 91 QT: 333 QTc: 440 Interpretive Statements SINUS TACHYCARDIA NONSPECIFIC T-WAVE ABNORMALITY ABNORMAL RHYTHM ECG Compared to ECG 01/25/2022 13:45:10 Possible ischemia no longer present T-wave abnormality still present Electronically Signed On 02-03-2022 14:21:48 CDT by Cody Chavez M.D. [id number]
[2022-02-02 20:17] LABS: Reflex Lactate Order REFLEX LACTIC ORDERD
[2022-02-02 20:44] LABS: Lactic Acid level (Lactate) 1.3 mmol/L (0.5-2.2)
[2022-02-02 20:46] LABS: Troponin 5 2HR 46.28 ng/L (0-15)
[2022-02-02 20:52] LABS: Urine Appearance Clear (CLEAR); Urine Color Yellow (Yellow); pH Urine 5 (5-7)
[2022-02-02 20:53] LABS: Add Urine Culture? No; Add Urine Microscopic? YES; Bacteria Urine TRACE /hpf; Bilirubin Urine Neg (Negative); Blood Urine Neg (Negative); Glucose Urine UA Norm (Normal); Ketones Urine 1+ (Negative); Leukocyte Esterase Urine Negative (Negative); Nitrate Urine Negative (Negative); Protein Urine Trace (Negative); RBC Urine 0-4 /hpf (0-2); Squamous Epithelial Cell Urine 0-4 /hpf (0-5); Urobilinogen Urine Norm (Negative); WBC Urine 0-4 /hpf (0-5)
--- NOTE | 2022-02-02 21:13 | PC.NURSE ---
completed by AMADOU Lake
[2022-02-02] MEDS: levofloxacin-dextrose 5 % 750 MG/150 ML PREMIX 100 MG IV (21:35)
--- NOTE | 2022-02-02 21:47 | ECG_ITS ---
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 Measurements Intervals [place] Rate: 106 P: 67 ND: 145 QRS: 61 QRSD: 90 T: 92 QT: 327 QTc: 436 Interpretive Statements SINUS TACHYCARDIA WITH OCCASIONAL ECTOPIC PREMATURE COMPLEXES NONSPECIFIC T-WAVE ABNORMALITY ABNORMAL RHYTHM ECG Compared to ECG 02/02/2022 20:13:54 No significant changes Electronically Signed On 02-03-2022 14:26:01 CDT by Cody Chavez M.D. [id number]
--- NOTE | 2022-02-02 22:15 | P.HP_ITS ---
Providers/Chief Complaint Primary Care Provider: Marshal Downs Chief Complaint: N/V/D not eating, or taking meds History of Present Illness Mendez Voss is a 76 year old male with past medical history of chronic steroid use, rheumatoid arthritis, hyperlipidemia, hypertension, DVT, COPD, nicotine dependence presented to the ER today for generalized weakness. He states that he has been having diarrhea for the last 22 days and he was recently in the hospital on 28 January. He says instead of my diarrhea being addressed I was diagnosed with a UTI and sent home on oral antibiotics. He could not obtain his antibiotics because he goes to the [facility] and he says he did not send in his medications yet. He says sometimes it takes over a week for the [facility] to send over the medications. Therefore he has not taken the Bactrim he was prescribed. He states he also been coughing in last few days. Today he had a loose bowel movement x3. He is also somewhat of a poor historian. He is a smoker but has not smoked in the last few weeks. Denies any alcohol use. Denies nausea, vomiting, constipation, chest pain, shortness of breath at this time. He says his left rib is quite sore and anytime he touches the area it hurts. He also complained of lightheadedness with the ER physician when he was first here however at this time he denies feeling lightheaded or dizzy. He also told ER physician that he passed out and fell and hit his head. When asked again he is unable to confirm that. Patient did have a CT head in the ER which did not show any acute intracranial abnormality. Patient is a poor historian. ED course: BP 70/50, respiratory rate 22, pulse ox 97% on room air, temp 98.2. Head CT negative, cervical spine CT negative for fracture, wrist x-ray negative for fracture, chest x-ray no acute findings. CT abdomen pelvis showed perinephric edema bilaterally likely reflecting chronic renal insufficiency, right kidney lower pole hyper dense appearing exophytic lesion may reflect a hemorrhagic cyst given stability compared to prior exam.. Small bilateral pleural effusions, bibasilar atelectasis versus minimal infiltrate. Patient was given IV fluids and started on Levophed. He had a central line and right IJ was placed by ER physician. WBC normal, sodium 129, chloride 91, anion gap 24.1, lactic acid 2.2. Troponins 52, 46, delta troponin -5. EKG did not show any acute ischemic changes. Medications/Allergies Home Medications Medication Instructions Recorded Confirmed Last Taken Type alendronate 35 mg tablet 35 mg PO Q7D 12/15/20 01/25/22 12/27/20 History ascorbic acid (vitamin C) 250 mg 250 mg PO DAILY 12/15/20 01/25/22 Unknown History tablet cholecalciferol (vitamin D3) 50 50 mcg PO DAILY 12/15/20 01/25/22 Unknown History mcg (2,000 unit) tablet cyanocobalamin (vitamin B-12) 1,000 mcg PO DAILY 12/15/20 01/25/22 Unknown History 1,000 mcg tablet fluticasone propionate 50 1 spray intranasal DAILY PRN Nasal 12/15/20 01/25/22 Unknown History mcg/actuation nasal Congestion spray,suspension folic acid 1 mg tablet 1 mg PO DAILY 12/15/20 01/25/22 Unknown History prednisone 5 mg tablet 5 mg PO DAILY 12/15/20 01/25/22 Unknown History atorvastatin 20 mg tablet (Lipitor) 20 mg PO DAILY #30 tabs 01/09/21 01/25/22 Unknown Rx lisinopril 10 1 tab PO DAILY 12/14/21 01/25/22 Unknown History mg-hydrochlorothiazide 12.5 mg tablet ondansetron HCl 4 mg tablet 4 mg PO Q6H PRN Nausea 12/14/21 01/25/22 Unknown History tocilizumab 162 mg/0.9 mL 162 mg (0.9 mL) SUBCUT .every 7 01/05/22 01/25/22 Unknown Rx subcutaneous syringe (Actemra) days #4 mL ipratropium 20 mcg-albuterol 100 1 puff inhalation Q6H PRN 01/18/22 01/25/22 Unknown History mcg/actuation mist for inhalation Shortness Of Breath multivitamin (One Daily 1 tab PO DAILY 01/18/22 01/25/22 Unknown History Multivitamin) tamsulosin 0.4 mg capsule 0.4 mg PO BID #180 caps 01/18/22 01/25/22 Unknown Rx apixaban 2.5 mg tablet (Eliquis) 2.5 mg PO BID 01/25/22 01/25/22 Unknown History calcium carbonate 500 mg calcium 500 mg PO DAILY 01/25/22 01/25/22 Unknown History (1,250 mg) tablet food supplemt, lactose-reduced 1 ea PO EVERY OTHER DAY 01/25/22 01/25/22 Unknown History (Nutritional Drink) methocarbamol 500 mg tablet 500 mg PO QID PRN Pain 01/25/22 01/25/22 Unknown History omeprazole 20 mg capsule,delayed 20 mg PO BID 01/25/22 01/25/22 Unknown History release insulin glargine 100 unit/mL 40 unit (0.4 mL) SUBCUT DAILY #10 01/28/22 01/25/22 Unknown Rx subcutaneous solution mL magnesium L-lactate 84 mg 84 mg PO DAILY 14 days #14 tabs 01/28/22 Unknown Rx tablet,extended release (Magtab) sodium di- and 250 mg PO BID 14 days #28 tabs 01/28/22 Unknown Rx monophosphate-potassium phos monobasic 250 mg tablet (Phospha 250 Neutral) Allergies Allergy/AdvReac Type Severity Reaction Status Date / Time codeine Allergy ALGY-Anaphy Verified 01/18/22 12:52 laxis Penicillins Allergy ALGY-Anaphy Verified 01/18/22 12:52 laxis tefalon Allergy ADR-Itching Uncoded 01/25/22 22:36 PFSH Acute PFSH: Medical History Chronic steroid use COPD (chronic obstructive pulmonary disease) Disorder of kidney and ureter DVT (deep venous thrombosis) High risk medication use Hyperlipidemia Hypertension Immunization counseling Rheumatoid aortitis Rheumatoid arthritis Tobacco abuse Surgical History History of cholecystectomy History of hip surgery History of surgery on arm History of surgical amputation of finger partial No pertinent past surgical history Family History Father , at age 83 Cancer Blood transfusion reaction Hepatitis Mother , at age 55 Cancer Other Lupus Rheumatoid arthritis Denies family history of Diabetes Social History Smoking and tobacco status: current every day smoker Alcohol intake: never Marital status: Current occupational status: retired and disabled History of recent travel: No Vitals/I&O/Wt Last Vital Signs Temp 98.2 F 02/02/22 17:12 Pulse 97 02/02/22 21:38 Resp 23 H 02/02/22 21:28 BP 102/64 02/02/22 22:10 Pulse Ox 95 02/02/22 21:38 O2 Del Method 02/02/22 18:30 02/02/22 02/02/22 02/02/22 06:59 14:59 22:59 Intake Total 1150 / 1150 Output Total 900 / 900 Balance 250 / 250 Physical Exam Narrative: General: Alert oriented x3, patient seen laying in bed appearing comfortable at this time HEENT: Normocephalic, atraumatic, EOMI, breathing normally on room air Cardio: Regular rate rhythm, normal S1-S2, no murmurs Respiratory: Clear to auscultation bilaterally, no wheezes no rhonchi GI: Abdomen soft, nontender, nondistended, bowel sounds + Extremities: Pulses 2+, no edema, no cyanosis, swan-neck deformity bilateral hands Urinary Catheter Management: Dickerson: Cath Placed During This Visit: yes Urinary Catheter Date of Insertion: 02/02/22 Urinary Catheter Time of Insertion: 20:30 Data : 02/02/22 17:54 02/02/22 17:54 Micro: Microbiology 02/02/22 19:38 Blood Culture - Preliminary Blood SPECIMEN COLLECTED 02/02/22 19:43 Blood Culture - Preliminary Blood SPECIMEN COLLECTED A&P Assessment and plan (1) Syncope: Status: Acute (2) Dehydration: Status: Acute (3) Hypotension: Status: Acute (4) Rheumatoid arthritis: Status: Acute (5) Hyperdense renal cyst: Status: Acute (6) Sepsis: Status: Acute (7) COPD (chronic obstructive pulmonary disease): Status: Acute (8) Chronic steroid use: Status: Acute (9) DVT (deep venous thrombosis): Status: Acute (10) Hypertension: Status: Acute (11) Diabetes mellitus: Status: Acute (12) DDD (degenerative disc disease), lumbar: Status: Acute Plan #Hypotension secondary to dehydration versus adrenal insufficiency versus sepsis of unknown source? #Diarrhea #History of chronic steroid use #Hyperlipidemia, hypertension #Rheumatoid arthritis #Tobacco dependence #Recent UTI, did not complete antibiotics. #Diabetes mellitus, insulin-dependent -I will give stress dose steroids. Hydrocortisone 100x1 given. Thereafter starting hydrocortisone 50 every 6 hours x4 doses. Wean off Levophed as able ? Endocrinology follow-up at discharge. Patient may need maintenance dose ster oids thereafter due to his chronic steroid use. -We will check blood cultures, urine culture ? Hold home antihypertensives, lisinopril hydrochlorothiazide, tamsulosin ? Continue Eliquis ? DuoNeb every 4 hours as needed ? Continue on IV fluids normal saline 100 cc/h. ? Stool culture for ova and parasite, bacterial, C. difficile -Insulin sliding scale insulin -Continue on levofloxacin IV -We will need to confirm all of patient's medications from the pharmacy in AM. He was able to confirm some but did not remember the rest of them. Full code DVT prophylaxis: Eliquis 2.5 twice daily Attestations Medical Necessity Statement*: Will cross greater than 2 midnight stay for management of hypotension. Patient requiring vasopressors and is admitted to ICU at this time. 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
--- NOTE | 2022-02-02 22:29 | PC.NURSE ---
CONSENT FOR CVL PLACEMENT OBTAINED AT THIS TIME FROM PATIENT.
--- NOTE | 2022-02-02 22:52 | XRR_ITS ---
PROCEDURE INFORMATION: Exam: XR Chest Exam date and time: 02/02/2022 11:01 PM Age: 76 years old Clinical indication: Other vascular access device placement or adjustment; Central line, tunnelled; Prior surgery; Surgery type: Gb; Patient HX: Check S/P central line placement. TECHNIQUE: Imaging protocol: Radiologic exam of the chest. Views: 1 view. COMPARISON: CR (CHEST, ) 02/02/2022 6:19 PM FINDINGS: Tubes, catheters and devices: Right internal jugular catheter tip over the distal SVC. Lungs: Unremarkable. No consolidation. Pleural spaces: Unremarkable. No pleural effusion. No pneumothorax. Heart/Mediastinum: Unremarkable. No cardiomegaly. Bones/joints: Unremarkable. XR/XR chest 1V portable [id number] IMPRESSION: Right internal jugular catheter tip over the distal SVC.
--- NOTE | 2022-02-02 22:54 | PC.NURSE ---
Accompanied physician during central line placement. Consent signed. Pt tolerated well.
[2022-02-02] MEDS: sodium chloride 0.9% 500 ML 999 ML IV (23:07)
[2022-02-02] MEDS: ondansetron 2 mg/ML SDV 2 mL 4 MG IVP (23:56)
[2022-02-02] MEDS: heparin 5,000 unit/mL INJ 1 mL 5000 UNIT SUBCUT (23:56)
[2022-02-02] MEDS: sodium chloride 0.9% 1,000 ML 100 ML IV (23:56)
[2022-02-03] VITALS (41 sets, daily range): BP systolic 100–185; BP diastolic 51–97; PULSE 78–108; RESP 14–31; TEMP 35.9–37.2; O2SAT 85–98
[2022-02-03] MEDS: hydrocortisone 100 mg/2 mL SDV IVP (00:37)
--- NOTE | 2022-02-03 00:55 | PC.NURSE ---
Pt's feet are pale with delayed cap refill of 4 seconds. Pt is dusky in color. He reports itching everywhere. No hives, rash, or lesions appreciated. Pt complains of body aches and pain, awaiting morphine to be verified by pharmacy.
[2022-02-03] MEDS: morphine 4 mg/mL SDV 1 mL 2 MG IVP (01:05)
[2022-02-03] MEDS: acetaminophen 325 mg Tablet 650 MG PO ×2 (01:08→11:00)
--- NOTE | 2022-02-03 01:17 | PC.NURSE ---
Pt continues to scratch, and is writhing in bed. Skin is now red, although it is difficult to determine if that is from scratching or a reaction. Message sent to Dr. Reyes.
[2022-02-03] MEDS: diphenhydrAMINE 50 mg/mL SDV 1mL 25 MG IVP (01:32)
[2022-02-03] MEDS: lanolin oint 7 gm 1 APPLIC TOPICAL (01:34)
--- NOTE | 2022-02-03 01:40 | ECG_ITS ---
[facility] Test Date: 2022-02-03 Pat Name: Mendez Voss Department: Room: 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 Measurements Intervals [place] Rate: 94 P: 143 WY: 117 QRS: 99 QRSD: 88 T: 150 QT: 368 QTc: 462 Interpretive Statements SINUS RHYTHM WITH SHORT WY INTERVAL WITH FREQUENT VENTRICULAR PREMATURE COMPLEXES BORDERLINE RIGHT AXIS DEVIATION [QRS AXIS > 90] LOW QRS VOLTAGE IN EXTREMITY LEADS [QRS DEFLECTION < 0.5 mV IN LIMB LEADS] ABNORMAL RHYTHM ECG Compared to ECG 02/02/2022 21:47:47 Ventricular premature complex(es) now present Short WY interval now present Low QRS voltage now present Sinus tachycardia no longer present T-wave abnormality no longer present Electronically Signed On 02-03-2022 14:27:50 CDT by Cody Chavez M.D. [id number]
--- NOTE | 2022-02-03 01:40 | PC.NURSE ---
Oxygen applied at 2L per nasal cannula for complaints of soa and tachypnea
[2022-02-03 02:14] LABS: Basophils % 0.5 %; Eosinophils % 16.1 %; Hematocrit 36.6 % (42.0-52.0); Hemoglobin 12.1 g/dL (11.7-16.6); Lymphocytes # 0.9 10^3/uL (0.8-4.8); Lymphocytes % 13.4 %; Mean Corpuscular HGB Conc 33.1 g/dL (30.0-36.0); Mean Corpuscular Hemoglobin 31.6 pg (28.0-34.0); Mean Corpuscular Volume 95.6 fl (80-94); Mean Platelet Volume 9.7 fL (7.4-10.4); Monocytes # 0.8 10^3/uL (0.2-0.9); Monocytes % 12.2 %; Neutrophils # 3.45 10^3/uL (1.8-7.7); Neutrophils % 54.6 %; Nucleated Red Blood Cells % 0 %; Platelet Count 309 10^3/cmm (130-400); Red Blood Count 3.83 10^6/uL (4.1-5.3); Red Cell Distribution Width 15.2 % (12.1-15.1); White Blood Count 6.3 10^3/uL (4.0-10.0)
--- NOTE | 2022-02-03 02:17 | PC.NURSE ---
Pt now has significant bruising on bilateral arms and medial chest from scratching at skin. Pt given a soap and water bath and lotioned afterwards. Pt seems more calm, although he still complains of itching.
[2022-02-03 02:37] LABS: Alanine Aminotransferase 9 U/L (0-41); Alkaline Phosphatase 60 IU/L (40-130); Anion Gap 18.8 (5-19); Aspartate Amino Transferase 23 U/L (0-40); Blood Urea Nitrogen 9 mg/dL (8-23); Calcium 8.4 mg/dL (8.5-10.5); Carbon Dioxide 19 mmol/L (22-29); Chloride 97 mmol/L (98-107); Globulin 2.6 g/dL (1.3-4.6); Glucose 72 mg/dL (65-115); Magnesium 1.2 mg/dL (1.7-2.3); Osmolality Calculated 269 mOsm/kg (285-295); Potassium 3.8 mmol/L (3.5-5.1); Sodium 131 mmol/L (136-145); Total Bilirubin 0.4 mg/dL (0.15-1.2); Total Protein 4.6 g/dL (6.6-8.7)
[2022-02-03 02:38] LABS: Troponin 5 6HR 38.45 ng/L (0-15)
[2022-02-03] MEDS: ketorolac 30 mg/mL INJ 15 MG IVP (03:01)
--- NOTE | 2022-02-03 04:27 | PC.NURSE ---
Pt is not complaining of itching. He does report occasional shooting pain in his legs. Levophed remains off. Pt now appears more alert, smiling and thanking staff for assistance.
[2022-02-03] MEDS: magnesium sulfate premix 4 GM/100 ML PREMIX IV (05:36)
--- NOTE | 2022-02-03 07:00 | PC.NURSE ---
Bedside report completed with ALBA Galo
--- NOTE | 2022-02-03 07:40 | USCV_ITS ---
Mendez Voss Age: 76 Gender: M : 1945 Exam Date: 02/03/2022 08:54 Ordering Phys: Davy Billy MD Technologist: Gera Fonseca Exam Location: [facility] Indication: Assess LV function, increased troponin BP: 123 / 76 HR: 88 Rhythm: Sinus Technical Quality: Adequate MEASUREMENTS (Male / Female) Normal Values 2D ECHO LV Diastolic Diameter PLAX 3.9 cm 4.2 - 5.9 / 3.9 - 5.3 cm LV Systolic Diameter PLAX 2.5 cm IVS Diastolic Thickness 0.8 cm 0.6 - 1.0 / 0.6 - 0.9 cm IVS Systolic Thickness 0.6 cm LVPW Diastolic Thickness 1.0 cm 0.6 - 1.0 / 0.6 - 0.9 cm LVPW Systolic Thickness 1.0 cm LVOT Diameter 2.1 cm LV Ejection Fraction 2D Teich 65.5 % LV Ejection Fraction MOD 2C 50.3 % LV Ejection Fraction 2C AL 49.5 % LA Diameter 3.1 cm LA Width 3.7 cm LA Height 3.8 cm RA Width 3.1 cm RA Height 4.2 cm Aorta at Sinotubular Diameter 2.3 cm IVC Diameter 2.0 cm M-MODE Aortic Annulus Diameter 2.9 cm LA Ao Ratio MM 1.0 MV E Point Septal Separation 0.7 cm DOPPLER Right Atrial Pressure 8.0 mmHg FINDINGS Left Ventricle Normal left ventricular size, systolic function and wall thickness, with no regional wall motion abnormalities. Left ventricular ejection fraction is estimated at 55-60 %. Right Ventricle Normal right ventricular size and systolic function. Right Atrium Normal right atrial size. Right atrial pressure estimated at 8 mmHg. Left Atrium Normal left atrial size. Mitral Valve Mild mitral annular calcification. Mildly thickened mitral valve. Aortic Valve Mildly thickened trileaflet aortic valve. Tricuspid Valve Structurally normal tricuspid valve. Pulmonic Valve Pulmonic valve not well visualized. Pericardium No pericardial effusion. Aorta Normal size aortic root and proximal ascending aorta. IVC Normal IVC dimension with <50% respiratory change of the inferior vena cava. CONCLUSIONS 1. Normal left ventricular size, systolic function and wall thickness, with no regional wall motion abnormalities. Left ventricular ejection fraction is estimated at 55-60 %. 2. Normal right ventricular size and systolic function. 3. No pericardial effusion. 4. There may not have been any significant change when compared to previous study dated 01/01/2021. Lydia Smith MD (Electronically Signed) Final Date: 03 February 2022 15:08 S
--- NOTE | 2022-02-03 07:44 | PM.PN ---
Subjective Subjective: History and physical was reviewed. Patient believes the only new medicine he has been placed on lately is tocilizumab. He reports he was having quite a bit of diarrhea at home. He had not taken his prednisone lately secondary to weakness, and may have not taken many of his other medications. He reports he has has not had a loose stool since coming into the ICU. He denies any chest pain. He focuses on his intense weakness. He reports he has had some nausea lately, and has not been able to eat and drink as well. Medications: Reviewed: Yes Vitals/I&O/Wt Last Vital Signs Temp 99 F 02/03/22 04:00 Pulse 87 02/03/22 06:30 Resp 31 H 02/03/22 06:30 BP 123/76 02/03/22 06:30 Pulse Ox 98 02/03/22 06:30 O2 Del Method 02/03/22 06:30 O2 Flow Rate 2 02/03/22 06:30 02/02/22 02/03/22 02/03/22 22:59 06:59 14:59 Intake Total 1150 / 1150 670.672 / 1820.672 Output Total 900 / 900 1500 / 2400 Balance 250 / 250 -829.328 / -579.328 Weight last 48 hrs Weight 72.62 kg Weight 72.121 kg Physical Exam Narrative: General exam is a male with rheumatoid deformities, who appears weak. HEENT: Pupils equally round. Oropharynx clear. Neck is supple no lymphadenopathy thyromegaly Cardiovascular regular rate and rhythm without murmur Lungs clear no wheezing or crackles Abdomen is soft, positive bowel sounds. Some tenderness in the upper quadrants bilaterally which patient reports is rib pain exam demonstrates Dickerson Extremities no cyanosis clubbing or edema. Rheumatoid arthritic deformities are noted. Skin no rash Neuro no obvious focal deficits Urinary Catheter Management: Dickerson: Cath Placed During This Visit: yes Reason for Continuing Indwelling Catheter: Accurate Measurement of Urinary Output in Critically Ill Patients Urinary Catheter Date of Insertion: 02/02/22 Urinary Catheter Time of Insertion: 20:30 Data : 02/03/22 01:38 02/03/22 01:38 Micro: Microbiology 02/02/22 19:38 Blood Culture - Preliminary Blood SPECIMEN COLLECTED 02/02/22 19:43 Blood Culture - Preliminary Blood SPECIMEN COLLECTED A&P Assessment and plan (1) Hypotension: Patient presented with significant hypotension. Concern of sepsis versus adrenal insufficiency(he had not been able to take his prednisone lately) versus dehydration. Continue hydrocortisone. Changed to every 8 hours. Wean as tolerated. He initially required norepinephrine. This has since been weaned off Continue hydration Secondary to possibility of sepsis he is on Levaquin. Cultures have been drawn. Chest x-ray, CT abdomen and pelvis showed no obvious infectious source. Urinalysis essentially negative. Hold antihypertensives currently. Check limited echo, as troponin high on presentation, dropping quickly with hydration. Previous echo showed preserved EF. Status: Acute (2) Dehydration: Concern of dehydration on admission. Continue hydration Monitor for diarrhea he reports he has had for the last 3 weeks. If this occurs stool studies and C. difficile have been ordered. Status: Acute (3) Pulmonary embolism: Patient with past history of pulmonary embolism. We will continue Eliquis. Status: Acute (4) Hypertension: Past history of hypertension. As hypotensive hold medications for hypertension currently. Status: Acute (5) COPD (chronic obstructive pulmonary disease): Add DuoNeb as needed. He has tobacco dependence. Encourage abstinence. Status: Acute (6) Hypomagnesemia: Supplement IV Recheck magnesium and phosphate level tomorrow Status: Acute (7) Atrial flutter: Patient with past history of atrial flutter. Continue anticoagulation. Reconcile medicine list. I do not believe he is on any rate control medicine but this will become clear when his pharmacy can be contacted. Status: Acute Plan Mild hyponatremia. Appears to be improving Rheumatoid arthritis. He is on Tocilizumab. According to the patient this is a fairly recent start. It is possible this could cause diarrhea. Secondary to his nausea and vague abdominal discomfort lipase was checked on admission. Hold Tocilizumab currently secondary to concern of infection. Attestations Medical Necessity Statement*: Needs continued hospital stay secondary to profound hypotension on admission with possibility of adrenal crisis, sepsis with need for continued IV antibiotics and IV steroids. Eliquis will suffice for DVT prophylaxis Full code May need rehabilitation services. Physical therapy consultation for significant weakness. Critical Care Time: The high probability of a clinically significant, sudden or life threatening deterioration of the patient's [electrolyte, pulmonary, cardiac, endocrine, infectious disease] system(s) required my full and direct attention, intervention and personal management. The critical care time is as shown. This time is in addition to time spent performing any reported procedures but includes the following: [x] Data and vital sign review and interpretation [x] Patient assessment, examination and intervention [x] Documentation [x] Medication orders and management Critical Care Time (min): 31 Coding Level of Care Code Acute Manager Of Manufacturing for Chg Fwd Diagnoses Hypotension I95.9 Dehydration E86.0 Pulmonary embolism I26.99 Hypertension I10 COPD (chronic obstructive pulmonary disease) J44.9 Hypomagnesemia E83.42 Atrial flutter I48.92
[2022-02-03 07:52] LABS: Glucose Point of Care 298 mg/dL (70-110)
[2022-02-03] MEDS: insulin lispro 100 unit/1 mL SUBCUT ×4 (09:02→21:54)
[2022-02-03] MEDS: famotidine 20 mg Tablet PO (09:03)
[2022-02-03] MEDS: apixaban 5 mg Tablet 2.5 MG PO ×2 (09:03→17:24)
[2022-02-03] MEDS: folic acid 1 mg Tablet PO (09:03)
[2022-02-03] MEDS: phosphorus 250 mg Tablet PO ×2 (09:03→17:24)
[2022-02-03] MEDS: atorvastatin 40 mg Tablet 20 MG PO (09:06)
--- NOTE | 2022-02-03 10:48 | ECG_ITS ---
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 Measurements Intervals [place] Rate: 90 P: 55 AR: 153 QRS: 33 QRSD: 86 T: 48 QT: 361 QTc: 443 Interpretive Statements SINUS RHYTHM Compared to ECG 02/03/2022 02:45:21 Ventricular premature complex(es) no longer present Short AR interval no longer present Electronically Signed On 02-03-2022 14:24:29 CDT by Cody Chavez M.D. [id number]
[2022-02-03] MEDS: calcium carbonate 500 mg Chew Tablet PO ×2 (11:01→14:52)
[2022-02-03] MEDS: sodium chloride 0.9% 1,000 ML 100 ML IV ×2 (11:01→20:44)
[2022-02-03] MEDS: alum-mag-hydroxide-sime 30 mL UDC PO (11:01)
[2022-02-03] MEDS: diphenhydrAMINE 25 mg Capsule PO (11:01)
[2022-02-03 11:40] LABS: Glucose Point of Care 254 mg/dL (70-110)
[2022-02-03 12:22] LABS: Adenovirus Not Detected (NOT DETECT); Chlamydia Pneumoniae Not Detected (NOT DETECT); Coronavirus 229E,HKU1,NL63,OC4 Not Detected (NOT DETECT); Human Metapneumovirus Not Detected (NOT DETECT); Human Rhinovirus/Enterovirus Not Detected (NOT DETECT); Influenza A Not Detected (NOT DETECT); Influenza A H1 Not Detected (NOT DETECT); Influenza A H1-2009 Not Detected (NOT DETECT); Influenza A H3 Not Detected (NOT DETECT); Influenza B Not Detected (NOT DETECT); Mycoplasma Pneumoniae Not Detected (NOT DETECT); Parainfluenza Virus Type 1 Not Detected (NOT DETECT); Parainfluenza Virus Type 2 Not Detected (NOT DETECT); Parainfluenza Virus Type 3 Not Detected (NOT DETECT); Parainfluenza Virus Type 4 Not Detected (NOT DETECT); Respiratory Syncytial Virus A Not Detected (NOT DETECT); Respiratory Syncytial Virus B Not Detected (NOT DETECT); SARS-COV-2 Detected (NOT DETECT)
--- NOTE | 2022-02-03 13:30 | PC.NURSE ---
Pt complaining of tiching again. Pt on BSC. Bathing with soap and water provided. Lotion applied liberally to pt's trunk as dry, flaky skin noted. Pt stated that felt better.
[2022-02-03] MEDS: hydrocortisone 100 mg/2 mL SDV 50 MG IVP ×2 (13:42→21:54)
[2022-02-03 16:58] LABS: Glucose Point of Care 329 mg/dL (70-110)
[2022-02-03] MEDS: pantoprazole DR 40 mg Tablet PO (17:24)
--- NOTE | 2022-02-03 18:10 | PC.NURSE ---
Report called to Daniel and given to Kia.
--- NOTE | 2022-02-03 18:30 | PC.NURSE ---
Pt transferred to room 262 via wheelchair with belongings.
--- NOTE | 2022-02-03 19:24 | PC.NURSE ---
Shift Note: Pt has rested in bed for most fo the shift. He did sit up in chair at lunch and dinner. He has picked at his food today. He has complained of heartburn and itchiness. Bathing assistance and lotion applied heavily. Regular coffee cup provided for him to use for his water, the handle is easier for him to manager completions. He has been on room air, o2 sats greater than 95. afebrile, although he did have a bout of chills this afternoon. His BP WNL, bordering hypertension this shift. He has had 1000 ml of urine output and 2 loose BMs. Frequent safety and comfort rounds continue. Orders and/or nursing care completed as indicated. Patient monitored for response to intervention and treatment(s). Education provided includes Mekhi, Maalox, and plan of care. Patient verbalizes understadning of plan of care and medications. . Will continue to monitor.
[2022-02-03] MEDS: levofloxacin-dextrose 5 % 750 MG/150 ML PREMIX 100 MG IV (20:44)
[2022-02-03 21:30] LABS: Glucose Point of Care 406 mg/dL (70-110)
[2022-02-03] MEDS: insulin glargine 100 units/1 mL 10 UNIT SUBCUT (23:08)
[2022-02-04] VITALS (10 sets, daily range): BP systolic 129–157; BP diastolic 73–90; PULSE 71–95; RESP 12–18; TEMP 36.3–36.6; O2SAT 94–98
[2022-02-04] MEDS: acetaminophen 325 mg Tablet 650 MG PO (01:48)
[2022-02-04 04:59] LABS: Basophils % 0.1 %; Eosinophils % 0.1 %; Hematocrit 38.3 % (42.0-52.0); Hemoglobin 12.3 g/dL (11.7-16.6); Lymphocytes # 0.6 10^3/uL (0.8-4.8); Lymphocytes % 8.4 %; Mean Corpuscular HGB Conc 32.1 g/dL (30.0-36.0); Mean Corpuscular Hemoglobin 31.4 pg (28.0-34.0); Mean Corpuscular Volume 97.7 fl (80-94); Mean Platelet Volume 9.5 fL (7.4-10.4); Monocytes # 0.7 10^3/uL (0.2-0.9); Monocytes % 10.2 %; Neutrophils # 5.83 10^3/uL (1.8-7.7); Neutrophils % 80.2 %; Nucleated Red Blood Cells % 0 %; Platelet Count 301 10^3/cmm (130-400); Red Blood Count 3.92 10^6/uL (4.1-5.3); Red Cell Distribution Width 14.9 % (12.1-15.1); White Blood Count 7.3 10^3/uL (4.0-10.0)
[2022-02-04 05:24] LABS: Phosphorus 1.4 mg/dL (2.5-4.5)
[2022-02-04 05:30] LABS: Alanine Aminotransferase 9 U/L (0-41); Albumin Level 2.3 g/dL (3.5-5.2); Alkaline Phosphatase 63 IU/L (40-130); Anion Gap 12.3 (5-19); Aspartate Amino Transferase 14 U/L (0-40); Blood Urea Nitrogen 18 mg/dL (8-23); Calcium 8.6 mg/dL (8.5-10.5); Carbon Dioxide 24 mmol/L (22-29); Chloride 107 mmol/L (98-107); Glucose 235 mg/dL (65-115); Osmolality Calculated 297 mOsm/kg (285-295); Potassium 4.3 mmol/L (3.5-5.1); Sodium 139 mmol/L (136-145); Total Bilirubin 0.2 mg/dL (0.15-1.2); Total Protein 5.3 g/dL (6.6-8.7)
[2022-02-04] MEDS: hydrocortisone 100 mg/2 mL SDV 50 MG IVP (06:22)
[2022-02-04 06:44] LABS: Glucose Point of Care 305 mg/dL (70-110)
[2022-02-04] MEDS: sodium chloride 0.9% 1,000 ML 100 ML IV (08:48)
[2022-02-04] MEDS: insulin lispro 100 unit/1 mL SUBCUT ×4 (08:49→22:00)
[2022-02-04] MEDS: pantoprazole DR 40 mg Tablet PO ×2 (08:50→18:33)
[2022-02-04] MEDS: apixaban 5 mg Tablet 2.5 MG PO ×2 (08:50→18:33)
[2022-02-04] MEDS: atorvastatin 40 mg Tablet 20 MG PO (08:50)
[2022-02-04] MEDS: predniSONE 20 mg Tablet PO ×2 (08:51→18:34)
[2022-02-04] MEDS: folic acid 1 mg Tablet PO (08:51)
[2022-02-04] MEDS: phosphorus 250 mg Tablet PO ×2 (08:51→18:33)
[2022-02-04] MEDS: tamsulosin 0.4 mg Capsule PO ×2 (09:11→18:33)
[2022-02-04 11:33] LABS: Glucose Point of Care 330 mg/dL (70-110)
--- NOTE | 2022-02-04 12:21 | P.PN_ITS ---
Subjective Subjective: Mendez reports he feels quite a bit better. He is less weak. He is able to get up some. He denies any chest pain. He has some arthritic pain in his hands and wrists. He denies being short of breath. No significant coughing. Medications: Reviewed: Yes Vitals/I&O/Wt Last Vital Signs Temp 97.7 F 02/04/22 07:42 Pulse 95 02/04/22 11:51 Resp 17 02/04/22 11:51 BP 129/83 02/04/22 11:51 Pulse Ox 98 02/04/22 11:51 O2 Del Method 02/04/22 11:51 O2 Flow Rate 2 02/03/22 12:00 02/03/22 02/04/22 02/04/22 22:59 06:59 14:59 Intake Total 1371.667 / 2521.667 1000 / 3521.667 380 / 380 Output Total 80 / 80 Balance 1371.667 / 2521.667 920 / 3441.667 380 / 380 Weight last 48 hrs Weight 74.571 kg Weight 72.62 kg Weight 72.121 kg Physical Exam Narrative: General exam is a male with rheumatoid deformities, in no distress today Neck is supple no lymphadenopathy thyromegaly Cardiovascular regular rate and rhythm without murmur Lungs clear no wheezing or crackles Abdomen is soft, positive bowel sounds. Some tenderness in the upper quadrants bilaterally which patient reports is rib pain exam demonstrates Dickerson Extremities no cyanosis clubbing or edema. Rheumatoid arthritic deformities are noted. Skin no rash Neuro no obvious focal deficits Urinary Catheter Management: Dickerson: Cath Placed During This Visit: yes Reason for Continuing Indwelling Catheter: Accurate Measurement of Urinary Output in Critically Ill Patients Urinary Catheter Date of Insertion: 02/02/22 Urinary Catheter Time of Insertion: 20:30 Data : 02/04/22 04:20 02/04/22 04:20 Micro: Microbiology 02/02/22 20:32 Urine Culture - Preliminary Urine Catheterized 02/03/22 13:10 Enteric Pathogens (PCR) - Final Stool Routine Collection C.difficile Toxin B Gene (PCR) - Final 02/02/22 19:43 Blood Culture - Preliminary Blood NEGATIVE TO DATE 02/02/22 19:38 Blood Culture - Preliminary Blood NEGATIVE TO DATE 02/03/22 03:30 MRSA Culture - Final Nose A&P Assessment and plan (1) Hypotension: Patient presented with significant hypotension. Concern of sepsis versus adrena l insufficiency(he had not been able to take his prednisone lately) versus dehydration. Change hydrocortisone to prednisone, 20 mg twice daily. 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 He had recently gone down to this dose, but had not been taking it secondary to illness. He initially required norepinephrine. This has since been weaned off Hydration can be discontinued at this point Secondary to possibility of sepsis he is on Levaquin. Cultures have been drawn. Chest x-ray, CT abdomen and pelvis showed no obvious infectious source. Urinalysis essentially negative. If cultures negative by tomorrow could consider discharge without antibiotics Hold antihypertensives currently. Limited echo showed preserved EF Secondary to weakness, loose stool COVID PCR was done which was positive. He is now recovering, unknown when he got the illness, and is not requiring oxygen. He had been maintained on weekly tocilizumab. I do not see a reason at this poi nt for any further treatment other than supportive. Status: Acute (2) Dehydration: Resolved. Discontinue hydration. Monitor for diarrhea he reports he has had for the last 3 weeks. C. difficile is checked and negative Status: Acute (3) Pulmonary embolism: Patient with past history of pulmonary embolism. Continue Eliquis. Status: Acute (4) Hypertension: Past history of hypertension. As hypotensive on admission holding antihypertensives currently. Status: Acute (5) COPD (chronic obstructive pulmonary disease): Add DuoNeb as needed. He has tobacco dependence. Encourage abstinence. Status: Acute (6) Hypomagnesemia: Normal after supplementation Phosphorus still low, supplement today Status: Acute (7) Atrial flutter: Patient with past history of atrial flutter. Continue anticoagulation. Reconcile medicine list. I do not believe he is on any rate control medicine but this will become clear when his pharmacy can be contacted. Status: Acute Plan Mild hyponatremia. Improved Rheumatoid arthritis. He is on Tocilizumab. According to the patient this is a fairly recent start. It is possible this could cause diarrhea. Secondary to his nausea and vague abdominal discomfort lipase was checked on admission. Hold Tocilizumab currently secondary to concern of infection. Eliquis will suffice for DVT prophylaxis Discontinue Dickerson Restart Flomax Attestations Medical Necessity Statement*: Needs continued hospitalization for close monitoring secondary to adrenal crisis, Covid 19. May be appropriate for discharge tomorrow. Coding Level of Care Code Acute Lacing Presser for Chg Fwd Diagnoses Hypotension I95.9 Dehydration E86.0 Pulmonary embolism I26.99 Hypertension I10 COPD (chronic obstructive pulmonary disease) J44.9 Hypomagnesemia E83.42 Atrial flutter I48.92
[2022-02-04 17:05] LABS: Glucose Point of Care 255 mg/dL (70-110)
[2022-02-04] MEDS: levofloxacin-dextrose 5 % 750 MG/150 ML PREMIX 100 MG IV (21:41)
[2022-02-04] MEDS: insulin glargine 100 units/1 mL 10 UNIT SUBCUT (21:48)
[2022-02-04 22:18] LABS: Glucose Point of Care 385 mg/dL (70-110)
[2022-02-05] VITALS: BP 132/76; PULSE 75; RESP 16; TEMP 36.4; O2SAT 99
[2022-02-05 04:00] VITALS: BP 150/68; PULSE 67; RESP 15; TEMP 36.3; O2SAT 97
[2022-02-05 05:01] LABS: Basophils % 0.1 %; Lymphocytes # 0.5 10^3/uL (0.8-4.8); Lymphocytes % 5.6 %; Mean Corpuscular HGB Conc 33.3 g/dL (30.0-36.0); Mean Corpuscular Hemoglobin 30.9 pg (28.0-34.0); Mean Corpuscular Volume 92.7 fl (80-94); Mean Platelet Volume 9.6 fL (7.4-10.4); Monocytes # 0.9 10^3/uL (0.2-0.9); Monocytes % 9.7 %; Neutrophils # 7.98 10^3/uL (1.8-7.7); Nucleated Red Blood Cells % 0 %; Platelet Count 290 10^3/cmm (130-400); Red Blood Count 3.56 10^6/uL (4.1-5.3); Red Cell Distribution Width 14.9 % (12.1-15.1); White Blood Count 9.5 10^3/uL (4.0-10.0)
[2022-02-05 05:24] LABS: D Dimer 7.42 ug/mIFEU (0-0.59)
[2022-02-05 05:31] LABS: Alanine Aminotransferase 7 U/L (0-41); Albumin Level 2.5 g/dL (3.5-5.2); Alkaline Phosphatase 64 IU/L (40-130); Aspartate Amino Transferase 11 U/L (0-40); Blood Urea Nitrogen 23 mg/dL (8-23); C Reactive Protein 39.9 mg/L (0.0-4.9); Calcium 8.8 mg/dL (8.5-10.5); Carbon Dioxide 23 mmol/L (22-29); Chloride 107 mmol/L (98-107); Globulin 2.7 g/dL (1.3-4.6); Glucose 309 mg/dL (65-115); Magnesium 1.6 mg/dL (1.7-2.3); Osmolality Calculated 301 mOsm/kg (285-295); Phosphorus 1.3 mg/dL (2.5-4.5); Sodium 138 mmol/L (136-145); Total Bilirubin 0.2 mg/dL (0.15-1.2); Total Protein 5.2 g/dL (6.6-8.7)
[2022-02-05 05:34] LABS: Procalcitonin 0.09 ng/mL (0-0.5)
[2022-02-05 05:36] LABS: Anion Gap 12.9 (5-19); Potassium 4.9 mmol/L (3.5-5.1)
[2022-02-05 06:00] VITALS: PULSE 60
[2022-02-05 06:30] LABS: Glucose Point of Care 302 mg/dL (70-110)
[2022-02-05] MEDS: insulin lispro 100 unit/1 mL SUBCUT ×2 (07:48→11:55)
[2022-02-05] MEDS: folic acid 1 mg Tablet PO (07:49)
[2022-02-05] MEDS: tamsulosin 0.4 mg Capsule PO ×2 (07:49→17:10)
[2022-02-05] MEDS: predniSONE 20 mg Tablet PO ×2 (07:50→17:10)
[2022-02-05] MEDS: pantoprazole DR 40 mg Tablet PO ×2 (07:50→17:11)
[2022-02-05] MEDS: phosphorus 250 mg Tablet PO ×2 (07:50→17:10)
[2022-02-05] MEDS: atorvastatin 40 mg Tablet 20 MG PO (07:50)
[2022-02-05] MEDS: apixaban 5 mg Tablet 2.5 MG PO ×2 (07:51→17:11)
[2022-02-05 08:00] VITALS: BP 151/79; PULSE 74; RESP 17; TEMP 36.6; O2SAT 97
[2022-02-05 08:44] VITALS: PULSE 98; RESP 18; O2SAT 98
--- NOTE | 2022-02-05 10:16 | P.DS_ITS ---
Discharge Providers Date of Admission: 02/02/22 22:40 Date of Discharge: February 05, 2022 Attending Provider at Admission: Nicole Reyes MD Attending Provider at Discharge: Dwaine Snowden MD Primary Care Provider: Marshal Downs Diagnoses at Discharge Discharge Diagnosis (1) Hypotension: Status: Acute (2) Dehydration: Status: Acute (3) Pulmonary embolism: Status: Acute (4) Hypertension: Status: Acute (5) COPD (chronic obstructive pulmonary disease): Status: Acute (6) Hypomagnesemia: Status: Acute (7) Atrial flutter: Status: Acute Reason for Visit Reason for Visit: N/V/D not eating, or taking meds Hospital Course Hospital Course HPI: Dr: Nicole Reyes MD Mendez Voss is a 76 year old male with past medical history of chronic steroid use, rheumatoid arthritis, hyperlipidemia, hypertension, DVT, COPD, nicotine dependence presented to the ER today for generalized weakness.? He states that he has been having diarrhea for the last 22 days and he was recently in the hospital on 28 January.He says instead of my diarrhea being addressed I was diagnosed with a UTI and sent home on oral antibiotics.? He could not obtain his antibiotics because [place] [facility] and he says he did not send in his medications yet.He says sometimes it takes over a week for the [place] to send over the medications.? Therefore he has not taken the Bactrim he was prescribed.? He states he also been coughing in last few days.? Today he had a loose bowel movement x3.? He is also somewhat of a poor historian.? He is a smoker but has not smoked in the last few weeks.? Denies any alcohol use.? Denies nausea, vomiting, constipation, chest pain, shortness of breath at this time.? He says his left rib is quite sore and anytime he touches the area it hurts.? He also complained of lightheadedness with the ER physician when he was first here however at this time he denies feeling lightheaded or dizzy.? He also told ER physician that he passed out and fell and hit his head.? When asked again he is unable to confirm that.? Patient did have a CT head in the ER which did not show any acute intracranial abnormality.? Patient is a poor historian. ED course: BP 70/50, respiratory rate 22, pulse ox 97% on room air, temp 98.2.? Head CT negative, cervical spine CT negative for fracture, wrist x-ray negative for fracture, chest x-ray no acute findings.? CT abdomen pelvis showed perinephric edema bilaterally likely reflecting chronic renal insufficiency, right kidney lower pole hyper dense appearing exophytic lesion may reflect a hemorrhagic cyst given stability compared to prior exam..? Small bilateral pleural effusions, bibasilar atelectasis versus minimal infiltrate.? Patient was given IV fluids and started on Levophed.? He had a central line and right IJ was placed by ER physician.? WBC normal, sodium 129, chloride 91, anion gap 24.1, lactic acid 2.2.? Troponins 52, 46, delta troponin -5.? EKG did not show any acute ischemic changes. Hospital Course: He was admitted for the management of hypotension likely 2/2 dehydration as well as possibly/May be relative adrenal insufficiency, random cortisol was 13, on admission he received stress dose steroids, later transitioned to po steroids I.V Fluids as well as also needed vasopressors transiently, less likely sepsis based on the over all clinical presentation ?Chest x-ray, CT abdomen and pelvis showed no obvious infectious source.?Urinalysis negative, blood cultures negative, normal lactic acid as well as procalcitonin, he was empirically kept on abxs no abxs was continued on discharge, he was discharged on tapering steroid protocol,he will resume his anti htn medications from Monday, ?COVID PCR was positive,he was not requiring any oxygen on discharge.Patient was continued to be managed for his other comorbid conditions.Overall he has responded well to above medical management and is being discharge in stable condition to home.He will continue to follow his PCP as outpatient. Physical Exam Resp: COMMON NORMALS: normal respiratory effort, No retractions, No use of accessory muscles and clear to auscultation bilaterally EFFORT & INSPECTION: Yes symmetric chest movement AUSCULTATION: clear to auscultation bilaterally Cardio: COMMON NORMALS: regular rate, regular rhythm, S1 normal heart sound present, S2 normal heart sound present, No gallops present (Cardio), No murmurs present (Cardio), No rub (Cardio) and Peripheral pulses 2+ throughout RATE: regular rate RHYTHM: regular rhythm HEART SOUNDS: S1 normal heart sound present and S2 normal heart sound present PERIPHERAL PULSES: Peripheral pulses 2+ throughout GI: COMMON NORMALS: Normal to inspection, nondistended, normoactive bowel sounds present, Soft to palpation, non-tender, No hepatosplenomegaly present and no masses AUSCULTATION: Yes normoactive bowel sounds PALPATION: Yes Soft to palpation and Yes No hepatosplenomegaly present RECTAL EXAM: Yes deferred Urinary Catheter Management: Dickerson: Cath Placed During This Visit: yes, but has since been removed by the nurse Reason for Continuing Indwelling Catheter: Decision to DC Catheter Urinary Catheter Date of Insertion: 02/02/22 Urinary Catheter Time of Insertion: 20:30 Date Urinary Catheter Removed: 02/04/22 Time Urinary Catheter Discontinued: 08:00 Discharge Data Studies Completed and Pending Completed Studies During Hospitalization Category Date Time Status CT abdomen pelvis wo con [id number] Urgent Cat Scan 02/02/22 19:[address] cervical spin wo con* [id number] Stat Cat Scan 02/02/22 17:[address] head wo con* [id number] Stat Cat Scan 02/02/22 17:58 Completed CXRP [XR chest 1V portable [id number]] Stat Exams 02/02/22 22:52 Completed XR chest 1V portable [id number] Urgent Exams 02/02/22 17:55 Completed XR wrist LT min 3V* [id number] Urgent Exams 02/02/22 17:58 Completed CV. echo limited [id number] Routine Ultrasound 02/03/22 07:40 Completed Pending at discharge Category Date Time Status Blood Culture Stat Lab 02/02/22 19:38 Results Sputum Culture and Gram Stain Stat Lab 02/03/22 01:41 Uncollected Urine Culture Stat Lab 02/03/22 01:51 Results Radiology Impressions Cervical Spine CT 02/02/22 17:58 IMPRESSION: 1. Degenerative changes. No fracture is identified. 2. No fracture is identified. Head CT 02/02/22 17:58 IMPRESSION: No acute intracranial abnormality. Wrist X-Ray 02/02/22 17:58 IMPRESSION: No acute findings. Abdomen/Pelvis CT 02/02/22 19:39 IMPRESSION: 1. Negative for focal acute inflammatory process in the abdomen or pelvis. 2. Small bilateral pleural effusions. 3. Cholecystectomy. 4. Bibasilar atelectasis versus minimal infiltrate. 5. Perinephric edema bilaterally likely reflecting chronic renal insufficiency. 6. Several bilateral renal cysts. 7. Right kidney lower pole 2.6 cm hyperdense appearing exophytic lesion may reflect a hemorrhagic cyst, given stability compared to prior exam. 8. Chronic appearing subtle splenic infarcts. 9. Surgical hardware partially visualized in the right hip and femur. COMMENTS: Consistent with the [employer]'s Incidental Findings Committee white paper (J Am Lisa Radiol 2018): Any incidental renal lesion less than 1 cm or classified as too small to characterize, or any incidental cystic renal lesion characterized as simple-appearing, is likely benign. No follow-up imaging is recommended for these lesions per consensus recommendations based on imaging criteria. Chest X-Ray 02/02/22 22:52 IMPRESSION: Right internal jugular catheter tip over the distal SVC. Laboratory Results WBC 9.5 10^3/uL (4.0-10.0) 02/05/22 04:50 RBC 3.56 10^6/uL (4.1-5.3) L 02/05/22 04:50 Hgb 11.0 g/dL (11.7-16.6) L 02/05/22 04:50 Hct 33.0 % (42.0-52.0) L 02/05/22 04:50 MCV 92.7 fl (80-94) D 02/05/22 04:50 MCH 30.9 pg (28.0-34.0) 02/05/22 04:50 MCHC 33.3 g/dL (30.0-36.0) 02/05/22 04:50 RDW 14.9 % (12.1-15.1) 02/05/22 04:50 Plt Count 290 10^3/cmm (130-400) 02/05/22 04:50 MPV 9.6 fL (7.4-10.4) 02/05/22 04:50 Neut % (Auto) 84.0 % 02/05/22 04:50 Lymph % (Auto) 5.6 % 02/05/22 04:50 Garvin % (Auto) 9.7 % 02/05/22 04:50 Eos % (Auto) 0.0 % 02/05/22 04:50 Baso % (Auto) 0.1 % 02/05/22 04:50 Neut # (Auto) 7.98 10^3/uL (1.8-7.7) H 02/05/22 04:50 Lymph # (Auto) 0.5 10^3/uL (0.8-4.8) L 02/05/22 04:50 Garvin # (Auto) 0.9 10^3/uL (0.2-0.9) 02/05/22 04:50 Eos # (Auto) 0.0 10^3/uL (0.0-0.8) 02/05/22 04:50 Baso # (Auto) 0.0 10^3/uL (0.0-0.1) 02/05/22 04:50 Nucleated RBC % (auto) 0 % 02/05/22 04:50 Nucleated RBCs # 0.0 /100WBC 02/05/22 04:50 PT 14.30 SECONDS (12.1-14.9) 02/02/22 17:54 INR 1.08 (0.8-1.2) 02/02/22 17:54 D-Dimer 7.42 ug/mIFEU (0-0.59) H 02/05/22 04:50 Sodium 138 mmol/L (136-145) 02/05/22 04:50 Potassium 4.9 mmol/L (3.5-5.1) 02/05/22 04:50 Chloride 107 mmol/L (98-107) 02/05/22 04:50 Carbon Dioxide 23 mmol/L (22-29) 02/05/22 04:50 Anion Gap 12.9 (5-19) 02/05/22 04:50 BUN 23 mg/dL (8-23) 02/05/22 04:50 Creatinine 0.7 mg/dL (0.7-1.2) 02/05/22 04:50 GFR Calculation Not Reportable 02/05/22 04:50 Glucose 309 mg/dL (65-115) H 02/05/22 04:50 POC Glucose 302 mg/dL (70-110) H 02/05/22 06:25 Calculated Osmolality 301 mOsm/kg (285-295) H 02/05/22 04:50 Lactic Acid 2.2 mmol/L (0.5-2.2) 02/02/22 17:38 Lactic Acid (Sepsis) 1.3 mmol/L (0.5-2.2) 02/02/22 20:12 Calcium 8.8 mg/dL (8.5-10.5) 02/05/22 04:50 Phosphorus 1.3 mg/dL (2.5-4.5) L 02/05/22 04:50 Magnesium 1.6 mg/dL (1.7-2.3) L 02/05/22 04:50 Total Bilirubin 0.2 mg/dL (0.15-1.2) 02/05/22 04:50 AST 11 U/L (0-40) 02/05/22 04:50 ALT 7 U/L (0-41) 02/05/22 04:50 Alkaline Phosphatase 64 IU/L (40-130) 02/05/22 04:50 Troponin T Baseline 52 ng/L (0-15) H 02/02/22 17:54 Troponin T 120 Minute 46.28 ng/L (0-15) H 02/02/22 20:12 Delta Troponin T -5.72 ABS# (0-10) L 02/02/22 20:12 Troponin T Hi Sens 6Hr 38.45 ng/L (0-15) H 02/03/22 01:38 Troponin T Hi Sens 6Hr Delta -13.55 ng/L (0-12) L 02/03/22 01:38 C-Reactive Protein 39.9 mg/L (0.0-4.9) H 02/05/22 04:50 Total Protein 5.2 g/dL (6.6-8.7) L 02/05/22 04:50 Albumin 2.5 g/dL (3.5-5.2) L 02/05/22 04:50 Globulin 2.7 g/dL (1.3-4.6) 02/05/22 04:50 Lipase 19 U/L (13-60) 02/02/22 17:54 Procalcitonin 0.09 ng/mL (0-0.5) 02/05/22 04:50 Urine Color Yellow (Yellow) 02/02/22 20:32 Urine Appearance Clear (CLEAR) 02/02/22 20:32 Urine pH 5 (5-7) 02/02/22 20:32 Ur Specific Venus 1.020 (1.005-1.030) 02/02/22 20:32 Urine Protein Trace (Negative) 02/02/22 20:32 Urine Glucose (UA) Norm (Normal) 02/02/22 20:32 Urine Ketones 1+ (Negative) H 02/02/22 20:32 Urine Blood Neg (Negative) 02/02/22 20:32 Urine Nitrate Negative (Negative) 02/02/22 20:32 Urine Bilirubin Neg (Negative) 02/02/22 20:32 Urine Urobilinogen Norm mg/dL (Negative) 02/02/22 20:32 Ur Leukocyte Esterase Negative (Negative) 02/02/22 20:32 Urine RBC 0-4 /hpf (0-2) H 02/02/22 20:32 Urine WBC 0-4 /hpf (0-5) H 02/02/22 20:32 Ur Squamous Epith Cells 0-4 /hpf (0-5) H 02/02/22 20:32 Amorphous Sediment Not Reportable 02/02/22 20:32 Urine Bacteria Trace /hpf (NONE) 02/02/22 20:32 Coronavirus 229E (PCR) Not detected (NOT DETECT) 02/03/22 09:24 SARS-CoV-2 (PCR) Detected (NOT DETECT) A 02/03/22 09:24 Vitals Last Vital Signs Temp 97.8 F 02/05/22 08:00 Pulse 98 02/05/22 08:44 Resp 18 02/05/22 08:44 BP 151/79 02/05/22 08:00 Pulse Ox 98 02/05/22 08:44 O2 Del Method 02/05/22 08:44 O2 Flow Rate 2 02/03/22 12:00 Discharge Plan Discharge Patient Disposition: Home Condition: Stable Prescriptions: Continued ipratropium-albuterol 20-100 mcg/actuation mist 1 puff inhalation Q6H PRN (Reason: Shortness Of Breath) multivitamin [One Daily Multivitamin] Tablet 1 tab PO DAILY tamsulosin 0.4 mg capsule 0.4 mg PO BID Qty: 180 3RF ondansetron HCl 4 mg tablet 4 mg PO Q6H PRN (Reason: Nausea) Actemra 162 mg/0.9 mL syringe 162 mg SUBCUT .every 7 days Qty: 4 3RF cyanocobalamin (vitamin B-12) 1,000 mcg Tablet 1,000 mcg PO DAILY alendronate 35 mg Tablet 35 mg PO Q7D Rx Instructions: TAKE ON MONDAY ascorbic acid (vitamin C) 250 mg Tablet 250 mg PO DAILY folic acid 1 mg Tablet 1 mg PO DAILY cholecalciferol (vitamin D3) 50 mcg (2,000 unit) Tablet 50 mcg PO DAILY fluticasone propionate 50 mcg/actuation [place],Suspension 1 spray INTRANASAL DAILY PRN (Reason: Nasal Congestion) atorvastatin [Lipitor] 20 mg tablet 20 mg PO DAILY Qty: 30 0RF lidocaine 5 % Adhesive Patch,Medicated 1 patch TOPICAL DAILY Rx Instructions: leave on most painful area for up to 12 hrs lidocaine 5 % Ointment 1 applic TOPICAL BID PRN (Reason: Pain) prednisone 5 mg Tablet 5 mg PO BID 30 Days Qty: 120 3RF Rx Instructions: Take 20 mg po BID FOR NEXT 6 DAYS AND THEN 10 MG PO BID FOR NEXT 7 DAYS, THEREAFTER HOME DOSE OF 5 MG PO BID Phospha 250 Neutral 250 mg Tablet 250 mg PO BID 14 Days Qty: 28 0RF methocarbamol 500 mg Tablet 500 mg PO QID PRN (Reason: Pain) calcium carbonate 500 mg calcium (1,250 mg) Tablet 500 mg PO DAILY omeprazole 20 mg Capsule,Delayed Release(Dr/Ec) 20 mg PO BID Nutritional Drink Liquid 1 ea PO EVERY OTHER DAY Eliquis 2.5 mg Tablet 2.5 mg PO BID magnesium L-lactate [Magtab] 84 mg tablet extended release 84 mg PO DAILY 14 Days Qty: 14 0RF insulin glargine 100 unit/mL solution 40 unit SUBCUT DAILY Qty: 10 0RF Held lisinopril-hydrochlorothiazide 10-12.5 mg tablet 1 tab PO DAILY Hold Instructions: Resume on 02/08/22. Discharge Orders: Discharge Order (Routine); Ordered 02/05/22 Ordered By: Dwaine Snowden Referrals: Marshal Downs [Primary Care Provider] - 1 week (Please contact Dr. Downs's office Monday morning to schedule a hospital follow up appointment within 1 week. ) Discharge Diet: Cardiac Patient Instructions: Dehydration (GEN), Hypomagnesemia (DC), COVID-19 (Coronavirus Disease 2019) (GEN), Opioid Safety Discharge Attestations Time Spent in Discharge Care*: less than 30 min Status at Discharge: Cognitive status at discharge: cognitively intact , Behavioral status at discharge: cooperative , Quality Metrics Clinical Quality Measures [ No reported AMI, CVA or VTE this stay] Coding Level of Care Code Acute Chg FW DC note Exam Expanded Problem Focused Diagnoses Hypotension I95.9 Dehydration E86.0 Pulmonary embolism I26.99 Hypertension I10 COPD (chronic obstructive pulmonary disease) J44.9 Hypomagnesemia E83.42 Atrial flutter I48.92
--- NOTE | 2022-02-05 10:25 | PC.SOCIAL ---
Pg 2 IMM Explained to pt Pg 2 IMM. No questions voiced. Provided pt a copy. Initialed, dated, & timed a copy & placed in chart.
[2022-02-05 12:00] VITALS: BP 159/75; PULSE 74; RESP 18; TEMP 36.3; O2SAT 98
[2022-02-05 12:14] LABS: Glucose Point of Care 269 mg/dL (70-110)
--- NOTE | 2022-02-05 14:20 | PC.NURSE ---
patient waiting for brother to excelsior picker. iv removed, bleeding controlled tolerated well. monitor removed and returned.
--- NOTE | 2022-02-05 17:12 | PC.NURSE ---
refused because he would not be eating d/t going home
--- NOTE | 2022-02-05 17:26 | PC.NURSE ---
PATIENT AND STAFF UNABLE TO GET [employer] OF PATIENT'S BROTHER TO PICK PATIENT UP. PATIENT HAS BEEN DISCHARGED FOR SEVERAL HOURS. THIS NURSE GOT APPROVAL THROUGH [facility] TO PAY FOR CARTENDER TRIP. RIDE SET UP. SHOULD ARRIVE IN ABOUT 10 MINUTES.
== END 2022-02-05 17:25 | disposition home or self-care (01) | DRG 643 ==
LOC: ER 22:54 → ICU 02-03 01:17 → MEDSURG 02-03 18:23
PROVIDERS: Emergency Medicine; Internal Medicine; Physician Assistant; Admitting Provider Internal Medicine; Emergency Provider Emergency Medicine; PCP Internal Medicine; Visit Provider Internal Medicine
DX: E27.40 Unspecified adrenocortical insufficiency (principal); U07.1 COVID-19; E87.1 Hypo-osmolality and hyponatremia; E86.0 Dehydration; I95.9 Hypotension, unspecified; R42 Dizziness and giddiness; I10 Essential (primary) hypertension; E83.42 Hypomagnesemia; J44.9 Chronic obstructive pulmonary disease, unspecified; E78.5 Hyperlipidemia, unspecified; M06.9 Rheumatoid arthritis, unspecified; E11.9 Type 2 diabetes mellitus without complications; R19.7 Diarrhea, unspecified; R07.81 Pleurodynia; F17.200 Nicotine dependence, unspecified, uncomplicated; Z79.52 Long term (current) use of systemic steroids; Z86.718 Personal history of other venous thrombosis and embolism; Z90.49 Acquired absence of other specified parts of digestive tract; Z89.029 Acquired absence of unspecified finger(s); Z79.4 Long term (current) use of insulin; Z79.899 Other long term (current) drug therapy; Z86.711 Personal history of pulmonary embolism; Z79.01 Long term (current) use of anticoagulants
CPT/HCPCS: 36415; 36416; 36592; 51702; 70450; 71045; 72125; 73110; 74176; 80053; 81001; 82962; 83605; 83690; 83735; 84100; 84145; 84484; 85025; 85378; 85610; 86140; 87040; 87086; 87493; 87506; 87635; 87641; 93005; 93308; 94760; 96365; 96372; 97110; 97161; 97530; 99285; J1200; J1644; J1720; J1815; J1885; J1956; J2270; J2405; J3475; J7030; J7040; J7512

== ENCOUNTER → 2022-04-19 11:52 | Outpatient (BNVA) | payer OTHER, SELFPAY | PROVIDERS: PCP Family Medicine; Visit Provider Internal Medicine Pulmonary Disease | DX: R91.8 Other nonspecific abnormal finding of lung field (principal); R06.02 Shortness of breath; Z71.85 Encounter for immunization safety counseling; Z79.899 Other long term (current) drug therapy; Z79.01 Long term (current) use of anticoagulants; J43.9 Emphysema, unspecified; F17.210 Nicotine dependence, cigarettes, uncomplicated; M05.10 Rheumatoid lung disease with rheumatoid arthritis of unspecified site; Z86.718 Personal history of other venous thrombosis and embolism; Z86.711 Personal history of pulmonary embolism | CPT/HCPCS: 99204 ==

== ENCOUNTER → 2022-04-27 10:51 | Outpatient (BNVA) | payer OTHER, SELFPAY | PROVIDERS: PCP Family Medicine; Visit Provider Internal Medicine Rheumatology | DX: M06.9 Rheumatoid arthritis, unspecified (principal); Z79.899 Other long term (current) drug therapy; Z71.85 Encounter for immunization safety counseling; Z11.59 Encounter for screening for other viral diseases; Z11.1 Encounter for screening for respiratory tuberculosis; Z86.718 Personal history of other venous thrombosis and embolism; Z86.711 Personal history of pulmonary embolism; Z79.01 Long term (current) use of anticoagulants; E11.9 Type 2 diabetes mellitus without complications; Z79.4 Long term (current) use of insulin | CPT/HCPCS: 99214 ==

== ENCOUNTER → 2022-05-10 09:14 | Outpatient (BNVA) | payer OTHER, SELFPAY | PROVIDERS: PCP Family Medicine; Visit Provider Internal Medicine Cardiovascular Disease | DX: R06.02 Shortness of breath (principal); I10 Essential (primary) hypertension; E11.9 Type 2 diabetes mellitus without complications; Z79.4 Long term (current) use of insulin; F17.210 Nicotine dependence, cigarettes, uncomplicated | CPT/HCPCS: 99214 ==

== ENCOUNTER 2022-06-01 12:43 | Outpatient (CLI) | payer OTHER, SELFPAY | END 2022-06-01 12:44 | disposition home or self-care (01) | LOC: RT 12:46 | PROVIDERS: PCP Family Medicine; Visit Provider Internal Medicine Pulmonary Disease | DX: R06.02 Shortness of breath (principal) | CPT/HCPCS: 94060; 94726; 94729 ==

== ENCOUNTER 2022-06-10 13:22 | Outpatient (CLI) | payer OTHER, SELFPAY ==
--- NOTE | 2022-06-10 14:00 | CT_ITS ---
WS: [id number] CT scan of the chest without IV contrast, additional two-dimensional coronal and sagittal reconstruct ion was performed. 06/10/2022 Clinical Data: f/u lung nodule Comparison: CT chest, 03/02/2022 DLP: 739.[address] scans at [facility] use at least one of these dose optimization techniques: automated e xposure control; mA and/or kV adjustment per patient size (includes targeted exams where dose is matc hed to clinical indication); or iterative reconstruction. Findings: The left upper lobe pleural-based density has not changed in size or appearance. Although this may re present a slowly growing malignancy a benign lesion is also possible. The remainder of the lungs show s no masses, nodules or effusions. The heart size is normal with no pericardial effusion. There are c oronary artery calcifications. The trachea bifurcates normally into the bronchi. The pulmonary arteri al system and thoracic aorta demonstrate no dilatations. There is no axillary or significant mediasti nal adenopathy. The thoracic spine shows mild osteoarthritis. The upper abdomen demonstrates clips in the right upper quadrant from a cholecystectomy. The liver, s pleen, pancreas and adrenal glands are unremarkable. There are probable cysts in the upper poles of b oth kidneys. CT/CT chest wo con [id number] Impression: 1. No change in left upper lobe pleural-based density. 2. Recommend repeat CT chest in 3 months.
== END 2022-06-10 13:23 | disposition home or self-care (01) ==
LOC: RAD 13:23
PROVIDERS: PCP Family Medicine; Visit Provider Internal Medicine Pulmonary Disease
DX: R91.8 Other nonspecific abnormal finding of lung field (principal)
CPT/HCPCS: 71250